=== PATIENT | female | born 1940 | race Caucasian/White ===

== ENCOUNTER 2018-02-20 16:00 | Inpatient (IN) | payer OTHER ==
[2018-02-20 16:40] LABS: Absolute Lymphocytes (CBC) 1.1 K/uL (0.7-4.9); Absolute Monocytes 0.7 K/uL (0.1-1.3); Absolute Neutrophil 4.7 K/uL (1.8-8.0); Basophils % 0.8 % (0-1.3); Hematocrit 35.9 % (36.0-45.0); Lymphocytes % 16.2 % (15.3-44.8); MCH 30.8 pg (27.0-35.0); MCV 93.7 fL (80-100); Monocytes % 9.4 % (3.3-12.3); RBC Red Blood Cell Count 3.83 M/uL (3.86-4.86)
[2018-02-20] MEDS ORDERED: LEVALBUTEROL 1.25 MG/3 ML NEB ONE (16:40)
[2018-02-20 16:41] LABS: Protime INR 1.35
[2018-02-20 17:08] LABS: ALT/SGPT 18 U/L (12-78); AST/SGOT 21 U/L (15-37); Albumin 3.3 g/dL (3.4-5.0); Alkaline Phosphatase 85 U/L (45-117); BUN Blood Urea Nitrogen 15 mg/dL (7-18); Bicarbonate 29 mmol/L (21-32); Bilirubin Direct 0.2 mg/dL (0-0.2); Bilirubin Total 0.5 mg/dL (0.2-1.0); Glucose Level 202 mg/dL (74-106); Magnesium 1.5 mg/dL (1.8-2.4); NT PRO-BNP 2168 pg/mL (<450); Potassium 3.7 mmol/L (3.5-5.1); Protein, Total 7.2 g/dL (6.4-8.2); Sodium Level 141 mmol/L (136-145); Troponin (Emerg Dept Use Only) < 0.02 ng/mL (0.0-0.045)
--- NOTE | 2018-02-20 17:16 | RAD REPORT ---
EXAM DESCRIPTION: Jaclyn Single View02/20/2018 5:06 pm CLINICAL HISTORY: Shortness breath COMPARISON: 2012 FINDINGS: The lungs appear clear of acute infiltrate. The heart is normal size. The right paratracheal region is more prominent than on the prior exam IMPRESSION: Prominence of the right paratracheal region may indicate lymphadenopathy, tortuous vesse ls or be secondary to positioning and technique. PA and lateral chest series is recommended for further evaluation
[2018-02-20] MEDS ORDERED: Magnesium Sulfate 2gm IVPB 2 G/50 ML BAG IV ONE (17:52)
--- NOTE | 2018-02-20 18:10 | RAD REPORT ---
EXAM DESCRIPTION: CT - Chest For Pe Angio - 02/20/2018 5:47 pm CLINICAL HISTORY: Chest pain. DYSPNEA COMPARISON: Chest Single View dated 02/20/2018 TECHNIQUE: CT angiogram of the pulmonary arteries was performed with MIP. All CT scans are performed using dose optimization technique as appropriate and may include automated exposure control or mA/KV adjustment according to patient size. FINDINGS: No evidence of pulmonary thromboembolism. No acute aortic finding demonstrated. Soft tissue masses in the right hilar region, posteriorly measuring 3.3 x 2.3 cm and laterally measur ing 3.4 x 1.9 cm noted, likely representing lymphadenopathy. Subcarinal lymphadenopathy also noted me asuring 14 mm. Trace bilateral pleural effusions. Respiratory artifact is present throughout the lungs but mild inte rstitial pulmonary edema is suspected. A small area of subsegmental atelectasis suspected in the righ t middle lobe. Mild cardiomegaly. No concerning bony finding. IMPRESSION: No evidence of pulmonary thromboembolism. Mediastinal and right hilar lymphadenopathy is suspected. The lymphadenopathy is greater than typical ly seen with a simple reactive process. A follow-up PET-CT scan on a nonemergent basis would be recom mended further assessment. Mild CHF/volume overload suspected with small bilateral pleural effusions.
--- NOTE | 2018-02-20 18:15 | ER ---
Nurse's Notes [facility] Name: Simon Flynn Age: 77 yrs Sex: Female : 1940 Arrival Date: 02/20/2018 Time: 16:01 Bed 4 Private MD: Charles Hammer Diagnosis: Acute combined systolic (congestive) and diastolic (congestive) heart failure Presentation: 02/20 16:03 Presenting complaint: Patient states: She has been short of breath and wheezing for the aj1 past 5 days. Patient appears short of breath in triage. Breath sounds with wheezes bilaterally. Reports productive cough. Denies fever. Transition of care: patient was not received from another setting of care. Onset of symptoms was February 16, 2018. Risk Assessment: Do you want to hurt yourself or someone else? Patient reports no desire to harm self or others. Initial Sepsis Screen: Does the patient meet any 2 criteria? RR > 20 per min. HR > 90 bpm. Yes Does the patient have a suspected source of infection? Yes: Productive cough/pneumonia. Care prior to arrival: None. 16:03 Method Of Arrival: Wheelchair aj1 16:03 Acuity: VELASQUEZ 2 aj1 Historical: - Allergies: 16:06 No Known Allergies; aj1 - Home Meds: 19:15 aspirin 81 mg Oral TbEC 1 tab once daily [Active]; Colace 100 mg Oral cap 2 caps once lp1 daily [Active]; Crestor 10 mg Oral tab 1 tab once daily [Active]; Detrol LA 4 mg Oral cp24 1 cap once daily [Active]; folic acid 400 mcg Oral tab 1 tab once daily [Active]; gabapentin 600 mg Oral tab 1 tab nightly [Active]; lansoprazole 30 mg Oral cpDR 1 cap once daily [Active]; metoprolol tartrate 50 mg Oral tab 1 tab once daily [Active]; Ocuvite [id number] cz-[id number]-mg Oral cap daily [Active]; Plavix 75 mg Oral tab 1 tab once daily [Active]; prednisone 5 mg Oral tab 1 tab once daily [Active]; quinapril 20 mg Oral tab 1 tab once daily [Active]; sertraline 25 mg Oral tab 1 tab once daily [Active]; Synthroid 125 mcg Oral tab 1 tab once daily [Active]; - PMHx: 16:06 Back pain; Diabetes - NIDDM; High Cholesterol; Hypertension; Hypothyroidism; Lupus; aj1 - Immunization history:: Flu vaccine is up to date. - Social history:: Smoking status: Patient/guardian denies using tobacco. - Ebola Screening: : Patient denies travel to an Ebola-affected area in the 21 days before illness onset. Screenin:22 Abuse screen: Denies threats or abuse. Denies injuries from another. Nutritional bp screening: No deficits noted. Tuberculosis screening: No symptoms or risk factors identified. Fall Risk None identified. Assessment: 16:20 General: Appears distressed, comfortable, obese, Behavior is cooperative, appropriate bp for age, anxious. Pain: Denies pain. Neuro: Level of Consciousness is awake, alert, obeys commands, Oriented to person, place, time, situation, Appropriate for age. Cardiovascular: Rhythm is sinus tachycardia. Respiratory: Airway is patent Respiratory effort is even, labored, Respiratory pattern is symmetrical, Breath sounds with wheezes. GI: No signs and/or symptoms were reported involving the gastrointestinal system. : No signs and/or symptoms were reported regarding the genitourinary system. EENT: No deficits noted. Derm: No deficits noted. Musculoskeletal: Circulation, motion, and sensation intact. Range of motion: intact in all extremities. 17:17 Reassessment: ALL CURRENT ORDERS COMPLETED, RESULTS PENDING. bp 17:32 Reassessment: PT TO CT WITH [employer]. bp 18:07 Reassessment: ALL CURRENT ORDERS COMPLETED, CT RESULTS PENDING FOR DISPO. bp 19:10 Reassessment: Patient appears in no apparent distress at this time. Neuro: Level of lp1 Consciousness is awake, alert, obeys commands. Respiratory: Reports shortness of breath at rest Respiratory effort is even, labored, Breath sounds are diminished bilaterally. Onset: The symptoms/episode began/occurred gradually, the patient has moderate shortness of breath. Derm: Skin is pink, warm \T\ dry. 20:15 Reassessment: Patient assisted with brief change after voiding. lp1 Vital Signs: 16:06 BP 140 / 86; Pulse 131; Resp 24; Temp 97.2; Pulse Ox 92% on R/A; aj1 17:14 BP 149 / 93; Pulse 133; Resp 18; Pulse Ox 95% ; bp 18:07 BP 138 / 63; Pulse 52; Resp 14; Pulse Ox 97% ; bp 19:11 BP 155 / 74; Pulse 90; Resp 22; Temp 98.9(O); Pulse Ox 97% on 2 lpm NC; lp1 20:18 BP 121 / 60; Pulse 111; Resp 20; Pulse Ox 99% on 2 lpm NC; lp1 ED Course: 16:01 Patient arrived in ED. rg4 16:01 Charles Hammer MD is Private Physician. rg4 16:06 Triage completed. aj1 16:06 Arm band placed on Patient placed in an exam room. aj1 16:07 Keith Galvan PA is PHCP. jr8 16:07 Germán Allen MD is Attending Physician. jr8 16:08 Ezio Whitten RN is Primary Nurse. bp 16:22 Patient has correct armband on for positive identification. Placed in gown. Bed in low bp position. Call light in reach. Side rails up X2. 16:30 Inserted saline lock: 20 gauge in right forearm, using aseptic technique. Blood bp collected. 16:36 EKG done, by pyrotechnician. reviewed by Keith DAVILA. 3 17:06 X-ray completed. Portable x-ray completed in exam room. Patient tolerated procedure mh1 well. 17:07 XRAY Chest (1 view) In Process Unspecified. EDMS 17:48 CT Chest For PE Angio In Process Unspecified. EDMS 18:14 Charles Hammer MD is Hospitalizing Provider. jr8 19:12 No provider procedures requiring assistance completed. Patient admitted, IV remains in lp1 place. Administered Medications: 16:40 Drug: Xopenex 1.25 mg Route: Inhalation; bp 17:45 Drug: Magnesium Sulfate 2 grams Route: IVPB; Infused Over: 2 hrs; Site: right forearm; bp 18:53 Drug: Lasix 40 mg Route: IVP; Site: right forearm; bp 19:20 Follow up: Response: No adverse reaction lp1 Outcome: 18:14 Decision to Hospitalize by Provider. jr8 19:15 Condition: stable lp1 19:15 Instructed on the need for admit. 19:28 Admitted to Tele via stretcher, room 426, with oxygen, with chart, Report called to lp1 ARASH Rashid 20:30 Patient left the ED. lp1 Signatures: Dispatcher [employer] EDMS Bhumi Marie RN RN aj1 Bernie Avalos 1 Mary Resendiz RN RN lp1 Keith Galvan PA PA jr8 Tanika Gomez rg4 Ezio Whitten RN RN Hanna Alarcon 3 Corrections: (The following items were deleted from the chart) 19:12 19:10 Respiratory: Respiratory effort is even, labored, Breath sounds are diminished lp1 bilaterally. lp1 20:48 20:47 Patient left the ED. lp1 lp1
--- NOTE | 2018-02-20 18:15 | EDPHYS ---
Physician Documentation [facility] Name: Simon Flynn Age: 77 yrs Sex: Female : 1940 Arrival Date: 02/20/2018 Time: 16:01 Bed 4 Private MD: Charles Hammer ED Physician Germán Allen HPI: 02/20 16:30 This 77 yrs old Female presents to ER via Wheelchair with complaints of jr8 Breathing Difficulty. 16:30 The patient has shortness of breath at rest. Onset: The symptoms/episode began/occurred jr8 gradually, 4 day(s) ago. Duration: The symptoms are continuous. The patient's shortness of breath is aggravated by light activity. Associated signs and symptoms: Pertinent positives: non-productive cough. Severity of symptoms: in the emergency department the symptoms are unchanged. The patient has not experienced similar symptoms in the past. The patient has not recently seen a physician. Historical: - Allergies: 16:06 No Known Allergies; aj1 - Home Meds: 19:15 aspirin 81 mg Oral TbEC 1 tab once daily [Active]; Colace 100 mg Oral cap 2 caps once lp1 daily [Active]; Crestor 10 mg Oral tab 1 tab once daily [Active]; Detrol LA 4 mg Oral cp24 1 cap once daily [Active]; folic acid 400 mcg Oral tab 1 tab once daily [Active]; gabapentin 600 mg Oral tab 1 tab nightly [Active]; lansoprazole 30 mg Oral cpDR 1 cap once daily [Active]; metoprolol tartrate 50 mg Oral tab 1 tab once daily [Active]; Ocuvite 147-12-9-150 of-nasd-ca-mg Oral cap daily [Active]; Plavix 75 mg Oral tab 1 tab once daily [Active]; prednisone 5 mg Oral tab 1 tab once daily [Active]; quinapril 20 mg Oral tab 1 tab once daily [Active]; sertraline 25 mg Oral tab 1 tab once daily [Active]; Synthroid 125 mcg Oral tab 1 tab once daily [Active]; - PMHx: 16:06 Back pain; Diabetes - NIDDM; High Cholesterol; Hypertension; Hypothyroidism; Lupus; aj1 - Immunization history:: Flu vaccine is up to date. - Social history:: Smoking status: Patient/guardian denies using tobacco. - Ebola Screening: : Patient denies travel to an Ebola-affected area in the 21 days before illness onset. ROS: 16:48 Eyes: Negative for injury, pain, redness, and discharge, ENT: Negative for injury, jr8 pain, and discharge, Neck: Negative for injury, pain, and swelling, Cardiovascular: Negative for chest pain, palpitations, and edema, Abdomen/GI: Negative for abdominal pain, nausea, vomiting, diarrhea, and constipation, Back: Negative for injury and pain, MS/Extremity: Negative for injury and deformity, Skin: Negative for injury, rash, and discoloration, Neuro: Negative for headache, weakness, numbness, tingling, and seizure. 16:48 Respiratory: Positive for cough, shortness of breath. Exam: 16:48 Eyes: Pupils equal round and reactive to light, extra-ocular motions intact. Lids and jr8 lashes normal. Conjunctiva and sclera are non-icteric and not injected. Cornea within normal limits. Periorbital areas with no swelling, redness, or edema. ENT: Nares patent. No nasal discharge, no septal abnormalities noted. Tympanic membranes are normal and external auditory canals are clear. Oropharynx with no redness, swelling, or masses, exudates, or evidence of obstruction, uvula midline. Mucous membranes moist. Neck: Trachea midline, no thyromegaly or masses palpated, and no cervical lymphadenopathy. Supple, full range of motion without nuchal rigidity, or vertebral point tenderness. No Meningismus. Abdomen/GI: Soft, non-tender, with normal bowel sounds. No distension or tympany. No guarding or rebound. No evidence of tenderness throughout. Back: No spinal tenderness. No costovertebral tenderness. Full range of motion. Skin: Warm, dry with normal turgor. Normal color with no rashes, no lesions, and no evidence of cellulitis. MS/ Extremity: Pulses equal, no cyanosis. Neurovascular intact. Full, normal range of motion. Neuro: Awake and alert, GCS 15, oriented to person, place, time, and situation. Cranial nerves II-XII grossly intact. Motor strength 5/5 in all extremities. Sensory grossly intact. Cerebellar exam normal. Normal gait. 16:48 Cardiovascular: Rate: tachycardic, Rhythm: regular, Pulses: Pulses are 2+ in right radial artery and left radial artery. Heart sounds: normal, normal S1and S2, no S3 or S4, no murmur, no rub, no gallop, Edema: is not appreciated. 16:48 Respiratory: mild respiratory distress is noted, Respirations: tachypnea, Breath sounds: wheezing: expiratory that is mild, is heard in the left posterior lower lobe, right posterior middle lobe and right posterior lower lobe. Vital Signs: 16:06 BP 140 / 86; Pulse 131; Resp 24; Temp 97.2; Pulse Ox 92% on R/A; aj1 17:14 BP 149 / 93; Pulse 133; Resp 18; Pulse Ox 95% ; bp 18:07 BP 138 / 63; Pulse 52; Resp 14; Pulse Ox 97% ; bp 19:11 BP 155 / 74; Pulse 90; Resp 22; Temp 98.9(O); Pulse Ox 97% on 2 lpm NC; lp1 20:18 BP 121 / 60; Pulse 111; Resp 20; Pulse Ox 99% on 2 lpm NC; lp1 MDM: 16:08 Patient medically screened. jr8 18:13 Data reviewed: vital signs, nurses notes, lab test result(s), EKG, radiologic studies, jr8 CT scan, plain films. Counseling: I had a detailed discussion with the patient and/or guardian regarding: the historical points, exam findings, and any diagnostic results supporting the discharge/admit diagnosis, lab results, radiology results, the need for further work-up and treatment in the hospital. 18:46 Physician consultation: Charles Hammer MD was contacted at 18:47, regarding admission, pm1 patient's condition, and will see patient. 02/20 16:19 Order name: Basic Metabolic Panel; Complete Time: 17:16 02/20 16:19 Order name: CBC with Diff; Complete Time: 16:43 02/20 16:19 Order name: LFT's; Complete Time: 17:16 02/20 16:19 Order name: Magnesium; Complete Time: 17:16 02/20 16:19 Order name: NT PRO-BNP; Complete Time: 17:16 02/20 16:19 Order name: PT-INR; Complete Time: 16:48 02/20 16:19 Order name: Troponin (emerg Dept Use Only); Complete Time: 17:16 02/20 16:19 Order name: XRAY Chest (1 view); Complete Time: 17:16 8 02/20 16:19 Order name: EKG; Complete Time: 16:20 8 02/20 16:19 Order name: Cardiac monitoring; Complete Time: 16:24 8 02/20 17:17 Order name: CT Chest For PE Angio; Complete Time: 18:11 8 02/20 16:19 Order name: EKG - Nurse/Tech; Complete Time: 16:35 8 02/20 16:19 Order name: IV Saline Lock; Complete Time: 16:35 8 02/20 16:19 Order name: Labs collected and sent; Complete Time: 16:35 8 02/20 16:19 Order name: O2 Per Protocol; Complete Time: 16:24 8 02/20 16:19 Order name: O2 Sat Monitoring; Complete Time: 16:24 Administered Medications: 16:40 Drug: Xopenex 1.25 mg Route: Inhalation; bp 17:45 Drug: Magnesium Sulfate 2 grams Route: IVPB; Infused Over: 2 hrs; Site: right forearm; bp 18:53 Drug: Lasix 40 mg Route: IVP; Site: right forearm; bp 19:20 Follow up: Response: No adverse reaction lp1 Disposition: 02/21 07:25 Co-signature as Attending Physician, Germán Allen MD I agree with the assessment and becky plan of care. Disposition: 02/20/18 18:14 Hospitalization ordered by Charles Hammer for Inpatient Admission. Preliminary diagnosis is Acute combined systolic (congestive) and diastolic (congestive) heart failure. - Bed requested for Telemetry/MedSurg (Inpatient). - Status is Inpatient Admission. lp1 - Condition is Stable. - Problem is new. - Symptoms have improved. UTI on Admission? No Signatures: Dispatcher [employer] EDMS Bhumi Marie RN RN aj1 Renetta Lovell RN RN dw Anderson, Corey, MD MD cha Pena, Laura, RN RN lp1 Keith Galvan PA PA jr8 Florentino Moon, PANDA FIN[employer]CIAL REP pm1 Ezio Whitten RN RN bp Corrections: (The following items were deleted from the chart) 02/20 19:03 18:14 Hospitalization Ordered by Charles Hammer MD for Inpatient Admission. Preliminary dw diagnosis is Acute combined systolic (congestive) and diastolic (congestive) heart failure. Bed requested for Telemetry/MedSurg (Inpatient). Status is Inpatient Admission. Condition is Stable. Problem is new. Symptoms have improved. UTI on Admission? No. jr8 20:47 19:03 02/20/2018 18:14 Hospitalization Ordered by Charles Hammer MD for Inpatient lp1 Admission. Preliminary diagnosis is Acute combined systolic (congestive) and diastolic (congestive) heart failure. Bed requested for Telemetry/MedSurg (Inpatient). Status is Inpatient Admission. Condition is Stable. Problem is new. Symptoms have improved. UTI on Admission? No. dw
[2018-02-20] MEDS ORDERED: FUROSEMIDE 40 MG/4 ML VIAL ONE (18:50)
[2018-02-20] MEDS ORDERED: ALBUTEROL 2.5 MG/3 ML NEB SOL NEB PRN (21:33)
[2018-02-20] MEDS ORDERED: ACETAMINOPHEN 500 MG TAB PO PRN (21:33)
[2018-02-20] MEDS ORDERED: ONDANSETRON 4 MG/2 ML VIAL IV PRN (21:33)
[2018-02-20] MEDS ORDERED: D50W 25 GM/50 ML SYRINGE IV PRN (22:13)
[2018-02-20] MEDS ORDERED: GLUCAGON 1 MG/VIAL IM PRN (22:13)
[2018-02-21 00:16] LABS: Urine Appearance CLEAR; Urine Bilirubin NEGATIVE (NEG); Urine Blood NEGATIVE (NEG); Urine Color YELLOW; Urine Glucose NEGATIVE (NEG); Urine Protein NEGATIVE (NEG); Urine Specific Gravity 1.015 (1.005-1.030); Urine Urobilinogen 0.2 mg/dL (0.2-1.0); Urine pH 5.5 (5.0-7.0)
[2018-02-21 00:50] LABS: Urine Microscopic Reflex NO UMIC
--- NOTE | 2018-02-21 01:54 | HP ---
Date of Admission: 02/20/2018 Chief Complaint: Shortness of breath. History Of Present Illness: This is a 77-year-old female patient who was having increasing shortness of breath for last few days. She has some cough, chest congestion, coughing up occasional yellowish-colored to clear mucus. No fever. No chills. Today, she was at physical therapy department; and while she was there, she was having so extreme shortness of breath. She gets short of breath with feeling very weak with any day-to-day activity, and I was contacted from this therapy department. Her oxygen saturation was 85%, which came up to 92% while resting. She was asked to come to emergency room after she was evaluated in the ER, she was admitted to the hospital. I saw her in the emergency room this evening. The patient was given diuretic therapy and has diuresed well and has started to feel better. Allergies: HYDROXYCHLOROQUINE. Medications: List reviewed. Review of Systems: Respiratory: As mentioned above. Cardiovascular: As mentioned above. All other systems reviewed and negative. Social History: Negative for smoking or alcohol use. Family History: Significant for myocardial infarction, stroke, and congestive heart failure. Past Surgical History: Significant for back surgery and carpal tunnel syndrome surgery. Past Medical History: Significant for hypertension, type 2 diabetes mellitus, hyperlipidemia, thrombocytopenia, osteoarthritis, chronic kidney disease stage 3 , systemic lupus erythematosus, and hypothyroidism. Physical Examination: Vital Signs: Initial temperature 97.2, pulse 131, respiratory rate 24, blood pressure 141/86, height 4 feet 11 inches, and weight 234 pounds. I do not believe that the patient's height is recorded accurately as she is taller than 4 feet and 11 inches. General: Awake, alert, oriented, not in distress. HEENT: Head atraumatic, normocephalic. Conjunctivae nonerythematous. Sclerae white. Mouth, no thrush or edema noted. Ears/Nose, no mass, lesion, discharge noted. Neck: Supple. No JVD, lymph nodes, bruit, thyromegaly noted. Lungs: Bilateral good equal air entry noted. Respiratory distress. Presence of some rales noted in lower lung hurtado. Heart: Normal heart sounds, no murmur or gallop. Abdomen: Soft, bowel sounds normal. No guarding, rigidity, tenderness, mass, hepatosplenomegaly, distention, or bruit noted. Extremities: Bilateral grade-2 pedal edema. Skin: No rash, ulcer, cellulitis. Lymphatics: No lymph node enlargement in neck, supraclavicular, infraclavicular region. Neuro: No focal neurological deficit. Chest: Unremarkable. External Genitalia: Deferred. Rectal: Deferred. Laboratory Data: White count 7, hemoglobin 11.8, and platelets 223. INR 1.35. Sodium 141, potassium 3.7, chloride 105, bicarb 29, BUN 15, creatinine 1.20, glucose 202, and magnesium 1.5. Liver function tests unremarkable. ProBNP 2168. Imaging: Chest x-ray: Prominence of right paratracheal region. CT scan of the chest per PE protocol: No evidence of pulmonary embolism. Mediastinal and right hilar adenopathy is suspected. CHF and volume overload pattern present with bilateral pleural effusion. Impression: 1. Congestive heart failure. 2. Anemia. 3. Hypertension. 4. Hyperlipidemia. 5. Diabetes mellitus. 6. Osteoarthritis, multiple sites. 7. Hypothyroidism. Plan: Admit the patient to hospital for further evaluation and management of this problem. The patient is appropriate for inpatient and is expected to spend 2 midnights in the hospital. We will go ahead and continue home medications per order. The patient received diuretic therapy. We will continue that. We will continue oxygen nebulizer treatment. We will get echocardiogram with Doppler done. Further plan of treatment will depend on echocardiogram findings. Details of plan of treatment were discussed with the patient. The patient should be of low-salt diet. DVT prophylaxis will be given per order. JANNA/NIYA Voice ID: [id number] MTDD
[2018-02-21 05:02] LABS: Absolute Lymphocytes (CBC) 1.2 K/uL (0.7-4.9); Absolute Monocytes 0.9 K/uL (0.1-1.3); Absolute Neutrophil 5.1 K/uL (1.8-8.0); Eosinophils % 6.2 % (0-4.4); Hematocrit 32.9 % (36.0-45.0); Lymphocytes % 15.3 % (15.3-44.8); MCH 31.4 pg (27.0-35.0); MCV 91.9 fL (80-100); MPV 10.8 fL (7.6-11.3); Monocytes % 11.2 % (3.3-12.3); RBC Red Blood Cell Count 3.58 M/uL (3.86-4.86)
[2018-02-21 05:12] LABS: Potassium 3.5 mmol/L (3.5-5.1)
--- NOTE | 2018-02-21 06:51 | EKG ---
Test Date: 2018-02-20 Test Time: 16:30:39 Professor Of Business Administration: RAPHAEL MEASUREMENT RESULTS: Intervals: Rate: 84 HI: 322 QRSD: 70 QT: 364 QTc: 430 [place]: P: 4 HI: 322 QRS: -87 T: 46 INTERPRETIVE STATEMENTS: Sinus rhythm with 1st degree AV block with premature atrial complexes Left axis deviation Low voltage QRS Abnormal ECG Compared to ECG 04/04/2011 10:41:01 Atrial premature complex(es) now present First degree AV block now present Left-axis deviation now present Low QRS voltage now present Right superior axis no longer present Incomplete right bundle-branch block no longer present Electronically Signed On 02-21-18 06:50:31 CDT by Elmer Barriga
[2018-02-21] MEDS: INSULIN -REGULAR HUMAN 50 UNIT/0.5 ML ML SQ SCH ×4 (07:30→21:00)
[2018-02-21] MEDS ORDERED: FUROSEMIDE 20 MG/ 2ML VIAL IV SCH (09:00)
[2018-02-21] MEDS ORDERED: DOCUSATE NA 100 MG CAP PO PRN (09:35)
[2018-02-21] MEDS ORDERED: HYDROCODONE/APAP 7.5/325 MG TAB PO PRN (09:35)
--- NOTE | 2018-02-21 10:46 | ECHO ---
HEIGHT: 4 ft 11 in WEIGHT: 233 lb 3.2 oz DATE OF STUDY: 02/21/[address]: Ruddy Galvan 2-DIMENSIONAL: YES M.MODE: YES DOPPLER: YES COLOR FLOW: YES TDS: YES PORTABLE: NO DEFINITY: NO BUBBLE STUDY: NO DIAGNOSIS: NEW ONSET HEART FAILURE CARDIAC HISTORY: CATHERIZATION: NO SURGERY: NO PROSTHETIC VALVE: NO PACEMAKER: NO MEASUREMENTS (cm) DIASTOLIC (NORMALS) SYSTOLIC (NORMALS) IVSd 1.0 (0.6-1.2) LA Diam 3.8 (1.9-4.0) LVEF 51% LVIDd 3.9 (3.5-5.7) LVIDs 2.9 (2.0-3.5) %FS 26% LVPWd 1.1 (0.6-1.2) Ao Diam 3.2 (2.0-3.7) 2 DIMENSIONAL ASSESSMENT: RIGHT ATRIUM: NORMAL LEFT ATRIUM: NORMAL RIGHT VENTRICLE: NORMAL LEFT VENTRICLE: NORMAL TRICUSPID VALVE: NORMAL MITRAL VALVE: NORMAL PULMONIC VALVE: NORMAL AORTIC VALVE: SCLEROSIS PERICARDIAL EFFUSION: NONE AORTIC ROOT: NORMAL LEFT VENTRICULAR WALL MOTION: NORMAL DOPPLER/COLOR FLOW: NO AORTIC STENOSIS OR AORTIC REGURGITATION. MILD TRICUSPID REGURGITATION. NORMAL RIGHT VENTRICULAR SYSTOLIC PRESSURE. COMMENTS: NORMAL LEFT VENTRICULAR EJECTION FRACTION. AORTIC SCLEROSIS WITH NO AORTIC STENOSIS OR AORTIC REGURGITATION. MILD TRICUSPID REGURGITATION. TECHNOLOGIST: Diamond STEPHENS
[2018-02-21] MEDS: ENOXAPARIN 40 MG/0.4 ML SQ SCH (11:04)
[2018-02-21] MEDS: Levofloxacin500mg IV 500 MG/100 ML BAG IV SCH (11:05)
[2018-02-21] MEDS: LISINOPRIL 20 MG TAB PO SCH (11:06)
[2018-02-21] MEDS: FUROSEMIDE 40 MG/4 ML VIAL IV SCH (11:06)
[2018-02-21] MEDS: METOPROLOL TAR 50 MG TAB PO SCH ×2 (11:07→20:37)
[2018-02-21] MEDS: FOLIC ACID 1 MG TABLET PO SCH (11:07)
[2018-02-21] MEDS: CLOPIDOGREL 75 MG TABLET PO SCH (11:07)
[2018-02-21] MEDS: predniSONE 5 MG TAB PO SCH (11:07)
[2018-02-21] MEDS: ASPIRIN 81 MG CHEWABLE TABLET PO SCH (11:08)
[2018-02-21] MEDS: PANTOPRAZOLE 40MG TABLET PO SCH (11:16)
--- NOTE | 2018-02-21 12:02 | P.CNS ---
Date of Consult: 02/21/18 Reason for Consult: Mediastinal adenopathy and wheezing Chief Complaint: Shortness of breath History of Present Illness: Patient is 77 years of age previously well over the weekend started complaining of wheezing shortness of breath on exertion no prior history of obstructive airways disease patient has never smoked no prior history of wheezing the history of lupus history of hypertension compliant with them patient denies any fever chills some productive cough Allergies hydroxychloroquine Allergy (Verified 02/21/18 02:20) unknown Home Medications: Aspirin Chewable [Aspirin Chewable*] 81 mg PO DAILY 02/21/18 C,E,Zinc,Copper 11/Ksjkl0z/Lut [Ocuvite Adult 50 Plus Softgel] 1 each PO DAILY 02/21/18 Clopidogrel Bisulfate [Plavix] 75 mg PO DAILY 02/21/18 Diphenhydramine [Benadryl Tab/Cap] 25 mg PO BEDTIME PRN PRN 02/21/18 Docusate [Colace Cap] 100 mg PO DAILY PRN 02/21/18 Folic Acid 0.4 mg PO DAILY 02/21/18 Gabapentin [Neurontin] 600 mg PO BEDTIME 02/21/18 Glimepiride [Amaryl] 2 mg PO BID 02/21/18 Hydrocodone Bit/Acetaminophen [Hydrocodon-Acetaminoph 7.5-325] 1 tab PO Q8H PRN 02/21/18 Lansoprazole [Prevacid] 30 mg PO DAILY 02/21/18 Levothyroxine [Synthroid] 125 mcg PO [id number] 02/21/18 Metoprolol Tartrate [Lopressor] 50 mg PO BID 02/21/18 Quinapril HCl [Accupril] 20 mg PO DAILY 02/21/18 Rosuvastatin [Crestor] 10 mg PO BEDTIME 02/21/18 Tolterodine Tartrate [Detrol LA*] 4 mg PO DAILY 02/21/18 predniSONE [Deltasone] 5 mg PO DAILY 02/21/18 - Past Medical/Surgical History Diabetic: Yes -: HTN -: HLD -: Hypothyroidism -: Lupus -: Depression -: Polyps in the intestin -: CVA (2009) Past Surgical History: Patient denies surgical history - Family History Father Medical History: Cancer Notes: brain bleed s/p fall Mother Notes: macular degeneration, depression, brain bleed as stated Sister Medical History: Heart disease, Kidney disease Notes: Heart failure as stated - Social History Smoking Status: Never smoker Alcohol use: Yes CD- Drugs: No Caffeine use: Yes Place of Residence: Home Review of Systems 10-point ROS is otherwise unremarkable General: Weakness Respiratory: Cough, Shortness of Breath Physical Examination Temp Pulse Resp BP Pulse Ox 98.2 F 95 H 20 145/70 H 96 02/21/18 08:00 02/21/18 11:07 02/21/18 08:00 02/21/18 11:07 02/21/18 08:00 General: Alert, Oriented x3 Neck: Supple Respiratory: Clear to auscultation bilaterally Cardiovascular: No edema, Regular rate/rhythm, Normal S1 S2 Gastrointestinal: Normal bowel sounds, Soft and benign Musculoskeletal: No clubbing, No swelling Integumentary: No rashes, No breakdown Laboratory Data (last 24 hrs) 02/20/18 16:30: PT 16.0 H, INR 1.35 02/20/18 16:30: WBC 7.0, Hgb 11.8 L, Hct 35.9 L, Plt Count 223 02/20/18 16:30: Sodium 141, Potassium 3.7, BUN 15, Creatinine 1.20, Glucose 202 H, Magnesium 1.5 L, Total Bilirubin 0.5, AST 21, ALT 18, Alkaline Phosphatase 85 - Problems (1) Shortness of breath Current Visit: Yes Status: Acute Plan: Patient is 77 years of age admitted with acute onset of shortness of breath wheezing dyspnea on exertion BNP elevated patient is mildly anemic CT scan does not show any pulmonary embolism she does however have mediastinal and right hilar adenopathy which is very prominent renal function is normal patient sat is 98% on 2 L patient's echocardiogram is normal continue with Lasix will need outpatient the distal biopsy for her lymphadenopathy that be done in [place] no clinical evidence of sepsis patient is a diabetic on low-dose prednisone trial of bronchodilators suspect that she has had chronic mediastinal adenopathy and this may be a viral induced problem as he she has also had some nonspecific abdominal complaints recently prescribed her dual air and the hospital where she could continue as an outpatient PET scan will not be helpful she will need a biopsy of the mediastinum
[2018-02-21] MEDS: DULERA 200/5 (MOMETASONE/FORMOTEROL) INHALER IH SCH ×2 (13:35→21:52)
[2018-02-21] MEDS: TOLTERODINE LA 4 MG CAP PO SCH (13:37)
[2018-02-21] MEDS: GABAPENTIN 300 MG CAP PO SCH (20:38)
[2018-02-21] MEDS: DIPHENHYDRAMINE 25 MG TAB/CAP PO PRN (20:38)
[2018-02-21] MEDS: ROSUVASTATIN 10 MG TAB PO SCH (20:38)
--- NOTE | 2018-02-22 00:03 | PN ---
Date of Progress Note: 02/21/2018 Subjective: The patient was seen this morning for followup. No new complaints or problems reported by the patient. She is coughing up some yellowish-colored mucus that she was showing me this morning . Objective: Vital Signs: Reviewed. HEENT: Unremarkable. Lungs: Clear to auscultation except some rales present, unchanged from yesterday. Not in respirator y distress. CARDIAC: Heart sounds normal. ABDOMEN: Soft. Bowel sounds normal. No guarding, rigidity, tenderness, or distention. Extremities: Bilateral leg edema present. Laboratory Data: White count 7.7, hemoglobin 11.3, platelets 218. Sodium 142, potassium is 3.5, chl oride 105, bicarb 28, BUN 15, creatinine 1, glucose 134. ProBNP 2205. Impression: 1.Congestive heart failure. 2.Rule out pneumonia. 3.Hypertension. 4.Diabetes mellitus. Plan: The patient's CAT scan finding discussed with her. We will go ahead and start empiric antibio tic which is Levaquin. Consult colorer machine. Follow up on echocardiogram results today. Lasix was changed to 40 mg IV daily. Continue current DVT prophylaxis, and I will see her tomorrow for follow up. JANNA/MODL Voice ID: [id number] Report ID: [id number]
[2018-02-22] MEDS: LEVOTHYROXINE SOD 0.125 MG TAB PO SCH (06:51)
[2018-02-22] MEDS: PANTOPRAZOLE 40MG TABLET PO SCH (06:51)
[2018-02-22] MEDS: INSULIN -REGULAR HUMAN 50 UNIT/0.5 ML ML SQ SCH ×4 (07:30→20:49)
[2018-02-22] MEDS: predniSONE 5 MG TAB PO SCH (08:41)
[2018-02-22] MEDS: LISINOPRIL 20 MG TAB PO SCH (08:41)
[2018-02-22] MEDS: DULERA 200/5 (MOMETASONE/FORMOTEROL) INHALER IH SCH ×2 (08:41→20:40)
[2018-02-22] MEDS: FOLIC ACID 1 MG TABLET PO SCH (08:44)
[2018-02-22] MEDS: METOPROLOL TAR 50 MG TAB PO SCH ×2 (08:44→20:41)
[2018-02-22] MEDS: CLOPIDOGREL 75 MG TABLET PO SCH (08:45)
[2018-02-22] MEDS: FUROSEMIDE 40 MG/4 ML VIAL IV SCH (08:45)
[2018-02-22] MEDS: ASPIRIN 81 MG CHEWABLE TABLET PO SCH (08:46)
[2018-02-22] MEDS: ENOXAPARIN 40 MG/0.4 ML SQ SCH (08:48)
[2018-02-22] MEDS: Levofloxacin500mg IV 500 MG/100 ML BAG IV SCH (09:44)
--- NOTE | 2018-02-22 11:26 | P.PN ---
Subjective Date of Service: 02/22/18 Chief Complaint: Shortness of breath Subjective: Improving (Shortness of breath is not) Review of Systems Unremarkable Physical Examination - Vital Signs Temperature: 97.5 F Blood Pressure: 108/52 Pulse: 68 Respirations: 18 Pulse Ox (%): 97 - Physical Exam General: Alert, Oriented x3 Respiratory: Clear to auscultation bilaterally Cardiovascular: No edema Assessment & Plan - Problems (Diagnosis) (1) Shortness of breath Current Visit: Yes Status: Acute Plan: Patient shortness of breath has improved continue with inhaled bronchodilators at home continue with diuretics I suggest spironolactone instead of Lasix patient has normal renal function probably has underlying element of diastolic dysfunction follow-up with me in 2 weeks will schedule an outpatient biopsy of a subcarinal
[2018-02-22] MEDS: TOLTERODINE LA 4 MG CAP PO SCH (14:35)
[2018-02-22] MEDS: ROSUVASTATIN 10 MG TAB PO SCH ×2 (20:40→20:42)
[2018-02-22] MEDS: DIPHENHYDRAMINE 25 MG TAB/CAP PO PRN (20:42)
[2018-02-22] MEDS: GABAPENTIN 300 MG CAP PO SCH (20:49)
--- NOTE | 2018-02-23 00:03 | PN ---
Date of Progress Note: 02/22/2018 Subjective: The patient was seen this morning for followup. No new complaints or problems reported by the patient. Overall, she feels better. Objective: Vital Signs: Reviewed. HEENT: Unremarkable. Lungs: Clear to auscultation except minimum rales noted in lower lung hurtado in basal region, not in any respiratory distress. Heart: Heart sounds normal. Abdomen: Soft. Bowel sounds are normal. No guarding, rigidity, tenderness, or distention. Extremities: Bilateral leg edema present but better than yesterday. Laboratory Data: Her echocardiogram done yesterday shows normal ejection fraction of 51% and echocar diogram was unremarkable. Impression: 1.Hilal and mediastinal lymphadenopathy. 2.Acute bronchitis. 3.Pulmonary mass. 4.Hypertension. 5.Diabetes mellitus. Originally, we were suspecting the patient to have congestive heart failure, but we do not believe th at she has that problem. Her leg swelling is much better compared to yesterday. We will go ahead an d continue Lasix today. Continue antibiotic Levaquin that she is currently getting. Plan is to give her 10 more days of Levaquin by mouth 500 mg p.o. daily starting tomorrow. Today, we will continue IV Levaquin. Plan is to discharge her to go home tomorrow. Details were discussed with Dr. Swanson and his consultation is appreciated. He is planning to send the patient on outpatient basis to [facility] [place] for biopsy for this abnormality noted on the CAT scan and the patient was made aware of this plan. JANNA/MODL Voice ID: [id number] Report ID: [id number]
[2018-02-23] MEDS: LEVOTHYROXINE SOD 0.125 MG TAB PO SCH (06:34)
[2018-02-23] MEDS: PANTOPRAZOLE 40MG TABLET PO SCH (06:34)
[2018-02-23] MEDS: INSULIN -REGULAR HUMAN 50 UNIT/0.5 ML ML SQ SCH ×3 (07:30→16:30)
[2018-02-23] MEDS: FUROSEMIDE 40 MG/4 ML VIAL IV SCH (10:03)
[2018-02-23] MEDS: DULERA 200/5 (MOMETASONE/FORMOTEROL) INHALER IH SCH (10:04)
[2018-02-23] MEDS: predniSONE 5 MG TAB PO SCH (10:04)
[2018-02-23] MEDS: LISINOPRIL 20 MG TAB PO SCH (10:04)
[2018-02-23] MEDS: METOPROLOL TAR 50 MG TAB PO SCH (10:04)
[2018-02-23] MEDS: ASPIRIN 81 MG CHEWABLE TABLET PO SCH (10:05)
[2018-02-23] MEDS: ENOXAPARIN 40 MG/0.4 ML SQ SCH (10:05)
[2018-02-23] MEDS: TOLTERODINE LA 4 MG CAP PO SCH (10:05)
[2018-02-23] MEDS: CLOPIDOGREL 75 MG TABLET PO SCH (10:05)
[2018-02-23] MEDS: Levofloxacin500mg IV 500 MG/100 ML BAG IV SCH (12:28)
[2018-02-23] MEDS: FOLIC ACID 1 MG TABLET PO SCH (12:29)
--- NOTE | 2018-02-24 06:12 | DS ---
Date of Discharge: 02/23/2018 Disposition: Discharged to go home. Physical Examination: HEENT: Unremarkable. Lungs: Clear to auscultation. Heart: Sounds normal. Abdomen: Soft. Bowel sounds normal. No guarding, rigidity, tenderness, or distention. Extremities: Trace leg edema. Hospital Course: A 77-year-old female patient admitted to the hospital with complaints of shortness of breath. Please see dictated H and P for more information. When she first came in, her WBC count was 7. Hemoglobin was 11.8, platelets 223. Liver function tests unremarkable. ProBNP was 2168. So dium 141, potassium of 3.7, chloride 105, bicarb 29, BUN 15, creatinine 1.20, and glucose 202. Chest x-ray had shown prominence of right paratracheal region. CAT scan of the chest per PE protocol was negative for pulmonary embolism, but it did show evidence of mediastinal and right hilar adenopathy a nd CHF/volume overload pattern present with bilateral pleural effusion. Dr. Swanson from Pulmonary was consulted, and he was consulted for this abnormal CAT scan of the chest. The patient was given D VT prophylaxis during this hospitalization. She was also given IV diuretic therapy using Lasix. She diuresed well. Her leg swelling improved. Shortness of breath complaints improved. She also was h aving problems with cough, chest congestion, and was coughing up some yellowish-colored mucus for few days prior to admission, and empiric antibiotics were started using Levaquin. Echocardiogram showed normal ejection fraction. Dr. Swanson has suggested outpatient elective biopsy of this mediastinal and hilar adenopathy area to be done in [place], and he will make that arrangement on outpatient bas is when he sees the patient for followup in 2 weeks. The patient was made aware of this plan. She c vinita in with sinus rhythm; but after her admission to the hospital, she did convert to atrial fibrilla tion during this hospitalization as it was noted on telemetry. She was asymptomatic. Heart rate was controlled. Dr. Barriga was consulted from Cardiology. I did talk to him in detail today, and he h as suggested no further intervention at this point, considering the patient is planning to go for dorothy g biopsy; and after the biopsy is done, if she still remains in atrial fibrillation, then we will con kiln loader anticoagulation therapy at that point. Discharge Medications And Instructions: 1.Continue all prior home medications. 2.Take Levaquin 500 mg p.o. daily for 10 days and spironolactone 25 mg p.o. daily. 3.Follow up at my office in 2 weeks and follow up with Dr. Swanson in 2 weeks. Discharge Diagnoses: 1.Congestive heart failure, acute, diastolic. 2.Mediastinal and hilar adenopathy. 3.Atrial fibrillation, paroxysmal. 4.Anemia, unspecified. 5.Hypertension. 6.Type 2 diabetes mellitus. 7.Hyperlipidemia. 8.Osteoarthritis, multiple sites. 9.Hypothyroidism. JANNA/MODL Voice ID: [id number] Report ID: [id number]
--- NOTE | 2018-02-24 07:48 | CON ---
Date of Consultation: 02/23/2018 Reason For Consultation: Atrial fibrillation. History Of Present Illness: Mrs. Flynn is a 77-year-old. 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 S he basically had come in with COPD exacerbation. She was in normal rhythm on admission, but througho ut her admission, she went into atrial fibrillation that is rate controlled at 76 without any symptom s. She initially had had an abnormal CT scan of the chest showing mild congestive heart failure, lym phadenopathy. There was question about the lymphadenopathy being malignant. There is a plan for her to have an outpatient biopsy of her lymph nodes in [place]. This is being arranged by Dr. Swanson. She has a history of hypertension, hypothyroidism, neuropathy, gastroesophageal reflux disease, dys lipidemia, and COPD. She also has had a history of diabetes and lupus, chronic back pain. She had a CVA in 2009 and has a history of depression. She is asymptomatic now. Past Medical History: As stated above. Allergies: NONE. Review of Systems: Negative. Social History: Negative for tobacco. Medications: At home include aspirin, Plavix, Lasix, metoprolol 50 b.i.d., lisinopril, thyroid medic ine, Neurontin, Protonix, Zocor, prednisone, and inhalers. She is also now on Lovenox. Physical Examination: Vital Signs: She is in atrial fibrillation, rate of 80. HEENT: Negative. Neck: Supple without any bruit, lymphadenopathy, JVD, or thyromegaly. Chest: Revealed some expiratory wheezing, but no rales. Cardiac Exam: Revealed atrial fibrillation. No murmurs, gallops, or rubs. Abdomen: Benign. Extremities: Revealed no clubbing, cyanosis, or edema. Diagnostic Data: She had an EKG initially showing sinus rhythm with PACs, is now in atrial fibrillat ion, rate controlled. Echocardiogram was normal. CT scan and chest x-ray were as stated earlier. H er laboratory evaluation is fairly unremarkable. Impression And Plan: 1.Paroxysmal atrial fibrillation, now sustained. The patient is on beta-shell, aspirin, and Plavi x. She has a normal echocardiogram. She has a very high CHADS score and she does need to be on anti coagulation, such as Eliquis or Xarelto, but I would wait until the lymph node biopsy is done before we start that. We can always make arrangements for that as an outpatient. For now, I would continue her present regimen with aspirin and Plavix and beta-blockers. I am sure the Plavix will be held as well prior to her lymph node biopsy. The patient has a rate controlled and is asymptomatic and her echo is normal. 2.History of dyslipidemia. 3.History of hypertension. 4.History of lupus. 5.Chronic back pain. 6.Chronic obstructive pulmonary disease. 7.History of cerebrovascular accident in 2009. 8.Depression. 9.History of deep venous thrombosis when she was younger and pulmonary embolus, requiring Coumadin m any years ago. The case was discussed with Dr. Hammer. She can go home and I will see her as an outpatient. EMILY/NIYA Voice ID: [id number] Report ID: [id number]
--- NOTE | 2018-02-24 07:52 | EKG ---
Test Date: 2018-02-23 Test Time: 09:37:36 Packaging Machine Operator: MEGHAN MEASUREMENT RESULTS: Intervals: Rate: 60 OK: 164 QRSD: 68 QT: 442 QTc: 442 [place]: P: 90 OK: 164 QRS: -89 T: 54 INTERPRETIVE STATEMENTS: Sinus tachycardia with 2nd degree AV block with 3:1 AV conduction Left axis deviation Pulmonary disease pattern Abnormal ECG Compared to ECG 02/20/2018 16:30:39 Sinus rhythm no longer present Atrial premature complex(es) no longer present First degree AV block no longer present Electronically Signed On 02-24-18 07:49:05 CDT by Elmer Barriga
== END 2018-02-23 20:00 | disposition home or self-care (01) | DRG 291 ==
LOC: ER 16:00 → ERHOLD 18:16 → 4TH 19:35
PROVIDERS: ADMIT Internal Medicine; ATTEND Internal Medicine
DX: I13.0 Hypertensive heart and chronic kidney disease with heart failure and stage 1 through stage 4 chronic kidney disease, or unspecified chronic kidney disease (principal); I50.31 Acute diastolic (congestive) heart failure; I48.0 Paroxysmal atrial fibrillation; D64.9 Anemia, unspecified; E78.5 Hyperlipidemia, unspecified; M19.90 Unspecified osteoarthritis, unspecified site; E03.9 Hypothyroidism, unspecified; M32.9 Systemic lupus erythematosus, unspecified; E11.22 Type 2 diabetes mellitus with diabetic chronic kidney disease; N18.3 Chronic kidney disease, stage 3 (moderate); Z86.73 Personal history of transient ischemic attack (TIA), and cerebral infarction without residual deficits; R59.0 Localized enlarged lymph nodes; J20.9 Acute bronchitis, unspecified; R91.8 Other nonspecific abnormal finding of lung field
CPT/HCPCS: 36415; 71045; 71275; 80048; 80076; 81003; 82962; 83735; 83880; 84484; 85025; 85610; 93005; 93306; 94640; 96374; 96375; 99285; J1650; J3475; J7512; J7606; Q9967

== ENCOUNTER 2018-12-06 16:40 | Emergency (ER) | payer OTHER ==
--- OUTSIDE RECORDS SUMMARY | 2018-12-06 16:43 | XMS REPORT | Clinical Summary ---
:1940 Author Organization [facility] Address [address] [place] [address] Care Team Providers Name Role Phone Charles Hammer MD Primary Care Provider Allergies No Known Allergies Medications Medication Sig Dispensed Refills Start Date End Date Status cholestyramine 0 05/25/2018 Active (QUESTRAN) 4 gram packet PREVALITE 4 gram 0 04/16/2018 Active powder in packet clopidogrel (PLAVIX) 0 05/31/2018 Active 75 mg tablet gabapentin 0 05/31/2018 Active (NEURONTIN) 300 mg capsule HYDROcodone-acetamino 0 05/17/2018 Active phen (NORCO) 7.5-325 mg per tablet levothyroxine 0 06/08/2018 Active (SYNTHROID, LEVOXYL) 125 mcg tablet lisinopril 0 05/31/2018 Active (PRINIVIL,ZESTRIL) 20 mg tablet oxybutynin XL 0 03/07/2018 Active (DITROPAN-XL) 10 MG 24 hr tablet pantoprazole 0 06/01/2018 Active (PROTONIX) 40 MG EC tablet predniSONE 0 03/12/2018 Active (DELTASONE) 5 mg tablet rosuvastatin 0 05/31/2018 Active (CRESTOR) 10 MG tablet sertraline (ZOLOFT) 0 05/29/2018 Active 25 MG tablet spironolactone 0 05/25/2018 Active (ALDACTONE) 25 MG tablet triamcinolone 0 06/01/2018 Active (KENALOG) 0.1 % cream metoprolol tartrate Take 25 mg 0 Active (LOPRESSOR) 25 mg by mouth 2 tablet (two) times a day. lansoprazole Take 15 mg 0 Active (PREVACID) 15 MG by mouth capsule daily. cyanocobalamin, Place under 0 Active vitamin B-12, the tongue. (VITAMIN B-12) 1,000 mcg tablet, sublingual cholecalciferol, Take 2,000 0 Active vitamin D3, (VITAMIN Units by D3) 2,000 unit mouth daily. capsule capsule ciprofloxacin (CIPRO) 0 05/25/2018 06/22/2018 Discontinued 500 MG tablet metroNIDAZOLE 0 05/25/2018 06/22/2018 Discontinued (FLAGYL) 500 MG tablet lansoprazole Take 15 mg 0 06/22/2018 Discontinued (PREVACID) 15 MG by mouth capsule daily. Active Problems Not on file Encounters Date Type Specialty Care Team Description 12/04/2018 Telephone Cardiothoracic Surgery Anette Barry MA 09/03/2018 Telephone Cardiothoracic Surgery Anette Barry MA 08/16/2018 Lab Lab Jamal Leonardo LAD (lymphadenopathy), mediastinal; MD [place] Pre-op testing 08/16/2018 Hospital Encounter Radiology Jamal Leonardo MD 08/16/2018 Office Visit Cardiothoracic Surgery Jamal Leonardo LAD ( lymphadenopathy), mediastinal (Primary Dx); MD [place] Pre-op testing 08/01/2018 Telephone Cardiothoracic Surgery Anette Barry MA 07/25/2018 Orders Only Cardiothoracic Surgery Myrtle Hinton MD 07/23/2018 Telephone Cardiothoracic Surgery Tyson Rossi MA 07/20/2018 Telephone Cardiothoracic Surgery Tyson Rossi, JJ 07/18/2018 Telephone Cardiothoracic Surgery Tyson Rossi MA 07/05/2018 Telephone Cardiothoracic Surgery Rosa M Cordero MA 06/27/2018 Telephone General Surgery Jamal Leonardo MD 06/22/2018 Surgery Cardiothoracic Surgery Jamal Leonardo MD BRONCHOSCOPY 06/22/2018 Anesthesia Event Cardiothoracic Surgery Zachery Alcazar CRNA 06/22/2018 Hospital Encounter Cardiothoracic Surgery Jamal Leonardo Y.H., MD mediastinal 06/21/2018 Telephone Cardiothoracic Surgery Anette Barry MA 06/19/2018 Orders Only Cardiothoracic Surgery Consuelo Lung nodule ( Primary Dx); JJ Mederos (lymphadenopathy), mediastinal 06/19/2018 Orders Only Cardiothoracic Surgery Myrtle Hinton MD 06/18/2018 Orders Only Cardiothoracic Surgery Myrtle Hinton MD 06/14/2018 Lab Lab Jamal Leonardo LAD (lymphadenopathy), mediastinal; MD [place] Pre-op testing 06/14/2018 Hospital Encounter Radiology Jamal Leonardo MD 06/14/2018 Hospital Encounter Radiology Jamal Leonardo MD 06/14/2018 Hospital Encounter Radiology Jamal Leonardo MD 06/14/2018 Office Visit Cardiothoracic Surgery Jamal Leonardo LAD ( lymphadenopathy), mediastinal (Primary Dx); MD [place] Pre-op testing 06/14/2018 Orders Only Cardiothoracic Surgery Jamal Leonardo MD 06/14/2018 Orders Only Cardiothoracic Surgery Myrtle Hinton MD 06/06/2018 Orders Only Cardiothoracic Surgery ProviderMyrtle MD after 12/05/2017 Family History Medical History Relation Name Comments Arthritis Brother Blood Clots Brother Blood Clots Father Alzheimer's disease Mother Congenital heart disease Sister Kidney disease Sister Relation Name Status Comments Brother Father Mother Sister Social History Tobacco Use Types Packs/Day Years Used Date Never Smoker Smokeless Tobacco: Never Used Alcohol Use Drinks/Week oz/Week Comments Yes 1 Glasses of wine 0.6 Sex Assigned at Date Recorded Not on file Job Start Date Occupation Industry Not on file Not on file Not on file Travel History Travel Start Travel End No recent travel history available. Last Filed Vital Signs Vital Sign Reading Time Taken Blood Pressure 171/75 08/16/2018 9:10 AM CDT Pulse 122 08/16/2018 9:10 AM CDT Temperature 36.4 C (97.5 F) 08/16/2018 9:10 AM CDT Respiratory Rate 18 08/16/2018 9:10 AM CDT Oxygen Saturation 94% 08/16/2018 9:10 AM CDT Inhaled Oxygen Concentration - - Weight 100 kg (221 lb) 08/16/2018 9:10 AM CDT Height 162.6 cm (5' 4") 08/16/2018 9:10 AM CDT Body Mass Index 37.93 08/16/2018 9:10 AM CDT Plan of Treatment Health Maintenance Due Date Last Done Comments SHINGLES VACCINES (#1) 1990 65+ PNEUMOCOCCAL VACCINE (1 of 2 - PCV13) 2005 INFLUENZA VACCINE 12/20/2018 Procedures Procedure Name Priority Date/Time Associated Comments Diagnosis ESTIMATED GFR Routine 08/16/2018 11:18 Results for this AM CDT procedure are in the results section. PARTIAL THROMBOPLASTIN Routine 08/16/2018 11:18 LAD Results for this TIME (PTT) AM CDT (lymphadenopathy), procedure are in mediastinal the results Pre-op testing section. PROTHROMBIN TIME WITH Routine 08/16/2018 11:18 LAD Results for this INR AM CDT (lymphadenopathy), procedure are in mediastinal the results Pre-op testing section. COMPREHENSIVE METABOLIC Routine 08/16/2018 11:18 LAD Results for this PANEL AM CDT (lymphadenopathy), procedure are in mediastinal the results Pre-op testing section. HC COMPLETE BLD COUNT Routine 08/16/2018 11:18 LAD Results for this W/AUTO DIFF AM CDT (lymphadenopathy), procedure are in mediastinal the results Pre-op testing section. TYPE AND SCREEN Routine 08/16/2018 11:18 LAD Results for this AM CDT (lymphadenopathy), procedure are in mediastinal the results Pre-op testing section. PET CT WHOLE BODY Routine 07/12/2018 10:33 Results for this EXTERNAL STUDY AM [facility] procedure are in the results section. PET CT SKULL BASE TO Routine 07/12/2018 MID THIGH CYTOLOGY Routine 06/22/2018 12:17 Results for this (NON-GYNECOLOGICAL) PM [facility] procedure are in REQUEST the results section. CYTOLOGY Routine 06/22/2018 12:14 Results for this (NON-GYNECOLOGICAL) PM [facility] procedure are in REQUEST the results section. CYTOLOGY Routine 06/22/2018 12:11 Results for this (NON-GYNECOLOGICAL) PM [facility] procedure are in REQUEST the results section. XR CHEST 1 VW PORTABLE STAT 06/22/2018 10:53 Results for this AM [facility] procedure are in the results section. POC GLUCOSE Routine 06/22/2018 10:21 Results for this AM [facility] procedure are in the results section. GRAM STAIN Timed 06/22/2018 9:37 Results for this AM [facility] procedure are in the results section. TISSUE CULTURE Timed 06/22/2018 9:37 Results for this AM [facility] procedure are in the results section. AFB STAIN Timed 06/22/2018 9:37 Results for this AM [facility] procedure are in the results section. FUNGUS SMEAR Timed 06/22/2018 9:37 Results for this AM [facility] procedure are in the results section. FUNGUS CULTURE Timed 06/22/2018 9:37 Lymphadenopathy, Results for this AM [facility] mediastinal procedure are in the results section. ANAEROBIC CULTURE Timed 06/22/2018 9:37 Lymphadenopathy, Results for this AM [facility] mediastinal procedure are in the results section. VT AN ELECTIVE Routine 06/22/2018 8:51 ENDOTRACHEAL AIRWAY AM [facility] Procedure Note - Zachery Alcazar CRNA - 06/22/2018 8:51 AM [facility] ANESTHESIA INTUBATION Performed by: Zachery Alcazar CRNA Authorized by: Venita Spears MD Location: OR Urgency: Elective Difficult Airway: No Anesthesiologist: Venita Spears MD Resident/REDUCER/AA: Zachery Alcazar CRNA Performed by: resident/REDUCER/AA Preoxygenated with 100% O2: Yes C-spine Precautions Maintained Throughout: Yes Mask Ventilation: Easy mask Final Airway Type: Endotracheal airway Final Endotracheal Airway: ETT Cuffed: Yes Technique Used: Direct laryngoscopy Insertion Site: Oral Blade Type: Gardiner Laryngoscope Blade/Videolaryngoscope Blade Size: 2 ETT Size (mm): 8.0 Cuff at minimum occlusion pressure: Yes Measured from: Lips ETT to Lips (cm): 21 Placement Verified by: CO2 detection, direct visualization and equal breath sounds Laryngoscopic view: Grade I - full view of glottis Number of Attempts at Approach: 1 Easy x1 attempt easy atruamatic, lips and teeth as preinduction AFB CULTURE Timed 06/22/2018 8:37 Lymphadenopathy, Results for this AM [facility] mediastinal procedure are in the results section. POC GLUCOSE Routine 06/22/2018 8:26 Results for this AM [facility] procedure are in the results section. PARTIAL Routine 06/14/2018 6:57 Results for this THROMBOPLASTIN TIME PM [facility] procedure are in (PTT) the results section. PROTHROMBIN TIME WITH Routine 06/14/2018 6:57 Results for this INR PM [facility] procedure are in the results section. COMPREHENSIVE Routine 06/14/2018 6:57 Results for this METABOLIC PANEL PM [facility] procedure are in the results section. CBC WITH PLATELET AND Routine 06/14/2018 6:57 Results for this DIFFERENTIAL PM [facility] procedure are in the results section. [id number] Routine 06/14/2018 ECG 12-LEAD Routine 06/08/2018 CT CHEST EXTERNAL Routine 05/28/2018 11:28 Results for this STUDY AM [facility] procedure are in the results section. CT CHEST WO CONTRAST Routine 05/28/2018 CT CHEST EXTERNAL Routine 03/26/2018 10:44 Results for this STUDY AM [facility] procedure are in the results section. CT CHEST WO CONTRAST Routine 03/26/2018 CT CHEST EXTERNAL Routine 03/10/2018 5:40 Results for this STUDY PM CDT procedure are in the results section. [id number] Routine 02/21/2018 XR CHEST 1 VW Routine 02/20/2018 CT ANGIOGRAM PE CHEST Routine 02/20/2018 after 12/05/2017 Results Estimated GFR (08/16/2018 11:18 AM CDT) [facility] Estimated GFR 49 (A) mL/min/1.73 [facility] Comment: [address] CatergoryUnitsInterpretation G1 >=90 Normal or high G2 60-89Mildly decreased Q3g59-52Kfonal to moderately decreased A8w13-62Czkgzlwpfy to severely decreased G4 15-29Severely decreased G5 <15Kidney failure The eGFR was calculated using the Chronic Kidney Disease Epidemiology Collaboration (CKD-EPI) equation. Interpretation is based on recommendations of the National Kidney Foundation-Kidney Disease Outcomes Quality Initiative (NKF-KDOQI) published in 2014. Specimen Plasma specimen Performing Organization Address City/[facility]/Zipcode Phone Number [facility] DEPARTMENT OF PATHOLOGY AND [address] [place] [phone] [place] [phone] Partial thromboplastin time, activated (08/16/2018 11:18 AM CDT)Only the most recent of2 resultswithin the time period is included. [facility] PTT 30.6 23.0 - 36.0 [facility] Comment: [facility] PTT therapeutic range for unfractionated heparin is 61.0-112.0 seconds which corresponds to Anti-Xa 0.3-0.7 U/ml. Specimen Blood Performing Organization Address City/[facility]/Zipcode Phone Number [facility] DEPARTMENT OF PATHOLOGY AND [address] [place] [phone] [address] Prothrombin time with INR (08/16/2018 11:18 AM CDT)Only the most recent of2 resultswithin the time period is included. [facility] Prothrombin time 13.5 11.5 - 14.5 [facility] INR 1.1 [facility] Comment: [facility] The International Normalized Ratio (INR) is a therapeutic HOSPITAL monitoring tool for patients who are stable on oral anticoagulant therapy. An INR of 2.0-3.0 is suggested for deep vein thrombosis/pulmonary embolism. Specimen Blood Performing Organization Address City/State/Zipcode Phone Number [facility] DEPARTMENT OF PATHOLOGY AND [address] [place] [address] [address] CBC with platelet and differential (08/16/2018 11:18 AM CDT)Only the most recent of2 resultswithin the time period is included. [facility] WBC 7.46 4.50 - 11.00 [facility] k/uL HOSPITAL RBC 4.10 (L) 4.20 - 5.50 [facility] m/uL [facility] HGB 12.7 12.0 - 16.0 [facility] g/dL [facility] HCT 40.4 37.0 - 47.0 % [facility] MCV 98.5 82.0 - 100.0 [facility] MCH 31.0 27.0 - 34.0 pg [facility] MCHC 31.4 31.0 - 37.0 [facility] g/dL [facility] RDW - SD 46.8 37.0 - 55.0 fL [facility] MPV 11.9 8.8 - 13.2 fL [facility] Platelet count 218 150 - 400 k/uL [facility] Nucleated RBC 0.00 /100 WBC [facility] Neutrophils 78.7 (H) 39.0 - 69.0 % [facility] Lymphocytes 13.0 (L) 25.0 - 45.0 % [facility] Monocytes 6.4 0.0 - 10.0 % [facility] Eosinophils 1.1 0.0 - 5.0 % [facility] Basophils 0.5 0.0 - 1.0 % [facility] Immature granulocytes 0.3Comment: 0.0 - 1.0 % [facility] "Immature [facility] granulocytes" (promyelocytes , myelocytes, metamyelocytes ) Specimen Blood Performing Organization Address City/State/Zipcode Phone Number [facility] DEPARTMENT OF PATHOLOGY AND [address] [place] [address] [address] Type and screen (08/16/2018 11:18 AM CDT) Pathologist [facility] ABO grouping A [facility] Rh type POS [facility] Antibody screen (gel) NEG [facility] Specimen Blood Performing Organization Address City/[facility] Phone Number [facility] DEPARTMENT OF PATHOLOGY AND [address] [place] [address] [address] Comprehensive metabolic panel (08/16/2018 11:18 AM CDT)Only the most recent of2 resultswithin the time period is included. Sodium 137 135 - 148 [facility] mEq/L [facility] Potassium 5.0 3.5 - 5.0 [facility] mEq/L [facility] Chloride 100 98 - 112 mEq/L [facility] CO2 23 (L) 24 - 31 mEq/L [facility] Anion gap 14@ANIO 7 - 15 mEq/L [facility] BUN 26 (H) 8 - 23 mg/dL [facility] Creatinine 1.09 (H) 0.50 - 0.90 [facility] mg/dL [facility] Glucose 199 (H) 65 - 99 mg/dL [facility] Calcium 9.6 8.8 - 10.2 [facility] mg/dL [facility] Protein 8.1 6.3 - 8.3 g/dL [facility] Comment: HOSPITAL [place] 4.6-7.0 g/dL 1 week 4.4-7.6 g/dL 7 months-1year5.1-7.3 g/dL 1-2 years5.6-7.5 g/dL >3 years6.0-8.0 g/dL 18-150 6.3-8.3 g/dL Albumin 4.0 3.5 - 5.0 g/dL [facility] A/G ratio 1.0 0.7 - 3.8 [facility] Alkaline phosphatase 88 35 - 104 U/L [facility] AST 25 10 - 35 U/L [facility] ALT 19 5 - 50 U/L [facility] Total bilirubin 0.5 0.0 - 1.2 [facility] mg/dL [facility] Specimen Plasma specimen Performing Organization Address City/[facility]/Zipcode Phone Number [facility] DEPARTMENT OF PATHOLOGY AND [address] [place] [address] [address] PET/CT Whole Body External Study (07/12/2018 10:33 AM [facility]) Specimen Narrative Performed At This exam was not acquired at a [facility] facility and has not been [facility] interpreted by a [facility] Provider.The exam was imported into our imaging system for comparisons purposes. Performing Organization Address City/State/Zipcode Phone Number [facility] [address] [place] [address] PET/CT Skull Base To Mid Thigh (07/12/2018) Narrative Performed At Cytology (non-gynecological) request (06/22/2018 12:17 PM [facility])Only the most recent of3 resultswithin the time period is included. [facility] DEPARTMENT OF PATHOLOGY AND GENOMIC MEDICINE Cytology See link below [facility] DEPARTMENT OF (non-gynecological) for PDF Lab PATHOLOGY AND report Report GENOMIC MEDICINE Result status This is Final [facility] DEPARTMENT OF Report for PATHOLOGY AND [id number] GENOMIC MEDICINE Specimen Performing Organization Address City/[facility]/Zipcode Phone Number [facility] DEPARTMENT OF PATHOLOGY AND [address] [place] [phone] GENOMIC MEDICINE XR Chest 1 Vw Portable (06/22/2018 10:53 AM [facility]) Specimen Narrative Performed At EXAMINATION:XR CHEST 1 VW PORTABLE [facility] CLINICAL HISTORY:major traumatic injury, post op COMPARISON:None IMPRESSION: There is minimal cardiomegaly.Vascular is tortuous and slightly dilated. Pulmonary vessels are mildly congested bilaterally with no definite infiltrate. [id number] Procedure Note Interface, Radiology Results Incoming - 06/22/2018 11:06 AM [facility] EXAMINATION: XR CHEST 1 VW PORTABLE CLINICAL HISTORY: major traumatic injury, post op COMPARISON: None IMPRESSION: There is minimal cardiomegaly. Vascular is tortuous and slightly dilated. Pulmonary vessels are mildly congested bilaterally with no definite infiltrate. [id number] Performing Organization Address City/[facility]/Zipcode Phone Number [facility] [address] [place] [address] POC glucose (06/22/2018 10:21 AM [facility])Only the most recent of2 resultswithin the time period is included. POC glucose 165 (H) 65 - 99 mg/dL [facility] Comment: HOSPITAL No Action Needed [facility] Notified RN Meter ID: [id number] Tension Machine Operator: Danilo Horner Specimen Performing Organization Address [facility] Phone Number [facility] DEPARTMENT OF PATHOLOGY AND [address] [place] [phone] [place] [phone] Fungus smear (06/22/2018 9:37 AM [facility]) Fungus smear No fungi observed. [facility] Comment: HOSPITAL Specimen Information Specimen Source: Biopsy Specimen Site: Mediastinum STATION 10R Specimen Biopsy Performing Organization Address [facility] Phone Number [facility] DEPARTMENT OF PATHOLOGY AND [address] [place] [phone] [place] [phone] Tissue culture (06/22/2018 9:37 AM [facility]) Tissue culture No growth after 3 days. [facility] isolate Comment: HOSPITAL Specimen Information Specimen Source: Biopsy Specimen Site: Mediastinum STATION 10R Specimen Biopsy Performing Organization Address [facility] Phone Number [facility] DEPARTMENT OF PATHOLOGY AND [address] [place] [phone] Gram stain (06/22/2018 9:37 AM [facility]) Gram stain isolate No WBC's or organisms seen. [facility] Comment: HOSPITAL Specimen Information Specimen Source: Biopsy Specimen Site: Mediastinum STATION 10R Specimen Biopsy Performing Organization Address [facility] Phone Number [facility] DEPARTMENT OF PATHOLOGY AND [address] [place] [phone] [place] [phone] AFB stain (06/22/2018 9:37 AM [facility]) AFB stain No acid fast bacilli (AFB) seen. [facility] Comment: HOSPITAL Specimen Information Specimen Source: Biopsy Specimen Site: Mediastinum STATION 10R Specimen Biopsy Performing Organization Address [facility] Phone Number [facility] DEPARTMENT OF PATHOLOGY AND [address] [place] [phone] Fungus culture (06/22/2018 9:37 AM [facility]) Fungus culture No growth after 4 weeks of incubation. [facility]OL[facility] isolate Comment: HOSPITAL Specimen Information Specimen Source: Biopsy Specimen Site: Mediastinum STATION 10R Specimen Biopsy - Mediastinum Performing Organization Address City/[facility]/Zipcode Phone Number [facility] DEPARTMENT OF PATHOLOGY AND [address] [place] [phone] [place] [phone] Anaerobic culture (06/22/2018 9:37 AM [facility]) Anaerobic culture No anaerobic organisms isolated. [facility] Comment: [facility] Specimen Information Specimen Source: Biopsy Specimen Site: Mediastinum STATION 10R Specimen Biopsy - Mediastinum Performing Organization Address City/[facility]/Zipcode Phone Number [facility] DEPARTMENT OF PATHOLOGY AND [address] [place] [phone] [place] [phone] AFB culture (06/22/2018 8:37 AM [facility]) AFB culture No growth after 6 weeks of incubation. [facility] Comment: [facility] Specimen Information Specimen Source: Biopsy Specimen Site: Mediastinum STATION 10R Specimen Biopsy - Mediastinum Performing Organization Address [facility] Phone Number [facility] DEPARTMENT OF PATHOLOGY AND [address] [place] [phone] [place] [phone] Miscellaneous Lab Result (06/14/2018)Only the most recent of2 resultswithin the time period is included. Specimen Blood Narrative Performed At ECG 12 lead (06/08/2018) Narrative Performed At CT Chest External Study (05/28/2018 11:28 AM [facility])Only the most recent of3 resultswithin the time period is included. Specimen Narrative Performed At This exam was not acquired at a [facility] facility and has not been [facility] interpreted by a [facility] Provider.The exam was imported into our imaging system for comparisons purposes. Performing Organization Address City/[facility]/Zipcode Phone Number [facility] [address] [place] [phone] Chest Wo Contrast (05/28/2018)Only the most recent of2 resultswithin the time period is included. Narrative Performed At CT Angiogram Pe Chest (02/20/2018) Narrative Performed At XR Chest 1 Vw (02/20/2018) Narrative Performed At after 12/05/2017 Insurance Payer Benefit Plan / Subscriber ID Effective Dates Phone Address Type Group MEDICARE MEDICARE PART A xxxxxxxxxxx 2005-Present [place] Medicare AND B [address] ([place]) [place] [address] Advance Directives Patient has advance care planning documents on file. For more information, please contact:Toby Maier[address] [place] [address]
--- NOTE | 2018-12-06 18:42 | EDPHYS ---
Physician Documentation [facility] Name: Simon Flynn Age: 78 yrs Sex: Female : 1940 Arrival Date: 12/06/2018 Time: 16:43 Bed 26 Private MD: ED Physician Matti Newton HPI: 12/06 17:36 This 78 yrs old Female presents to ER via Wheelchair with complaints of Foot snw Injury. 17:36 The patient presents with pain, that is acute, tenderness. The complaints affect the snw lateral aspect of right foot. Context: The problem was sustained at home, resulted from the patient falling, while walking, the patient tripping, on her own feet, the patient can partially bear weight, the patient is able to ambulate. Onset: The symptoms/episode began/occurred suddenly, just prior to arrival. Associated signs and symptoms: The patient has no apparent associated signs or symptoms. Treatment prior to arrival includes: no previous treatment. It is unknown whether or not the patient has had similar symptoms in the past. saw Dr. Barriga 2 days ago for check up, no changes. Historical: - Allergies: 16:49 No Known Allergies; hb - Immunization history:: Adult Immunizations up to date. - Social history:: Smoking status: Patient/guardian denies using tobacco. - Ebola Screening: : No symptoms or risks identified at this time. ROS: 17:36 Constitutional: Negative for fever, chills, and weight loss, Eyes: Negative for injury, snw pain, redness, and discharge, ENT: Negative for injury, pain, and discharge, Neck: Negative for injury, pain, and swelling, Cardiovascular: Negative for chest pain, palpitations, and edema, Respiratory: Negative for shortness of breath, cough, wheezing, and pleuritic chest pain, Abdomen/GI: Negative for abdominal pain, nausea, vomiting, diarrhea, and constipation, Back: Negative for injury and pain, : Negative for injury, bleeding, discharge, and swelling, Skin: Negative for injury, rash, and discoloration, Neuro: Negative for headache, weakness, numbness, tingling, and seizure, Psych: Negative for depression, anxiety, suicide ideation, homicidal ideation, and hallucinations. 17:36 MS/extremity: Positive for injury or acute deformity, pain, of the right foot. Exam: 17:29 Constitutional: This is a well developed, well nourished patient who is awake, alert, snw and in no acute distress. Head/Face: Normocephalic, atraumatic. Eyes: Pupils equal round and reactive to light, extra-ocular motions intact. Lids and lashes normal. Conjunctiva and sclera are non-icteric and not injected. Cornea within normal limits. Periorbital areas with no swelling, redness, or edema. ENT: Nares patent. No nasal discharge, no septal abnormalities noted. Tympanic membranes are normal and external auditory canals are clear. Oropharynx with no redness, swelling, or masses, exudates, or evidence of obstruction, uvula midline. Mucous membranes moist. Neck: Trachea midline, no thyromegaly or masses palpated, and no cervical lymphadenopathy. Supple, full range of motion without nuchal rigidity, or vertebral point tenderness. No Meningismus. Chest/axilla: Normal chest wall appearance and motion. Nontender with no deformity. No lesions are appreciated. Cardiovascular: Regular rate and rhythm with a normal S1 and S2. No gallops, murmurs, or rubs. Normal PMI, no JVD. No pulse deficits. Respiratory: Lungs have equal breath sounds bilaterally, clear to auscultation and percussion. No rales, rhonchi or wheezes noted. No increased work of breathing, no retractions or nasal flaring. Abdomen/GI: Soft, non-tender, with normal bowel sounds. No distension or tympany. No guarding or rebound. No evidence of tenderness throughout. Back: No spinal tenderness. No costovertebral tenderness. Full range of motion. Skin: Warm, dry with normal turgor. Normal color with no rashes, no lesions, and no evidence of cellulitis. MS/ Extremity: Pulses equal, no cyanosis. Neurovascular intact. Full, normal range of motion. tenderness to right lateral foot Neuro: Awake and alert, GCS 15, oriented to person, place, time, and situation. Cranial nerves II-XII grossly intact. Motor strength 5/5 in all extremities. Sensory grossly intact. Cerebellar exam normal. Normal gait. Vital Signs: 16:48 BP 142 / 51; Pulse 86; Resp 16; Temp 98; Pulse Ox 100% on R/A; Weight 102.97 kg; Height hb 4 ft. 11 in. (149.86 cm); Pain 2/10; 19:08 BP 149 / 91; Pulse 84; Resp 16; Temp 98; Pulse Ox 100% on R/A; rv 16:48 Body Mass Index 45.85 (102.97 kg, 149.86 cm) hb MDM: 17:18 Patient medically screened. snw 18:42 Data reviewed: vital signs, nurses notes. Data interpreted: Pulse oximetry: on room air snw is 100 %. Interpretation: normal. Counseling: I had a detailed discussion with the patient and/or guardian regarding: the historical points, exam findings, and any diagnostic results supporting the discharge/admit diagnosis, the presence of at least one elevated blood pressure reading (>120/80) during this emergency department visit, radiology results, the need for outpatient follow up, to return to the emergency department if symptoms worsen or persist or if there are any questions or concerns that arise at home. Special discussion: Based on the history and exam findings, there is no indication for further emergent testing or inpatient evaluation. I discussed with the patient/guardian the need to see the orthopedic surgeon for further evaluation of the symptoms. 12/06 17:28 Order name: Foot Right 3 View XRAY; Complete Time: 19:20 snw 12/06 18:40 Order name: Walking boot; Complete Time: 19:08 snw Administered Medications: No medications were administered Disposition: 12/06/18 18:41 Discharged to Home. Impression: Fracture of fifth metatarsal bone, Fall on same level, unspecified. - Condition is Stable. - Discharge Instructions: Cast or Splint Care, Adult, Fall Prevention in the Home, Hypertension, Metatarsal Fracture. - Medication Reconciliation Form, Thank You Letter, Antibiotic Education, Prescription Opioid Use form. - Follow up: Private Physician; When: 1 - 2 days; Reason: Recheck today's complaints, Continuance of care, Re-evaluation by your physician. Follow up: Emergency Department; When: As needed; Reason: Worsening of condition. Addendum: 12/08/2018 07:54 Co-signature as Attending Physician, Matti Newton MD. g s Signatures: Dispatcher [employer] EDKim Berry, NATALIIA-Mehnaz COMMODITY SPECIALIST-Csnw Priscilla Hopper RN RN hb Newton, Matti, MD MD gs Dean, Caden, RN RN rv Corrections: (The following items were deleted from the chart) 12/06 19:10 18:41 12/06/2018 18:41 Discharged to Home. Impression: Fracture of fifth metatarsal rv bone; Fall on same level, unspecified. Condition is Stable. Forms are Medication Reconciliation Form, Thank You Letter, Antibiotic Education, Prescription Opioid Use. Follow up: Private Physician; When: 1 - 2 days; Reason: Recheck today's complaints, Continuance of care, Re-evaluation by your physician. Follow up: Emergency Department; When: As needed; Reason: Worsening of condition. snw
--- NOTE | 2018-12-06 18:42 | ER ---
Nurse's Notes [facility] Name: Simon Flynn Age: 78 yrs Sex: Female : 1940 Arrival Date: 12/06/2018 Time: 16:43 Bed 26 Private MD: Diagnosis: Fracture of fifth metatarsal bone;Fall on same level, unspecified Presentation: 12/06 16:48 Presenting complaint: Right foot pain after mechanical fall from standing this morning. hb Denies other injuries. Transition of care: patient was not received from another setting of care. Onset of symptoms was December 06, 2018. Risk Assessment: Do you want to hurt yourself or someone else? Patient reports no desire to harm self or others. Care prior to arrival: [place] at 1600. 16:48 Method Of Arrival: Wheelchair hb 16:48 Acuity: VELASQUEZ 4 hb 16:58 Initial Sepsis Screen: Does the patient meet any 2 criteria? No. Patient's initial rv sepsis screen is negative. Does the patient have a suspected source of infection? No. Patient's initial sepsis screen is negative. Triage Assessment: 16:59 Injury Description:. rv Historical: - Allergies: 16:49 No Known Allergies; hb - Immunization history:: Adult Immunizations up to date. - Social history:: Smoking status: Patient/guardian denies using tobacco. - Ebola Screening: : No symptoms or risks identified at this time. Screenin:58 Abuse screen: Denies threats or abuse. Denies injuries from another. Nutritional rv screening: No deficits noted. Tuberculosis screening: No symptoms or risk factors identified. Fall Risk None identified. Assessment: 16:57 General: Appears in no apparent distress. uncomfortable, Behavior is calm, cooperative. rv Pain: Complains of pain in right foot. Neuro: Level of Consciousness is awake, alert, obeys commands, Oriented to person, place, time, situation. Cardiovascular: Patient's skin is warm and dry. Respiratory: Airway is patent. GI: No signs and/or symptoms were reported involving the gastrointestinal system. : No signs and/or symptoms were reported regarding the genitourinary system. EENT: No signs and/or symptoms were reported regarding the EENT system. Derm: Skin with poor turgor. Musculoskeletal: Swelling present in right foot. Vital Signs: 16:48 BP 142 / 51; Pulse 86; Resp 16; Temp 98; Pulse Ox 100% on R/A; Weight 102.97 kg; Height hb 4 ft. 11 in. (149.86 cm); Pain 2/10; 19:08 BP 149 / 91; Pulse 84; Resp 16; Temp 98; Pulse Ox 100% on R/A; rv 16:48 Body Mass Index 45.85 (102.97 kg, 149.86 cm) hb ED Course: 16:43 Patient arrived in ED. as 16:48 Triage completed. hb 16:49 Arm band placed on. hb 16:57 Caden Moran, RN is Primary Nurse. rv 16:58 Patient has correct armband on for positive identification. Placed in gown. Bed in low rv position. Call light in reach. Side rails up X 1. Pulse ox on. NIBP on. Door closed. Noise minimized. Warm blanket given. Pillow given. Ice pack to injury. Elevated right foot. 17:18 Kim Rivero FNP-C is PHCP. snw 17:18 Matti Newton MD is Attending Physician. snw 18:41 Foot Right 3 View XRAY In Process Unspecified. EDMS 19:09 No provider procedures requiring assistance completed. Patient did not have IV access rv during this emergency room visit. walking boot. Administered Medications: No medications were administered Outcome: 18:41 Discharge ordered by . snw 19:09 Discharged to home via wheelchair, walking boot rv 19:09 Condition: good 19:09 Discharge instructions given to patient, Instructed on discharge instructions, follow up and referral plans. Demonstrated understanding of instructions, follow-up care. 19:10 Patient left the ED. rv Signatures: Dispatcher [employer] EDMS Kim Rivero FNP-C FUR TAILOR-Humera Hobbs as Priscilla Hopper RN RN Caden Moran, ARASH RN rv Corrections: (The following items were deleted from the chart) 16:49 16:48 Care prior to arrival: None. hb hb
--- NOTE | 2018-12-06 19:07 | RAD REPORT ---
EXAM DESCRIPTION: RAD - Foot Right 3 View - 12/06/2018 6:40 pm CLINICAL HISTORY: Right foot pain status post injury FINDINGS: No acute fracture or dislocation is seen Old fracture fifth metatarsal suspected Large plantar calcaneal spur. Osteoporosis
== END 2018-12-06 19:10 | disposition home or self-care (01) ==
LOC: ER 16:40
DX: S92.351A Displaced fracture of fifth metatarsal bone, right foot, initial encounter for closed fracture (principal); W01.0XXA Fall on same level from slipping, tripping and stumbling without subsequent striking against object, initial encounter; Y93.01 Activity, walking, marching and hiking; Y92.009 Unspecified place in unspecified non-institutional (private) residence as the place of occurrence of the external cause
CPT/HCPCS: 99284

== ENCOUNTER 2019-05-08 17:41 | Emergency (ER) | payer OTHER ==
[2019-05-08] MEDS ORDERED: NA CHLORIDE 0.9% 1,000 ML ONE (18:15)
[2019-05-08 18:31] LABS: Absolute Lymphocytes (CBC) 0.6 K/uL (0.7-4.9); Basophils % 0.4 % (0-1.3); Hematocrit 33.1 % (36.0-45.0); Lymphocytes % 15.4 % (15.3-44.8); MPV 9.5 fL (7.6-11.3); RBC Red Blood Cell Count 3.52 M/uL (3.86-4.86)
[2019-05-08 18:38] LABS: Protime INR 1.32
[2019-05-08 18:42] LABS: Albumin 3.3 g/dL (3.4-5.0); Bilirubin Direct 0.3 mg/dL (0-0.2); Bilirubin Total 0.9 mg/dL (0.2-1.0); Potassium 3.7 mmol/L (3.5-5.1); Protein, Total 7.6 g/dL (6.4-8.2)
[2019-05-08] MEDS ORDERED: CIPROFLOXACIN HCL 500 MG TAB ONE (19:10)
[2019-05-08] MEDS ORDERED: metroNIDAZOLE 500 MG TABLET ONE (19:10)
[2019-05-08] MEDS ORDERED: ONDANSETRON 4 MG/2 ML VIAL ONE (19:11)
[2019-05-08 19:24] LABS: Platelet Estimate ADEQ; Urine White Blood Cell Casts OK
[2019-05-08 19:25] LABS: Anisocytosis 1+; Blood Morphology Comment NOTED (NOT SEEN)
--- NOTE | 2019-05-08 20:05 | RAD REPORT ---
EXAM DESCRIPTION: CT - Abdomen Pelvis W Contrast - 05/08/2019 7:55 pm CLINICAL HISTORY: ABD PAIN, bloody stools COMPARISON: None. TECHNIQUE: Biphasic, helical CT imaging of the abdomen and pelvis was performed following 100 ml non -ionic IV contrast. No oral contrast given. All CT scans are performed using dose optimization technique as appropriate and may include automated exposure control or mA/KV adjustment according to patient size. FINDINGS: No suspicious findings in the lung bases. The liver, spleen, and pancreas show no suspicious findings. Gallbladder and biliary tree are also wi thout suspicious finding. Symmetric renal function is seen with no hydronephrosis or suspicious renal mass. No pyelonephritis o r acute parenchymal process. Bilateral renal cysts are present. Contracted urinary bladder shows no s uspicious findings. Uterus and ovaries also without suspicious findings. No adrenal abnormalities. No dilated bowel loops or bowel wall thickening. Left-sided diverticulosis is minimal. No acute GI pr ocess seen. No free air, free fluid or inflammatory stranding. A 4 centimeter periumbilical fat only hernia is present. No active component. No mass or bulky lymphadenopathy. No omental thickening. Disc and bone degenerative changes are present. Postsurgical changes are present as well. No acute fi ndings seen. Prominent vascular calcifications are present without acute vascular finding. IMPRESSION: Contrast enhanced CT abdomen and pelvis imaging shows no acute or emergent finding. Gabriela cute findings detailed in the body of the report.
--- NOTE | 2019-05-08 21:32 | ER ---
Nurse's Notes [facility] Name: Patricia Flynn Age: 78 yrs Sex: Female : 1940 Arrival Date: 05/08/2019 Time: 17:43 Bed 18 Private MD: Diagnosis: Other viral enteritis Presentation: 05/08 17:55 Presenting complaint: Patient states: Diarrhea x 2 weeks. "it's all over the floor, the ca1 carpet. I can't control it. I go several times a day". Reports red stools, states, "I am not sure if it is blood". Reports N/V, dizziness and lightheadedness. Denies Fever and abdominal cramping. Transition of care: patient was not received from another setting of care. Onset of symptoms was May 08, 2019. Risk Assessment: Do you want to hurt yourself or someone else? Patient reports no desire to harm self or others. Initial Sepsis Screen: Does the patient meet any 2 criteria? No. Patient's initial sepsis screen is negative. Does the patient have a suspected source of infection? No. Patient's initial sepsis screen is negative. Care prior to arrival: None. 17:55 Method Of Arrival: Wheelchair ca1 17:55 Acuity: VELASQUEZ 3 ca1 Triage Assessment: 17:59 General: Appears in no apparent distress. ill, Behavior is calm, cooperative, ca1 appropriate for age. Pain: Denies pain. GI: Reports cramping, nausea, vomiting. Historical: - Allergies: 17:59 No Known Allergies; ca1 - PMHx: 17:59 Back pain; Diabetes - NIDDM; High Cholesterol; Hypertension; Hypothyroidism; Lupus; ca1 Lung Ca; Atrial Fib; - Immunization history:: Adult Immunizations up to date, Flu vaccine is up to date. - Social history:: Smoking status: Patient/guardian denies using tobacco. - Ebola Screening: : Patient negative for fever greater than or equal to 101.5 degrees Fahrenheit, and additional compatible Ebola Virus Disease symptoms Patient denies exposure to infectious person Patient denies travel to an Ebola-affected area in the 21 days before illness onset No symptoms or risks identified at this time. Screenin:00 Abuse screen: Denies threats or abuse. Denies injuries from another. Nutritional bp screening: No deficits noted. Tuberculosis screening: No symptoms or risk factors identified. Fall Risk None identified. Assessment: 18:00 General: SEE TRIAGE NOTE. bp 19:00 General: Appears in no apparent distress. comfortable, Behavior is calm, cooperative, rr5 appropriate for age. Pain: Denies pain. Neuro: Level of Consciousness is awake, alert, obeys commands, Oriented to person, place, time, situation, Appropriate for age Reports dizziness, weakness. 19:00 Cardiovascular: Capillary refill < 3 seconds Patient's skin is warm and dry. rr5 Respiratory: Airway is patent Respiratory effort is even, unlabored, Respiratory pattern is regular, symmetrical. GI: Abdomen is round Reports diarrhea. : No signs and/or symptoms were reported regarding the genitourinary system. EENT: No signs and/or symptoms were reported regarding the EENT system. Derm: Skin is fragile, is thin, Skin temperature is warm. Musculoskeletal: Circulation, motion, and sensation intact. Capillary refill < 3 seconds. 20:15 Reassessment: Patient appears in no apparent distress at this time. Patient is alert, rr5 oriented x 3, equal unlabored respirations, skin warm/dry/pink. awaiting for CT result. 21:20 Reassessment: Patient appears in no apparent distress at this time. Patient is alert, rr5 oriented x 3, equal unlabored respirations, skin warm/dry/pink. awaiting for the provider reassessment. 22:00 Reassessment: Patient appears in no apparent distress at this time. Patient is alert, rr5 oriented x 3, equal unlabored respirations, skin warm/dry/pink. discharge instruction given and explained to patient and braddisher, verbalized understanding no complaints made. Vital Signs: 17:59 BP 120 / 88; Pulse 121; Resp 16 S; Temp 98.6(O); Pulse Ox 98% on R/A; Weight 97.07 kg ca1 (R); Height 5 ft. 0 in. (152.40 cm) (R); Pain 0/10; 19:15 BP 121 / 67; Pulse 112; Resp 19; Temp 99; Pulse Ox 99% ; rr5 20:00 BP 115 / 62; Pulse 110; Resp 19; Pulse Ox 99% ; rr5 21:00 BP 108 / 53; Pulse 105; Resp 17; Pulse Ox 100% ; rr5 21:51 BP 102 / 58; Pulse 99; Resp 17; Temp 97.7; Pulse Ox 99% ; rr5 22:15 BP 103 / 65; Pulse 95; Resp 16; Temp 97.7; Pulse Ox 98% ; Pain 0/10; rr5 17:59 Body Mass Index 41.79 (97.07 kg, 152.40 cm) ca1 ED Course: 17:43 Patient arrived in ED. as 17:46 Ezio Whitten, RN is Primary Nurse. bp 17:49 Yomi Braswell MD is Attending Physician. kdr 17:58 Triage completed. ca1 17:59 Arm band placed on right wrist. ca1 18:00 Patient has correct armband on for positive identification. Placed in gown. Bed in low ca1 position. Call light in reach. Side rails up X2. Pulse ox on. NIBP on. Warm blanket given. 18:05 Inserted saline lock: 20 gauge in right forearm, using aseptic technique. Blood bp collected. 19:[address] via wheelchair. eh 19:55 CT Abd/Pelvis - IV Contrast Only In Process Unspecified. EDMS 22:10 No provider procedures requiring assistance completed. IV discontinued, intact, rr5 bleeding controlled, No redness/swelling at site. Pressure dressing applied. Administered Medications: 18:15 Drug: NS 0.9% 1000 ml Route: IV; Rate: 1 bolus; Site: right forearm; bp 21:00 Follow up: Response: No adverse reaction; IV Status: Completed infusion; IV Intake: rr5 1000ml 19:10 Drug: Zofran 4 mg Route: IVP; Site: right forearm; rr5 20:10 Follow up: Response: No adverse reaction rr5 19:16 Drug: Cipro 500 mg Route: PO; rr5 20:10 Follow up: Response: No adverse reaction rr5 19:16 Drug: Flagyl 500 mg Route: PO; rr5 20:10 Follow up: Response: No adverse reaction rr5 Intake: 21:00 IV: 1000ml; Total: 1000ml. rr5 Outcome: 21:32 Discharge ordered by . tw4 22:15 Discharged to home via wheelchair, with family. rr5 22:15 Condition: stable 22:15 Discharge instructions given to patient, family, Instructed on discharge instructions, follow up and referral plans. medication usage, Demonstrated understanding of instructions, follow-up care, medications, Prescriptions given X 1. 22:34 Patient left the ED. rr5 Signatures: Dispatcher [employer] EDMS Yomi Braswell MD MD [facility] Humera Cartwright Brian, RN RN bp Barry Serrato MD MD tw4 Stephen Marie RN RN rr5 Cadence Pompa RN RN ca1 Corrections: (The following items were deleted from the chart) 19:45 19:45 Patient moved to [place] via stretcher. [facility] 21:51 21:20 Reassessment: Patient appears in no apparent distress at this time. Patient is rr5 alert, oriented x 3, equal unlabored respirations, skin warm/dry/pink. awaiting for the provider. rr5
--- NOTE | 2019-05-08 21:32 | EDPHYS ---
Physician Documentation [facility] Name: Patricia Flynn Age: 78 yrs Sex: Female : 1940 Arrival Date: 05/08/2019 Time: 17:43 Bed 18 Private MD: ED Physician Yomi Braswell HPI: 05/08 18:36 This 78 yrs old Female presents to ER via Wheelchair with complaints of kdr Diarrhea, Weakness. 18:36 The patient presents to the emergency department with nausea, vomiting, that is kdr intermittent, diarrhea, that is intermittent, 10 times since last night, The patient has had diarrhea for about two weeks. Has poor control of bowels and is leaking on the carpet. The son states that it sometimes appears red. The last few days, she has had n/v as well. 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 Onset: The symptoms/episode began/occurred gradually, 2 week(s) ago. Possible causes: unknown. The symptoms are aggravated by food , The symptoms are alleviated by nothing. Associated signs and symptoms: Pertinent positives: diarrhea, GI bleeding, nausea, vomiting, Pertinent negatives: constipation, dysuria, fever. Severity of symptoms: At their worst the symptoms were mild moderate just prior to arrival, in the emergency department the symptoms are unchanged. The patient has not experienced similar symptoms in the past. The patient has been recently seen by a physician: 1 month(s) ago. Historical: - Allergies: 17:59 No Known Allergies; ca1 - PMHx: 17:59 Back pain; Diabetes - NIDDM; High Cholesterol; Hypertension; Hypothyroidism; Lupus; ca1 Lung Ca; Atrial Fib; - Immunization history:: Adult Immunizations up to date, Flu vaccine is up to date. - Social history:: Smoking status: Patient/guardian denies using tobacco. - Ebola Screening: : Patient negative for fever greater than or equal to 101.5 degrees Fahrenheit, and additional compatible Ebola Virus Disease symptoms Patient denies exposure to infectious person Patient denies travel to an Ebola-affected area in the 21 days before illness onset No symptoms or risks identified at this time. ROS: 18:36 Constitutional: Negative for fever, chills, and weight loss, Eyes: Negative for injury, kdr pain, redness, and discharge, ENT: Negative for injury, pain, and discharge, Neck: Negative for injury, pain, and swelling, Cardiovascular: Negative for chest pain, palpitations, and edema, Respiratory: Negative for shortness of breath, cough, wheezing, and pleuritic chest pain, Back: Negative for injury and pain, : Negative for injury, bleeding, discharge, and swelling, MS/Extremity: Negative for injury and deformity, Skin: Negative for injury, rash, and discoloration, Neuro: Negative for headache, weakness, numbness, tingling, and seizure activity. Psych: Negative for depression, anxiety, suicide ideation, homicidal ideation, and hallucinations, Allergy/Immunology: Negative for hives, rash, and allergies, Endocrine: Negative for neck swelling, polydipsia, polyuria, polyphagia, and marked weight changes, Hematologic/Lymphatic: Negative for swollen nodes, abnormal bleeding, and unusual bruising. 18:36 Abdomen/GI: Positive for abdominal pain, nausea and vomiting, nausea, vomiting, and diarrhea, rectal bleeding. Exam: 18:36 Constitutional: This is a well developed, well nourished patient who is awake, alert, kdr and in no acute distress. Head/Face: Normocephalic, atraumatic. Eyes: Pupils equal round and reactive to light, extra-ocular motions intact. Lids and lashes normal. Conjunctiva and sclera are non-icteric and not injected. Cornea within normal limits. Periorbital areas with no swelling, redness, or edema. Neck: Trachea midline, no thyromegaly or masses palpated, and no cervical lymphadenopathy. Supple, full range of motion without nuchal rigidity, or vertebral point tenderness. No Meningismus. Chest/axilla: Normal chest wall appearance and motion. Nontender with no deformity. No lesions are appreciated. Cardiovascular: Regular rate and rhythm with a normal S1 and S2. No gallops, murmurs, or rubs. Normal PMI, no JVD. No pulse deficits. Respiratory: Lungs have equal breath sounds bilaterally, clear to auscultation and percussion. No rales, rhonchi or wheezes noted. No increased work of breathing, no retractions or nasal flaring. Back: No spinal tenderness. No costovertebral tenderness. Full range of motion. Skin: Warm, dry with normal turgor. Normal color with no rashes, no lesions, and no evidence of cellulitis. MS/ Extremity: Pulses equal, no cyanosis. Neurovascular intact. Full, normal range of motion. Neuro: Awake and alert, GCS 15, oriented to person, place, time, and situation. Cranial nerves II-XII grossly intact. Motor strength 5/5 in all extremities. Sensory grossly intact. Cerebellar exam normal. Normal gait. Psych: Awake, alert, with orientation to person, place and time. Behavior, mood, and affect are within normal limits. 18:36 Abdomen/GI: Inspection: obese Bowel sounds: diminished, in all quadrants, Palpation: soft, mild abdominal tenderness, in all quadrants, Rectal exam: rectal tone normal, Stool: brown, guaiac negative. Vital Signs: 17:59 BP 120 / 88; Pulse 121; Resp 16 S; Temp 98.6(O); Pulse Ox 98% on R/A; Weight 97.07 kg ca1 (R); Height 5 ft. 0 in. (152.40 cm) (R); Pain 0/10; 19:15 BP 121 / 67; Pulse 112; Resp 19; Temp 99; Pulse Ox 99% ; rr5 20:00 BP 115 / 62; Pulse 110; Resp 19; Pulse Ox 99% ; rr5 21:00 BP 108 / 53; Pulse 105; Resp 17; Pulse Ox 100% ; rr5 21:51 BP 102 / 58; Pulse 99; Resp 17; Temp 97.7; Pulse Ox 99% ; rr5 22:15 BP 103 / 65; Pulse 95; Resp 16; Temp 97.7; Pulse Ox 98% ; Pain 0/10; rr5 17:59 Body Mass Index 41.79 (97.07 kg, 152.40 cm) ca1 MDM: 21:32 Patient medically screened. tw4 05/08 17:49 Order name: Basic Metabolic Panel; Complete Time: 18:57 kdr 1218 17:49 Order name: CBC with Diff kdr 18 17:49 Order name: Creatinine for Radiology; Complete Time: 18:57 kdr 1218 17:49 Order name: Hepatic Function; Complete Time: 18:57 kdr 1218 17:49 Order name: Lipase; Complete Time: 18:57 kdr 1218 18:01 Order name: Type And Screen kdr 05/08 18:01 Order name: PT-INR; Complete Time: 18:57 kdr 1218 18:38 Order name: CBC Smear Scan EDDC 05/08 18:57 Order name: CT Abd/Pelvis - IV Contrast Only [facility] 05/08 20:16 Order name: ABO/RH no charge EDDC 05/08 17:49 Order name: IV Saline Lock; Complete Time: 18:09 kdr 05/08 17:49 Order name: Labs collected and sent; Complete Time: 18:09 [facility] Administered Medications: 18:15 Drug: NS 0.9% 1000 ml Route: IV; Rate: 1 bolus; Site: right forearm; bp 21:00 Follow up: Response: No adverse reaction; IV Status: Completed infusion; IV Intake: rr5 1000ml 19:10 Drug: Zofran 4 mg Route: IVP; Site: right forearm; rr5 20:10 Follow up: Response: No adverse reaction rr5 19:16 Drug: Cipro 500 mg Route: PO; rr5 20:10 Follow up: Response: No adverse reaction rr5 19:16 Drug: Flagyl 500 mg Route: PO; rr5 20:10 Follow up: Response: No adverse reaction rr5 Disposition: 05/08/19 21:32 Discharged to Home. Impression: Other viral enteritis. - Condition is Stable. - Discharge Instructions: Viral Gastroenteritis, Adult, [id number]. - Prescriptions for Lomotil 2.5- 0.025 mg Oral Tablet - take 1 tablet by ORAL route every 6 hours As needed; 20 tablet. - Medication Reconciliation Form, Thank You Letter, Antibiotic Education, Prescription Opioid Use form. - Follow up: Private Physician; When: Upon discharge from the Emergency Department; Reason: Recheck today's complaints, Continuance of care. - Problem is new. - Symptoms have improved. Signatures: Dispatcher [employer] [facility] Yomi Braswell MD MD kdr Ezio Whitten RN RN bp Barry Serrato MD MD tw4 Stephen Marie RN RN rr5 Cadence Pompa RN RN ca1 Corrections: (The following items were deleted from the chart) 22:34 21:32 05/08/2019 21:32 Discharged to Home. Impression: Other viral enteritis. Condition rr5 is Stable. Forms are Medication Reconciliation Form, Thank You Letter, Antibiotic Education, Prescription Opioid Use. Follow up: Private Physician; When: Upon discharge from the Emergency Department; Reason: Recheck today's complaints, Continuance of care. Problem is new. Symptoms have improved. tw4
[2019-05-09 01:55] VITALS: BP 102/58; TEMP 97.7; O2SAT 99
== END 2019-05-08 22:34 | disposition home or self-care (01) ==
LOC: ER 17:41
DX: B34.9 Viral infection, unspecified (principal)
CPT/HCPCS: 96361; 85025; 80048; 36415; 86900; 86850; 85610; 86901; 80076; 83690; 74177; 96374; 99284; Q9967; J7030; J2405

== ENCOUNTER 2019-05-16 13:19 | Inpatient (IN) | payer OTHER ==
--- NOTE | 2019-05-16 14:42 | RAD REPORT ---
EXAM DESCRIPTION: RAD - Chest Single View - 05/16/2019 2:36 pm CLINICAL HISTORY: MALAISE Chest pain. COMPARISON: Chest Single View dated 02/20/2018; CHEST PA AND LAT 2 VIEW dated 01/01/2013; CHEST SINGLE VIEW dated 04/04/2011; CHEST PA AND LAT 2 VIEW dated 07/14/2010 FINDINGS: Portable technique limits examination quality. Mild interstitial prominence likely representing interstitial pulmonary edema. The heart is moderatel y enlarged a tortuous thoracic aorta. No displaced fractures. IMPRESSION: Mild CHF.
[2019-05-16 14:57] LABS: Protime INR 1.33
[2019-05-16 15:00] LABS: Absolute Lymphocytes (CBC) 0.3 K/uL (0.7-4.9); Basophils % 0.3 % (0-1.3); Lymphocytes % 11.2 % (15.3-44.8); MPV 9.3 fL (7.6-11.3); RBC Red Blood Cell Count 4.98 M/uL (3.86-4.86)
[2019-05-16] MEDS ORDERED: NA CHLORIDE 0.9% 1,000 ML ONE (15:15)
[2019-05-16 15:17] LABS: ALT/SGPT 16 U/L (12-78); AST/SGOT 16 U/L (15-37); Albumin 3.1 g/dL (3.4-5.0); Alkaline Phosphatase 62 U/L (45-117); BUN Blood Urea Nitrogen 22 mg/dL (7-18); Bicarbonate 26 mmol/L (21-32); Bilirubin Direct 0.3 mg/dL (0-0.2); Bilirubin Total 0.8 mg/dL (0.2-1.0); Glucose Level 152 mg/dL (74-106); Lipase 83 U/L (73-393); NT PRO-BNP 4350 pg/mL (<450); Potassium 4.1 mmol/L (3.5-5.1); Sodium Level 136 mmol/L (136-145); Troponin (Emerg Dept Use Only) < 0.02 ng/mL (0.0-0.045)
[2019-05-16 15:20] LABS: Magnesium 1.1 mg/dL (1.8-2.4)
[2019-05-16] MEDS ORDERED: Magnesium Sulfate 2gm IVPB 2 G/50 ML BAG IV ONE (15:33)
[2019-05-16] MEDS ORDERED: CEFTRIAXONE/SWI 1gm 1 GM/10 ML SYR ONE (15:33)
[2019-05-16 15:42] LABS: Urine Bacteria LOADED /HPF (<20); Urine Culture Reflex Order REFLEXED; Urine Mucus 2+ /HPF (NONE SEEN); Urine RBC <5 /HPF (NONE SEEN)
[2019-05-16 15:43] LABS: Urine Blood NEGATIVE (NEG); Urine Glucose NEGATIVE (NEG); Urine Protein 2+ (NEG)
[2019-05-16 15:47] LABS: Anisocytosis 1+; Blood Morphology Comment NOTED (NOT SEEN); Elliptocytes 1+; Macrocytosis 1+; Platelet Estimate ADEQ; Urine White Blood Cell Casts OK
--- NOTE | 2019-05-16 16:55 | ER ---
Nurse's Notes [facility] Name: Patricia Flynn Age: 78 yrs Sex: Female : 1940 Arrival Date: 05/16/2019 Time: 13:21 Bed 14 Private MD: Charles Hammer Diagnosis: Hypomagnesemia;Acute cystitis;Dehydration;Orthostatic hypotension Presentation: 05/16 13:40 Presenting complaint: Patient states: has been feeling faint for past 3 weeks, had iw diarrhea but that has resolved, now feels nauseous and vomited once today, + cough,no fever ,hx of lung cancer,on chemo and radiation. Transition of care: patient was not received from another setting of care. 13:40 Method Of Arrival: Wheelchair iw 13:42 Onset of symptoms was April 30, 2019. Risk Assessment: Do you want to hurt yourself iw or someone else? Patient reports no desire to harm self or others. Initial Sepsis Screen: Does the patient meet any 2 criteria? No. Patient's initial sepsis screen is negative. Does the patient have a suspected source of infection? No. Patient's initial sepsis screen is negative. Care prior to arrival: None. 13:42 Acuity: VELASQUEZ 3 iw Triage Assessment: 13:45 General: Appears in no apparent distress. comfortable, Behavior is cooperative, bp appropriate for age, anxious. Pain: Denies pain. EENT: No deficits noted. Neuro: Reports dizziness, 3 WEEKS. Cardiovascular: No deficits noted. Respiratory: No deficits noted. GI: No signs and/or symptoms were reported involving the gastrointestinal system. : No signs and/or symptoms were reported regarding the genitourinary system. Musculoskeletal: No deficits noted. Historical: - Allergies: 13:49 No Known Allergies; iw - Home Meds: 13:49 folic acid 400 mcg Oral tab 1 tab once daily [Active]; levothyroxine 125 mcg tab 1 tab iw once daily [Active]; spironolactone 25 mg Oral tab 1 tab once daily [Active]; gabapentin 600 mg Oral tab 1 tab nightly [Active]; dicyclomine 20 mg Oral tab 1 tab 4 times per day [Active]; Glimepiride Oral [Active]; prednisone 5 mg Oral tab once daily [Active]; pantoprazole 40 mg oral TbEC 1 tab once daily [Active]; occuvite [Active]; vitmain d 3 [Active]; ondansetron HCl 4 mg Oral tab [Active]; metoprolol tartrate 25 mg Oral tab 1 tab once daily [Active]; Myrbetriq 25 mg oral Tb24 1 tab once daily [Active]; Eliquis 5 mg oral tab [Active]; - PMHx: 13:49 Atrial Fib; Back pain; Diabetes - NIDDM; High Cholesterol; Hypertension; iw Hypothyroidism; Lung CA; Lupus; - PSHx: 13:49 laminectomy; cyst removed from neck; iw - Immunization history:: Adult Immunizations up to date. - Social history:: Smoking status: Patient/guardian denies using tobacco. - Ebola Screening: : Patient negative for fever greater than or equal to 101.5 degrees Fahrenheit, and additional compatible Ebola Virus Disease symptoms Patient denies exposure to infectious person Patient denies travel to an Ebola-affected area in the 21 days before illness onset No symptoms or risks identified at this time. Screenin:45 Abuse screen: Denies threats or abuse. Denies injuries from another. Nutritional bp screening: No deficits noted. Tuberculosis screening: No symptoms or risk factors identified. Fall Risk None identified. Assessment: 13:45 General: SEE TRIAGE NOTE. bp 14:45 Reassessment: UOP PENDING, IVF INFUSING. bp 15:45 Reassessment: ALL CURRENT ORDERS COMPLETED, PCP C/S PENDING FOR DISPO. bp 17:00 Reassessment: ADMIT INITIATED. bp 17:11 Reassessment: BED ASSIGNED FOR ADMIT. bp 17:58 Reassessment: ADMIT COMPLETED, PT EUGENIA. bp Vital Signs: 13:49 BP 126 / 82; Pulse 62; Resp 16 S; Temp 99.8(O); Pulse Ox 98% on R/A; Weight 97.07 kg; iw Height 4 ft. 11 in. (149.86 cm); 14:45 BP 105 / 70; Pulse 95; Resp 29; Pulse Ox 93% ; bp 15:30 BP 117 / 61; Pulse 93; Resp 20; Pulse Ox 96% ; bp 16:30 BP 123 / 83; Pulse 93; Resp 21; Pulse Ox 96% ; bp 16:50 BP 123 / 83 Supine; Pulse 82; la1 16:50 BP 93 / 70 Sitting; Pulse 93; la1 16:50 BP 90 / 59 Standing; Pulse 111; la1 17:30 BP 122 / 86; Pulse 94; Resp 18; Pulse Ox 94% ; bp 13:49 Body Mass Index 43.22 (97.07 kg, 149.86 cm) ED Course: 13:21 Patient arrived in ED. rg4 13:21 Charles Hammer MD is Private Physician. rg4 13:35 Ezio Whitten, ARASH is Primary Nurse. bp 13:36 Jose Rogel FNP-C is PHCP. la1 13:36 Oscar Olvera MD is Attending Physician. la1 13:43 Triage completed. iw 13:45 Patient has correct armband on for positive identification. Bed in low position. Call bp light in reach. Side rails up X2. 13:49 Arm band placed on. iw 14:36 XRAY Chest (1 view) In Process Unspecified. EDMS 14:45 Inserted saline lock: 22 gauge in right forearm, using aseptic technique. Blood bp collected. 14:55 EKG done, by master fire control technician. reviewed by Jose TALBERT. at1 15:42 EKG done, by master fire control technician. reviewed by Jose TALBERT Repeat EKG. at1 16:54 Charles Hammer MD is Hospitalizing Provider. la1 Administered Medications: 14:49 CANCELLED (Other Intervention Used): NS 0.9% 1000 ml IV at 1000 ml once la1 15:10 Drug: NS 0.9% 1000 ml Route: IV; Rate: 125 ml/hr; Site: right forearm; bp 15:30 Drug: Magnesium Sulfate 2 grams Route: IVPB; Infused Over: 2 hrs; Site: right forearm; bp 15:30 Drug: Rocephin 1 grams Route: IV; Rate: calculated rate; Site: right forearm; bp Outcome: 16:55 Decision to Hospitalize by Provider. la1 17:58 Admitted to Med/surg accompanied by tech, via wheelchair, room 218, with chart, Report bp called to CHANCE ANTOINE 17:58 Condition: stable 17:58 Instructed on the need for admit. 18:40 Patient left the ED. bp Signatures: Dispatcher [employer] EDMS Pricila Dorman RN RN iw Yani Rossi, filing machine operator EKG Tat1 Jose Rogel FNP-C FNP-Cla1 Tanika Gomez rg4 Ezio Whitten, RN RN bp Corrections: (The following items were deleted from the chart) 13:51 13:49 BP 126 / 82; Pulse 62bpm; Resp 16bpm; Spontaneous; Pulse Ox 98% RA; 97.07 kg; iw Height 4 ft. 11 in.; BMI: 43.2; iw
--- NOTE | 2019-05-16 16:56 | EDPHYS ---
[facility] Name: Patricia Flynn Age: 78 yrs Sex: Female : 1940 Arrival Date: 05/16/2019 Time: 13:21 Bed 14 Private MD: Charles Hammer ED Physician Oscar Olvera HPI: 05/16 15:01 This 78 yrs old Female presents to ER via Wheelchair with complaints of la1 Weakness. 15:01 pt reports for the last three weeks she has had malaise and weakness, was seen here in la1 the ED recently and dx with enteritis. Still not feeling well. Has had one episode of vomiting and had diarrhea a few days ago. Onset: The symptoms/episode began/occurred 3 week(s) ago. Severity of symptoms: At their worst the symptoms were moderate. The patient has not experienced similar symptoms in the past. The patient has been recently seen at the [facility] Emergency Department, a couple of weeks ago, for similar complaints labs were performed, CT scan was performed, was given IV fluids. Historical: - Allergies: 13:49 No Known Allergies; iw - Home Meds: 13:49 folic acid 400 mcg Oral tab 1 tab once daily [Active]; levothyroxine 125 mcg tab 1 tab iw once daily [Active]; spironolactone 25 mg Oral tab 1 tab once daily [Active]; gabapentin 600 mg Oral tab 1 tab nightly [Active]; dicyclomine 20 mg Oral tab 1 tab 4 times per day [Active]; Glimepiride Oral [Active]; prednisone 5 mg Oral tab once daily [Active]; pantoprazole 40 mg oral TbEC 1 tab once daily [Active]; occuvite [Active]; vitmain d 3 [Active]; ondansetron HCl 4 mg Oral tab [Active]; metoprolol tartrate 25 mg Oral tab 1 tab once daily [Active]; Myrbetriq 25 mg oral Tb24 1 tab once daily [Active]; Eliquis 5 mg oral tab [Active]; - PMHx: 13:49 Atrial Fib; Back pain; Diabetes - NIDDM; High Cholesterol; Hypertension; iw Hypothyroidism; Lung CA; Lupus; - PSHx: 13:49 laminectomy; cyst removed from neck; iw - Immunization history:: Adult Immunizations up to date. - Social history:: Smoking status: Patient/guardian denies using tobacco. - Ebola Screening: : Patient negative for fever greater than or equal to 101.5 degrees Fahrenheit, and additional compatible Ebola Virus Disease symptoms Patient denies exposure to infectious person Patient denies travel to an Ebola-affected area in the 21 days before illness onset No symptoms or risks identified at this time. ROS: 15:02 Eyes: Negative for injury, pain, redness, and discharge, ENT: Negative for injury, la1 pain, and discharge, Neck: Negative for injury, pain, and swelling, Cardiovascular: Negative for chest pain, palpitations, and edema, Respiratory: Negative for shortness of breath, cough, wheezing, and pleuritic chest pain. 15:02 Back: Negative for injury and pain, : Negative for injury, bleeding, discharge, and swelling, MS/Extremity: Negative for injury and deformity, Skin: Negative for injury, rash, and discoloration, Neuro: Negative for headache, weakness, numbness, tingling, and seizure. 15:02 Constitutional: Positive for fatigue, malaise. 15:02 Abdomen/GI: Positive for nausea, vomiting, diarrhea, Negative for rectal pain, rectal bleeding, bowel incontinence, flatulence, acute changes. Exam: 15:03 Constitutional: This is a well developed, well nourished patient who is awake, alert, la1 and in no acute distress. Head/Face: Normocephalic, atraumatic. Eyes: Pupils equal round and reactive to light, extra-ocular motions intact. . Periorbital areas with no swelling, redness, or edema. ENT: . Oropharynx with no redness, swelling, or masses, exudates, or evidence of obstruction, uvula midline. Mucous membranes moist. Neck: Supple, full range of motion without nuchal rigidity, or vertebral point tenderness. No Meningismus. Chest/axilla: Normal chest wall appearance and motion. Nontender with no deformity. No lesions are appreciated. Cardiovascular: Regular rate and rhythm with a normal S1 and S2. No gallops, murmurs, or rubs. Normal PMI, no JVD. No pulse deficits. Respiratory: Lungs have equal breath sounds bilaterally, clear to auscultation . No rales, rhonchi or wheezes noted. No increased work of breathing, no retractions or nasal flaring. 15:03 Back: No spinal tenderness. No costovertebral tenderness. Full range of motion. Neuro: Awake and alert, GCS 15, oriented to person, place, time, and situation. 15:03 Abdomen/GI: Inspection: obese Bowel sounds: normal, in all quadrants, Palpation: soft, in all quadrants, mild abdominal tenderness, in the epigastric area, umbilical area, right upper quadrant and left upper quadrant, Indicators: McBurney's point is not tender, Fulton's sign is negative, Rovsing's sign is negative, Obturator sign is negative, Psoas sign is negative, Hernia: noted in the umbilical area. Vital Signs: 13:49 BP 126 / 82; Pulse 62; Resp 16 S; Temp 99.8(O); Pulse Ox 98% on R/A; Weight 97.07 kg; iw Height 4 ft. 11 in. (149.86 cm); 14:45 BP 105 / 70; Pulse 95; Resp 29; Pulse Ox 93% ; bp 15:30 BP 117 / 61; Pulse 93; Resp 20; Pulse Ox 96% ; bp 16:30 BP 123 / 83; Pulse 93; Resp 21; Pulse Ox 96% ; bp 16:50 BP 123 / 83 Supine; Pulse 82; la1 16:50 BP 93 / 70 Sitting; Pulse 93; la1 16:50 BP 90 / 59 Standing; Pulse 111; la1 17:30 BP 122 / 86; Pulse 94; Resp 18; Pulse Ox 94% ; bp 13:49 Body Mass Index 43.22 (97.07 kg, 149.86 cm) iw MDM: 13:42 Patient medically screened. la1 16:53 Data reviewed: vital signs, nurses notes, lab test result(s), EKG, radiologic studies, la1 I have discussed the patient's presentation/case with the attending Emergency Department Physician; and as a result, I will admit patient. Data interpreted: Pulse oximetry: on room air is 96 %. Interpretation: normal. Counseling: I had a detailed discussion with the patient and/or guardian regarding: the historical points, exam findings, and any diagnostic results supporting the discharge/admit diagnosis, lab results, radiology results, the need for further work-up and treatment in the hospital. Physician consultation: Charles Hammer MD was called at 16:53, was contacted at 16:54, regarding admission, to the telemetry unit. patient's condition. 05/16 13:42 Order name: Flu; Complete Time: 14:49 iw 05/16 14:11 Order name: Basic Metabolic Panel; Complete Time: 15:21 05/16 14:11 Order name: CBC with Diff; Complete Time: 16:35 05/16 14:11 Order name: LFT's; Complete Time: 15:21 05/16 14:11 Order name: Magnesium; Complete Time: 15:21 05/16 14:11 Order name: NT PRO-BNP; Complete Time: 15:21 05/16 14:11 Order name: PT-INR; Complete Time: 15:17 05/16 14:11 Order name: Troponin (emerg Dept Use Only); Complete Time: 15:21 05/16 14:11 Order name: Lipase; Complete Time: 15:21 md05/16 14:14 Order name: Blood Culture Adult (2) [facility] 05/16 14:14 Order name: Lactate; Complete Time: 15:17 05/16 15:25 Order name: Urine Microscopic Only; Complete Time: 16:35 md05/16 15:31 Order name: Urine Dipstick--Ancillary (enter results); Complete Time: 16:35 05/16 15:43 Order name: Urine Culture [facility] 05/16 14:11 Order name: XRAY Chest (1 view); Complete Time: 14:49 md05/16 14:11 Order name: EKG; Complete Time: 14:12 05/16 14:11 Order name: Cardiac monitoring; Complete Time: 14:16 05/16 14:11 Order name: EKG - Nurse/Tech; Complete Time: 14:32 05/16 14:11 Order name: IV Saline Lock; Complete Time: 14:49 05/16 14:11 Order name: Labs collected and sent; Complete Time: 14:49 05/16 14:11 Order name: O2 Per Protocol; Complete Time: 14:15 05/16 14:11 Order name: O2 Sat Monitoring; Complete Time: 14:15 md05/16 14:20 Order name: Urine Dipstick-Ancillary (obtain specimen); Complete Time: 15:27 1 05/16 15:48 Order name: CBC Smear Scan; Complete Time: 16:35 EDVT 05/16 16:37 Order name: Orthostatics; Complete Time: 16:55 la1 Administered Medications: 14:49 CANCELLED (Other Intervention Used): NS 0.9% 1000 ml IV at 1000 ml once la1 15:10 Drug: NS 0.9% 1000 ml Route: IV; Rate: 125 ml/hr; Site: right forearm; bp 15:30 Drug: Magnesium Sulfate 2 grams Route: IVPB; Infused Over: 2 hrs; Site: right forearm; bp 15:30 Drug: Rocephin 1 grams Route: IV; Rate: calculated rate; Site: right forearm; bp Disposition: 19:09 Co-signature as Attending Physician, Oscar Olvera MD. rn Disposition: 05/16/19 16:55 Hospitalization ordered by Charles Hammer for Inpatient Admission. Preliminary diagnosis are Hypomagnesemia, Acute cystitis, Dehydration, Orthostatic hypotension. - Bed requested for Telemetry/MedSurg (Inpatient). - Status is Inpatient Admission. bp - Condition is Stable. - Problem is new. - Symptoms have improved. UTI on Admission? Yes Signatures: Dispatcher [employer] EDVT Pricila Dorman RN RN iw Nieto, Roman, MD MD rn Jose Rogel, DECKHAND FISHING VESSEL-C [facility]ING [facility] RN Venita Burnett Corrections: (The following items were deleted from the chart) 14:49 14:40 NS 0.9% 1000 ml IV at 1000 ml once ordered. la1 la1 14:49 14:49 NS 0.9% 1000 ml IV at 1000 ml once ordered. la1 la1 17:11 16:55 Hospitalization Ordered by Charles Hammer MD for Inpatient Admission. Preliminary eb diagnosis is Hypomagnesemia; Acute cystitis; Dehydration; Orthostatic hypotension. Bed requested for Telemetry/MedSurg (Inpatient). Status is Inpatient Admission. Condition is Stable. Problem is new. Symptoms have improved. UTI on Admission? Yes. la1 18:40 17:11 05/16/2019 16:55 Hospitalization Ordered by Charles Hammer MD for Inpatient bp Admission. Preliminary diagnosis is Hypomagnesemia; Acute cystitis; Dehydration; Orthostatic hypotension. Bed requested for Telemetry/MedSurg (Inpatient). Status is Inpatient Admission. Condition is Stable. Problem is new. Symptoms have improved. UTI on Admission? Yes. eb
[2019-05-16] MEDS ORDERED: ACETAMINOPHEN 500 MG TAB PO PRN (18:00)
[2019-05-16 18:54] VITALS: BMI 40.4
[2019-05-16] MEDS: NA CHLORIDE 0.9% 1,000 ML IV SCH (21:20)
[2019-05-16] MEDS: CEFTRIAXONE/SWI 1gm 1 GM/10 ML SYR IVP SCH (21:21)
[2019-05-17] MEDS: NA CHLORIDE 0.9% 1,000 ML IV SCH ×4 (02:00→23:47)
[2019-05-17 04:57] LABS: Absolute Lymphocytes (CBC) 0.5 K/uL (0.7-4.9); Basophils % 0.5 % (0-1.3); Lymphocytes % 12.9 % (15.3-44.8); MPV 9.8 fL (7.6-11.3); RBC Red Blood Cell Count 2.88 M/uL (3.86-4.86)
[2019-05-17 05:24] LABS: Potassium 3.7 mmol/L (3.5-5.1)
[2019-05-17 07:15] LABS: Magnesium 1.4 mg/dL (1.8-2.4)
[2019-05-17] MEDS ORDERED: Magnesium Sulfate 2gm IVPB 2 G/50 ML BAG IV ONE (09:06)
[2019-05-17] MEDS: CEFTRIAXONE/SWI 1gm 1 GM/10 ML SYR IVP SCH ×2 (09:29→20:30)
[2019-05-17] MEDS ORDERED: D50W 25 GM/50 ML SYRINGE/VIAL IV PRN (10:51)
[2019-05-17] MEDS ORDERED: GLUCAGON 1 MG/VIAL IM PRN (10:51)
[2019-05-17] MEDS ORDERED: HOME MED 1 EA UNK (Mirabegron [Myrbetriq] 1 TAB) PO SCH (11:00)
[2019-05-17] MEDS: INSULIN -REGULAR HUMAN 50 UNIT/0.5 ML ML SQ SCH ×3 (11:30→20:31)
[2019-05-17] MEDS: DICYCLOMINE HCL 10 MG CAP PO SCH ×3 (13:00→21:29)
--- NOTE | 2019-05-17 13:49 | EKG ---
Test Date: 2019-05-16 Test Time: 15:38:18 Garbage Truck Driver: AG/T MEASUREMENT RESULTS: Intervals: Rate: 99 DE: QRSD: 64 QT: 292 QTc: 374 Vanlue: P: DE: QRS: -21 T: 51 INTERPRETIVE STATEMENTS: Atrial fibrillation Low voltage QRS Abnormal ECG Compared to ECG 05/16/2019 14:29:00 Accelerated junctional rhythm no longer present Ventricular premature complex(es) no longer present Left anterior fascicular block no longer present Electronically Signed On 05-17-19 13:46:54 CATALYST PLANT SUPERVISOR by Elmer Barriga
--- NOTE | 2019-05-17 13:50 | EKG ---
Test Date: 2019-05-16 Test Time: 14:29:00 [employer] Sales: JOAN MEASUREMENT RESULTS: Intervals: Rate: 127 AL: QRSD: 70 QT: 322 QTc: 467 Brackney: P: AL: QRS: -55 T: 42 INTERPRETIVE STATEMENTS: Accelerated Junctional rhythm with frequent premature ventricular complexes in a pattern of bigeminy Low voltage QRS Left anterior fascicular block Abnormal ECG Compared to ECG 04/08/2019 09:59:47 Accelerated junctional rhythm now present Ventricular premature complex(es) now present Low QRS voltage now present Left anterior fascicular block now present Sinus rhythm no longer present Atrial premature complex(es) no longer present Right superior axis no longer present Electronically Signed On 05-17-19 13:46:59 LEAD DATABASE DEVELOPER by Elmer Barriga
[2019-05-17] MEDS: GUAIFENESIN/CODEINE 5ML UCUP PO PRN ×2 (16:16→23:48)
[2019-05-17] MEDS: GLIMEPIRIDE 2 MG TABLET PO SCH (16:16)
[2019-05-17] MEDS ORDERED: MAGNESIUM SULFATE 1 gm IVPB 1 GM/100 ML BAG IV ONE (20:00)
[2019-05-17] MEDS: GABAPENTIN 300 MG CAP PO SCH (20:28)
[2019-05-17] MEDS: ROSUVASTATIN 10 MG TAB PO SCH (20:29)
[2019-05-17] MEDS: APIXABAN 5 MG TABLET PO SCH (20:30)
[2019-05-18] MEDS ORDERED: ONDANSETRON 4 MG (ODT) TAB PO PRN (01:42)
[2019-05-18] MEDS: LEVOTHYROXINE SOD 0.125 MG TAB PO SCH (05:15)
[2019-05-18 06:36] LABS: Absolute Lymphocytes (CBC) 0.6 K/uL (0.7-4.9); Basophils % 0.6 % (0-1.3); Lymphocytes % 13.9 % (15.3-44.8); MPV 9.9 fL (7.6-11.3); RBC Red Blood Cell Count 2.79 M/uL (3.86-4.86)
[2019-05-18 06:38] LABS: Magnesium 1.8 mg/dL (1.8-2.4); Potassium 3.9 mmol/L (3.5-5.1)
[2019-05-18] MEDS: INSULIN -REGULAR HUMAN 50 UNIT/0.5 ML ML SQ SCH ×4 (07:30→21:00)
[2019-05-18] MEDS: METOPROLOL TAR 25 MG TAB PO SCH (09:00)
[2019-05-18] MEDS ORDERED: MAGNESIUM SULFATE 1 gm IVPB 1 GM/100 ML BAG IV ONE (09:00)
[2019-05-18] MEDS ORDERED: predniSONE 5 MG TAB PO SCH (09:00)
[2019-05-18] MEDS ORDERED: NA CHLORIDE 0.9% 500 ML IV ONE (09:32)
[2019-05-18] MEDS: CEFTRIAXONE/SWI 1gm 1 GM/10 ML SYR IVP SCH (09:45)
[2019-05-18] MEDS: PANTOPRAZOLE 40MG TABLET PO SCH (09:47)
[2019-05-18] MEDS: DICYCLOMINE HCL 10 MG CAP PO SCH ×4 (09:47→21:27)
[2019-05-18] MEDS: FOLIC ACID 1 MG TABLET PO SCH (09:48)
[2019-05-18] MEDS: APIXABAN 5 MG TABLET PO SCH ×2 (09:48→21:26)
[2019-05-18] MEDS: GLIMEPIRIDE 2 MG TABLET PO SCH ×2 (09:48→17:11)
[2019-05-18] MEDS: SPIRONOLACTONE 25 MG TABLET PO SCH (09:49)
[2019-05-18] MEDS ORDERED: DIGOXIN 0.25 MG/ML AMP IV ONE (10:03)
[2019-05-18] MEDS ORDERED: METOPROLOL TARTRATE 5 MG/5 ML INJ IV ONE (10:52)
[2019-05-18] MEDS: PIPER/TAZO/NS 3.375gm 3.375 GM/100 ML BAG IVPB SCH ×2 (12:00→17:15)
[2019-05-18] MEDS: NA CHLORIDE 0.9% 1,000 ML IV SCH ×2 (12:00→23:47)
--- NOTE | 2019-05-18 13:56 | PN ---
Date of Progress Note: 05/18/2019 Subjective: Patient was seen this morning for followup. Overall, she feels better today than yester day, but still has generalized weakness, but overall she is improving as she reports. She has some c ough and coughs up a little bit yellowish colored mucus and has had some wheezing. Denies any vomiti ng or diarrhea. Just prior to my arrival today to see her, she had gone into atrial fibrillation wit h rapid ventricular rate this morning. Vital signs reviewed. Manual blood pressure was checked by rozina fuentes staff soon after I saw her and her systolic blood pressure was between 70 to 80. She was asym ptomatic from this atrial fibrillation. Objective: HEENT: Unremarkable. Lungs: Minimum wheezing noted in both lung hurtado. Not using any accessory muscles of respiration. Heart: Sounds normal. Heart rhythm is irregular and rapid. Abdomen: Soft. Bowel sounds normal. No guarding, rigidity, tenderness, distention. Extremities: Left leg appears slightly edematous and slightly larger than right leg. Impression: 1.Atrial fibrillation with rapid ventricular rate. 2.Hypotension. 3.Diabetes mellitus. 4.Urinary tract infection. 5.Rule out deep venous thrombosis. Plan: Stat EKG was ordered. IV fluid 500 cc bolus was ordered and nurse was instructed to call me w ith the manual blood pressure reading after the bolus infusion is completed. Patient is asymptomatic from this atrial fibrillation. We will see how she responds to this bolus and if she does not respo nd well, we will have to consider to move her to ICU. Cardiology consultation was requested and iron peck was advised to contact groundwater monitoring technician right away with this atrial fibrillation and low blood pressure problem. Continue current antibiotic. Culture results pending. Continue Eliquis . JANNA/MODL Voice ID: [id number] Report ID: [id number]
[2019-05-18] MEDS ORDERED: NA CHLORIDE 0.9% 250 ML IV ONE (14:41)
[2019-05-18] MEDS ORDERED: METOPROLOL XL 25 MG TAB PO ONE (17:36)
--- NOTE | 2019-05-18 17:50 | RAD REPORT ---
EXAM DESCRIPTION: US - Extrem Venous W Compress Marcello - 05/18/2019 4:11 pm CLINICAL HISTORY: Left lower extremity pain and swelling COMPARISON: None. TECHNIQUE: Real-time sonographic evaluation of the bilateral lower extremity common femoral, superfi cial femoral, popliteal and posterior tibial veins was performed. FINDINGS: Normal compressibility, flow augmentation, phasic flow and spontaneous flow are identified in the right lower extremity common femoral, superficial femoral, popliteal and posterior tibial vei ns. No intraluminal filling defects seen. Hyperechoic focal areas are present in the left common femoral and popliteal veins. This has an appea janet typical for chronic DVT. No acute deep venous thrombosis seen in the left common femoral, super ficial femoral or popliteal veins. Posterior tibial veins also clear. No suspicious soft tissue finding. IMPRESSION: No acute deep venous thrombosis in either lower extremity. Old thrombus remnants are present in the left common femoral and popliteal veins.
[2019-05-18] MEDS: ROSUVASTATIN 10 MG TAB PO SCH (21:26)
[2019-05-18] MEDS: GABAPENTIN 300 MG CAP PO SCH (21:28)
[2019-05-18] MEDS: GUAIFENESIN/CODEINE 5ML UCUP PO PRN (22:24)
[2019-05-19] MEDS: NA CHLORIDE 0.9% 1,000 ML IV SCH ×3 (03:00→21:02)
[2019-05-19] MEDS: LEVOTHYROXINE SOD 0.125 MG TAB PO SCH (05:12)
[2019-05-19] MEDS: PIPER/TAZO/NS 3.375gm 3.375 GM/100 ML BAG IVPB SCH ×5 (05:12→23:10)
[2019-05-19 05:24] LABS: Magnesium 1.8 mg/dL (1.8-2.4); Potassium 3.9 mmol/L (3.5-5.1)
[2019-05-19] MEDS: INSULIN -REGULAR HUMAN 50 UNIT/0.5 ML ML SQ SCH ×4 (07:30→21:03)
--- NOTE | 2019-05-19 08:49 | RAD REPORT ---
EXAM DESCRIPTION: Jaclyn Single View05/19/2019 8:31 am CLINICAL HISTORY: Atrial fibrillation COMPARISON: May 16 FINDINGS: The lungs appear clear of acute infiltrate. The heart is mildly enlarged The upper lobe vessels are prominent indicative of pulmonary venous hypertension
[2019-05-19 08:51] LABS: Absolute Lymphocytes (CBC) 0.5 K/uL (0.7-4.9); Basophils % 0.5 % (0-1.3); Hematocrit 26.2 % (36.0-45.0); Lymphocytes % 12.7 % (15.3-44.8); MPV 9.6 fL (7.6-11.3); RBC Red Blood Cell Count 2.68 M/uL (3.86-4.86)
[2019-05-19] MEDS ORDERED: MAGNESIUM SULFATE 1 gm IVPB 1 GM/100 ML BAG IV ONE (09:00)
[2019-05-19] MEDS: APIXABAN 5 MG TABLET PO SCH ×2 (09:37→21:04)
[2019-05-19] MEDS: SPIRONOLACTONE 25 MG TABLET PO SCH (09:38)
[2019-05-19] MEDS: PANTOPRAZOLE 40MG TABLET PO SCH (09:38)
[2019-05-19] MEDS: METHYLPREDNISOLONE 40 MG INJ IV SCH ×4 (09:38→23:10)
[2019-05-19] MEDS: GLIMEPIRIDE 2 MG TABLET PO SCH ×2 (09:38→17:11)
[2019-05-19] MEDS: DICYCLOMINE HCL 10 MG CAP PO SCH ×4 (09:38→21:04)
[2019-05-19] MEDS: METOPROLOL TAR 25 MG TAB PO SCH (09:39)
[2019-05-19] MEDS: FOLIC ACID 1 MG TABLET PO SCH (09:39)
[2019-05-19] MEDS: GUAIFENESIN/CODEINE 5ML UCUP PO PRN ×2 (09:44→14:54)
--- NOTE | 2019-05-19 13:31 | PN ---
Date of Progress Note: 05/19/2019 Subjective: Patient was seen this morning for followup. She was sitting on the bedside commode and she had just gone on the bedside commode before I came into her room and she reported that soon as jesus peck sat on the bedside commode, she started to feel like she was having cold sweat. Nurse was advised to check blood pressure right away and her systolic blood pressure was 82 with manual machine. She o therwise feels much better overall. She reports that she is feeling much better than yesterday and d ay before yesterday. She actually looked a lot better also. No nausea or vomiting. Objective: Vital Signs: Reviewed. HEENT: Unremarkable. Lungs: Clear to auscultation. Heart: Sounds normal. Abdomen: Soft. Bowel sounds normal. No guarding, rigidity, tenderness, distention. Extremities: No leg edema. Laboratory Data: Sodium 142, potassium 3.9, chloride 112, bicarb 25, BUN 14, creatinine 1.25, glucos e 89, magnesium 1.8. Yesterday's creatinine was 0.97. Urine culture growing E coli. Venous Doppler of lower extremity shows no acute DVT of either lower extremity, but it does show old thrombus prese nt in left common femoral and popliteal vein. Impression: 1.Rule out adrenal insufficiency. 2.Paroxysmal atrial fibrillation. 3.Urinary tract infection. 4.Lung cancer. Plan: Patient is on chronic prednisone 5 mg daily dose for many years and considering her today's pr esentation about possibility of adrenal insufficiency. I have ordered stat serum cortisol level and soon as that blood gets drawn, I have instructed nursing staff to start her on IV steroid therapy and we will see how she responds to that. Continue current IV antibiotics. Yesterday, her antibiotic w as changed from ceftriaxone to Zosyn after reviewing culture results. Yesterday evening, she got 1 d ose of Toprol 25 mg and we will consider to start her on Toprol today depending on her blood pressure of course. I will see her tomorrow for followup, possible discharge to go home in 2 to 3 days. Vanessa zuniga was made aware of plan of treatment. JANNA/MODL Voice ID: [id number] Report ID: [id number]
[2019-05-19] MEDS ORDERED: METOPROLOL XL 25 MG TAB PO SCH (21:00)
[2019-05-19] MEDS: GABAPENTIN 300 MG CAP PO SCH (21:04)
[2019-05-19] MEDS: ROSUVASTATIN 10 MG TAB PO SCH (21:06)
[2019-05-20] MEDS: NA CHLORIDE 0.9% 1,000 ML IV SCH ×2 (00:46→06:08)
[2019-05-20] MEDS: GUAIFENESIN/CODEINE 5ML UCUP PO PRN (03:21)
[2019-05-20 04:44] LABS: Absolute Lymphocytes (CBC) 0.3 K/uL (0.7-4.9); Basophils % 0.1 % (0-1.3); Hematocrit 25.4 % (36.0-45.0); Lymphocytes % 10.5 % (15.3-44.8); RBC Red Blood Cell Count 2.58 M/uL (3.86-4.86)
[2019-05-20 05:06] LABS: Magnesium 1.7 mg/dL (1.8-2.4); Potassium 4.5 mmol/L (3.5-5.1)
[2019-05-20] MEDS: LEVOTHYROXINE SOD 0.125 MG TAB PO SCH (06:08)
[2019-05-20] MEDS: PIPER/TAZO/NS 3.375gm 3.375 GM/100 ML BAG IVPB SCH ×3 (06:08→17:44)
[2019-05-20] MEDS: METHYLPREDNISOLONE 40 MG INJ IV SCH (06:08)
[2019-05-20] MEDS ORDERED: MAGNESIUM SULFATE 1 gm IVPB 1 GM/100 ML BAG IV ONE (08:00)
[2019-05-20] MEDS ORDERED: METHYLPREDNISOLONE 40 MG INJ IV SCH ×2 (09:00→14:00)
[2019-05-20] MEDS: INSULIN -REGULAR HUMAN 50 UNIT/0.5 ML ML SQ SCH ×3 (09:39→16:30)
[2019-05-20] MEDS: PANTOPRAZOLE 40MG TABLET PO SCH (09:41)
[2019-05-20] MEDS: SPIRONOLACTONE 25 MG TABLET PO SCH (09:41)
[2019-05-20] MEDS: FOLIC ACID 1 MG TABLET PO SCH (09:41)
[2019-05-20] MEDS: APIXABAN 5 MG TABLET PO SCH (09:41)
[2019-05-20] MEDS: DICYCLOMINE HCL 10 MG CAP PO SCH ×3 (09:41→17:44)
[2019-05-20] MEDS: GLIMEPIRIDE 2 MG TABLET PO SCH ×2 (09:42→17:45)
--- NOTE | 2019-05-20 10:21 | EKG ---
Test Date: 2019-05-18 Test Time: 10:35:16 Trolley Coach Driver: SOCORRO MEASUREMENT RESULTS: Intervals: Rate: 138 IN: 112 QRSD: 80 QT: 292 QTc: 442 Felton: P: 98 IN: 112 QRS: 217 T: 28 INTERPRETIVE STATEMENTS: Atrial flutter with 2:[address] abnormality Abnormal ECG Compared to ECG 05/16/2019 15:38:18 Atrial fibrillation no longer present Electronically Signed On 05-20-19 10:21:05 SWIMMING POOL SERVICEPERSON by Peep Donnelly
--- NOTE | 2019-05-20 10:26 | HP ---
Date of Admission: 05/16/2019 Chief Complaint: Feeling very weak. 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 In last 2-3 weeks, she has not felt good at all and progressively reported yesterday when she called me that her condition was deteriorat ing over last 2-3 weeks. She is having increasing generalized weakness, very poor appetite, has trou ble getting up and ambulating. She had some diarrhea 1 week ago, which has resolved now. Had 1 epis ode of nausea, vomiting yesterday. After I talked to her, I was concerned about her overall health a nd well-being and advised her to come to emergency room. After she was evaluated in the ER, she was admitted to the hospital. Patient had significant orthostatic changes in the emergency room. IV flu id and IV antibiotics were started this morning. She feels better compared to yesterday. Allergies: HYDROXYCHLOROQUINE. Medications: List reviewed. Review of Systems: Constitutional: As mentioned above. GI: As mentioned above. Patient has some odynophagia and dysphagia since her radiation therapy, lik ta due to radiation-induced esophagitis type of problem. All other systems reviewed and negative. Social History: Negative for smoking or alcohol use. Family History: Significant for myocardial infarction, stroke, congestive heart failure, and brother with blood clot. Past Surgical History: Back surgery, carpal tunnel syndrome surgery. Past Medical History: Hypertension, type 2 diabetes mellitus, hyperlipidemia, thrombocytopenia, oste oarthritis, chronic kidney disease stage 3, systemic lupus erythematosus, hypothyroidism, and lung ca ncer. Physical Examination: Vital Signs: Last temperature 97.4, pulse 96, respiratory rate 16, blood pressure 136/60, oxygen sat uration 95%. Height 5 feet, weight 207 pounds. Yesterday in the emergency room, her supine blood pr essure 123/83 with pulse 82. Sitting blood pressure , standing blood pressure was 90/59 wi th pulse 111. General: Awake, alert, oriented, not in distress. HEENT: Head atraumatic, normocephalic. Conjunctivae nonerythematous. Sclerae white. Mouth, no thr ush or edema noted. Ears/Nose, no mass, lesion, discharge noted. Neck: Supple. No JVD, lymph nodes, bruit, thyromegaly noted. Lungs: Bilateral good equal air entry. Clear to auscultation. No rhonchi. No rales. Heart: Normal heart sounds, no murmur or gallop. Abdomen: Soft, bowel sounds normal. No guarding, rigidity, tenderness, mass, hepatosplenomegaly, di stention, or bruit noted. Extremities: No leg edema. No calf tenderness. Skin: No rash, ulcer, cellulitis. Lymphatics: No lymph node enlargement in neck, supraclavicular, infraclavicular region. Neuro: No focal neurological deficit. Chest: Unremarkable. External Genitalia: Deferred. Rectal: Deferred. Laboratory Data: Yesterday, white count 2.6, hemoglobin 15.6, platelets 104. This morning, white co unt 4.2, hemoglobin 9.3, platelets . Her hemoglobin on May 08, 2019, was 11.4. Yeste rday, sodium 136, potassium 4.1, chloride 102, bicarb 26, BUN 22, creatinine 1.35, glucose 152, magne sium 1.1. Liver function tests unremarkable. Troponin less than 0.02. Lipase 83. This morning, so dium 139, potassium 3.7, chloride 106, bicarb 26, BUN 22, creatinine 1.09, glucose 116, magnesium ___ . Urinalysis; 20-50 wbc, bacteria loaded, positive for nitrite and esterase. Influenza A and B test negative. Chest x-ray shows changes of congestive heart failure type of picture, but [facility] patient does not have such problem. Impression: 1.Acute kidney injury. 2.Volume depletion. 3.Hypomagnesemia. 4.Anemia. 5.Thrombocytopenia. 6.Urinary tract infection. 7.Lung cancer, right main bronchus, status post chemotherapy and radiation therapy. 8.Hypertension. 9.Type 2 diabetes mellitus. 10.Hyperlipidemia. 11.Osteoarthritis, multiple sites. Plan: Admit patient to hospital for further evaluation and management of this problem. Patient is a ppropriate for inpatient and is expected to spend 2 midnights in hospital. Home medications will be continued per order. her hemoglobin yesterday, which was 15 or so, today 9 or so, and the re is no evidence of any acute blood loss. No signs or symptoms of such problem and considering her previous hemoglobin on May 08, I feel like yesterday's hemoglobin either was a lab error or hemo concentration from volume depletion, and all these details were discussed with her. Obviously, we wi ll continue to monitor her blood work, but there are no clinical signs or symptoms of any acute blood loss or GI bleeding. We will continue empiric antibiotic, ceftriaxone. Follow up on urine culture results. Physical Therapy was consulted to help ambulate the patient. Replace magnesium per protoco l and possible discharge to go home over the weekend, hopefully by Monday depending on her condition and overall health. Details and plan of treatment . JANNA/MODL Voice ID: [id number]
--- NOTE | 2019-05-20 11:07 | ECHO ---
HEIGHT: 5 ft 0 in WEIGHT: 207 lb 4 oz DATE OF STUDY: 05/20/[address]: Charles Hammer MD 2-DIMENSIONAL: YES M.MODE: YES DOPPLER: YES COLOR FLOW: YES TDS: NO PORTABLE: NO DEFINITY: NO BUBBLE STUDY: NO DIAGNOSIS: ATRIAL FIBRILLATION CARDIAC HISTORY: CATHERIZATION: NO SURGERY: NO PROSTHETIC VALVE: NO PACEMAKER: NO MEASUREMENTS (cm) DIASTOLIC (NORMALS) SYSTOLIC (NORMALS) IVSd 1.2 (0.6-1.2) LA Diam 4.2 (1.9-4.0) LVEF 74% LVIDd 3.8 (3.5-5.7) LVIDs 2.2 (2.0-3.5) %FS 42% LVPWd 1.4 (0.6-1.2) Ao Diam 3.0 (2.0-3.7) 2 DIMENSIONAL ASSESSMENT: RIGHT ATRIUM: NORMAL LEFT ATRIUM: DILATED RIGHT VENTRICLE: NORMAL LEFT VENTRICLE: LEFT VENTRICUALR HYPERTROPHY TRICUSPID VALVE: NORMAL MITRAL VALVE: NORMAL PULMONIC VALVE: NORMAL AORTIC VALVE: SCLEROSIS PERICARDIAL EFFUSION: NONE AORTIC ROOT: NORMAL LEFT VENTRICULAR WALL MOTION: NORMAL. DOPPLER/COLOR FLOW: NO AORTIC STENOSIS OR AORTIC REGURGITATION. MILD TRICUSPID REGURGITATION. MILD PULMONARY HYPERTENSION, ESTIMATED RIGHT VENTRICULAR SYSTOLIC PRESSURE 40mmHg. COMMENTS: NORMAL LEFT VENTRICULAR EJECTION FRACTION. LEFT VENTRICULAR HYPERTROPHY. DILATED LEFT ATRIUM. AORTIC SCLEROSIS WITH NO AORTIC STENOSIS/ AORTIC REGURGITATION. MILD TRICUSPID REGURGITATION. MILD PULMONARY HYPERTENSION. TECHNOLOGIST: KIANA REDDING
--- NOTE | 2019-05-20 14:35 | RAD REPORT ---
EXAM DESCRIPTION: CT - Head Brain Wo Cont - 05/20/2019 2:28 pm CLINICAL HISTORY: Focal neurologic symptoms, possible CVA COMPARISON: CT imaging March 2011 TECHNIQUE: Axial 5 mm thick images of the head were obtained without IV contrast. All CT scans are performed using dose optimization technique as appropriate and may include automated exposure control or mA/KV adjustment according to patient size. FINDINGS: No intracranial hemorrhage, mass, edema or shift of mid-line structures. No acute cortical based infarction seen. No cortical edema or sulcal effacement. Atrophy and chronic ischemic changes are present in a pattern minimally progressive over the long interval since 2010. Ventricles are in p roportion to the amount of volume loss. No abnormal extra-axial fluid collections. Mastoid air cells and visualized portions of the paranasal sinuses are clear. No acute bony findings. IMPRESSION: No hemorrhage, mass or acute cortical based infarction identifiable. Patient has atrophy and chronic ischemic changes that have shown mild progression over the long inter james since 2010.
--- NOTE | 2019-05-20 14:46 | CON ---
History Of Present Illness: Ms. Flynn came to the hospital with generalized feeling bad, out of elisa th. She was not eating. She was hypotensive and she is believed now to have urinary tract sepsis. She has E coli, growing in her urine. She seems to be getting better. She is being treated with pip eracillin and tazobactam. The organism growing is resistant to Cipro, but it is sensitive to the ant ibiotic she is on, several others, and has resistance too. The patient has a history of paroxysmal A Fib. She is in AFib now that is the reason for the Cardiology consult. She is on apixaban and metop rolol and goes in and out of AFib. Whenever she is particularly more ill, she gets more AFib and I b elieve the AFib probably contributed to the hypotension. I will recommend that we stop metoprolol, s witch her to Betapace, continue the apixaban and if we can get her in normal rhythm, we will consider cardioversion in a few days. SANDRA/NIYA Voice ID: [id number] Report ID: [id number]
[2019-05-20 16:48] VITALS: O2SAT 100
--- NOTE | 2019-05-20 17:14 | CON ---
Date of Consultation: 05/18/[address] Hammer's service on 05/16/2019 with hypotension, orthostasis. I am consulted b ecause of rapid atrial fibrillation. History Of Present Illness: Ms. Flynn is 78. I saw her on 05/18/2019. She has a history of hyperte nsion, diabetes, COPD, lupus erythematosus. She has a history of chronic atrial fibrillation, depres lacey, has had DVT and pulmonary embolus long time ago. She also has had CVA in 2009. Has had a hist ory of lung cancer, hypothyroidism, dyslipidemia, gastroesophageal reflux disease, and neuropathy. C vinita in with hypotension, orthostasis, possible sepsis, rapid atrial fibrillation with slight hypotens ion. Past Medical History: As stated above. Allergies: SHE IS ALLERGIC TO HYDROXYCHLOROQUINE. Home Medications: Eliquis, Aldactone, Myrbetriq, Neurontin, Synthroid, glimepiride, prednisone, meto prolol and Protonix. Physical Examination: General: She appeared rather ill and weak. Heart rate when I saw her was about 110. HEENT: Negative. Neck: Supple with no bruit. Chest: Clear. Cardiac: Revealed atrial fibrillation. Abdomen: Benign. Extremities: Revealed no clubbing, cyanosis, or edema. Diagnostic Data: She had an echocardiogram in February 2018, which was fairly unremarkable. Chest x-ray showed mild failure. Hemoglobin was 9.1. Magnesium was 1.1 and that was supplemented to 1.8. Impression And Plan: Chronic atrial fibrillation. Rate is increased secondary to infection and dehy dration. I recommend digoxin IV that was given 0.5. We can give another 0.5 digoxin 6 hours later. We can put her on 0.125 digoxin p.o. on a daily basis. Continue low-dose beta-blockers if her blood pressure tolerates it. I would avoid using IV amiodarone with her pulmonary status and lupus. She needs to continue hydration. Continue antibiotics. I will discuss the case further with Dr. Hammer. Her other issues are multiple and include chronic obstructive pulmonary disease, lupus, depression, h istory of CVA in 2009. She has a history of PE, deep venous thrombosis, and she is taking Eliquis fo r the atrial fibrillation for now. Her dyslipidemia and hypothyroidism, neuropathy, and gastroesopha geal reflux disease seem to be stable. I will continue to follow along with Dr. Hammer. EMILY/NIYA Voice ID: [id number] Report ID: [id number]
[2019-05-20] MEDS ORDERED: SOTALOL HCL 80 MG TAB PO SCH (18:00)
[2019-05-20 18:32] VITALS: BP 135/78; TEMP 97.6
--- NOTE | 2019-05-21 04:30 | DS ---
Date of Discharge: 05/20/2019 Disposition: Discharged to go to the floor. Physical Examination: HEENT: Unremarkable. Lungs: Clear to auscultation. No rhonchi. No rales. Cardiac: Heart sounds normal. Abdomen: Soft, bowel sounds normal. No guarding, rigidity, tenderness distention. Extremities: No leg edema. Discharge Medications And Instructions: See copy of transfer order and patient to continue all curre nt medications on the rehab floor. Hospital Course: 78-year-old pleasant female patient, came into emergency room with complaints of fe eling very weak. Please see dictated H and P for more information. Patient came into emergency room with acute kidney injury, volume depletion, low magnesium level and urinary tract infection. After she was evaluated in the ER, she was admitted to the hospital. IV fluid was started. IV antibiotic was started, which was ceftriaxone. Patient has a history of paroxysmal atrial fibrillation. She is on chronic anticoagulation therapy using Eliquis, although she reported to me that she was taking El iquis only once a day instead of twice a day as prescribed and I did advice her to make sure to take Eliquis 2 times a day as prescribed. She was given Eliquis 2 times a day while in the hospital. Dr. Barriga was consulted from Cardiology Service. She did have low blood pressure 2-3 days ago and at that time she also had atrial fibrillation with rapid ventricular rate. She responded well to IV flu id bolus and she was given IV digoxin, IV metoprolol and oral metoprolol. Her heart rate came under better control and remained under better control. She was in sinus rhythm then. Over the weekend, I was concerned about possibility of adrenal insufficiency. She is on chronic steroid therapy for las t 20-30 years and takes 5 mg prednisone daily, which she was continuing to get it during this hospita lization, but over the weekend when I saw her she was sitting on the bedside commode and she reported that as soon as she sat down, she started to feel cold, clammy and sweaty and her systolic blood pre ssure was between 70-80 at that time. IV fluid was given. She was placed back in the bed and at irina t time, I was concerned about possibility of adrenal insufficiency, so stat serum cortisol level was ordered, which came back 12, and soon after this cortisol level was drawn, we started her on IV stero id therapy and as expected she responded very well to IV steroids. Blood pressure came up and remain ed normal. Did not have any more hypotension problem and she immediately started feeling significant ly better once IV steroid therapy was started. She was getting Solu-Medrol 40 mg every 6 hours. Tomayco beaulieu, I have reduced the dose to every 8 hours. Urine culture grew E coli and antibiotic was changed f rom ceftriaxone to Zosyn as I did not see ceftriaxone listed on the antibiotic that was check for sen sitivity results. At some point, we will change from Zosyn to oral Augmentin. Physical therapy was consulted and Rehab was consulted and today the patient was accepted to go to inpatient rehab. Final Diagnoses: 1.Acute kidney injury. 2.Volume depletion. 3.Adrenal insufficiency. 4.Hypomagnesemia. 5.Anemia. 6.Urinary tract infection. 7.Thrombocytopenia. 8.Lung cancer, right main bronchus, status post chemotherapy and radiation therapy. 9.Hypertension. 10.Type 2 diabetes mellitus. 11.Hyperlipidemia. 12.Osteoarthritis, multiple sites. Laboratory Data: Initial white count 2.6, hemoglobin 15.6, platelets 104, last white count today 2.5 , hemoglobin 8.3, platelets 150. Last chemistry today, sodium 141, potassium 4.5, chloride 112, bica rb 22, BUN 18, creatinine 1.22, glucose 300, magnesium 1.7. JANNA/MODL Voice ID: [id number] Report ID: [id number]
== END 2019-05-20 18:17 | DRG 683 ==
LOC: ER 13:19 → ERHOLD 16:59 → 2ND 18:00
PROVIDERS: ADMIT Internal Medicine; ATTEND Internal Medicine
DX: N17.9 Acute kidney failure, unspecified (principal); N39.0 Urinary tract infection, site not specified; C34.01 Malignant neoplasm of right main bronchus; E11.9 Type 2 diabetes mellitus without complications; I10 Essential (primary) hypertension; E78.5 Hyperlipidemia, unspecified; D69.6 Thrombocytopenia, unspecified; N18.3 Chronic kidney disease, stage 3 (moderate); M32.9 Systemic lupus erythematosus, unspecified; E03.9 Hypothyroidism, unspecified; E86.9 Volume depletion, unspecified; E83.42 Hypomagnesemia; M15.9 Polyosteoarthritis, unspecified; I95.9 Hypotension, unspecified; I48.0 Paroxysmal atrial fibrillation; Z79.01 Long term (current) use of anticoagulants
CPT/HCPCS: 36415; 70450; 71045; 80048; 80076; 81003; 81015; 82533; 82947; 83605; 83690; 83735; 83880; 84484; 85025; 85610; 87040; 87077; 87086; 87088; 87186; 87804; 93005; 93306; 93970; 96374; 96375; 97116; 97161; 97530; 99285; J0696; J1160; J2543; J2920; J3475; J7030; J7512

== ENCOUNTER 2019-05-20 14:48 | Inpatient (IN) | payer OTHER ==
--- NOTE | 2019-05-20 17:15 | R.PREADM ---
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 Surya Garcia M.D. MR# [id number] NAME FRANCIS CASPER ADDRESS [address] [place] [address] PHONE [facility] [phone] DATE OF 1940 AGE 78 SSN# [id number] GENDER female MARITAL STATUS RACE white ADMIT FROM 02 - [facility] PRE-HOSPITAL LIVING SETTING 01 - Home (private home/apt. board/care, assisted living, long term, transitional living) HOME TYPE AND DETAILS Type of home: single family house # of levels in the residence: 0 # of steps within the residence: 0 # of steps to enter the residence: 0 PRE-HOSPITAL LIVING WITH Alone FAMILY SUPPORT Yes PRIMARY FAMILY CONTACT NAME Claude Casper PRIMARY FAMILY CONTACT PHONE PRIMARY FAMILY CONTACT RELATIONSHIP Brother PHONE PRIMARY FAMILY CONTACT ON ADM.? no IS PRIMARY FAMILY CONTACT AUTH. REP.? no 1ST EMERGENCY CONTACT Claude Casper 1ST CONTACT PHONE 1ST CONTACT RELATIONSHIP Brother PHONE 1ST CONTACT ON ADM. no IS 1ST CONTACT AUTH. REP.? no PHONE 2ND CONTACT ON ADM.? no PATIENT EMPLOYMENT STATUS Retired (for age) PATIENT EMPLOYER No Employer PAYOR INFORMATION: 1ST PAYOR NAME Medicare 1ST PAYOR PHONE 1ST PAYOR INJURY/ILLNESS DUE TO ACCIDENT? No ANOTHER GREEN PARTY RESPONSIBLE? No PRIMARY REHAB/ACUTE DIAGNOSIS: Lung Cancer ONSET DATE 05/16/2019 REHAB IMPAIRMENT CATEGORY (CRISTY): 20 Miscellaneous (Misc) does NOT meet 60% rule PRIMARY DIAGNOSIS-RELATED SURGERIES: No surgeries related to the primary diagnosis were performed. COMORBID REHAB/ACUTE DIAGNOSES: - N/A hypertension type 2 diabetes mellitus hyperlipidemia thrombocytopenia osteoarthritis chronic kidney disease stage 3 systemic lupus erythematosus hypothyroidism lung cancer INTERVENTIONS: - Hypertension Fluid management Medications VS - Osteoarthritis Energy conservation Exercise Joint Protection Medications Pain management RISK FOR COMPLICATIONS: - Hypertension CVA Hypotension [place] TIA - Osteoarthritis Falls SUMMARY OF ACUTE HOSPITALIZATION: Pt. is a 78 yo Right-handed white female. On 05/16/[address] [facility] with diagnosis Lung Cancer. Her impairment category is Medically Complex Conditions 17 - Respiratory Disorders - Non-ventilator Dependent (17.52). Pre-morbidly, Pt. was independent/mod-I in Locomotion, Balance, Safety Awareness, Social Cognition, T ransfers Control, Sphincter Control, Self-Care, Communication, and Endurance; and she had good Locomo tion, Safety Awareness, Balance, Transfers Control, Self-Care, and Endurance. Currently, she has deficits of Locomotion, Safety Awareness, Balance, Social Cognition, Transfers Con trol, Self-Care, and Endurance. Pt. is now referred to [facility] for acute in-patient rehabilitation in order to maximize patient's functional independence in activities of daily living, strength, ROM, and mobi lity. Patient has realistic goal of being discharged at assistance level 6-Lala to reside at Home with Fam effie/Relatives. PAST MEDICAL HISTORY chronic kidney disease stage 3 hyperlipidemia hypertension hypothyroidism lung cancer osteoarthritis systemic lupus erythematosus thrombocytopenia type 2 diabetes mellitus PAST SURGICAL HISTORY: back surgery carpal tunnel syndrome surgery MEDICATION ALLERGIES: Hydroxychloroquine ENVIRONMENTAL ALLERGIES: - Substance Allergies None Known - Other Allergies None Known CODE STATUS: Full code WEIGHT/HEIGHT/BMI: WEIGHT 207 lbs HEIGHT 5' 0" BMI 40.4 DIET: - Diet Type Regular - Diet - Solid Texture Regular - Diet - Liquid Texture Regular - Tube Feed N/A REVIEW OF SYSTEMS: - Gen Alert and awake Lying in bed No apparent distress Oriented to: person, time, and place - Vital Signs Temperature: 97.4 F SBP/DBP: 136/60 Pulse: 96 Resp: 16 Vital signs stable, afebrile - CVS RRR VITAL SIGNS Temperature: 97.4 F SBP/DBP: 136/60 Pulse: 96 Resp: 16 Vital signs stable, afebrile MEDICATIONS/TREATMENT: Other- See attached MAR (Medication Administration Record). CURRENT SPHINCTER CONTROL: Pre-hospital bladder status: continent # of bladder accidents in the last 7 days prior to screenin Pre-hospital bowel status: continent # of bowel accidents in the last 7 days prior to screenin Last Bowel Movement Date: 05/20/2019 CURRENT LOCOMOTION STATUS: distance traveled in wheelchair 0 feet distance walked 270 feet DETAILED CURRENT FUNCTIONAL STATUS: - Bladder accident frequency: Ind - No accidents in the past 7 days - Bowel accident frequency: Ind - No accidents in the past 7 days - Walking score based on distance walked: 0(N/A) score based on distance walked: 3(>=150ft) - Wheelchair score based on distance traveled: 0(N/A) QI SCORES: - Self-Care A. Eating 05-Setup or clean-up assistance B. Oral hygiene 05-Setup or clean-up assistance C. Toileting hygiene 05-Setup or clean-up assistance E. Shower/bathe self 05-Setup or clean-up assistance F. Upper body dressing 05-Setup or clean-up assistance G. Lower body dressing 03-Partial/moderate assistance H. Putting on/taking off footwear 03-Partial/moderate assistance - Mobility A. Roll left and right 04-Supervision or touching assistance B. Sit to lying 04-Supervision or touching assistance C. Lying to sitting on side of bed 04-Supervision or touching assistance D. Sit to stand 04-Supervision or touching assistance E. Chair/yaw-wi-woajj transfer 04-Supervision or touching assistance F. Toilet transfer 04-Supervision or touching assistance G. Car transfer 88-Not attempted due to medical condition or safety concerns I. Walk 10 feet 03-Partial/moderate assistance J. Walk 50 feet with two turns 03-Partial/moderate assistance K. Walk 150 feet 03-Partial/moderate assistance L. Walking 10 feet on uneven surfaces 88-Not attempted due to medical condition or safety concerns M. 1 step (curb) 88-Not attempted due to medical condition or safety concerns N. 4 steps 88-Not attempted due to medical condition or safety concerns O. 12 steps 88-Not attempted due to medical condition or safety concerns P. Picking up object 88-Not attempted due to medical condition or safety concerns R. Wheel 50 feet with two turns 88-Not attempted due to medical condition or safety concerns S. Wheel 150 feet 88-Not attempted due to medical condition or safety concerns - Bladder and Bowel Bladder continence 0-Always continent Bowel continence 0-Always continent - Endurance Poor - Balance Poor - Safety Awareness Poor CURRENT FUNC. DEFICITS: Self-Care, Mobility, Endurance, Balance, and Safety Awareness CURRENT / PREVIOUS ASSISTIVE DEVICES: 3-in-1 Commode BSC [facility] Hospital Bed Oxygen Rolling Walker Shower Chair Straight Cane Tub Bench Wheelchair CURRENT USE ASSISTIVE DEVICES: SCDs HISTORY OF FALLS. HAS THE PATIENT HAD TWO OR MORE FALLS IN THE PAST YEAR OR ANY FALL WITH INJURY IN T HE PAST YEAR?: No PRIOR SURGERY. DID THE PATIENT HAVE MAJOR SURGERY DURING THE 100 DAYS PRIOR TO ADMISSION?: No THERAPY NOTES FROM ACUTE CARE: Attached. SPECIAL NEEDS: - Safety Concerns Skin breakdown precautions needed due to skin breakdown risk PATIENT NEEDS ACTIVE AND ONGOING THERAPEUTIC INTERVENTION OF MULTIPLE THERAPY DISCIPLINES, INCLUDING: - Dietary and Nutrition Adequate Nutrition. Nutritional Education. Nutritional Supplements. PATIENT NEEDS CLOSE MEDICAL SUPERVISION BY A REHABILITATION PHYSICIAN FOR: Coordination of Treatment Team Diabetes Management Medical and Co-Morbidity Management PATIENT REQUIRES 24X7 REHAB NURSING FOR MEDICAL AND FUNCTIONAL MGT. OF THE FOLLOWING DEFICITS: Disease Management Medication Management Patient/Family Education Providing Safe Environment PATIENT REQUIRES INTENSIVE, COORDINATED INTERDISCIPLINARY APPROACH TO REHAB: Arranging Home Equipment/Services Discharge Planning Family Intervention/Training Supply Chain Generalist/Case Management PATIENT REHAB POTENTIAL: Yoon CASPER is able and expected to receive 3 hours of individualized therapy daily on at least 5 of rene ry 7 days Yoon CASPER's prognosis for significant practical improvement within a reasonable period of time appears Good Expected level of measurable improvement will be of a practical value to Yoon CASPER's functional capaci ty or adaptations to impairments Has a viable Discharge Plan Medically appropriate; condition is sufficiently stable to participate in intensive rehab program DISCHARGE PLAN: - Estimated Length of Stay (days) 13. - Consensus on plan Discharge plan has been discussed with primary caregiver. Patient/Family is in agreement with the lisa n. Primary caregiver is in agreement with the plan. - Patient/Family Goals Return home with assistance. - Planned Living Setting Upon Discharge Home, to live with Family/Relatives. Transitional Living. Primary caregiver: Pt self. RECOMMENDED CARE LEVEL: IRF RECOMMENDATION DETAILS: Recommended Admission to Comprehensive Rehabilitation Program to Increase Functional Steele SCREENER'S COMPLETENESS CONFIRMATION: - Screening Confirmation The patient data collection on this preadmission screening form is finished PHYSICIANS REVIEW AND ADMISSION DETERMINATION Admit - Based on my review of the Pre-Admission Screening results, in my medical judgment and experie nce, I concur with the findings and recommend admission to [facility], as this patient requires an IRF level of care. SIGNATURE PANEL: Clinical Liaison - [electronically] signed by Julian Newell on 05/20/2019 at 16:14 (LINE PAINTING MACHINE OPERATOR) Clinical Liaison - [electronically] signed by Jayde Walton on 05/20/2019 at 16:41 (LINE PAINTING MACHINE OPERATOR) Physician Reviewer - [electronically] signed by Dr. Surya Garcia M.D. on 05/20/2019 at 17:15 (LINE PAINTING MACHINE OPERATOR )
[2019-05-20] MEDS ORDERED: ACETAMINOPHEN 500 MG TAB PO PRN (18:55)
[2019-05-20] MEDS ORDERED: D50W 25 GM/50 ML SYRINGE/VIAL IV PRN ×2 (18:55)
[2019-05-20] MEDS ORDERED: HOME MED 1 EA UNK (Mirabegron [Myrbetriq] 1 TAB) PO SCH (18:55)
[2019-05-20] MEDS ORDERED: GLUCAGON 1 MG/VIAL IM PRN ×2 (18:55)
[2019-05-20] MEDS: INSULIN -REGULAR HUMAN 50 UNIT/0.5 ML ML SQ SCH (21:11)
[2019-05-20] MEDS: GABAPENTIN 300 MG CAP PO SCH (21:12)
[2019-05-20] MEDS: DICYCLOMINE HCL 10 MG CAP PO SCH (21:12)
[2019-05-20] MEDS: APIXABAN 5 MG TABLET PO SCH (21:12)
[2019-05-20] MEDS: GUAIFENESIN/CODEINE 5ML UCUP PO PRN (21:13)
[2019-05-20] MEDS: ROSUVASTATIN 10 MG TAB PO SCH (21:14)
--- NOTE | 2019-05-20 21:31 | R.HP ---
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 board/care, assisted living, penitentiary, transitional living) PRE-HOSPITAL LIVING WITH Alone ENCOUNTER PHYSICIAN: Dr. Surya Garcia M.D. REFERRING DOCTOR: ODELL DATE OF ADMISSION: 05/20/2019 21:23 (Central Standard Time) REFERRING FACILITY [facility] HOME TYPE AND DETAILS: Type of home: single family house # of levels in the residence: 0 # of steps within the residence: 0 # of steps to enter the residence: 0 ADMISSION DIAGNOSIS: Lung Cancer ONSET DATE: 05/16/2019 PRIMARY DIAGNOSIS-RELATED SURGERIES: No surgeries related to the primary diagnosis were performed. SECONDARY/COMORBID DIAGNOSES (TIERED): - N/A hypertension type 2 diabetes mellitus hyperlipidemia thrombocytopenia osteoarthritis chronic kidney disease stage 3 systemic lupus erythematosus hypothyroidism lung cancer HISTORY OF PRESENT ILLNESS (HPI): Pt. is a 78 yo Right-handed white female. On 05/16/2019 she was admitted to [facility] with diagnosis Lung Cancer. Her impairment category is Medically Complex Conditions 17 - Respiratory Disorders - Non-ventilator Dependent (17.52). Pre-morbidly, Pt. was independent/mod-I in Locomotion, Balance, Safety Awareness, Social Cognition, T ransfers Control, Sphincter Control, Self-Care, Communication, and Endurance; and she had good Locomo tion, Safety Awareness, Balance, Transfers Control, Self-Care, and Endurance. Currently, she has deficits of Locomotion, Safety Awareness, Balance, Social Cognition, Transfers Con trol, Self-Care, and Endurance. Pt. is now referred to [facility] for acute in-patient rehabilitation in order to maximize patient's functional independence in activities of daily living, strength, ROM, and mobi lity. Patient has realistic goal of being discharged at assistance level 6-Lala to reside at Home with Fam effie/Relatives. MEDICATION ALLERGIES: Hydroxychloroquine ENVIRONMENTAL ALLERGIES: - Substance Allergies None Known - Other Allergies None Known PAST MEDICAL HISTORY: chronic kidney disease stage 3 hyperlipidemia hypertension hypothyroidism lung cancer osteoarthritis systemic lupus erythematosus thrombocytopenia type 2 diabetes mellitus PAST SURGICAL HISTORY: back surgery carpal tunnel syndrome surgery FAMILY HISTORY: Family history is not contributory. SOCIAL HISTORY: - Home Living Alone REVIEW OF SYSTEMS: - Gen No Chills Fatigue No Fever - Eyes No Double Vision No itchiness - ENMT No Difficulty Swallowing - CVS No Chest Discomfort No Chest Pain Fatigue No Weight Gain - Resp No Cough No Shortness of Breath - GI Continent No Abdominal Pain Constipation No Diarrhea - Continent No Kidney Pain No Painful Urination No Urinary Urgency - MSK No Joint Pain Muscle Cramps Stiffness - Skin No Itching No Rash No Suspicious Lesions - Neuro Coordination Difficulty Difficulty with Concentration Memory Loss No Seizures Weakness - Psych No Anxiety No Depression No HIV Exposure No Persistent Infections No Seasonal Allergies - Endo No Cold/Heat Intolerance No Excessive Hunger No Excessive Thirst No Excessive Urination PHYSICAL EXAM - Gen Alert and awake Lying in bed No apparent distress Oriented to: person, time, and place - Skin No breakdown Normacephalic - Eyes No abnormalities - ENMT No abnormalities - Neck No abnormalities - CVS RRR - Chest Clear - Resp Clear to auscultation - Abd Soft - GI Non distended Deferred - No abnormalities - Ext Mild bilateral lower extremity edema. - MSK 4+/5 weakness in both lower extremities. - Neuro No focal deficits - Psych No abnormalities VITAL SIGNS Temperature: 97.4 F SBP/DBP: 136/60 Pulse: 96 Resp: 16 NURSING: - Shower allowing shower - Lab Results blood Sugar Check ACHS ACTIVITIES OOB only with supervision QI SCORES: - Self-Care A. Eating 05-Setup or clean-up assistance B. Oral hygiene 05-Setup or clean-up assistance C. Toileting hygiene 05-Setup or clean-up assistance E. Shower/bathe self 05-Setup or clean-up assistance F. Upper body dressing 05-Setup or clean-up assistance G. Lower body dressing 03-Partial/moderate assistance H. Putting on/taking off footwear 03-Partial/moderate assistance - Mobility A. Roll left and right 04-Supervision or touching assistance B. Sit to lying 04-Supervision or touching assistance C. Lying to sitting on side of bed 04-Supervision or touching assistance D. Sit to stand 04-Supervision or touching assistance E. Chair/stz-wg-[id number] transfer 04-Supervision or touching assistance F. Toilet transfer 04-Supervision or touching assistance G. Car transfer 88-Not attempted due to medical condition or safety concerns I. Walk 10 feet 03-Partial/moderate assistance J. Walk 50 feet with two turns 03-Partial/moderate assistance K. Walk 150 feet 03-Partial/moderate assistance L. Walking 10 feet on uneven surfaces 88-Not attempted due to medical condition or safety concerns M. 1 step (curb) 88-Not attempted due to medical condition or safety concerns N. 4 steps 88-Not attempted due to medical condition or safety concerns O. 12 steps 88-Not attempted due to medical condition or safety concerns P. Picking up object 88-Not attempted due to medical condition or safety concerns R. Wheel 50 feet with two turns 88-Not attempted due to medical condition or safety concerns S. Wheel 150 feet 88-Not attempted due to medical condition or safety concerns - Bladder and Bowel Bladder continence 0-Always continent Bowel continence 0-Always continent - Endurance Poor - Balance Poor - Safety Awareness Poor CURRENT FUNC. DEFICITS: Self-Care, Mobility, Endurance, Balance, and Safety Awareness MEDICATIONS: - Other See attached MAR (Medication Administration Record) ASSESSMENT: Pt. is a 78 yo Right-handed white female.On 05/16/2019 she was admitted to [facility] wi th diagnosis Lung Cancer.Her impairment category is Medically Complex Conditions 17 - Respiratory Di sorders - Non-ventilator Dependent (17.52).Pre-morbidly, Pt. was independent/mod-I in Locomotion, Bal ance, Safety Awareness, Social Cognition, Transfers Control, Sphincter Control, Self-Care, Communicat ion, and Endurance; and she had good Locomotion, Safety Awareness, Balance, Transfers Control, Self-C are, and Endurance.Currently, she has deficits of Locomotion, Safety Awareness, Balance, Social Cogni tion, Transfers Control, Self-Care, and Endurance.Pt. is now referred to [facility] for acute in-patient rehabilitation in order to maximize patient's functional independence in a ctivities of daily living, strength, ROM, and mobility.- Rehab Goal Patient has realistic goal of being discharged at assistance level 6-Lala to reside at Home with Fam effie/Relatives. - Physical Therapy Gait dysfunction - to improve, our physical therapists will perform initial evaluation of pt's status upon admission and devise an individualized program for Gait Training, and Wheel Chair mobility Inability to transfer - to improve, our physical therapists will perform initial evaluation of pt's s tatus upon admission and devise an individualized program for Bed mobility Need for home safety evaluation - to improve, our physical therapists will perform initial evaluation of pt's status upon admission and devise an individualized program for Home Evaluation Need in caregiver upon discharge - to improve, our physical therapists will perform initial evaluatio n of pt's status upon admission and devise an individualized program for Caregiver Training New precaution - to improve, our physical therapists will perform initial evaluation of pt's status u grabiel admission and devise an individualized program for Patient precaution education Edema - to improve, our physical therapists will perform initial evaluation of pt's status upon admi ssion and devise an individualized program for Elevation Training, and Lymphedema Therapy Poor balance - to improve, our physical therapists will perform initial evaluation of pt's status upo n admission and devise an individualized program for Balance Training Poor endurance - to improve, our physical therapists will perform initial evaluation of pt's status u grabiel admission and devise an individualized program for Endurance Training Weakness - to improve, our physical therapists will perform initial evaluation of pt's status upon ad mission and devise an individualized program for Aquatic Therapy, Neuromuscular Reeducation, and Stre ngthening Achieving independence - to improve, our physical therapists will perform initial evaluation of pt's status upon admission and devise an individualized program for Community Reintegration Activities - Occupational Therapy ADL deficits - to improve, our occupation therapists will perform initial evaluation of pt's status u grabiel admission and devise an individualized program for Bathing, Bed mobility, Community Reintegration , Cooking, Dressing, Eating, Fine Motor Skills, Grooming, Homemaking, Kitchen Mobility, Laundry, Uma ent Education, Safety Awareness, Splinting - Positioning, Transfers(Toilet, Tub, Shower), and Wheel C hair Management Cognitive deficits - to improve, our occupation therapists will perform initial evaluation of pt's st atus upon admission and devise an individualized program for Cognition - orientation Need for lawn care specialist - to improve, our occupation therapists will perform initial evaluation of pt's s tatus upon admission and devise an individualized program for Caregiver Training Weakness - to improve, our occupation therapists will perform initial evaluation of pt's status upon admission and devise an individualized program for Aquatic Therapy, Balance, Endurance, UE ROM, and U E strengthening MEDICAL PLAN: - Diet Type Start Regular - Diet - Liquid Texture Start Regular - Tube Feed Start N/A - Lab Results blood Sugar Check ACHS - Other See attached MAR (Medication Administration Record) - Diet - Solid Texture Regular - Shower shower DISCHARGE PLAN: - Estimated Length of Stay (days) 13. - Consensus on plan Discharge plan has been discussed with primary caregiver. Patient/Family is in agreement with the lisa n. Primary caregiver is in agreement with the plan. - Patient/Family Goals Return home with assistance. - Planned Living Setting Upon Discharge Home, to live with Family/Relatives. Transitional Living. Primary caregiver: Pt self. 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
--- NOTE | 2019-05-20 21:33 | PAPE ---
PATIENT: [facility] MR# [id number] REFERRING DOCTOR ODELL EVALUATION DATE AND TIME 05/20/2019 21:31 (FUSION JUNCTURE GRINDER) NAME FRANCIS CASPER DATE OF 1940 AGE 78 PHONE N# [id number] GENDER female EVALUATING PHYSICIAN Dr. Surya Garcia M.D. ADMISSION DIAGNOSIS: Lung Cancer ONSET DATE 05/16/2019 SECONDARY/COMORBID DIAGNOSES TIERED: - N/A hypertension type 2 diabetes mellitus hyperlipidemia thrombocytopenia osteoarthritis chronic kidney disease stage 3 systemic lupus erythematosus hypothyroidism lung cancer POST-ADMISSION FUNCTIONAL/MEDICAL STATUS: - Bladder Same accident frequency: Ind - No accidents in the past 7 days - Bowel Same accident frequency: Ind - No accidents in the past 7 days - Walking Same score based on distance walked: 0(N/A) Same score based on distance walked: 3(>=150ft) - Wheelchair Same score based on distance traveled: 0(N/A) STATUS CHANGE EVALUATION: No change in Functional or Medical Status is identified compared with Pre-Admission screening. PATIENT NEEDS CLOSE MEDICAL SUPERVISION BY A REHABILITATION PHYSICIAN FOR: Coordination of Treatment Team Diabetes Management Medical and Co-Morbidity Management PATIENT REQUIRES 24X7 REHAB NURSING FOR MEDICAL AND FUNCTIONAL MGT. OF THE FOLLOWING DEFICITS: Disease Management Medication Management Patient/Family Education Providing Safe Environment PATIENT REQUIRES INTENSIVE, COORDINATED INTERDISCIPLINARY APPROACH TO REHAB: Arranging Home Equipment/Services Discharge Planning Family Intervention/Training Delivery Supervisor/Case Management LIST OF IDENTIFIED AND POTENTIAL PROBLEMS: Alteration in leisure activities Bladder, Incontinence Blood Pressure, Hypertension/hypotension Issues Bowel, Incontinence Diabetes, Hyperglycemia/hypoglycemia Issues Infection, Actual or Potential Mobility Impaired Pain, Alteration in Comfort Self Care Deficit Skin Integrity, Actual or Potential Urinary Tract Infection (UTI), Actual or Potential RISK FOR COMPLICATIONS - Hypertension CVA. Hypotension. LA. TIA. - Osteoarthritis Falls. INTERVENTIONS - Hypertension - Osteoarthritis Energy conservation. Exercise. Joint Protection. Medications. Pain management. PATIENT COULD BE AT RISK FOR COMPLICATIONS FROM ADVERSE MEDICAL CONDITIONS DUE TO HIS/HER COMORBIDITI ES AND THE RIGORS OF THE INTENSIVE REHABILLITATION PROGRAM. METHODS OR INTERVENTIONS TO AVOID COMPLIC ATIONS INCLUDE: - Infection Clinical staff to assess and manage the signs and symptoms of infection including fever, redness, war mth, etc. - Urinary Tract Infection - Falls Patient will be evaluated for Fall Precautions and will be placed on Fall Precautions as indicated pe r protocol. - Skin Breakdown Nursing will assess skin daily using assessment tool and will place on Skin Breakdown Precautions as indicated per protocol. - Pain Clinical staff may employ non-medication methods such as massage, distraction, decrease stimulus, etc . as needed. Clinical staff will assess patient's pain level every shift per protocol to assess and e nsure pain management effectiveness. Medications will be given and the pain level re-assessed. PRELIMINARY PLAN OF CARE: - Physical Therapy Patient needs Physical Therapy for a daily minimum of 1.5 hours at least 5 out of 7 days, to improve: Mobility, Strengthening, Transfers, Stretching, ROM, Endurance, Ability to manage stairs, Gait, and Balance. - Speech Therapy Patient needs Speech Therapy for a daily minimum of 0.5 hours at least 5 out of 7 days, to improve: S wallowing, Cognition, Language Skills, and Compensatory Strategies. - Rehabilitation Nursing Patient requires 24x7 Rehabilitation Nursing for: Pain Issues, Identifying and preventing risk factor s, Monitoring and reporting current medical conditions, Assisting with ambulation and transfer, Aquiles ting with all ADL-s, Teaching patients about disease process and medications, Family teaching, Provid ing safe environment, Bowel and Bladder Issues, Skin Integrity, and Medication Management. Patient needs Delivery Supervisor and/or Case Management for: Discharge Planning, Arranging Home Equipmen t or Services, and Family Interventions. - Dietary and Nutrition Services Patient needs Dietary and Nutrition Services for: Adequate Nutrition, Nutritional Supplements, and Nu tritional Education. - Occupational Therapy Patient needs Occupational Therapy for a daily minimum of 1.5 hours at least 5 out of 7 days, to impr ove Activities of Daily Living, including: Eating, Grooming, Bathing, Dressing, Toileting, Toilet Tra nsfers, Community Reintegration, Higher functional activities, Adaptive Equipment, Splinting, Househo ld Tasks, and Other activities as determined. QI SCORES: - Self-Care A. Eating 05-Setup or clean-up assistance B. Oral hygiene 05-Setup or clean-up assistance C. Toileting hygiene 05-Setup or clean-up assistance E. Shower/bathe self 05-Setup or clean-up assistance F. Upper body dressing 05-Setup or clean-up assistance G. Lower body dressing 03-Partial/moderate assistance H. Putting on/taking off footwear 03-Partial/moderate assistance - Mobility A. Roll left and right 04-Supervision or touching assistance B. Sit to lying 04-Supervision or touching assistance C. Lying to sitting on side of bed 04-Supervision or touching assistance D. Sit to stand 04-Supervision or touching assistance E. Chair/ngm-vl-hrnvv transfer 04-Supervision or touching assistance F. Toilet transfer 04-Supervision or touching assistance G. Car transfer 88-Not attempted due to medical condition or safety concerns I. Walk 10 feet 03-Partial/moderate assistance J. Walk 50 feet with two turns 03-Partial/moderate assistance K. Walk 150 feet 03-Partial/moderate assistance L. Walking 10 feet on uneven surfaces 88-Not attempted due to medical condition or safety concerns M. 1 step (curb) 88-Not attempted due to medical condition or safety concerns N. 4 steps 88-Not attempted due to medical condition or safety concerns O. 12 steps 88-Not attempted due to medical condition or safety concerns P. Picking up object 88-Not attempted due to medical condition or safety concerns R. Wheel 50 feet with two turns 88-Not attempted due to medical condition or safety concerns S. Wheel 150 feet 88-Not attempted due to medical condition or safety concerns - Bladder and Bowel Bladder continence 0-Always continent Bowel continence 0-Always continent - Endurance Poor - Balance Poor - Safety Awareness Poor POTENTIAL FUNCTIONAL GOALS FOR PATIENT TO ACHIEVE BY DISCHARGE: - Safety Precaution Patient will remain free from falls or injury at time of discharge. - Bed Mobility Patient will perform bed mobility at 4-Davin level of assistance. - Transfers Patient will complete transfers from bed to chair at 4-Davin level of assistance. - Mobility Patient will ambulate 150 ft with 4-Davin level of assistance with RW. PATIENT REHAB POTENTIAL Yoon CASEPR is able and expected to receive 3 hours of individualized therapy daily on at least 5 of rene ry 7 days Yoon PECKs prognosis for significant practical improvement within a reasonable period of time appears Good Expected level of measurable improvement will be of a practical value to Yoon PECKs functional capaci ty or adaptations to impairments Has a viable Discharge Plan Medically appropriate; condition is sufficiently stable to participate in intensive rehab program DISCHARGE PLAN: - Estimated Length of Stay (days) 13. - Consensus on plan Discharge plan has been discussed with primary caregiver. Patient/Family is in agreement with the lisa n. Primary caregiver is in agreement with the plan. - Patient/Family Goals Return home with assistance. - Planned Living Setting Upon Discharge Home, to live with Family/Relatives. Transitional Living. Primary caregiver: Pt self. CONCLUSION ON REHABILITATION NECESSITY: I have evaluated patient's pre-admission functional status and, comparing it to the patient's post-ad mission functional status now, I conclude that the pre-admission assessment was accurate. Patient's c ondition on admission supports the medical necessity of admission to [facility]. It is safe to proceed with patient's therapy program. SIGNATURE PANEL: (FUSION JUNCTURE GRINDER)
[2019-05-20] MEDS: METHYLPREDNISOLONE 40 MG INJ IV SCH (21:44)
[2019-05-20] MEDS: PIPER/TAZO/NS 3.375gm 3.375 GM/100 ML BAG IV SCH (23:55)
[2019-05-21] MEDS: SOTALOL HCL 80 MG TAB PO SCH ×2 (05:36→17:32)
[2019-05-21] MEDS: LEVOTHYROXINE SOD 0.125 MG TAB PO SCH (05:36)
[2019-05-21] MEDS: METHYLPREDNISOLONE 40 MG INJ IV SCH (05:37)
[2019-05-21] MEDS: PIPER/TAZO/NS 3.375gm 3.375 GM/100 ML BAG IV SCH (05:38)
[2019-05-21 06:58] LABS: Albumin 2.8 g/dL (3.4-5.0); Magnesium 1.7 mg/dL (1.8-2.4); Potassium 4.7 mmol/L (3.5-5.1); Prealbumin 9.7 mg/dL (20-40)
[2019-05-21 07:02] LABS: Absolute Lymphocytes (CBC) 0.3 K/uL (0.7-4.9); Basophils % 0.2 % (0-1.3); Hematocrit 25.9 % (36.0-45.0); Lymphocytes % 5.7 % (15.3-44.8); MPV 10.3 fL (7.6-11.3); RBC Red Blood Cell Count 2.66 M/uL (3.86-4.86)
[2019-05-21] MEDS: INSULIN -REGULAR HUMAN 50 UNIT/0.5 ML ML SQ SCH ×4 (08:41→20:43)
[2019-05-21] MEDS: GLIMEPIRIDE 2 MG TABLET PO SCH ×2 (08:42→17:31)
[2019-05-21] MEDS: APIXABAN 5 MG TABLET PO SCH ×2 (08:42→19:26)
[2019-05-21] MEDS: PANTOPRAZOLE 40MG TABLET PO SCH (08:42)
[2019-05-21] MEDS: FOLIC ACID 1 MG TABLET PO SCH (08:43)
[2019-05-21] MEDS: SPIRONOLACTONE 25 MG TABLET PO SCH (08:43)
[2019-05-21 09:04] LABS: Anisocytosis 1+; Blood Morphology Comment NOTED (NOT SEEN); Macrocytosis SLIGHT; Platelet Estimate ADEQ
[2019-05-21] MEDS: DICYCLOMINE HCL 10 MG CAP PO SCH ×4 (09:21→20:42)
--- NOTE | 2019-05-21 10:09 | FAST ---
SHIFT START DATE/TIME: 05/21/2019 07:00 (BOWL TOPPER) SHIFT END DATE/TIME: 05/21/2019 19:00 (BOWL TOPPER) NAME FRANCIS CASPER DATE OF : 1940 DATE OF ADMISSION: 05/20/2019 21:23 (BOWL TOPPER) PHONE: AGE: 78 SSN# [id number] GENDER: Female ENCOUNTER PHYSICIAN: Dr. Surya Garcia M.D. ADMISSION DIAGNOSIS: - Medically Complex Conditions 17 - Respiratory Disorders - Non-ventilator Dependent (17.52) Lung Cancer. EATING: EATING - STEP 1: Does the patient complete the activity by him/herself with no assistance (physical, verbal/nonverbal cueing, setup/clean-up)? No. EATING - STEP 2: Does the patient need only setup/clean-up assistance from one helper? No. EATING - STEP 3: Does the patient need only verbal/nonverbal cueing or touching/steadying/contact guard assistance fro m one helper? Yes. 1. [id number] ADMISSION PERFORMANCE: Supervision or touching assistance CODE: 04 ORAL HYGIENE: ORAL HYGIENE - STEP 1: Does the patient complete the activity by him/herself with no assistance (physical, verbal/nonverbal cueing, setup/clean-up)? No. ORAL HYGIENE - STEP 2: Does the patient need only setup/clean-up assistance from one helper? Yes. 1. [id number] ADMISSION PERFORMANCE: Setup or clean-up assistance CODE: 05 TOILETING HYGIENE: TOILETING HYGIENE - STEP 1: Does the patient complete the activity by him/herself with no assistance (physical, verbal/nonverbal cueing, setup/clean-up)? No. TOILETING HYGIENE - STEP 2: Does the patient need only setup/clean-up assistance from one helper? No. TOILETING HYGIENE - STEP 3: Does the patient need only verbal/nonverbal cueing or touching/steadying/contact guard assistance fro m one helper? Yes. 1. [id number] ADMISSION PERFORMANCE: Supervision or touching assistance CODE: 04 BATHING: Not assessed/no information CODE: - DRESSING - UPPER BODY: Not assessed/no information CODE: - DRESSING - LOWER BODY: Not assessed/no information CODE: - PUTTING ON/TAKING OFF FOOTWEAR: Not assessed/no information CODE: - ROLL LEFT AND RIGHT: ROLL LEFT AND RIGHT - STEP 1: Does the patient complete the activity by him/herself with no assistance (physical, verbal/nonverbal cueing, setup/clean-up)? No. ROLL LEFT AND RIGHT - STEP 2: Does the patient need only setup/clean-up assistance from one helper? No. ROLL LEFT AND RIGHT - STEP 3: Does the patient need only verbal/nonverbal cueing or touching/steadying/contact guard assistance fro m one helper? Yes. 1. [id number] ADMISSION PERFORMANCE: Supervision or touching assistance CODE: 04 SIT TO LYING: SIT TO LYING - STEP 1: Does the patient complete the activity by him/herself with no assistance (physical, verbal/nonverbal cueing, setup/clean-up)? No. SIT TO LYING - STEP 2: Does the patient need only setup/clean-up assistance from one helper? No. SIT TO LYING - STEP 3: Does the patient need only verbal/nonverbal cueing or touching/steadying/contact guard assistance fro m one helper? Yes. 1. [id number] ADMISSION PERFORMANCE: Supervision or touching assistance CODE: 04 LYING TO SITTING: LYING TO SITTING ON SIDE OF BED - STEP 1: Does the patient complete the activity by him/herself with no assistance (physical, verbal/nonverbal cueing, setup/clean-up)? No. LYING TO SITTING ON SIDE OF BED - STEP 2: Does the patient need only setup/clean-up assistance from one helper? No. LYING TO SITTING ON SIDE OF BED - STEP 3: Does the patient need only verbal/nonverbal cueing or touching/steadying/contact guard assistance fro m one helper? No. LYING TO SITTING ON SIDE OF BED - STEP 4: Does the patient need physical assistance - for example lifting or trunk support from one helper - wi th the helper providing less than half of the effort? Yes. 1. [id number] ADMISSION PERFORMANCE: Partial/moderate assistance CODE: 03 SIT TO STAND: SIT TO STAND - STEP 1: Does the patient complete the activity by him/herself with no assistance (physical, verbal/nonverbal cueing, setup/clean-up)? No. SIT TO STAND - STEP 2: Does the patient need only setup/clean-up assistance from one helper? No. SIT TO STAND - STEP 3: Does the patient need only verbal/nonverbal cueing or touching/steadying/contact guard assistance fro m one helper? Yes. 1. [id number] ADMISSION PERFORMANCE: Supervision or touching assistance CODE: 04 TRANSFERS: BED, CHAIR: CHAIR/[id number] TRANSFER - STEP 1: Does the patient complete the activity by him/herself with no assistance (physical, verbal/nonverbal cueing, setup/clean-up)? No. CHAIR/[id number] TRANSFER - STEP 2: Does the patient need only setup/clean-up assistance from one helper? No. CHAIR/[id number] TRANSFER - STEP 3: Does the patient need only verbal/nonverbal cueing or touching/steadying/contact guard assistance fro m one helper? Yes. 1. [id number] ADMISSION PERFORMANCE: Supervision or touching assistance CODE: 04 TRANSFER TOILET: TOILET TRANSFER - STEP 1: Does the patient complete the activity by him/herself with no assistance (physical, verbal/nonverbal cueing, setup/clean-up)? No. TOILET TRANSFER - STEP 2: Does the patient need only setup/clean-up assistance from one helper? No. TOILET TRANSFER - STEP 3: Does the patient need only verbal/nonverbal cueing or touching/steadying/contact guard assistance fro m one helper? Yes. 1. [id number] ADMISSION PERFORMANCE: Supervision or touching assistance CODE: 04 TRANSFERS: CAR: Not assessed/no information CODE: - WALK 10 FEET: Not assessed/no information CODE: - 1 STEP (CURB): Not assessed/no information CODE: - PICKING UP OBJECT: Not assessed/no information CODE: - DOES THE PATIENT USE A WHEELCHAIR/SCOOTER? CODE: EXPR WHEEL 50 FEET WITH TWO TURNS: Not assessed/no information CODE: - INDICATE THE TYPE OF WHEELCHAIR/SCOOTER USED: CODE: EXPR WHEEL 150 FEET: Not assessed/no information CODE: - INDICATE THE TYPE OF WHEELCHAIR/SCOOTER USED: CODE: EXPR BLADDER AND BOWEL: H350. BLADDER CONTINENCE (3-DAY ASSESSMENT PERIOD): Stress incontinence only CODE: 1 H400. BOWEL CONTINENCE (3-DAY ASSESSMENT PERIOD): Always continent CODE: 0 SIGNATURE PANEL: The following modified sections: 1. [id number] Admission Performance, 1. HC6669S Admission Performance, 1. WO4068S Admission Performance, 1. [id number] Admission Performance, 1. [id number] Admission Performance, 1. [id number] Admission Performance, 1. [id number] Admission Performance, 1. [id number] Admission Performance , 1. CH3364D Admission Performance, 1. [id number] Admission Performance, Code, H350. Bladder Continence (3-day assessment period), H400. Bowel Continence (3-day assessment period) were [electronically] sig lewis by Lokesh Corona on MonMay 21 2019 10:08:57 GMT-0600 (Central Standard Time)
[2019-05-21] MEDS ORDERED: MAGNESIUM HYDROXIDE 8% 30 ML PO PRN (10:58)
[2019-05-21] MEDS ORDERED: MAGNESIUM HYDROXIDE 8% 30 ML PO ONE (10:58)
[2019-05-21] MEDS: PIPER/TAZO/NS 3.375gm 3.375 GM/100 ML BAG IVPB SCH ×3 (13:10→23:30)
[2019-05-21] MEDS: ALBUTEROL 2.5 MG/3 ML NEB SOL NEB SCH ×2 (15:00→19:55)
--- NOTE | 2019-05-21 18:57 | PN ---
Subjective: Patient was seen this morning for followup. She was on the rehab floor this morning. Objective: Vital Signs: Reviewed. HEENT: Unremarkable. Lungs: Clear to auscultation. Heart: Sounds normal. Abdomen: Soft. Bowel sounds normal. No guarding, rigidity, tenderness, or distention. Extremities: No leg edema. Laboratory Data: White count 5.1, hemoglobin 8.6, platelets 150. Sodium 141, potassium 4.7, chlorid e 111, bicarb 26, BUN 23, creatinine 1.27, glucose 230. Impression: 1.Acute pyelonephritis. 2.Hypertension. 3.Diabetes. 4.Adrenal insufficiency. 5.Generalized weakness. 6.Debility. Plan: When I was visiting the patient this morning, she was talking to sister Oriana and the patient give me phone and wanted me to talk to sister Oriana to explain her what is going on with her [facility] lb and give her all the necessary details and information. So, I did talk to sister Oriana and er contact #[phone]. Details were explained to her. SisterOriana initially thought that she w ould want the patient to go to out of state in [facility] where they have the organization and faci lity to recover, but I explained it to her that the patient's condition was in last few days and I ex pect her to continue to show improvement on the rehab floor. At this point, I believe that by the ti me she is ready for discharge, she should be able to return back to previous level of functioning and living arrangement was where she was living across the street in [facility]. Obviously, thin gs may change, but at least the way it looks like this would probably will happen unless something ch anges her health amaral. With that in mind, sister Oriana was satisfied that she may not need to get th e patient into their organization and no facility as she was originally thinking. I will see her dariel orrow for followup. We will continue current medication, antibiotic, steroid. She has not had a bow el movement in few days, so milk of magnesia was ordered and she had some wheezing when I saw her thi s morning, so nebulizer treatment was ordered. JANNA/MODL Voice ID: [id number] Report ID: [id number]
[2019-05-21] MEDS: MAGNESIUM OXIDE 400 MG TAB PO SCH (19:26)
[2019-05-21] MEDS: predniSONE 20 MG TAB PO SCH (19:26)
[2019-05-21] MEDS: ROSUVASTATIN 10 MG TAB PO SCH (20:42)
[2019-05-21] MEDS: GABAPENTIN 300 MG CAP PO SCH (20:42)
[2019-05-21] MEDS: ENSURE HIGH PROTEIN 237 ML CAN PO SCH (20:43)
[2019-05-21] MEDS: GUAIFENESIN/CODEINE 5ML UCUP PO PRN (20:44)
--- NOTE | 2019-05-21 21:18 | R.PN ---
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 Pt denied any Shortness of Breath. Hgb 8.6. She is on hemocyte plus. WBC is 5.1. Glucose 206 to 279. Prealbumin 9.7. She is on promod. She ambulated 300' with contact guard assistance using a rolling walker. VITAL SIGNS Temperature: 97.4 F SBP/DBP: 139/74 Pulse: 79 Resp: 18 MEDICATION ALLERGIES: Hydroxychloroquine ENVIRONMENTAL ALLERGIES: - Substance Allergies None Known - Other Allergies None Known NURSING: - Shower allowing shower - Lab Results blood Sugar Check ACHS ACTIVITIES OOB only with supervision THERAPIES: - Dietary and Nutrition Adequate Nutrition. Nutritional Education. Nutritional Supplements. PHYSICAL EXAM - Gen Alert and awake Lying in bed No apparent distress Oriented to: person, time, and place - Skin No breakdown Normacephalic - Eyes No abnormalities - ENMT No abnormalities - Neck No abnormalities - CVS RRR - Chest Clear - Resp Clear to auscultation - Abd Soft - GI Non distended Deferred - No abnormalities - Ext Mild bilateral lower extremity edema. - MSK 4+/5 weakness in both lower extremities. - Neuro No focal deficits - Psych No abnormalities ASSESSMENT: Pt. is a 78 yo Right-handed white female.On 05/16/2019 she was admitted to [facility] wi th diagnosis Lung Cancer.Her impairment category is Medically Complex Conditions 17 - Respiratory Di sorders - Non-ventilator Dependent (17.52).Pre-morbidly, Pt. was independent/mod-I in Locomotion, Bal ance, Safety Awareness, Social Cognition, Transfers Control, Sphincter Control, Self-Care, Communicat ion, and Endurance; and she had good Locomotion, Safety Awareness, Balance, Transfers Control, Self-C are, and Endurance.Currently, she has deficits of Locomotion, Safety Awareness, Balance, Social Cogni tion, Transfers Control, Self-Care, and Endurance.Pt. is now referred to [facility] for acute in-patient rehabilitation in order to maximize patient's functional independence in a ctivities of daily living, strength, ROM, and mobility.- Rehab Goal Patient has realistic goal of being discharged at assistance level 6-Lala to reside at Home with Fam effie/Relatives. MDM/PLAN: - Physical Therapy Gait dysfunction - to improve, our physical therapists will perform initial evaluation of pt's statu s upon admission and devise an individualized program for Gait Training, and Wheel Chair mobility Inability to transfer - to improve, our physical therapists will perform initial evaluation of pt's status upon admission and devise an individualized program for Bed mobility Need for home safety evaluation - to improve, our physical therapists will perform initial evaluatio n of pt's status upon admission and devise an individualized program for Home Evaluation Need in caregiver upon discharge - to improve, our physical therapists will perform initial evaluati on of pt's status upon admission and devise an individualized program for Caregiver Training Edema - to improve, our physical therapists will perform initial evaluation of pt's status upon admis lacey and devise an individualized program for Elevation Training, and Lymphedema Therapy New precaution - to improve, our physical therapists will perform initial evaluation of pt's status upon admission and devise an individualized program for Patient precaution education Poor balance - to improve, our physical therapists will perform initial evaluation of pt's status up on admission and devise an individualized program for Balance Training Poor endurance - to improve, our physical therapists will perform initial evaluation of pt's status upon admission and devise an individualized program for Endurance Training Weakness - to improve, our physical therapists will perform initial evaluation of pt's status upon a dmission and devise an individualized program for Aquatic Therapy, Neuromuscular Reeducation, and Str engthening Achieving independence - to improve, our physical therapists will perform initial evaluation of pt's status upon admission and devise an individualized program for Community Reintegration Activities - Occupational Therapy ADL deficits - to improve, our occupation therapists will perform initial evaluation of pt's status upon admission and devise an individualized program for Bathing, Bed mobility, Community Reintegratio n, Cooking, Dressing, Eating, Fine Motor Skills, Grooming, Homemaking, Kitchen Mobility, Laundry, Pat ient Education, Safety Awareness, Splinting - Positioning, Transfers(Toilet, Tub, Shower), and Wheel Chair Management Cognitive deficits - to improve, our occupation therapists will perform initial evaluation of pt's s tatus upon admission and devise an individualized program for Cognition - orientation Need for childcare worker - to improve, our occupation therapists will perform initial evaluation of pt's status upon admission and devise an individualized program for Caregiver Training Weakness - to improve, our occupation therapists will perform initial evaluation of pt's status upon admission and devise an individualized program for Aquatic Therapy, Balance, Endurance, UE ROM, and UE strengthening - Other See attached MAR (Medication Administration Record) - Diet Type Continue Regular - Diet - Liquid Texture Continue Regular - Tube Feed Continue N/A - Lab Results blood Sugar Check ACHS - Diet - Solid Texture Continue Regular - Shower allowing shower FUNCTIONAL STATUS: UPDATED AT WEEKLY TEAM CONFERENCE - Bladder Same accident frequency: 7-Ind - No accidents in the past 7 days - Bowel Same accident frequency: 7-Ind - No accidents in the past 7 days - Walking Same score based on distance walked: 0(N/A) Same score based on distance walked: 3(>=150ft) - Wheelchair Same score based on distance traveled: 0(N/A) FUNCTIONAL STATUS: - Self-Care A. Eating Ind B. Grooming Lala C. Bathing Davin D. Dressing - Upper Davin E. Dressing - Lower modA F. Toileting Davin - Sphincter Control G. Bladder control sup H. Bowel control sup - Transfers Control I. Bed/Chair/Wheelchair Davin J. Toilet sup K. Tub/Shower Davin - Locomotion L. Walk/Wheelchair (B) Davin M. Stairs ADNO - Communication N. Comprehension (B) Ind O. Expression (B) Ind - Social Cognition P. Social Interaction Ind Q. Problem Solving Ind R. Memory Ind - Endurance Good - Balance Good - Safety Awareness Good QI SCORES: - Self-Care A. Eating 05-Setup or clean-up assistance B. Oral hygiene 05-Setup or clean-up assistance C. Toileting hygiene 05-Setup or clean-up assistance E. Shower/bathe self 05-Setup or clean-up assistance F. Upper body dressing 05-Setup or clean-up assistance G. Lower body dressing 03-Partial/moderate assistance H. Putting on/taking off footwear 03-Partial/moderate assistance - Mobility A. Roll left and right 04-Supervision or touching assistance B. Sit to lying 04-Supervision or touching assistance C. Lying to sitting on side of bed 04-Supervision or touching assistance D. Sit to stand 04-Supervision or touching assistance E. Chair/[id number]-zk-[id number] transfer 04-Supervision or touching assistance F. Toilet transfer 04-Supervision or touching assistance G. Car transfer 88-Not attempted due to medical condition or safety concerns I. Walk 10 feet 03-Partial/moderate assistance J. Walk 50 feet with two turns 03-Partial/moderate assistance K. Walk 150 feet 03-Partial/moderate assistance L. Walking 10 feet on uneven surfaces 88-Not attempted due to medical condition or safety concerns M. 1 step (curb) 88-Not attempted due to medical condition or safety concerns N. 4 steps 88-Not attempted due to medical condition or safety concerns O. 12 steps 88-Not attempted due to medical condition or safety concerns P. Picking up object 88-Not attempted due to medical condition or safety concerns R. Wheel 50 feet with two turns 88-Not attempted due to medical condition or safety concerns S. Wheel 150 feet 88-Not attempted due to medical condition or safety concerns - Bladder and Bowel Bladder continence 0-Always continent Bowel continence 0-Always continent - Endurance Poor - Balance Poor - Safety Awareness Poor CURRENT FUNC. DEFICITS: Self-Care, Mobility, Endurance, Balance, and Safety Awareness SIGNATURE PANEL: (SPOT CLEANER)
[2019-05-22] MEDS: ALBUTEROL 2.5 MG/3 ML NEB SOL NEB SCH ×4 (01:36→20:20)
[2019-05-22] MEDS: LEVOTHYROXINE SOD 0.125 MG TAB PO SCH (05:32)
[2019-05-22] MEDS: PIPER/TAZO/NS 3.375gm 3.375 GM/100 ML BAG IVPB SCH ×4 (05:32→23:30)
[2019-05-22] MEDS: SOTALOL HCL 80 MG TAB PO SCH ×2 (05:32→16:54)
[2019-05-22] MEDS: APIXABAN 5 MG TABLET PO SCH ×2 (07:58→19:54)
[2019-05-22] MEDS: INSULIN -REGULAR HUMAN 50 UNIT/0.5 ML ML SQ SCH ×4 (07:58→20:31)
[2019-05-22] MEDS: FOLIC ACID 1 MG TABLET PO SCH (07:59)
[2019-05-22] MEDS: MAGNESIUM OXIDE 400 MG TAB PO SCH ×2 (07:59→19:54)
[2019-05-22] MEDS: ENSURE HIGH PROTEIN 237 ML CAN PO SCH ×2 (07:59→20:00)
[2019-05-22] MEDS: SPIRONOLACTONE 25 MG TABLET PO SCH (08:00)
[2019-05-22] MEDS: predniSONE 20 MG TAB PO SCH (08:00)
[2019-05-22] MEDS: PANTOPRAZOLE 40MG TABLET PO SCH (08:00)
[2019-05-22] MEDS: GLIMEPIRIDE 2 MG TABLET PO SCH ×2 (08:00→16:54)
[2019-05-22] MEDS: DICYCLOMINE HCL 10 MG CAP PO SCH ×4 (08:03→20:31)
[2019-05-22] MEDS: GUAIFENESIN/CODEINE 5ML UCUP PO PRN (14:29)
[2019-05-22] MEDS: FORMULATION-R RECTAL 30GM PR PRN (16:02)
--- NOTE | 2019-05-22 17:58 | PN ---
Date of Progress Note: 05/22/2019 Subjective: Patient was seen this morning for followup. Denied any new complaints this morning. Objective: Vital Signs: Reviewed. HEENT: Unremarkable. Lungs: Clear to auscultation. Heart: Sounds normal. Abdomen: Soft. Bowel sounds normal. No guarding, rigidity, tenderness, distention. Extremities: No leg edema. Impression: 1.Urinary tract infection. 2.Lung cancer. 3.Hypertension. 4.Diabetes mellitus. 5.Generalized weakness. 6.Debility. 7.Atrial fibrillation, paroxysmal. 8.Chronic anticoagulation therapy. Plan: Continue current medication. Patient is on sotalol for atrial fibrillation, which was started 2-3 days ago by bargeman. We will continue that. Continue Eliquis. Continue antibiotics. I w ill see her tomorrow for followup. Physical therapy to be provided under guidance of Dr. Garcia. JANNA/MODL Voice ID: [id number] Report ID: [id number]
[2019-05-22] MEDS: PROMOD 30 ML DOSE PO SCH (19:55)
[2019-05-22] MEDS: GABAPENTIN 300 MG CAP PO SCH (20:31)
[2019-05-22] MEDS: ROSUVASTATIN 10 MG TAB PO SCH (20:31)
[2019-05-23] MEDS: ALBUTEROL 2.5 MG/3 ML NEB SOL NEB SCH ×4 (01:55→19:38)
[2019-05-23] MEDS: SOTALOL HCL 80 MG TAB PO SCH ×2 (05:31→17:29)
[2019-05-23] MEDS: PIPER/TAZO/NS 3.375gm 3.375 GM/100 ML BAG IVPB SCH (05:32)
[2019-05-23] MEDS: LEVOTHYROXINE SOD 0.125 MG TAB PO SCH (05:32)
[2019-05-23 06:02] LABS: Absolute Lymphocytes (CBC) 0.4 K/uL (0.7-4.9); Basophils % 0.1 % (0-1.3); Hematocrit 25.4 % (36.0-45.0); MPV 9.7 fL (7.6-11.3); RBC Red Blood Cell Count 2.63 M/uL (3.86-4.86)
[2019-05-23 06:28] LABS: Albumin 2.8 g/dL (3.4-5.0); Magnesium 1.7 mg/dL (1.8-2.4); Prealbumin 14.4 mg/dL (20-40)
[2019-05-23] MEDS: INSULIN -REGULAR HUMAN 50 UNIT/0.5 ML ML SQ SCH ×4 (07:30→19:59)
[2019-05-23] MEDS: PROMOD 30 ML DOSE PO SCH ×2 (08:00→19:27)
[2019-05-23] MEDS: ENSURE HIGH PROTEIN 237 ML CAN PO SCH ×2 (08:00→19:24)
[2019-05-23] MEDS: APIXABAN 5 MG TABLET PO SCH ×2 (08:20→19:28)
[2019-05-23] MEDS: predniSONE 20 MG TAB PO SCH (08:20)
[2019-05-23] MEDS: MAGNESIUM OXIDE 400 MG TAB PO SCH ×2 (08:20→19:28)
[2019-05-23] MEDS: DICYCLOMINE HCL 10 MG CAP PO SCH ×4 (08:20→19:59)
[2019-05-23] MEDS: FERROUS SULFATE 325 MG TAB PO SCH (08:20)
[2019-05-23] MEDS: PANTOPRAZOLE 40MG TABLET PO SCH (08:20)
[2019-05-23] MEDS: FOLIC ACID 1 MG TABLET PO SCH (08:21)
[2019-05-23] MEDS: GLIMEPIRIDE 2 MG TABLET PO SCH ×2 (08:22→17:30)
[2019-05-23] MEDS: SPIRONOLACTONE 25 MG TABLET PO SCH (08:22)
--- NOTE | 2019-05-23 16:53 | FAST ---
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 Surya Garcia M.D. ADMISSION DIAGNOSIS: - Medically Complex Conditions 17 - Respiratory Disorders - Non-ventilator Dependent (17.52) Lung Cancer. EATING: Not assessed/no information CODE: - ORAL HYGIENE: ORAL HYGIENE - STEP 1: Does the patient complete the activity by him/herself with no assistance (physical, verbal/nonverbal cueing, setup/clean-up)? Yes. 1. [id number] ADMISSION PERFORMANCE: Independent CODE: 06 TOILETING HYGIENE: TOILETING HYGIENE - STEP 1: Does the patient complete the activity by him/herself with no assistance (physical, verbal/nonverbal cueing, setup/clean-up)? No. TOILETING HYGIENE - STEP 2: Does the patient need only setup/clean-up assistance from one helper? No. TOILETING HYGIENE - STEP 3: Does the patient need only verbal/nonverbal cueing or touching/steadying/contact guard assistance fro m one helper? Yes. 1. [id number] ADMISSION PERFORMANCE: Supervision or touching assistance CODE: 04 BATHING: SHOWER/BATHE SELF - STEP 1: Does the patient complete the activity by him/herself with no assistance (physical, verbal/nonverbal cueing, setup/clean-up)? No. SHOWER/BATHE SELF - STEP 2: Does the patient need only setup/clean-up assistance from one helper? No. SHOWER/BATHE SELF - STEP 3: Does the patient need only verbal/nonverbal cueing or touching/steadying/contact guard assistance fro m one helper? Yes. 1. [id number] ADMISSION PERFORMANCE: Supervision or touching assistance CODE: 04 DRESSING - UPPER BODY: DRESSING - UPPER BODY - STEP 1: Does the patient complete the activity by him/herself with no assistance (physical, verbal/nonverbal cueing, setup/clean-up)? Yes. 1. [id number] ADMISSION PERFORMANCE: Independent CODE: 06 DRESSING - LOWER BODY: DRESSING - LOWER BODY - STEP 1: Does the patient complete the activity by him/herself with no assistance (physical, verbal/nonverbal cueing, setup/clean-up)? No. DRESSING - LOWER BODY - STEP 2: Does the patient need only setup/clean-up assistance from one helper? No. DRESSING - LOWER BODY - STEP 3: Does the patient need only verbal/nonverbal cueing or touching/steadying/contact guard assistance fro m one helper? Yes. 1. [id number] ADMISSION PERFORMANCE: Supervision or touching assistance CODE: 04 PUTTING ON/TAKING OFF FOOTWEAR: FOOTWEAR - STEP 1: Does the patient complete the activity by him/herself with no assistance (physical, verbal/nonverbal cueing, setup/clean-up)? No. FOOTWEAR - STEP 2: Does the patient need only setup/clean-up assistance from one helper? No. FOOTWEAR - STEP 3: Does the patient need only verbal/nonverbal cueing or touching/steadying/contact guard assistance fro m one helper? Yes. 1. [id number] ADMISSION PERFORMANCE: Supervision or touching assistance CODE: 04 DOES THE PATIENT USE A WHEELCHAIR/SCOOTER? CODE: EXPR INDICATE THE TYPE OF WHEELCHAIR/SCOOTER USED: CODE: EXPR INDICATE THE TYPE OF WHEELCHAIR/SCOOTER USED: CODE: EXPR BLADDER AND BOWEL: CODE: EXPR CODE: EXPR SIGNATURE PANEL: The following modified sections: 1. [id number] Admission Performance, 1. [id number] Admission Performance, 1. TS3924k Admission Performance, 1. AL7508t Admission Performance, 1. [id number] Admission Performance, 1. [id number] Admission Performance were [electronically] signed by MATIAS Welch on MonMay 23 2019 16:53:13 GMT-0600 (Central Standard Time)
--- NOTE | 2019-05-23 17:18 | FAST ---
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 Surya Garcia M.D. ADMISSION DIAGNOSIS: - Medically Complex Conditions 17 - Respiratory Disorders - Non-ventilator Dependent (17.52) Lung Cancer. ROLL LEFT AND RIGHT: ROLL LEFT AND RIGHT - STEP 1: Does the patient complete the activity by him/herself with no assistance (physical, verbal/nonverbal cueing, setup/clean-up)? Yes. 1. [id number] ADMISSION PERFORMANCE: Independent CODE: 06 SIT TO LYING: SIT TO LYING - STEP 1: Does the patient complete the activity by him/herself with no assistance (physical, verbal/nonverbal cueing, setup/clean-up)? Yes. 1. [id number] ADMISSION PERFORMANCE: Independent CODE: 06 LYING TO SITTING: LYING TO SITTING ON SIDE OF BED - STEP 1: Does the patient complete the activity by him/herself with no assistance (physical, verbal/nonverbal cueing, setup/clean-up)? Yes. 1. [id number] ADMISSION PERFORMANCE: Independent CODE: 06 SIT TO STAND: SIT TO STAND - STEP 1: Does the patient complete the activity by him/herself with no assistance (physical, verbal/nonverbal cueing, setup/clean-up)? No. SIT TO STAND - STEP 2: Does the patient need only setup/clean-up assistance from one helper? No. SIT TO STAND - STEP 3: Does the patient need only verbal/nonverbal cueing or touching/steadying/contact guard assistance fro m one helper? Yes. 1. [id number] ADMISSION PERFORMANCE: Supervision or touching assistance CODE: 04 TRANSFERS: BED, CHAIR: CHAIR/APF-YP-AARIA TRANSFER - STEP 1: Does the patient complete the activity by him/herself with no assistance (physical, verbal/nonverbal cueing, setup/clean-up)? No. CHAIR/[id number]-[id number] TRANSFER - STEP 2: Does the patient need only setup/clean-up assistance from one helper? No. CHAIR/HLA-XF-DPMKG TRANSFER - STEP 3: Does the patient need only verbal/nonverbal cueing or touching/steadying/contact guard assistance fro m one helper? Yes. 1. [id number] ADMISSION PERFORMANCE: Supervision or touching assistance CODE: TRANSFER TOILET: TOILET TRANSFER - STEP 1: Does the patient complete the activity by him/herself with no assistance (physical, verbal/nonverbal cueing, setup/clean-up)? No. TOILET TRANSFER - STEP 2: Does the patient need only setup/clean-up assistance from one helper? No. TOILET TRANSFER - STEP 3: Does the patient need only verbal/nonverbal cueing or touching/steadying/contact guard assistance fro m one helper? Yes. 1. [id number] ADMISSION PERFORMANCE: Supervision or touching assistance CODE: TRANSFERS: CAR: Not attempted due to environmental limitations (e.g., lack of equipment, weather constraints) CODE: 10 WALK 10 FEET: WALK 10 FEET - STEP 1: Does the patient complete the activity by him/herself with no assistance (physical, verbal/nonverbal cueing, setup/clean-up)? No. WALK 10 FEET - STEP 2: Does the patient need only setup/clean-up assistance from one helper? No. WALK 10 FEET - STEP 3: Does the patient need only verbal/nonverbal cueing or touching/steadying/contact guard assistance fro m one helper? Yes. 1. [id number] ADMISSION PERFORMANCE: Supervision or touching assistance CODE: WALK 50 FEET: WALK 50 FEET - STEP 1: Does the patient complete the activity by him/herself with no assistance (physical, verbal/nonverbal cueing, setup/clean-up)? No. WALK 50 FEET - STEP 2: Does the patient need only setup/clean-up assistance from one helper? No. WALK 50 FEET - STEP 3: Does the patient need only verbal/nonverbal cueing or touching/steadying/contact guard assistance fro m one helper? Yes. 1. [id number] ADMISSION PERFORMANCE: Supervision or touching assistance CODE: WALK 150 FEET: WALK 150 FEET - STEP 1: Does the patient complete the activity by him/herself with no assistance (physical, verbal/nonverbal cueing, setup/clean-up)? No. WALK 150 FEET - STEP 2: Does the patient need only setup/clean-up assistance from one helper? No. WALK 150 FEET - STEP 3: Does the patient need only verbal/nonverbal cueing or touching/steadying/contact guard assistance fro m one helper? Yes. 1. [id number] ADMISSION PERFORMANCE: Supervision or touching assistance CODE: 04 WALK 10 FEET UNEVEN: Not attempted due to medical condition or safety concerns CODE: 88 1 STEP (CURB): Not attempted due to medical condition or safety concerns CODE: 88 PICKING UP OBJECT: Not attempted due to medical condition or safety concerns CODE: 88 DOES THE PATIENT USE A WHEELCHAIR/SCOOTER? Q1. DOES THE PATIENT USE A WHEELCHAIR/SCOOTER?: No CODE: 0 INDICATE THE TYPE OF WHEELCHAIR/SCOOTER USED: CODE: EXPR INDICATE THE TYPE OF WHEELCHAIR/SCOOTER USED: CODE: EXPR BLADDER AND BOWEL: CODE: EXPR CODE: EXPR SIGNATURE PANEL: The following modified sections: 1. [id number] Admission Performance, 1. [id number] Admission Performance, 1. [id number] Admission Performance, 1. [id number] Admission Performance, 1. [id number] Admission Performance, 1. [id number] Admission Performance, 1. AM6146Y Admission Performance, 1. [id number] Admission Performance , 1. [id number] Admission Performance, 1. [id number] Admission Performance, 1. AB2735B Admission Performanc e, Q1. Does the patient use a wheelchair/scooter? were [electronically] signed by Rosy Valladares on MonMay 23 2019 17:18:00 T-0600 (Central Standard Time)
--- NOTE | 2019-05-23 18:52 | R.PN ---
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 Pt denied any Shortness of Breath. Hgb 8.4. She is on hemocyte plus. WBC is 5.1. Glucose 144 to 284. Prealbumin improved to 14.4. She ambulated 300' with standby assistance using a rolling walker. Eliquis 5 mg bid for DVT prophylaxis. 6 VITAL SIGNS Temperature: 97.0 F SBP/DBP: 138/89 Pulse: 88 Resp: 16 MEDICATION ALLERGIES: Hydroxychloroquine ENVIRONMENTAL ALLERGIES: - Substance Allergies None Known - Other Allergies None Known NURSING: - Shower allowing shower - Lab Results blood Sugar Check ACHS ACTIVITIES OOB only with supervision THERAPIES: - Dietary and Nutrition Adequate Nutrition. Nutritional Education. Nutritional Supplements. PHYSICAL EXAM - Gen Alert and awake Lying in bed No apparent distress Oriented to: person, time, and place - Skin No breakdown Normacephalic - Eyes No abnormalities - ENMT No abnormalities - Neck No abnormalities - CVS RRR - Chest Clear - Resp Clear to auscultation - Abd Soft - GI Non distended Deferred - No abnormalities - Ext Mild bilateral lower extremity edema. - MSK 4+/5 weakness in both lower extremities. - Neuro No focal deficits - Psych No abnormalities ASSESSMENT: Pt. is a 78 yo Right-handed white female.On 05/16/2019 she was admitted to [facility] wi th diagnosis Lung Cancer.Her impairment category is Medically Complex Conditions 17 - Respiratory Di sorders - Non-ventilator Dependent (17.52).Pre-morbidly, Pt. was independent/mod-I in Locomotion, Bal ance, Safety Awareness, Social Cognition, Transfers Control, Sphincter Control, Self-Care, Communicat ion, and Endurance; and she had good Locomotion, Safety Awareness, Balance, Transfers Control, Self-C are, and Endurance.Currently, she has deficits of Locomotion, Safety Awareness, Balance, Social Cogni tion, Transfers Control, Self-Care, and Endurance.Pt. is now referred to [facility] for acute in-patient rehabilitation in order to maximize patient's functional independence in a ctivities of daily living, strength, ROM, and mobility.- Rehab Goal Patient has realistic goal of being discharged at assistance level 6-Lala to reside at Home with Fam effie/Relatives. MDM/PLAN: - Physical Therapy Gait dysfunction - to improve, our physical therapists will perform initial evaluation of pt's statu s upon admission and devise an individualized program for Gait Training, and Wheel Chair mobility Inability to transfer - to improve, our physical therapists will perform initial evaluation of pt's status upon admission and devise an individualized program for Bed mobility Need for home safety evaluation - to improve, our physical therapists will perform initial evaluatio n of pt's status upon admission and devise an individualized program for Home Evaluation Need in caregiver upon discharge - to improve, our physical therapists will perform initial evaluati on of pt's status upon admission and devise an individualized program for Caregiver Training Edema - to improve, our physical therapists will perform initial evaluation of pt's status upon admi ssion and devise an individualized program for Elevation Training, and Lymphedema Therapy New precaution - to improve, our physical therapists will perform initial evaluation of pt's status upon admission and devise an individualized program for Patient precaution education Poor balance - to improve, our physical therapists will perform initial evaluation of pt's status up on admission and devise an individualized program for Balance Training Poor endurance - to improve, our physical therapists will perform initial evaluation of pt's status upon admission and devise an individualized program for Endurance Training Weakness - to improve, our physical therapists will perform initial evaluation of pt's status upon a dmission and devise an individualized program for Aquatic Therapy, Neuromuscular Reeducation, and Str engthening Achieving independence - to improve, our physical therapists will perform initial evaluation of pt's status upon admission and devise an individualized program for Community Reintegration Activities - Occupational Therapy ADL deficits - to improve, our occupation therapists will perform initial evaluation of pt's status upon admission and devise an individualized program for Bathing, Bed mobility, Community Reintegratio n, Cooking, Dressing, Eating, Fine Motor Skills, Grooming, Homemaking, Kitchen Mobility, Laundry, Pat ient Education, Safety Awareness, Splinting - Positioning, Transfers(Toilet, Tub, Shower), and Wheel Chair Management Cognitive deficits - to improve, our occupation therapists will perform initial evaluation of pt's s tatus upon admission and devise an individualized program for Cognition - orientation Need for residential caregiver - to improve, our occupation therapists will perform initial evaluation of pt's status upon admission and devise an individualized program for Caregiver Training Weakness - to improve, our occupation therapists will perform initial evaluation of pt's status upon admission and devise an individualized program for Aquatic Therapy, Balance, Endurance, UE ROM, and UE strengthening - Other See attached MAR (Medication Administration Record) - Diet Type Continue Regular - Diet - Liquid Texture Continue Regular - Tube Feed Continue N/A - Lab Results blood Sugar Check ACHS - Diet - Solid Texture Continue Regular - Shower allowing shower FUNCTIONAL STATUS: UPDATED AT WEEKLY TEAM CONFERENCE - Bladder Same accident frequency: 7-Ind - No accidents in the past 7 days - Bowel Same accident frequency: 7-Ind - No accidents in the past 7 days - Walking Same score based on distance walked: 0(N/A) Same score based on distance walked: 3(>=150ft) - Wheelchair Same score based on distance traveled: 0(N/A) FUNCTIONAL STATUS: - Self-Care A. Eating Ind B. Grooming Lala C. Bathing Davin D. Dressing - Upper Davin E. Dressing - Lower modA F. Toileting Davin - Sphincter Control G. Bladder control sup H. Bowel control sup - Transfers Control I. Bed/Chair/Wheelchair Davin J. Toilet sup K. Tub/Shower Davin - Locomotion L. Walk/Wheelchair (B) Davin M. Stairs ADNO - Communication N. Comprehension (B) Ind O. Expression (B) Ind - Social Cognition P. Social Interaction Ind Q. Problem Solving Ind R. Memory Ind - Endurance Good - Balance Good - Safety Awareness Good QI SCORES: - Self-Care A. Eating 05-Setup or clean-up assistance B. Oral hygiene 05-Setup or clean-up assistance C. Toileting hygiene 05-Setup or clean-up assistance E. Shower/bathe self 05-Setup or clean-up assistance F. Upper body dressing 05-Setup or clean-up assistance G. Lower body dressing 03-Partial/moderate assistance H. Putting on/taking off footwear 03-Partial/moderate assistance - Mobility A. Roll left and right 04-Supervision or touching assistance B. Sit to lying 04-Supervision or touching assistance C. Lying to sitting on side of bed 04-Supervision or touching assistance D. Sit to stand 04-Supervision or touching assistance E. Chair/vkj-vr-equtw transfer 04-Supervision or touching assistance F. Toilet transfer 04-Supervision or touching assistance G. Car transfer 88-Not attempted due to medical condition or safety concerns I. Walk 10 feet 03-Partial/moderate assistance J. Walk 50 feet with two turns 03-Partial/moderate assistance K. Walk 150 feet 03-Partial/moderate assistance L. Walking 10 feet on uneven surfaces 88-Not attempted due to medical condition or safety concerns M. 1 step (curb) 88-Not attempted due to medical condition or safety concerns N. 4 steps 88-Not attempted due to medical condition or safety concerns O. 12 steps 88-Not attempted due to medical condition or safety concerns P. Picking up object 88-Not attempted due to medical condition or safety concerns R. Wheel 50 feet with two turns 88-Not attempted due to medical condition or safety concerns S. Wheel 150 feet 88-Not attempted due to medical condition or safety concerns - Bladder and Bowel Bladder continence 0-Always continent Bowel continence 0-Always continent - Endurance Poor - Balance Poor - Safety Awareness Poor CURRENT FUNC. 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
[2019-05-23] MEDS: NYSTATIN OINT 15 GM TUBE TOP SCH (19:25)
[2019-05-23] MEDS: AMOX/K CLAV 875 MG TAB PO SCH (19:28)
[2019-05-23] MEDS: ROSUVASTATIN 10 MG TAB PO SCH (19:59)
[2019-05-23] MEDS ORDERED: NYSTATIN 100MU/GM CREAM 15GM TOP SCH (20:00)
[2019-05-23] MEDS: GABAPENTIN 300 MG CAP PO SCH (20:00)
--- NOTE | 2019-05-23 22:11 | PN ---
Date of Progress Note: 05/23/2019 Subjective: Patient was seen this morning for followup. She is lying in bed, not in any distress. Denied any complaints this morning when I saw her. Objective: Vital Signs: Reviewed. HEENT: Unremarkable. Lungs: Clear to auscultation. Heart: Heart sounds normal. Abdomen: Soft, bowel sounds normal. No guarding, rigidity, tenderness, or distention. Extremities: No leg edema. Laboratory Data: White count 4.8, hemoglobin 8.4, platelets 173. Sodium 142, potassium 4, chloride 109, bicarb 30, BUN 34, creatinine 1.21, glucose 200. Impression: 1.Urinary tract infection. 2.Adrenal insufficiency. 3.Hypertension. 4.Diabetes mellitus. Plan: We will continue current medication. Continue current prednisone. Antibiotic will be changed from IV to oral antibiotic and it will be Augmentin 875 mg twice a day. Continue physical therapy u nder guidance of Dr. Garcia. I will see her tomorrow for followup. Continue Eliquis for her parox ysmal atrial fibrillation. JANNA/MODL Voice ID: [id number] Report ID: [id number]
[2019-05-24] MEDS: ALBUTEROL 2.5 MG/3 ML NEB SOL NEB SCH ×4 (02:45→20:58)
[2019-05-24] MEDS: LEVOTHYROXINE SOD 0.125 MG TAB PO SCH (05:02)
[2019-05-24] MEDS: SOTALOL HCL 80 MG TAB PO SCH ×2 (05:02→17:24)
[2019-05-24] MEDS: INSULIN -REGULAR HUMAN 50 UNIT/0.5 ML ML SQ SCH ×4 (07:30→21:05)
[2019-05-24] MEDS: ENSURE HIGH PROTEIN 237 ML CAN PO SCH ×2 (08:00→20:00)
[2019-05-24] MEDS: NYSTATIN OINT 15 GM TUBE TOP SCH ×2 (08:00→20:32)
[2019-05-24] MEDS: APIXABAN 5 MG TABLET PO SCH ×2 (08:19→20:32)
[2019-05-24] MEDS: PANTOPRAZOLE 40MG TABLET PO SCH (08:19)
[2019-05-24] MEDS: MAGNESIUM OXIDE 400 MG TAB PO SCH ×2 (08:19→20:32)
[2019-05-24] MEDS: DICYCLOMINE HCL 10 MG CAP PO SCH ×4 (08:19→20:32)
[2019-05-24] MEDS: SPIRONOLACTONE 25 MG TABLET PO SCH (08:19)
[2019-05-24] MEDS: AMOX/K CLAV 875 MG TAB PO SCH ×2 (08:19→20:32)
[2019-05-24] MEDS: FOLIC ACID 1 MG TABLET PO SCH (08:19)
[2019-05-24] MEDS: GLIMEPIRIDE 2 MG TABLET PO SCH ×2 (08:19→17:24)
[2019-05-24] MEDS: FERROUS SULFATE 325 MG TAB PO SCH (08:20)
[2019-05-24] MEDS: predniSONE 20 MG TAB PO SCH (08:20)
[2019-05-24] MEDS: PROMOD 30 ML DOSE PO SCH ×2 (08:21→20:33)
[2019-05-24] MEDS ORDERED: LOPERAMIDE HCL 2 MG CAPSULE PO STA (08:48)
--- NOTE | 2019-05-24 09:44 | P.RH.PN ---
Estimated Length of Stay: 12 Expected Discharge Date: 05/31/19 Discharge Disposition Plan: Home Family Support: Yes Halfway Goal: Mobility, Transfers, Self Care Vital Signs: Last Vital Signs Temp 96.8 F 05/24/19 06:49 Pulse 69 05/24/19 08:19 Resp 16 05/24/19 06:49 BP 127/83 05/24/19 08:19 Pulse Ox 96 05/24/19 06:49 Laboratory: Laboratory Last Values WBC 4.8 K/uL (4.3-10.9) 05/23/19 02:54 RBC 2.63 M/uL (3.86-4.86) L 05/23/19 02:54 Hgb 8.4 g/dL (12.0-15.0) L 05/23/19 02:54 Hct 25.4 % (36.0-45.0) L 05/23/19 02:54 MCV 96.4 fL (80-100) 05/23/19 02:54 MCH 32.1 pg (27.0-35.0) 05/23/19 02:54 MCHC 33.3 g/dL (32.0-36.0) 05/23/19 02:54 RDW 20.8 % (12.1-15.2) H 05/23/19 02:54 Plt Count 173 K/uL (152-406) 05/23/19 02:54 MPV 9.7 fL (7.6-11.3) 05/23/19 02:54 Neutrophils % 79.3 % (41.7-73.7) H 05/23/19 02:54 Lymphocytes % 9.0 % (15.3-44.8) L 05/23/19 02:54 Monocytes % 11.3 % (3.3-12.3) 05/23/19 02:54 Eosinophils % 0.3 % (0-4.4) 05/23/19 02:54 Basophils % 0.1 % (0-1.3) 05/23/19 02:54 Absolute Neutrophils 3.8 K/uL (1.8-8.0) 05/23/19 02:54 Segmented Neutrophils 93 % (40-80) H 05/21/19 06:11 Absolute Lymphocytes 0.4 K/uL (0.7-4.9) L 05/23/19 02:54 Lymphocytes 6 % (15-42) L 05/21/19 06:11 Monocytes 1 % (0-10) 05/21/19 06:11 Absolute Monocytes 0.5 K/uL (0.1-1.3) 05/23/19 02:54 Absolute Eosinophils 0.0 K/uL (0-0.5) 05/23/19 02:54 Absolute Basophils 0.0 K/uL (0-0.5) 05/23/19 02:54 Anisocytosis 1+ 05/21/19 06:11 Macrocytosis Slight 05/21/19 06:11 Morphology Comment Noted (NOT SEEN) 05/21/19 06:11 Sodium 142 mmol/L (136-145) 05/23/19 05:40 Potassium 4.0 mmol/L (3.5-5.1) 05/23/19 05:40 Chloride 109 mmol/L (98-107) H 05/23/19 05:40 Carbon Dioxide 30 mmol/L (21-32) 05/23/19 05:40 BUN 34 mg/dL (7-18) H 05/23/19 05:40 Creatinine 1.21 mg/dL (0.55-1.3) 05/23/19 05:40 Estimated GFR 43 mL/min (=/>90) L 05/23/19 05:40 Glucose 200 mg/dL (74-106) H 05/23/19 05:40 POC Glucose 132 mg/dl (65-120) H 05/24/19 07:22 Calcium 8.2 mg/dL (8.5-10.1) L 05/23/19 05:40 Magnesium 1.7 mg/dL (1.8-2.4) L 05/23/19 05:40 Albumin 2.8 g/dL (3.4-5.0) L 05/23/19 05:40 Prealbumin 14.4 mg/dL (20-40) L 05/23/19 05:40 Weight: 226 lb 9 oz Wound Present: No Closed Surgical Incision Present: No Negative Pressure Wound Therapy Present: No Physician Update: Labs reviewed and she is on hemocyte due to Hgb of 8.4. Glucose is elevated to the 200+. Will increaser glimepride to 4 mg bid. She is doing well but is impulsive. She is independent with ADLs. She is a minimum assistance with walking 200' plus. She is minimum assistance with cognitive functioning. Medical Issues: Patient is incontinent less than daily with bladder and occasional incontinent with bowel Functional Improvement: pt is participating well and demonstrating progress with functional mobility. pt continues to require assist to come to stand as well and supervision during ambulation. pt is not yet safe to return home. Skilled PT services remain essential to improve functional performance and safety. Speech Therapy Update: Patient obtained a 17/ on the MOCA indicating a mild- moderate cognitive-linguistic impairment characterized by deficits in: visuospatial, executive functioning, memory, attention, language, abstraction, and orientation skills. Patient denies cognitive difficulties with exception to occasional word-finding difficulty. Summary: Patient's care plan and supervisor intermediates goals have been reviewed and revised as necessary. Please see the Rehabilitation Signature page for all necessary signatures.
[2019-05-24] MEDS: DIPHENOX/ATROP SULF 1 TAB PO PRN (14:46)
[2019-05-24] MEDS: FORMULATION-R RECTAL 30GM PR PRN (15:47)
--- NOTE | 2019-05-24 16:36 | PN ---
Date of Progress Note: 05/24/2019 Subjective: Patient was seen this morning for followup. No new complaints or problems reported by rhoda ektanadia except she reported having diarrhea. She had constipation and did not have a bowel movement f or several days and she was given milk of magnesia about maybe 3 days ago or to 4 days ago or so and says that since that time she has been having diarrhea. She reports having 8 bowel movements, loose, watery in the last 24 hours. No nausea. No vomiting. Objective: Vital Signs: Reviewed. HEENT: Unremarkable. Lungs: Clear to auscultation. Heart: Sounds normal. Abdomen: Soft. Bowel sounds normal. No guarding, rigidity, tenderness, distention. Extremities: No leg edema. Impression: 1.Diarrhea. 2.Urinary tract infection. 3.Adrenal insufficiency. 4.Hypertension. 5.Type 2 diabetes mellitus. Plan: We will continue current medication, Imodium 1 dose was ordered. Today, patient was advised t o eat yogurt at each meal, and I will see her tomorrow for followup. Her antibiotics that she is cur rently on could contribute to diarrhea and we will be able to stop her antibiotic either tomorrow or day after tomorrow. Details were discussed with patient. JANNA/MODL Voice ID: [id number] Report ID: [id number]
[2019-05-24] MEDS: ROSUVASTATIN 10 MG TAB PO SCH (20:30)
[2019-05-24] MEDS: GABAPENTIN 300 MG CAP PO SCH (20:30)
[2019-05-24] MEDS: GUAIFENESIN/CODEINE 5ML UCUP PO PRN (20:45)
--- NOTE | 2019-05-25 02:25 | FAST ---
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 Surya Garcia M.D. ADMISSION DIAGNOSIS: - Medically Complex Conditions 17 - Respiratory Disorders - Non-ventilator Dependent (17.52) Lung Cancer. EATING: Not assessed/no information CODE: - ORAL HYGIENE: ORAL HYGIENE - STEP 1: Does the patient complete the activity by him/herself with no assistance (physical, verbal/nonverbal cueing, setup/clean-up)? No. ORAL HYGIENE - STEP 2: Does the patient need only setup/clean-up assistance from one helper? No. ORAL HYGIENE - STEP 3: Does the patient need only verbal/nonverbal cueing or touching/steadying/contact guard assistance fro m one helper? Yes. 1. [id number] ADMISSION PERFORMANCE: Supervision or touching assistance CODE: 04 TOILETING HYGIENE: TOILETING HYGIENE - STEP 1: Does the patient complete the activity by him/herself with no assistance (physical, verbal/nonverbal cueing, setup/clean-up)? No. TOILETING HYGIENE - STEP 2: Does the patient need only setup/clean-up assistance from one helper? No. TOILETING HYGIENE - STEP 3: Does the patient need only verbal/nonverbal cueing or touching/steadying/contact guard assistance fro m one helper? Yes. 1. [id number] ADMISSION PERFORMANCE: Supervision or touching assistance CODE: 04 BATHING: Not assessed/no information CODE: - DRESSING - UPPER BODY: Not assessed/no information CODE: - DRESSING - LOWER BODY: Not assessed/no information CODE: - PUTTING ON/TAKING OFF FOOTWEAR: Not assessed/no information CODE: - ROLL LEFT AND RIGHT: Not assessed/no information CODE: - SIT TO LYING: SIT TO LYING - STEP 1: Does the patient complete the activity by him/herself with no assistance (physical, verbal/nonverbal cueing, setup/clean-up)? No. SIT TO LYING - STEP 2: Does the patient need only setup/clean-up assistance from one helper? No. SIT TO LYING - STEP 3: Does the patient need only verbal/nonverbal cueing or touching/steadying/contact guard assistance fro m one helper? Yes. 1. [id number] ADMISSION PERFORMANCE: Supervision or touching assistance CODE: 04 LYING TO SITTING: LYING TO SITTING ON SIDE OF BED - STEP 1: Does the patient complete the activity by him/herself with no assistance (physical, verbal/nonverbal cueing, setup/clean-up)? No. LYING TO SITTING ON SIDE OF BED - STEP 2: Does the patient need only setup/clean-up assistance from one helper? No. LYING TO SITTING ON SIDE OF BED - STEP 3: Does the patient need only verbal/nonverbal cueing or touching/steadying/contact guard assistance fro m one helper? Yes. 1. [id number] ADMISSION PERFORMANCE: Supervision or touching assistance CODE: 04 SIT TO STAND: SIT TO STAND - STEP 1: Does the patient complete the activity by him/herself with no assistance (physical, verbal/nonverbal cueing, setup/clean-up)? No. SIT TO STAND - STEP 2: Does the patient need only setup/clean-up assistance from one helper? No. SIT TO STAND - STEP 3: Does the patient need only verbal/nonverbal cueing or touching/steadying/contact guard assistance fro m one helper? Yes. 1. [id number] ADMISSION PERFORMANCE: Supervision or touching assistance CODE: 04 TRANSFERS: BED, CHAIR: CHAIR/[id number] TRANSFER - STEP 1: Does the patient complete the activity by him/herself with no assistance (physical, verbal/nonverbal cueing, setup/clean-up)? No. CHAIR/[id number] TRANSFER - STEP 2: Does the patient need only setup/clean-up assistance from one helper? No. CHAIR/[id number] TRANSFER - STEP 3: Does the patient need only verbal/nonverbal cueing or touching/steadying/contact guard assistance fro m one helper? Yes. 1. [id number] ADMISSION PERFORMANCE: Supervision or touching assistance CODE: 04 TRANSFER TOILET: TOILET TRANSFER - STEP 1: Does the patient complete the activity by him/herself with no assistance (physical, verbal/nonverbal cueing, setup/clean-up)? No. TOILET TRANSFER - STEP 2: Does the patient need only setup/clean-up assistance from one helper? No. TOILET TRANSFER - STEP 3: Does the patient need only verbal/nonverbal cueing or touching/steadying/contact guard assistance fro m one helper? Yes. 1. [id number] ADMISSION PERFORMANCE: Supervision or touching assistance CODE: 04 TRANSFERS: CAR: Not assessed/no information CODE: - WALK 10 FEET: Not assessed/no information CODE: - 1 STEP (CURB): Not assessed/no information CODE: - PICKING UP OBJECT: Not assessed/no information CODE: - DOES THE PATIENT USE A WHEELCHAIR/SCOOTER? CODE: EXPR WHEEL 50 FEET WITH TWO TURNS: Not assessed/no information CODE: - INDICATE THE TYPE OF WHEELCHAIR/SCOOTER USED: CODE: EXPR WHEEL 150 FEET: Not assessed/no information CODE: - INDICATE THE TYPE OF WHEELCHAIR/SCOOTER USED: CODE: EXPR BLADDER AND BOWEL: H350. BLADDER CONTINENCE (3-DAY ASSESSMENT PERIOD): Incontinent less than daily (e.g., once or twice during the 3-day assessment period) CODE: 2 H400. BOWEL CONTINENCE (3-DAY ASSESSMENT PERIOD): Occasionally incontinent (one episode of bowel incontinence) CODE: 1
[2019-05-25] MEDS: ALBUTEROL 2.5 MG/3 ML NEB SOL NEB SCH ×4 (02:40→21:05)
[2019-05-25] MEDS: LEVOTHYROXINE SOD 0.125 MG TAB PO SCH (05:29)
[2019-05-25] MEDS: SOTALOL HCL 80 MG TAB PO SCH ×2 (05:30→17:28)
[2019-05-25 05:57] VITALS: BMI 41.3
[2019-05-25] MEDS: INSULIN -REGULAR HUMAN 50 UNIT/0.5 ML ML SQ SCH ×4 (07:30→21:19)
[2019-05-25] MEDS: MAGNESIUM OXIDE 400 MG TAB PO SCH ×2 (08:00→19:52)
[2019-05-25] MEDS: PROMOD 30 ML DOSE PO SCH ×2 (08:00→19:52)
[2019-05-25] MEDS: ENSURE HIGH PROTEIN 237 ML CAN PO SCH ×2 (08:00→19:52)
[2019-05-25] MEDS: NYSTATIN OINT 15 GM TUBE TOP SCH ×2 (08:00→19:52)
[2019-05-25] MEDS: AMOX/K CLAV 875 MG TAB PO SCH (08:23)
[2019-05-25] MEDS: FOLIC ACID 1 MG TABLET PO SCH (08:23)
[2019-05-25] MEDS: GLIMEPIRIDE 2 MG TABLET PO SCH ×2 (08:23→17:28)
[2019-05-25] MEDS: FERROUS SULFATE 325 MG TAB PO SCH (08:23)
[2019-05-25] MEDS: APIXABAN 5 MG TABLET PO SCH ×2 (08:23→19:52)
[2019-05-25] MEDS: predniSONE 20 MG TAB PO SCH (08:24)
[2019-05-25] MEDS: PANTOPRAZOLE 40MG TABLET PO SCH (08:24)
[2019-05-25] MEDS: SPIRONOLACTONE 25 MG TABLET PO SCH (08:24)
[2019-05-25] MEDS: DICYCLOMINE HCL 10 MG CAP PO SCH ×4 (08:25→21:19)
--- NOTE | 2019-05-25 15:19 | PN ---
Date of Progress Note: 05/25/2019 Subjective: Patient was seen this morning for followup. No new complaints or problems reported by er. She was sitting in a wheelchair during her physical therapy. Denied any complaints. No dizzine ss, lightheadedness feeling. Objective: Vital Signs: Reviewed. HEENT: Unremarkable. Lungs: Clear to auscultation. Heart: Sounds normal. Abdomen: Soft. Bowel sounds normal. No guarding, rigidity, tenderness, or distention. Extremities: No leg edema. Impression: 1.Urinary tract infection. 2.Adrenal insufficiency. 3.Chronic steroid therapy. 4.Hypertension. 5.Diabetes mellitus. Plan: We will go ahead and reduce dose of prednisone from 20 mg daily down to 10 mg daily starting t omorrow and as of today, we will discontinue her Augmentin as she has received adequate therapy for h er infection. Continue other current medical management. I will see her tomorrow for followup. JANNA/MODL Voice ID: [id number] Report ID: [id number]
[2019-05-25] MEDS: GABAPENTIN 300 MG CAP PO SCH (21:19)
[2019-05-25] MEDS: ROSUVASTATIN 10 MG TAB PO SCH (21:19)
[2019-05-26] MEDS: ALBUTEROL 2.5 MG/3 ML NEB SOL NEB SCH ×4 (02:48→20:45)
[2019-05-26] MEDS: SOTALOL HCL 80 MG TAB PO SCH ×2 (05:19→17:24)
[2019-05-26] MEDS: LEVOTHYROXINE SOD 0.125 MG TAB PO SCH (05:20)
[2019-05-26] MEDS: INSULIN -REGULAR HUMAN 50 UNIT/0.5 ML ML SQ SCH ×4 (07:29→21:14)
[2019-05-26] MEDS: NYSTATIN OINT 15 GM TUBE TOP SCH ×2 (08:00→19:43)
[2019-05-26] MEDS: ENSURE HIGH PROTEIN 237 ML CAN PO SCH ×2 (08:00→19:43)
[2019-05-26] MEDS: PROMOD 30 ML DOSE PO SCH ×2 (08:00→19:43)
[2019-05-26] MEDS: MAGNESIUM OXIDE 400 MG TAB PO SCH ×2 (08:20→19:42)
[2019-05-26] MEDS: PANTOPRAZOLE 40MG TABLET PO SCH (08:20)
[2019-05-26] MEDS: FERROUS SULFATE 325 MG TAB PO SCH (08:20)
[2019-05-26] MEDS: SPIRONOLACTONE 25 MG TABLET PO SCH (08:20)
[2019-05-26] MEDS: DICYCLOMINE HCL 10 MG CAP PO SCH ×4 (08:21→21:14)
[2019-05-26] MEDS: APIXABAN 5 MG TABLET PO SCH ×2 (08:21→19:42)
[2019-05-26] MEDS: GLIMEPIRIDE 2 MG TABLET PO SCH ×2 (08:21→17:25)
[2019-05-26] MEDS: FOLIC ACID 1 MG TABLET PO SCH (08:21)
[2019-05-26] MEDS: predniSONE 10 MG TAB PO SCH (08:21)
--- NOTE | 2019-05-26 16:10 | PN ---
Date of Progress Note: 05/26/2019 Subjective: Patient was seen this morning for followup. She was lying in bed, not in distress. Had 1 large liquidy diarrhea type of bowel movement this morning. She reported yesterday she had only 2 bowel movements as she reported. No abdominal pain. No nausea, no vomiting. Overall, she feels mu ch better. Objective: Vital Signs: Reviewed. HEENT: Unremarkable. Lungs: Clear to auscultation. Heart: Sounds normal. Abdomen: Soft. Bowel sounds normal. No guarding, rigidity, tenderness, distention. Extremities: No leg edema. Impression: 1.Diarrhea. 2.Hypertension. 3.Adrenal insufficiency. 4.Chronic steroid therapy. 5.Diabetes mellitus. Plan: We will go ahead and order a stool for C diff as patient has taken antibiotics recently. Cont inue other current medical management. Continue current prednisone dose 10 mg daily and in next 2 to 3 days or so, we will reduce the dose down to her usual maintenance dose which is 5 mg daily. Megan tobias were discussed with her. JANNA/NIYA Voice ID: [id number] Report ID: [id number]
[2019-05-26] MEDS: ROSUVASTATIN 10 MG TAB PO SCH (21:12)
[2019-05-26] MEDS: GABAPENTIN 300 MG CAP PO SCH (21:13)
[2019-05-27] MEDS: ALBUTEROL 2.5 MG/3 ML NEB SOL NEB SCH ×4 (02:48→19:25)
[2019-05-27] MEDS: LEVOTHYROXINE SOD 0.125 MG TAB PO SCH (05:32)
[2019-05-27] MEDS: SOTALOL HCL 80 MG TAB PO SCH ×2 (05:32→17:37)
[2019-05-27] MEDS: INSULIN -REGULAR HUMAN 50 UNIT/0.5 ML ML SQ SCH ×4 (07:30→20:04)
[2019-05-27] MEDS: ENSURE HIGH PROTEIN 237 ML CAN PO SCH ×2 (08:00→19:16)
[2019-05-27] MEDS: PROMOD 30 ML DOSE PO SCH ×2 (08:00→19:16)
[2019-05-27] MEDS: NYSTATIN OINT 15 GM TUBE TOP SCH ×2 (08:00→20:00)
[2019-05-27] MEDS: FOLIC ACID 1 MG TABLET PO SCH (09:00)
[2019-05-27] MEDS: SPIRONOLACTONE 25 MG TABLET PO SCH (09:00)
[2019-05-27] MEDS: GLIMEPIRIDE 2 MG TABLET PO SCH ×2 (09:00→16:40)
[2019-05-27] MEDS: FERROUS SULFATE 325 MG TAB PO SCH (09:00)
[2019-05-27] MEDS: predniSONE 10 MG TAB PO SCH (09:00)
[2019-05-27] MEDS: APIXABAN 5 MG TABLET PO SCH ×2 (09:00→20:06)
[2019-05-27] MEDS: PANTOPRAZOLE 40MG TABLET PO SCH (09:00)
[2019-05-27] MEDS: MAGNESIUM OXIDE 400 MG TAB PO SCH ×2 (09:00→20:04)
[2019-05-27] MEDS: DICYCLOMINE HCL 10 MG CAP PO SCH ×4 (09:05→20:05)
--- NOTE | 2019-05-27 10:51 | FAST ---
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 Surya Garcia M.D. ADMISSION DIAGNOSIS: - Medically Complex Conditions 17 - Respiratory Disorders - Non-ventilator Dependent (17.52) Lung Cancer. EATING: EATING - STEP 1: Does the patient complete the activity by him/herself with no assistance (physical, verbal/nonverbal cueing, setup/clean-up)? No. EATING - STEP 2: Does the patient need only setup/clean-up assistance from one helper? No. EATING - STEP 3: Does the patient need only verbal/nonverbal cueing or touching/steadying/contact guard assistance fro m one helper? Yes. 1. [id number] ADMISSION PERFORMANCE: Supervision or touching assistance CODE: 04 ORAL HYGIENE: ORAL HYGIENE - STEP 1: Does the patient complete the activity by him/herself with no assistance (physical, verbal/nonverbal cueing, setup/clean-up)? No. ORAL HYGIENE - STEP 2: Does the patient need only setup/clean-up assistance from one helper? No. ORAL HYGIENE - STEP 3: Does the patient need only verbal/nonverbal cueing or touching/steadying/contact guard assistance fro m one helper? Yes. 1. [id number] ADMISSION PERFORMANCE: Supervision or touching assistance CODE: 04 TOILETING HYGIENE: TOILETING HYGIENE - STEP 1: Does the patient complete the activity by him/herself with no assistance (physical, verbal/nonverbal cueing, setup/clean-up)? No. TOILETING HYGIENE - STEP 2: Does the patient need only setup/clean-up assistance from one helper? No. TOILETING HYGIENE - STEP 3: Does the patient need only verbal/nonverbal cueing or touching/steadying/contact guard assistance fro m one helper? No. TOILETING HYGIENE - STEP 4: Does the patient need physical assistance - for example lifting or trunk support from one helper - wi th the helper providing less than half of the effort? Yes. 1. [id number] ADMISSION PERFORMANCE: Partial/moderate assistance CODE: 03 BATHING: Not assessed/no information CODE: - DRESSING - UPPER BODY: Not assessed/no information CODE: - DRESSING - LOWER BODY: Not assessed/no information CODE: - PUTTING ON/TAKING OFF FOOTWEAR: Not assessed/no information CODE: - ROLL LEFT AND RIGHT: ROLL LEFT AND RIGHT - STEP 1: Does the patient complete the activity by him/herself with no assistance (physical, verbal/nonverbal cueing, setup/clean-up)? No. ROLL LEFT AND RIGHT - STEP 2: Does the patient need only setup/clean-up assistance from one helper? No. ROLL LEFT AND RIGHT - STEP 3: Does the patient need only verbal/nonverbal cueing or touching/steadying/contact guard assistance fro m one helper? No. ROLL LEFT AND RIGHT - STEP 4: Does the patient need physical assistance - for example lifting or trunk support from one helper - wi th the helper providing less than half of the effort? Yes. 1. [id number] ADMISSION PERFORMANCE: Partial/moderate assistance CODE: 03 SIT TO LYING: SIT TO LYING - STEP 1: Does the patient complete the activity by him/herself with no assistance (physical, verbal/nonverbal cueing, setup/clean-up)? No. SIT TO LYING - STEP 2: Does the patient need only setup/clean-up assistance from one helper? No. SIT TO LYING - STEP 3: Does the patient need only verbal/nonverbal cueing or touching/steadying/contact guard assistance fro m one helper? No. SIT TO LYING - STEP 4: Does the patient need physical assistance - for example lifting or trunk support from one helper - wi th the helper providing less than half of the effort? Yes. 1. [id number] ADMISSION PERFORMANCE: Partial/moderate assistance CODE: 03 LYING TO SITTING: LYING TO SITTING ON SIDE OF BED - STEP 1: Does the patient complete the activity by him/herself with no assistance (physical, verbal/nonverbal cueing, setup/clean-up)? No. LYING TO SITTING ON SIDE OF BED - STEP 2: Does the patient need only setup/clean-up assistance from one helper? No. LYING TO SITTING ON SIDE OF BED - STEP 3: Does the patient need only verbal/nonverbal cueing or touching/steadying/contact guard assistance fro m one helper? Yes. 1. [id number] ADMISSION PERFORMANCE: Supervision or touching assistance CODE: 04 SIT TO STAND: SIT TO STAND - STEP 1: Does the patient complete the activity by him/herself with no assistance (physical, verbal/nonverbal cueing, setup/clean-up)? No. SIT TO STAND - STEP 2: Does the patient need only setup/clean-up assistance from one helper? No. SIT TO STAND - STEP 3: Does the patient need only verbal/nonverbal cueing or touching/steadying/contact guard assistance fro m one helper? No. SIT TO STAND - STEP 4: Does the patient need physical assistance - for example lifting or trunk support from one helper - wi th the helper providing less than half of the effort? Yes. 1. [id number] ADMISSION PERFORMANCE: Partial/moderate assistance CODE: 03 TRANSFERS: BED, CHAIR: CHAIR/[id number] TRANSFER - STEP 1: Does the patient complete the activity by him/herself with no assistance (physical, verbal/nonverbal cueing, setup/clean-up)? No. CHAIR/[id number] TRANSFER - STEP 2: Does the patient need only setup/clean-up assistance from one helper? No. CHAIR/[id number] TRANSFER - STEP 3: Does the patient need only verbal/nonverbal cueing or touching/steadying/contact guard assistance fro m one helper? No. CHAIR/[id number] TRANSFER - STEP 4: Does the patient need physical assistance - for example lifting or trunk support from one helper - wi th the helper providing less than half of the effort? Yes. 1. [id number] ADMISSION PERFORMANCE: Partial/moderate assistance CODE: 03 TRANSFER TOILET: TOILET TRANSFER - STEP 1: Does the patient complete the activity by him/herself with no assistance (physical, verbal/nonverbal cueing, setup/clean-up)? No. TOILET TRANSFER - STEP 2: Does the patient need only setup/clean-up assistance from one helper? No. TOILET TRANSFER - STEP 3: Does the patient need only verbal/nonverbal cueing or touching/steadying/contact guard assistance fro m one helper? No. TOILET TRANSFER - STEP 4: Does the patient need physical assistance - for example lifting or trunk support from one helper - wi th the helper providing less than half of the effort? Yes. 1. [id number] ADMISSION PERFORMANCE: Partial/moderate assistance CODE: 03 TRANSFERS: CAR: Not assessed/no information CODE: - WALK 10 FEET: Not assessed/no information CODE: - 1 STEP (CURB): Not assessed/no information CODE: - PICKING UP OBJECT: Not assessed/no information CODE: - DOES THE PATIENT USE A WHEELCHAIR/SCOOTER? CODE: EXPR WHEEL 50 FEET WITH TWO TURNS: Not assessed/no information CODE: - INDICATE THE TYPE OF WHEELCHAIR/SCOOTER USED: CODE: EXPR WHEEL 150 FEET: Not assessed/no information CODE: - INDICATE THE TYPE OF WHEELCHAIR/SCOOTER USED: CODE: EXPR BLADDER AND BOWEL: H350. BLADDER CONTINENCE (3-DAY ASSESSMENT PERIOD): Always continent (no documented incontinence) CODE: 0 H400. BOWEL CONTINENCE (3-DAY ASSESSMENT PERIOD): Always continent CODE: 0 SIGNATURE PANEL: The following modified sections: 1. [id number] Admission Performance, 1. [id number] Admission Performance, 1. [id number] Admission Performance, 1. [id number] Admission Performance, 1. [id number] Admission Performance, 1. [id number] Admission Performance, 1. [id number] Admission Performance, 1. [id number] Admission Performance , 1. [id number] Admission Performance, Code, H350. Bladder Continence (3-day assessment period), H400. B owel Continence (3-day assessment period) were [electronically] signed by Lokesh Corona on MonMay 27 10:50:26 GMT-0600 (Central Standard Time)
--- NOTE | 2019-05-27 12:15 | FAST ---
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 Surya Garcia M.D. ADMISSION DIAGNOSIS: - Medically Complex Conditions 17 - Respiratory Disorders - Non-ventilator Dependent (17.52) Lung Cancer. EATING: Not assessed/no information CODE: - ORAL HYGIENE: ORAL HYGIENE - STEP 1: Does the patient complete the activity by him/herself with no assistance (physical, verbal/nonverbal cueing, setup/clean-up)? Yes. 1. [id number] ADMISSION PERFORMANCE: Independent CODE: 06 TOILETING HYGIENE: Not assessed/no information CODE: - BATHING: SHOWER/BATHE SELF - STEP 1: Does the patient complete the activity by him/herself with no assistance (physical, verbal/nonverbal cueing, setup/clean-up)? No. SHOWER/BATHE SELF - STEP 2: Does the patient need only setup/clean-up assistance from one helper? Yes. 1. [id number] ADMISSION PERFORMANCE: Setup or clean-up assistance CODE: 05 DRESSING - UPPER BODY: Not assessed/no information CODE: - DRESSING - LOWER BODY: DRESSING - LOWER BODY - STEP 1: Does the patient complete the activity by him/herself with no assistance (physical, verbal/nonverbal cueing, setup/clean-up)? No. DRESSING - LOWER BODY - STEP 2: Does the patient need only setup/clean-up assistance from one helper? Yes. 1. [id number] ADMISSION PERFORMANCE: Setup or clean-up assistance CODE: 05 PUTTING ON/TAKING OFF FOOTWEAR: FOOTWEAR - STEP 1: Does the patient complete the activity by him/herself with no assistance (physical, verbal/nonverbal cueing, setup/clean-up)? No. FOOTWEAR - STEP 2: Does the patient need only setup/clean-up assistance from one helper? No. FOOTWEAR - STEP 3: Does the patient need only verbal/nonverbal cueing or touching/steadying/contact guard assistance fro m one helper? Yes. 1. [id number] ADMISSION PERFORMANCE: Supervision or touching assistance CODE: 04 DOES THE PATIENT USE A WHEELCHAIR/SCOOTER? CODE: EXPR INDICATE THE TYPE OF WHEELCHAIR/SCOOTER USED: CODE: EXPR INDICATE THE TYPE OF WHEELCHAIR/SCOOTER USED: CODE: EXPR BLADDER AND BOWEL: CODE: EXPR CODE: EXPR SIGNATURE PANEL: The following modified sections: 1. [id number] Admission Performance, 1. [id number] Admission Performance, 1. [id number] Admission Performance, 1. [id number] Admission Performance were [electronically] signed by MATIAS Christiansen on MonMay 27 2019 12:14:52 GMT-0600 (Central Standard Time)
[2019-05-27 14:26] LABS: C.diff Antigen/Toxin Ag neg : Tox neg (NEG : NEG)
--- NOTE | 2019-05-27 18:47 | R.PN ---
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 Pt denied any Shortness of Breath. Hgb 8.4. She is on hemocyte plus. WBC is 5.1. Glucose 108 to 295. Prealbumin improved to 14.4. She ambulated 700' with standby assistance using a rolling walker. Eliquis 5 mg bid for DVT prophylaxis. VITAL SIGNS Temperature: 97.6 F SBP/DBP: 127/81 Pulse: 65 Resp: 16 MEDICATION ALLERGIES: Hydroxychloroquine ENVIRONMENTAL ALLERGIES: - Substance Allergies None Known - Other Allergies None Known NURSING: - Shower allowing shower - Lab Results blood Sugar Check ACHS ACTIVITIES OOB only with supervision THERAPIES: - Dietary and Nutrition Adequate Nutrition. Nutritional Education. Nutritional Supplements. PHYSICAL EXAM - Gen Alert and awake Lying in bed No apparent distress Oriented to: person, time, and place - Skin No breakdown Normacephalic - Eyes No abnormalities - ENMT No abnormalities - Neck No abnormalities - CVS RRR - Chest Clear - Resp Clear to auscultation - Abd Soft - GI Non distended Deferred - No abnormalities - Ext Mild bilateral lower extremity edema. - MSK 4+/5 weakness in both lower extremities. - Neuro No focal deficits - Psych No abnormalities ASSESSMENT: Pt. is a 78 yo Right-handed white female.On 05/16/2019 she was admitted to [facility] wi th diagnosis Lung Cancer.Her impairment category is Medically Complex Conditions 17 - Respiratory Di sorders - Non-ventilator Dependent (17.52).Pre-morbidly, Pt. was independent/mod-I in Locomotion, Bal ance, Safety Awareness, Social Cognition, Transfers Control, Sphincter Control, Self-Care, Communicat ion, and Endurance; and she had good Locomotion, Safety Awareness, Balance, Transfers Control, Self-C are, and Endurance.Currently, she has deficits of Locomotion, Safety Awareness, Balance, Social Cogni tion, Transfers Control, Self-Care, and Endurance.Pt. is now referred to [facility] for acute in-patient rehabilitation in order to maximize patient's functional independence in a ctivities of daily living, strength, ROM, and mobility.- Rehab Goal Patient has realistic goal of being discharged at assistance level 6-Lala to reside at Home with Fam effie/Relatives. MDM/PLAN: - Physical Therapy Gait dysfunction - to improve, our physical therapists will perform initial evaluation of pt's statu s upon admission and devise an individualized program for Gait Training, and Wheel Chair mobility Inability to transfer - to improve, our physical therapists will perform initial evaluation of pt's status upon admission and devise an individualized program for Bed mobility Need for home safety evaluation - to improve, our physical therapists will perform initial evaluatio n of pt's status upon admission and devise an individualized program for Home Evaluation Need in caregiver upon discharge - to improve, our physical therapists will perform initial evaluati on of pt's status upon admission and devise an individualized program for Caregiver Training Edema - to improve, our physical therapists will perform initial evaluation of pt's status upon admi ssion and devise an individualized program for Elevation Training, and Lymphedema Therapy New precaution - to improve, our physical therapists will perform initial evaluation of pt's status upon admission and devise an individualized program for Patient precaution education Poor balance - to improve, our physical therapists will perform initial evaluation of pt's status up on admission and devise an individualized program for Balance Training Poor endurance - to improve, our physical therapists will perform initial evaluation of pt's status upon admission and devise an individualized program for Endurance Training Weakness - to improve, our physical therapists will perform initial evaluation of pt's status upon a dmission and devise an individualized program for Aquatic Therapy, Neuromuscular Reeducation, and Str engthening Achieving independence - to improve, our physical therapists will perform initial evaluation of pt's status upon admission and devise an individualized program for Community Reintegration Activities - Occupational Therapy ADL deficits - to improve, our occupation therapists will perform initial evaluation of pt's status upon admission and devise an individualized program for Bathing, Bed mobility, Community Reintegratio n, Cooking, Dressing, Eating, Fine Motor Skills, Grooming, Homemaking, Kitchen Mobility, Laundry, Pat ient Education, Safety Awareness, Splinting - Positioning, Transfers(Toilet, Tub, Shower), and Wheel Chair Management Cognitive deficits - to improve, our occupation therapists will perform initial evaluation of pt's s tatus upon admission and devise an individualized program for Cognition - orientation Need for neonatal critical care nurse - to improve, our occupation therapists will perform initial evaluation of pt's status upon admission and devise an individualized program for Caregiver Training Weakness - to improve, our occupation therapists will perform initial evaluation of pt's status upon admission and devise an individualized program for Aquatic Therapy, Balance, Endurance, UE ROM, and UE strengthening - Other See attached MAR (Medication Administration Record) - Diet Type Continue Regular - Diet - Liquid Texture Continue Regular - Tube Feed Continue N/A - Lab Results blood Sugar Check ACHS - Diet - Solid Texture Continue Regular - Shower allowing shower FUNCTIONAL STATUS: UPDATED AT WEEKLY TEAM CONFERENCE - Bladder Same accident frequency: 7-Ind - No accidents in the past 7 days - Bowel Same accident frequency: 7-Ind - No accidents in the past 7 days - Walking Same score based on distance walked: 0(N/A) Same score based on distance walked: 3(>=150ft) - Wheelchair Same score based on distance traveled: 0(N/A) FUNCTIONAL STATUS: - Self-Care A. Eating Ind B. Grooming Lala C. Bathing Davin D. Dressing - Upper Davin E. Dressing - Lower modA F. Toileting Davin - Sphincter Control G. Bladder control sup H. Bowel control sup - Transfers Control I. Bed/Chair/Wheelchair Davin J. Toilet sup K. Tub/Shower Davin - Locomotion L. Walk/Wheelchair (B) Davin M. Stairs ADNO - Communication N. Comprehension (B) Ind O. Expression (B) Ind - Social Cognition P. Social Interaction Ind Q. Problem Solving Ind R. Memory Ind - Endurance Good - Balance Good - Safety Awareness Good QI SCORES: - Self-Care A. Eating 05-Setup or clean-up assistance B. Oral hygiene 05-Setup or clean-up assistance C. Toileting hygiene 05-Setup or clean-up assistance E. Shower/bathe self 05-Setup or clean-up assistance F. Upper body dressing 05-Setup or clean-up assistance G. Lower body dressing 03-Partial/moderate assistance H. Putting on/taking off footwear 03-Partial/moderate assistance - Mobility A. Roll left and right 04-Supervision or touching assistance B. Sit to lying 04-Supervision or touching assistance C. Lying to sitting on side of bed 04-Supervision or touching assistance D. Sit to stand 04-Supervision or touching assistance E. Chair/[id number] transfer 04-Supervision or touching assistance F. Toilet transfer 04-Supervision or touching assistance G. Car transfer 88-Not attempted due to medical condition or safety concerns I. Walk 10 feet 03-Partial/moderate assistance J. Walk 50 feet with two turns 03-Partial/moderate assistance K. Walk 150 feet 03-Partial/moderate assistance L. Walking 10 feet on uneven surfaces 88-Not attempted due to medical condition or safety concerns M. 1 step (curb) 88-Not attempted due to medical condition or safety concerns N. 4 steps 88-Not attempted due to medical condition or safety concerns O. 12 steps 88-Not attempted due to medical condition or safety concerns P. Picking up object 88-Not attempted due to medical condition or safety concerns R. Wheel 50 feet with two turns 88-Not attempted due to medical condition or safety concerns S. Wheel 150 feet 88-Not attempted due to medical condition or safety concerns - Bladder and Bowel Bladder continence 0-Always continent Bowel continence 0-Always continent - Endurance Poor - Balance Poor - Safety Awareness Poor CURRENT FUNC. 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
[2019-05-27] MEDS: GUAIFENESIN/CODEINE 5ML UCUP PO PRN (20:04)
[2019-05-27] MEDS: ROSUVASTATIN 10 MG TAB PO SCH (20:04)
[2019-05-27] MEDS: DIPHENOX/ATROP SULF 1 TAB PO PRN (20:05)
[2019-05-27] MEDS: GABAPENTIN 300 MG CAP PO SCH (20:06)
--- NOTE | 2019-05-27 23:51 | PN ---
Date of Progress Note: 05/27/2019 Subjective: Patient was seen this morning for followup. No new complaints or problems reported by h er. Objective: General: Lying in bed, not in distress. Vital Signs: Reviewed. HEENT: Unremarkable. Lungs: Clear to auscultation. Heart: Sounds normal. Abdomen: Soft. Bowel sounds normal. No guarding, rigidity, tenderness, distention. Extremities: No leg edema. Impression: 1.Adrenal insufficiency. 2.Diarrhea. 3.Hypertension. 4.Diabetes mellitus. Plan: We will continue current medication. Stool for C diff is pending. Stool culture will be orde red as patient continues to have chronic diarrhea on a day-to-day basis now. Continue other current medical management. I will see her tomorrow for followup. JANNA/MODL Voice ID: [id number] Report ID: [id number]
[2019-05-28] MEDS: ALBUTEROL 2.5 MG/3 ML NEB SOL NEB SCH ×4 (01:50→20:30)
[2019-05-28] MEDS: SOTALOL HCL 80 MG TAB PO SCH ×2 (05:02→18:15)
[2019-05-28] MEDS: LEVOTHYROXINE SOD 0.125 MG TAB PO SCH (05:06)
[2019-05-28] MEDS: INSULIN -REGULAR HUMAN 50 UNIT/0.5 ML ML SQ SCH ×4 (07:30→20:37)
[2019-05-28] MEDS: PROMOD 30 ML DOSE PO SCH ×2 (08:00→19:22)
[2019-05-28] MEDS: NYSTATIN OINT 15 GM TUBE TOP SCH ×2 (08:00→19:22)
[2019-05-28] MEDS: ENSURE HIGH PROTEIN 237 ML CAN PO SCH ×2 (08:00→19:22)
[2019-05-28] MEDS: DICYCLOMINE HCL 10 MG CAP PO SCH ×4 (08:30→19:21)
[2019-05-28] MEDS: APIXABAN 5 MG TABLET PO SCH ×2 (08:30→19:21)
[2019-05-28] MEDS: FERROUS SULFATE 325 MG TAB PO SCH (08:30)
[2019-05-28] MEDS: MAGNESIUM OXIDE 400 MG TAB PO SCH ×2 (08:30→19:21)
[2019-05-28] MEDS: FOLIC ACID 1 MG TABLET PO SCH (08:31)
[2019-05-28] MEDS: PANTOPRAZOLE 40MG TABLET PO SCH (08:31)
[2019-05-28] MEDS: GLIMEPIRIDE 2 MG TABLET PO SCH ×2 (08:31→17:27)
[2019-05-28] MEDS: predniSONE 10 MG TAB PO SCH (08:32)
[2019-05-28] MEDS: SPIRONOLACTONE 25 MG TABLET PO SCH (08:32)
--- NOTE | 2019-05-28 10:25 | FAST ---
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 Surya Garcia M.D. ADMISSION DIAGNOSIS: - Medically Complex Conditions 17 - Respiratory Disorders - Non-ventilator Dependent (17.52) Lung Cancer. EATING: EATING - STEP 1: Does the patient complete the activity by him/herself with no assistance (physical, verbal/nonverbal cueing, setup/clean-up)? No. EATING - STEP 2: Does the patient need only setup/clean-up assistance from one helper? No. EATING - STEP 3: Does the patient need only verbal/nonverbal cueing or touching/steadying/contact guard assistance fro m one helper? Yes. 1. [id number] ADMISSION PERFORMANCE: Supervision or touching assistance CODE: 04 ORAL HYGIENE: ORAL HYGIENE - STEP 1: Does the patient complete the activity by him/herself with no assistance (physical, verbal/nonverbal cueing, setup/clean-up)? No. ORAL HYGIENE - STEP 2: Does the patient need only setup/clean-up assistance from one helper? Yes. 1. [id number] ADMISSION PERFORMANCE: Setup or clean-up assistance CODE: 05 TOILETING HYGIENE: TOILETING HYGIENE - STEP 1: Does the patient complete the activity by him/herself with no assistance (physical, verbal/nonverbal cueing, setup/clean-up)? No. TOILETING HYGIENE - STEP 2: Does the patient need only setup/clean-up assistance from one helper? Yes. 1. [id number] ADMISSION PERFORMANCE: Setup or clean-up assistance CODE: 05 BATHING: Not assessed/no information CODE: - DRESSING - UPPER BODY: Not assessed/no information CODE: - DRESSING - LOWER BODY: Not assessed/no information CODE: - PUTTING ON/TAKING OFF FOOTWEAR: Not assessed/no information CODE: - ROLL LEFT AND RIGHT: Not assessed/no information CODE: - SIT TO LYING: Not assessed/no information CODE: - LYING TO SITTING: LYING TO SITTING ON SIDE OF BED - STEP 1: Does the patient complete the activity by him/herself with no assistance (physical, verbal/nonverbal cueing, setup/clean-up)? No. LYING TO SITTING ON SIDE OF BED - STEP 2: Does the patient need only setup/clean-up assistance from one helper? No. LYING TO SITTING ON SIDE OF BED - STEP 3: Does the patient need only verbal/nonverbal cueing or touching/steadying/contact guard assistance fro m one helper? Yes. 1. [id number] ADMISSION PERFORMANCE: Supervision or touching assistance CODE: 04 SIT TO STAND: SIT TO STAND - STEP 1: Does the patient complete the activity by him/herself with no assistance (physical, verbal/nonverbal cueing, setup/clean-up)? No. SIT TO STAND - STEP 2: Does the patient need only setup/clean-up assistance from one helper? No. SIT TO STAND - STEP 3: Does the patient need only verbal/nonverbal cueing or touching/steadying/contact guard assistance fro m one helper? Yes. 1. [id number] ADMISSION PERFORMANCE: Supervision or touching assistance CODE: 04 TRANSFERS: BED, CHAIR: CHAIR/[id number] TRANSFER - STEP 1: Does the patient complete the activity by him/herself with no assistance (physical, verbal/nonverbal cueing, setup/clean-up)? No. CHAIR/[id number] TRANSFER - STEP 2: Does the patient need only setup/clean-up assistance from one helper? No. CHAIR/[id number] TRANSFER - STEP 3: Does the patient need only verbal/nonverbal cueing or touching/steadying/contact guard assistance fro m one helper? Yes. 1. [id number] ADMISSION PERFORMANCE: Supervision or touching assistance CODE: 04 TRANSFER TOILET: TOILET TRANSFER - STEP 1: Does the patient complete the activity by him/herself with no assistance (physical, verbal/nonverbal cueing, setup/clean-up)? No. TOILET TRANSFER - STEP 2: Does the patient need only setup/clean-up assistance from one helper? No. TOILET TRANSFER - STEP 3: Does the patient need only verbal/nonverbal cueing or touching/steadying/contact guard assistance fro m one helper? Yes. 1. [id number] ADMISSION PERFORMANCE: Supervision or touching assistance CODE: 04 TRANSFERS: CAR: Not assessed/no information CODE: - WALK 10 FEET: Not assessed/no information CODE: - 1 STEP (CURB): Not assessed/no information CODE: - PICKING UP OBJECT: Not assessed/no information CODE: - DOES THE PATIENT USE A WHEELCHAIR/SCOOTER? CODE: EXPR WHEEL 50 FEET WITH TWO TURNS: Not assessed/no information CODE: - INDICATE THE TYPE OF WHEELCHAIR/SCOOTER USED: CODE: EXPR WHEEL 150 FEET: Not assessed/no information CODE: - INDICATE THE TYPE OF WHEELCHAIR/SCOOTER USED: CODE: EXPR BLADDER AND BOWEL: H350. BLADDER CONTINENCE (3-DAY ASSESSMENT PERIOD): Stress incontinence only CODE: 1 H400. BOWEL CONTINENCE (3-DAY ASSESSMENT PERIOD): Always continent CODE: 0 SIGNATURE PANEL: The following modified sections: 1. [id number] Admission Performance, 1. [id number] Admission Performance, 1. [id number] Admission Performance, 1. [id number] Admission Performance, 1. [id number] Admission Performance, 1. [id number] Admission Performance, 1. [id number] Admission Performance, Code, Code, H350. Bladder Contin ence (3-day assessment period), H400. Bowel Continence (3-day assessment period), H350. Bladder Davin nence (3-day assessment period) were [electronically] signed by Lokesh Corona on MonMay 28 2019 10:25:3 1 GMT-0600 (Central Standard Time)
--- NOTE | 2019-05-28 17:19 | R.PN ---
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 Pt denied any Shortness of Breath. Hgb 8.4. She is on hemocyte plus. WBC is 5.1. Glucose 108 to 295. Prealbumin improved to 14.4. She ambulated 720' with standby assistance using a rolling walker. Up and down 15 steps with standby assistance. Eliquis 5 mg bid for DVT prophylaxis. VITAL SIGNS Temperature: 97.6 F SBP/DBP: 151/69 Pulse: 60 Resp: 16 MEDICATION ALLERGIES: Hydroxychloroquine ENVIRONMENTAL ALLERGIES: - Substance Allergies None Known - Other Allergies None Known NURSING: - Shower allowing shower - Lab Results blood Sugar Check ACHS ACTIVITIES OOB only with supervision THERAPIES: - Dietary and Nutrition Adequate Nutrition. Nutritional Education. Nutritional Supplements. PHYSICAL EXAM - Gen Alert and awake Lying in bed No apparent distress Oriented to: person, time, and place - Skin No breakdown Normacephalic - Eyes No abnormalities - ENMT No abnormalities - Neck No abnormalities - CVS RRR - Chest Clear - Resp Clear to auscultation - Abd Soft - GI Non distended Deferred - No abnormalities - Ext Mild bilateral lower extremity edema. - MSK 4+/5 weakness in both lower extremities. - Neuro No focal deficits - Psych No abnormalities ASSESSMENT: Pt. is a 78 yo Right-handed white female.On 05/16/2019 she was admitted to [facility] wi th diagnosis Lung Cancer.Her impairment category is Medically Complex Conditions 17 - Respiratory Di sorders - Non-ventilator Dependent (17.52).Pre-morbidly, Pt. was independent/mod-I in Locomotion, Bal ance, Safety Awareness, Social Cognition, Transfers Control, Sphincter Control, Self-Care, Communicat ion, and Endurance; and she had good Locomotion, Safety Awareness, Balance, Transfers Control, Self-C are, and Endurance.Currently, she has deficits of Locomotion, Safety Awareness, Balance, Social Cogni tion, Transfers Control, Self-Care, and Endurance.Pt. is now referred to [facility] for acute in-patient rehabilitation in order to maximize patient's functional independence in a ctivities of daily living, strength, ROM, and mobility.- Rehab Goal Patient has realistic goal of being discharged at assistance level 6-Lala to reside at Home with Fam effie/Relatives. MDM/PLAN: - Physical Therapy Gait dysfunction - to improve, our physical therapists will perform initial evaluation of pt's statu s upon admission and devise an individualized program for Gait Training, and Wheel Chair mobility Inability to transfer - to improve, our physical therapists will perform initial evaluation of pt's status upon admission and devise an individualized program for Bed mobility Need for home safety evaluation - to improve, our physical therapists will perform initial evaluatio n of pt's status upon admission and devise an individualized program for Home Evaluation Need in caregiver upon discharge - to improve, our physical therapists will perform initial evaluati on of pt's status upon admission and devise an individualized program for Caregiver Training Edema - to improve, our physical therapists will perform initial evaluation of pt's status upon admi ssion and devise an individualized program for Elevation Training, and Lymphedema Therapy New precaution - to improve, our physical therapists will perform initial evaluation of pt's status upon admission and devise an individualized program for Patient precaution education Poor balance - to improve, our physical therapists will perform initial evaluation of pt's status up on admission and devise an individualized program for Balance Training Poor endurance - to improve, our physical therapists will perform initial evaluation of pt's status upon admission and devise an individualized program for Endurance Training Weakness - to improve, our physical therapists will perform initial evaluation of pt's status upon a dmission and devise an individualized program for Aquatic Therapy, Neuromuscular Reeducation, and Str engthening Achieving independence - to improve, our physical therapists will perform initial evaluation of pt's status upon admission and devise an individualized program for Community Reintegration Activities - Occupational Therapy ADL deficits - to improve, our occupation therapists will perform initial evaluation of pt's status upon admission and devise an individualized program for Bathing, Bed mobility, Community Reintegratio n, Cooking, Dressing, Eating, Fine Motor Skills, Grooming, Homemaking, Kitchen Mobility, Laundry, Pat ient Education, Safety Awareness, Splinting - Positioning, Transfers(Toilet, Tub, Shower), and Wheel Chair Management Cognitive deficits - to improve, our occupation therapists will perform initial evaluation of pt's s tatus upon admission and devise an individualized program for Cognition - orientation Need for critical care technician - to improve, our occupation therapists will perform initial evaluation of pt's status upon admission and devise an individualized program for Caregiver Training Weakness - to improve, our occupation therapists will perform initial evaluation of pt's status upon admission and devise an individualized program for Aquatic Therapy, Balance, Endurance, UE ROM, and UE strengthening - Other See attached MAR (Medication Administration Record) - Diet Type Continue Regular - Diet - Liquid Texture Continue Regular - Tube Feed Continue N/A - Lab Results blood Sugar Check ACHS - Diet - Solid Texture Continue Regular - Shower allowing shower FUNCTIONAL STATUS: UPDATED AT WEEKLY TEAM CONFERENCE - Bladder Same accident frequency: 7-Ind - No accidents in the past 7 days - Bowel Same accident frequency: 7-Ind - No accidents in the past 7 days - Walking Same score based on distance walked: 0(N/A) Same score based on distance walked: 3(>=150ft) - Wheelchair Same score based on distance traveled: 0(N/A) FUNCTIONAL STATUS: - Self-Care A. Eating Ind B. Grooming Lala C. Bathing Davin D. Dressing - Upper Davin E. Dressing - Lower modA F. Toileting Davin - Sphincter Control G. Bladder control sup H. Bowel control sup - Transfers Control I. Bed/Chair/Wheelchair Davin J. Toilet sup K. Tub/Shower Davin - Locomotion L. Walk/Wheelchair (B) Davin M. Stairs ADNO - Communication N. Comprehension (B) Ind O. Expression (B) Ind - Social Cognition P. Social Interaction Ind Q. Problem Solving Ind R. Memory Ind - Endurance Good - Balance Good - Safety Awareness Good QI SCORES: - Self-Care A. Eating 05-Setup or clean-up assistance B. Oral hygiene 05-Setup or clean-up assistance C. Toileting hygiene 05-Setup or clean-up assistance E. Shower/bathe self 05-Setup or clean-up assistance F. Upper body dressing 05-Setup or clean-up assistance G. Lower body dressing 03-Partial/moderate assistance H. Putting on/taking off footwear 03-Partial/moderate assistance - Mobility A. Roll left and right 04-Supervision or touching assistance B. Sit to lying 04-Supervision or touching assistance C. Lying to sitting on side of bed 04-Supervision or touching assistance D. Sit to stand 04-Supervision or touching assistance E. Chair/ymf-od-[id number] transfer 04-Supervision or touching assistance F. Toilet transfer 04-Supervision or touching assistance G. Car transfer 88-Not attempted due to medical condition or safety concerns I. Walk 10 feet 03-Partial/moderate assistance J. Walk 50 feet with two turns 03-Partial/moderate assistance K. Walk 150 feet 03-Partial/moderate assistance L. Walking 10 feet on uneven surfaces 88-Not attempted due to medical condition or safety concerns M. 1 step (curb) 88-Not attempted due to medical condition or safety concerns N. 4 steps 88-Not attempted due to medical condition or safety concerns O. 12 steps 88-Not attempted due to medical condition or safety concerns P. Picking up object 88-Not attempted due to medical condition or safety concerns R. Wheel 50 feet with two turns 88-Not attempted due to medical condition or safety concerns S. Wheel 150 feet 88-Not attempted due to medical condition or safety concerns - Bladder and Bowel Bladder continence 0-Always continent Bowel continence 0-Always continent - Endurance Poor - Balance Poor - Safety Awareness Poor CURRENT FUNC. 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
[2019-05-28] MEDS: ROSUVASTATIN 10 MG TAB PO SCH (19:21)
[2019-05-28] MEDS: GABAPENTIN 300 MG CAP PO SCH (19:21)
[2019-05-28] MEDS: GUAIFENESIN/CODEINE 5ML UCUP PO PRN (19:21)
--- NOTE | 2019-05-29 00:13 | PN ---
Date of Progress Note: 05/28/2019 Subjective: Patient was seen this morning for followup. No new complaints or problems reported by rhoda bray. Objective: General: Lying in bed not in distress. Vital Signs: Reviewed. HEENT: Unremarkable. Lungs: Clear to auscultation. Heart: Sounds normal. Abdomen: Soft. Bowel sounds normal. No guarding, rigidity, tenderness, distension. Extremities: No leg edema. Impression: 1.Debility. 2.Hypertension. 3.Diabetes mellitus. 4.Adrenal insufficiency. Plan: Continue current medications. Continue physical therapy under guidance of Dr. Garcia. Cont inue current Eliquis for paroxysmal atrial fibrillation along with sotalol. I will see her tomorrow for followup. JANNA/MODL Voice ID: [id number] Report ID: [id number]
[2019-05-29] MEDS: ALBUTEROL 2.5 MG/3 ML NEB SOL NEB SCH ×4 (02:00→20:45)
[2019-05-29] MEDS: LEVOTHYROXINE SOD 0.125 MG TAB PO SCH (05:08)
[2019-05-29] MEDS: SOTALOL HCL 80 MG TAB PO SCH ×2 (05:08→17:13)
[2019-05-29] MEDS: INSULIN -REGULAR HUMAN 50 UNIT/0.5 ML ML SQ SCH ×4 (07:21→20:51)
[2019-05-29] MEDS: NYSTATIN OINT 15 GM TUBE TOP SCH ×2 (08:00→20:49)
[2019-05-29] MEDS: ENSURE HIGH PROTEIN 237 ML CAN PO SCH (08:00)
[2019-05-29] MEDS: PROMOD 30 ML DOSE PO SCH (08:00)
[2019-05-29] MEDS: SPIRONOLACTONE 25 MG TABLET PO SCH (09:46)
[2019-05-29] MEDS: PANTOPRAZOLE 40MG TABLET PO SCH (09:46)
[2019-05-29] MEDS: APIXABAN 5 MG TABLET PO SCH ×2 (09:46→20:49)
[2019-05-29] MEDS: FERROUS SULFATE 325 MG TAB PO SCH (09:46)
[2019-05-29] MEDS: MAGNESIUM OXIDE 400 MG TAB PO SCH ×2 (09:46→20:49)
[2019-05-29] MEDS: predniSONE 10 MG TAB PO SCH (09:47)
[2019-05-29] MEDS: GLIMEPIRIDE 2 MG TABLET PO SCH ×2 (09:47→17:14)
[2019-05-29] MEDS: FOLIC ACID 1 MG TABLET PO SCH (09:47)
[2019-05-29] MEDS: DICYCLOMINE HCL 10 MG CAP PO SCH ×4 (09:48→20:49)
--- NOTE | 2019-05-29 14:43 | PN ---
Date of Progress Note: 05/29/2019 Subjective: Patient was seen this morning for followup. No new complaints or problems reported. Ly ing in bed, not in distress. Diarrhea is better. Objective: Vital Signs: Reviewed. HEENT: Examination unremarkable. Lungs: Clear to auscultation. Heart: Sounds normal. Abdomen: Soft. Bowel sounds normal. No guarding, rigidity, tenderness or distention. Extremities Exam: No leg edema. Impression: 1.Adrenal insufficiency. 2.Chronic steroid therapy. 3.Hypertension. 4.Type 2 diabetes mellitus. Plan: Continue current medication. Diarrhea is better. We will go ahead and continue current predn isone therapy and physical therapy to be provided under guidance of Dr. Garcia. Continue current h ypertension and diabetes management. JANNA/MODL Voice ID: [id number] Report ID: [id number]
--- NOTE | 2019-05-29 15:29 | FAST ---
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 Surya Garcia M.D. ADMISSION DIAGNOSIS: - Medically Complex Conditions 17 - Respiratory Disorders - Non-ventilator Dependent (17.52) Lung Cancer. EATING: Not assessed/no information CODE: - ORAL HYGIENE: ORAL HYGIENE - STEP 1: Does the patient complete the activity by him/herself with no assistance (physical, verbal/nonverbal cueing, setup/clean-up)? Yes. 1. [id number] ADMISSION PERFORMANCE: Independent CODE: 06 TOILETING HYGIENE: TOILETING HYGIENE - STEP 1: Does the patient complete the activity by him/herself with no assistance (physical, verbal/nonverbal cueing, setup/clean-up)? Yes. 1. [id number] ADMISSION PERFORMANCE: Independent CODE: 06 BATHING: SHOWER/BATHE SELF - STEP 1: Does the patient complete the activity by him/herself with no assistance (physical, verbal/nonverbal cueing, setup/clean-up)? Yes. 1. [id number] ADMISSION PERFORMANCE: Independent CODE: 06 DRESSING - UPPER BODY: DRESSING - UPPER BODY - STEP 1: Does the patient complete the activity by him/herself with no assistance (physical, verbal/nonverbal cueing, setup/clean-up)? Yes. 1. [id number] ADMISSION PERFORMANCE: Independent CODE: 06 DRESSING - LOWER BODY: DRESSING - LOWER BODY - STEP 1: Does the patient complete the activity by him/herself with no assistance (physical, verbal/nonverbal cueing, setup/clean-up)? Yes. 1. [id number] ADMISSION PERFORMANCE: Independent CODE: 06 PUTTING ON/TAKING OFF FOOTWEAR: FOOTWEAR - STEP 1: Does the patient complete the activity by him/herself with no assistance (physical, verbal/nonverbal cueing, setup/clean-up)? Yes. 1. [id number] ADMISSION PERFORMANCE: Independent CODE: 06 DOES THE PATIENT USE A WHEELCHAIR/SCOOTER? CODE: EXPR INDICATE THE TYPE OF WHEELCHAIR/SCOOTER USED: CODE: EXPR INDICATE THE TYPE OF WHEELCHAIR/SCOOTER USED: CODE: EXPR BLADDER AND BOWEL: CODE: EXPR CODE: EXPR SIGNATURE PANEL: The following modified sections: 1. [id number] Admission Performance, 1. IR1240F Admission Performance, 1. EW0132q Admission Performance, 1. RF8912s Admission Performance, 1. [id number] Admission Performance, 1. TW3367r Admission Performance were [electronically] signed by MATIAS Welch on MonMay 29 2019 15:28:46 GMT-0600 (Central Standard Time)
--- NOTE | 2019-05-29 17:14 | R.PN ---
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 Pt denied any Shortness of Breath. Hgb 8.4. She is on hemocyte plus. WBC is 5.1. Glucose 69 to 305. Prealbumin improved to 14.4. She ambulated 720' with standby assistance using a rolling walker. Up and down 15 steps with standby assistance. Eliquis 5 mg bid for DVT prophylaxis. VITAL SIGNS Temperature: 97.6 F SBP/DBP: 138/60 Pulse: 50 Resp: 16 MEDICATION ALLERGIES: Hydroxychloroquine ENVIRONMENTAL ALLERGIES: - Substance Allergies None Known - Other Allergies None Known NURSING: - Shower allowing shower - Lab Results blood Sugar Check ACHS ACTIVITIES OOB only with supervision THERAPIES: - Dietary and Nutrition Adequate Nutrition. Nutritional Education. Nutritional Supplements. PHYSICAL EXAM - Gen Alert and awake Lying in bed No apparent distress Oriented to: person, time, and place - Skin No breakdown Normacephalic - Eyes No abnormalities - ENMT No abnormalities - Neck No abnormalities - CVS RRR - Chest Clear - Resp Clear to auscultation - Abd Soft - GI Non distended Deferred - No abnormalities - Ext Mild bilateral lower extremity edema. - MSK 4+/5 weakness in both lower extremities. - Neuro No focal deficits - Psych No abnormalities ASSESSMENT: Pt. is a 78 yo Right-handed white female.On 05/16/2019 she was admitted to [facility] wi th diagnosis Lung Cancer.Her impairment category is Medically Complex Conditions 17 - Respiratory Di sorders - Non-ventilator Dependent (17.52).Pre-morbidly, Pt. was independent/mod-I in Locomotion, Bal ance, Safety Awareness, Social Cognition, Transfers Control, Sphincter Control, Self-Care, Communicat ion, and Endurance; and she had good Locomotion, Safety Awareness, Balance, Transfers Control, Self-C are, and Endurance.Currently, she has deficits of Locomotion, Safety Awareness, Balance, Social Cogni tion, Transfers Control, Self-Care, and Endurance.Pt. is now referred to [facility] for acute in-patient rehabilitation in order to maximize patient's functional independence in a ctivities of daily living, strength, ROM, and mobility.- Rehab Goal Patient has realistic goal of being discharged at assistance level 6-Lala to reside at Home with Fam effie/Relatives. MDM/PLAN: - Physical Therapy Gait dysfunction - to improve, our physical therapists will perform initial evaluation of pt's statu s upon admission and devise an individualized program for Gait Training, and Wheel Chair mobility Inability to transfer - to improve, our physical therapists will perform initial evaluation of pt's status upon admission and devise an individualized program for Bed mobility Need for home safety evaluation - to improve, our physical therapists will perform initial evaluatio n of pt's status upon admission and devise an individualized program for Home Evaluation Need in caregiver upon discharge - to improve, our physical therapists will perform initial evaluati on of pt's status upon admission and devise an individualized program for Caregiver Training Edema - to improve, our physical therapists will perform initial evaluation of pt's status upon admi ssion and devise an individualized program for Elevation Training, and Lymphedema Therapy New precaution - to improve, our physical therapists will perform initial evaluation of pt's status upon admission and devise an individualized program for Patient precaution education Poor balance - to improve, our physical therapists will perform initial evaluation of pt's status up on admission and devise an individualized program for Balance Training Poor endurance - to improve, our physical therapists will perform initial evaluation of pt's status upon admission and devise an individualized program for Endurance Training Weakness - to improve, our physical therapists will perform initial evaluation of pt's status upon a dmission and devise an individualized program for Aquatic Therapy, Neuromuscular Reeducation, and Str engthening Achieving independence - to improve, our physical therapists will perform initial evaluation of pt's status upon admission and devise an individualized program for Community Reintegration Activities - Occupational Therapy ADL deficits - to improve, our occupation therapists will perform initial evaluation of pt's status upon admission and devise an individualized program for Bathing, Bed mobility, Community Reintegratio n, Cooking, Dressing, Eating, Fine Motor Skills, Grooming, Homemaking, Kitchen Mobility, Laundry, Pat ient Education, Safety Awareness, Splinting - Positioning, Transfers(Toilet, Tub, Shower), and Wheel Chair Management Cognitive deficits - to improve, our occupation therapists will perform initial evaluation of pt's s tatus upon admission and devise an individualized program for Cognition - orientation Need for childcare provider - to improve, our occupation therapists will perform initial evaluation of pt's status upon admission and devise an individualized program for Caregiver Training Weakness - to improve, our occupation therapists will perform initial evaluation of pt's status upon admission and devise an individualized program for Aquatic Therapy, Balance, Endurance, UE ROM, and UE strengthening - Other See attached MAR (Medication Administration Record) - Diet Type Continue Regular - Diet - Liquid Texture Continue Regular - Tube Feed Continue N/A - Lab Results blood Sugar Check ACHS - Diet - Solid Texture Continue Regular - Shower allowing shower FUNCTIONAL STATUS: UPDATED AT WEEKLY TEAM CONFERENCE - Bladder Same accident frequency: 7-Ind - No accidents in the past 7 days - Bowel Same accident frequency: 7-Ind - No accidents in the past 7 days - Walking Same score based on distance walked: 0(N/A) Same score based on distance walked: 3(>=150ft) - Wheelchair Same score based on distance traveled: 0(N/A) FUNCTIONAL STATUS: - Self-Care A. Eating Ind B. Grooming Lala C. Bathing Davin D. Dressing - Upper Davin E. Dressing - Lower modA F. Toileting Davin - Sphincter Control G. Bladder control sup H. Bowel control sup - Transfers Control I. Bed/Chair/Wheelchair Davin J. Toilet sup K. Tub/Shower Davin - Locomotion L. Walk/Wheelchair (B) Davin M. Stairs ADNO - Communication N. Comprehension (B) Ind O. Expression (B) Ind - Social Cognition P. Social Interaction Ind Q. Problem Solving Ind R. Memory Ind - Endurance Good - Balance Good - Safety Awareness Good QI SCORES: - Self-Care A. Eating 05-Setup or clean-up assistance B. Oral hygiene 05-Setup or clean-up assistance C. Toileting hygiene 05-Setup or clean-up assistance E. Shower/bathe self 05-Setup or clean-up assistance F. Upper body dressing 05-Setup or clean-up assistance G. Lower body dressing 03-Partial/moderate assistance H. Putting on/taking off footwear 03-Partial/moderate assistance - Mobility A. Roll left and right 04-Supervision or touching assistance B. Sit to lying 04-Supervision or touching assistance C. Lying to sitting on side of bed 04-Supervision or touching assistance D. Sit to stand 04-Supervision or touching assistance E. Chair/vij-ik-netoi transfer 04-Supervision or touching assistance F. Toilet transfer 04-Supervision or touching assistance G. Car transfer 88-Not attempted due to medical condition or safety concerns I. Walk 10 feet 03-Partial/moderate assistance J. Walk 50 feet with two turns 03-Partial/moderate assistance K. Walk 150 feet 03-Partial/moderate assistance L. Walking 10 feet on uneven surfaces 88-Not attempted due to medical condition or safety concerns M. 1 step (curb) 88-Not attempted due to medical condition or safety concerns N. 4 steps 88-Not attempted due to medical condition or safety concerns O. 12 steps 88-Not attempted due to medical condition or safety concerns P. Picking up object 88-Not attempted due to medical condition or safety concerns R. Wheel 50 feet with two turns 88-Not attempted due to medical condition or safety concerns S. Wheel 150 feet 88-Not attempted due to medical condition or safety concerns - Bladder and Bowel Bladder continence 0-Always continent Bowel continence 0-Always continent - Endurance Poor - Balance Poor - Safety Awareness Poor CURRENT FUNC. DEFICITS: Self-Care, Mobility, Endurance, Balance, and Safety Awareness SIGNATURE PANEL: (APPRENTICE PAINTER HAND)
[2019-05-29] MEDS: GABAPENTIN 300 MG CAP PO SCH (20:49)
[2019-05-29] MEDS: ROSUVASTATIN 10 MG TAB PO SCH (20:49)
[2019-05-29] MEDS: GUAIFENESIN/CODEINE 5ML UCUP PO PRN (22:03)
[2019-05-30] MEDS: ALBUTEROL 2.5 MG/3 ML NEB SOL NEB SCH ×4 (02:30→20:00)
[2019-05-30] MEDS: SOTALOL HCL 80 MG TAB PO SCH ×2 (05:26→16:55)
[2019-05-30] MEDS: LEVOTHYROXINE SOD 0.125 MG TAB PO SCH (05:26)
[2019-05-30 06:02] LABS: Absolute Lymphocytes (CBC) 0.7 K/uL (0.7-4.9); Basophils % 1.3 % (0-1.3); Hematocrit 31.3 % (36.0-45.0); Lymphocytes % 11.9 % (15.3-44.8); MPV 9.8 fL (7.6-11.3); RBC Red Blood Cell Count 3.15 M/uL (3.86-4.86)
[2019-05-30] MEDS: INSULIN -REGULAR HUMAN 50 UNIT/0.5 ML ML SQ SCH ×4 (06:58→21:34)
[2019-05-30 08:00] LABS: Anisocytosis 1+; Blood Morphology Comment NOTED (NOT SEEN); Platelet Estimate ADEQ; Poikilocytosis 1+; Urine White Blood Cell Casts OK
[2019-05-30] MEDS: NYSTATIN OINT 15 GM TUBE TOP SCH ×2 (08:00→20:00)
[2019-05-30] MEDS: MAGNESIUM OXIDE 400 MG TAB PO SCH ×2 (08:00→20:58)
[2019-05-30] MEDS: DICYCLOMINE HCL 10 MG CAP PO SCH ×4 (08:13→20:59)
[2019-05-30] MEDS: PANTOPRAZOLE 40MG TABLET PO SCH (08:13)
[2019-05-30] MEDS: APIXABAN 5 MG TABLET PO SCH ×2 (08:14→20:58)
[2019-05-30] MEDS: FOLIC ACID 1 MG TABLET PO SCH (08:14)
[2019-05-30] MEDS: SPIRONOLACTONE 25 MG TABLET PO SCH (08:14)
[2019-05-30] MEDS: predniSONE 5 MG TAB PO SCH (08:14)
[2019-05-30] MEDS: FERROUS SULFATE 325 MG TAB PO SCH (08:14)
[2019-05-30] MEDS: GLIMEPIRIDE 2 MG TABLET PO SCH ×2 (08:15→16:55)
[2019-05-30 08:30] LABS: Albumin 3.2 g/dL (3.4-5.0); Magnesium 1.9 mg/dL (1.8-2.4); Potassium 4.7 mmol/L (3.5-5.1); Prealbumin 25.3 mg/dL (20-40)
--- NOTE | 2019-05-30 16:43 | FAST ---
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 Surya Garcia M.D. ADMISSION DIAGNOSIS: - Medically Complex Conditions 17 - Respiratory Disorders - Non-ventilator Dependent (17.52) Lung Cancer. EATING: EATING - STEP 1: Does the patient complete the activity by him/herself with no assistance (physical, verbal/nonverbal cueing, setup/clean-up)? No. EATING - STEP 2: Does the patient need only setup/clean-up assistance from one helper? Yes. 1. [id number] ADMISSION PERFORMANCE: Setup or clean-up assistance CODE: 05 ORAL HYGIENE: ORAL HYGIENE - STEP 1: Does the patient complete the activity by him/herself with no assistance (physical, verbal/nonverbal cueing, setup/clean-up)? No. ORAL HYGIENE - STEP 2: Does the patient need only setup/clean-up assistance from one helper? Yes. 1. [id number] ADMISSION PERFORMANCE: Setup or clean-up assistance CODE: 05 TOILETING HYGIENE: TOILETING HYGIENE - STEP 1: Does the patient complete the activity by him/herself with no assistance (physical, verbal/nonverbal cueing, setup/clean-up)? No. TOILETING HYGIENE - STEP 2: Does the patient need only setup/clean-up assistance from one helper? Yes. 1. [id number] ADMISSION PERFORMANCE: Setup or clean-up assistance CODE: 05 BATHING: Not assessed/no information CODE: - DRESSING - UPPER BODY: DRESSING - UPPER BODY - STEP 1: Does the patient complete the activity by him/herself with no assistance (physical, verbal/nonverbal cueing, setup/clean-up)? No. DRESSING - UPPER BODY - STEP 2: Does the patient need only setup/clean-up assistance from one helper? Yes. 1. [id number] ADMISSION PERFORMANCE: Setup or clean-up assistance CODE: 05 DRESSING - LOWER BODY: DRESSING - LOWER BODY - STEP 1: Does the patient complete the activity by him/herself with no assistance (physical, verbal/nonverbal cueing, setup/clean-up)? No. DRESSING - LOWER BODY - STEP 2: Does the patient need only setup/clean-up assistance from one helper? Yes. 1. [id number] ADMISSION PERFORMANCE: Setup or clean-up assistance CODE: 05 PUTTING ON/TAKING OFF FOOTWEAR: FOOTWEAR - STEP 1: Does the patient complete the activity by him/herself with no assistance (physical, verbal/nonverbal cueing, setup/clean-up)? No. FOOTWEAR - STEP 2: Does the patient need only setup/clean-up assistance from one helper? Yes. 1. [id number] ADMISSION PERFORMANCE: Setup or clean-up assistance CODE: 05 ROLL LEFT AND RIGHT: ROLL LEFT AND RIGHT - STEP 1: Does the patient complete the activity by him/herself with no assistance (physical, verbal/nonverbal cueing, setup/clean-up)? No. ROLL LEFT AND RIGHT - STEP 2: Does the patient need only setup/clean-up assistance from one helper? Yes. 1. [id number] ADMISSION PERFORMANCE: Setup or clean-up assistance CODE: 05 SIT TO LYING: SIT TO LYING - STEP 1: Does the patient complete the activity by him/herself with no assistance (physical, verbal/nonverbal cueing, setup/clean-up)? No. SIT TO LYING - STEP 2: Does the patient need only setup/clean-up assistance from one helper? Yes. 1. [id number] ADMISSION PERFORMANCE: Setup or clean-up assistance CODE: 05 LYING TO SITTING: LYING TO SITTING ON SIDE OF BED - STEP 1: Does the patient complete the activity by him/herself with no assistance (physical, verbal/nonverbal cueing, setup/clean-up)? No. LYING TO SITTING ON SIDE OF BED - STEP 2: Does the patient need only setup/clean-up assistance from one helper? Yes. 1. [id number] ADMISSION PERFORMANCE: Setup or clean-up assistance CODE: 05 SIT TO STAND: SIT TO STAND - STEP 1: Does the patient complete the activity by him/herself with no assistance (physical, verbal/nonverbal cueing, setup/clean-up)? No. SIT TO STAND - STEP 2: Does the patient need only setup/clean-up assistance from one helper? Yes. 1. [id number] ADMISSION PERFORMANCE: Setup or clean-up assistance CODE: 05 TRANSFERS: BED, CHAIR: CHAIR/[id number] TRANSFER - STEP 1: Does the patient complete the activity by him/herself with no assistance (physical, verbal/nonverbal cueing, setup/clean-up)? No. CHAIR/[id number] TRANSFER - STEP 2: Does the patient need only setup/clean-up assistance from one helper? Yes. 1. [id number] ADMISSION PERFORMANCE: Setup or clean-up assistance CODE: 05 TRANSFER TOILET: TOILET TRANSFER - STEP 1: Does the patient complete the activity by him/herself with no assistance (physical, verbal/nonverbal cueing, setup/clean-up)? No. TOILET TRANSFER - STEP 2: Does the patient need only setup/clean-up assistance from one helper? Yes. 1. [id number] ADMISSION PERFORMANCE: Setup or clean-up assistance CODE: 05 TRANSFERS: CAR: Not assessed/no information CODE: - WALK 10 FEET: Not assessed/no information CODE: - 1 STEP (CURB): Not assessed/no information CODE: - PICKING UP OBJECT: Not assessed/no information CODE: - DOES THE PATIENT USE A WHEELCHAIR/SCOOTER? Q1. DOES THE PATIENT USE A WHEELCHAIR/SCOOTER?: Yes CODE: 1 WHEEL 50 FEET WITH TWO TURNS: WHEEL 50 FEET WITH TWO TURNS - STEP 1: Does the patient complete the activity by him/herself with no assistance (physical, verbal/nonverbal cueing, setup/clean-up)? No. WHEEL 50 FEET WITH TWO TURNS - STEP 2: Does the patient need only setup/clean-up assistance from one helper? Yes. 1. [id number] ADMISSION PERFORMANCE: Setup or clean-up assistance CODE: 05 INDICATE THE TYPE OF WHEELCHAIR/SCOOTER USED: RR1. INDICATE THE TYPE OF WHEELCHAIR/SCOOTER USED.: Manual CODE: 1 WHEEL 150 FEET: Not assessed/no information CODE: - INDICATE THE TYPE OF WHEELCHAIR/SCOOTER USED: SS1. INDICATE THE TYPE OF WHEELCHAIR/SCOOTER USED.: Manual CODE: 1 BLADDER AND BOWEL: H350. BLADDER CONTINENCE (3-DAY ASSESSMENT PERIOD): Always continent (no documented incontinence) CODE: 0 H400. BOWEL CONTINENCE (3-DAY ASSESSMENT PERIOD): Always continent CODE: 0 SIGNATURE PANEL: The following modified sections: 1. [id number] Admission Performance, 1. [id number] Admission Performance, 1. [id number] Admission Performance, 1. [id number] Admission Performance, 1. [id number] Admission Performance, 1. [id number] Admission Performance, 1. [id number] Admission Performance, 1. PW9919B Admission Performance , 1. [id number] Admission Performance, 1. [id number] Admission Performance, 1. LV0041E Admission Performanc e, 1. [id number] Admission Performance, 1. [id number] Admission Performance, Q1. Does the patient use a whe elchair/scooter?, 1. [id number] Admission Performance, RR1. Indicate the type of wheelchair/scooter used ., Code, SS1. Indicate the type of wheelchair/scooter used., H350. Bladder Continence (3-day assessme nt period), H400. Bowel Continence (3-day assessment period) were [electronically] signed by Varsha Estrella C.N.AClara on MonMay 30 2019 16:41:56 T-0600 (Central Standard Time)
--- NOTE | 2019-05-30 17:53 | R.PN ---
ENCOUNTER DATE AND TIME: 05/30/2019 17:47 ([employer] [employer]) NAME FRANCIS CASPER DATE OF : 1940 DATE OF ADMISSION: 05/20/2019 21:23 ([employer] [employer]) Lung CancerCHIEF COMPLAINT: Debility SUBJECTIVE: Pt denied any depression. Pt denied any Shortness of Breath. Hgb 10.2. She is on hemocyte plus. WBC is 5.6. Glucose 73 to 333. Prealbumin improved to 25.3 She ambulated 500' with standby assistance using a rolling walker slow alana. Up and down 15 steps with standby assistance. Eliquis 5 mg bid for DVT prophylaxis. VITAL SIGNS Temperature: 98 F SBP/DBP: 143/66 Pulse: 78 Resp: 16 MEDICATION ALLERGIES: Hydroxychloroquine ENVIRONMENTAL ALLERGIES: - Substance Allergies None Known - Other Allergies None Known NURSING: - Shower allowing shower - Lab Results blood Sugar Check ACHS ACTIVITIES OOB only with supervision THERAPIES: - Dietary and Nutrition Adequate Nutrition. Nutritional Education. Nutritional Supplements. PHYSICAL EXAM - Gen Alert and awake Lying in bed No apparent distress Oriented to: person, time, and place - Skin No breakdown Normacephalic - Eyes No abnormalities - ENMT No abnormalities - Neck No abnormalities - CVS RRR - Chest Clear - Resp Clear to auscultation - Abd Soft - GI Non distended Deferred - No abnormalities - Ext Mild bilateral lower extremity edema. - MSK 4+/5 weakness in both lower extremities. - Neuro No focal deficits - Psych No abnormalities ASSESSMENT: Pt. is a 78 yo Right-handed white female.On 05/16/2019 she was admitted to [facility] wi th diagnosis Lung Cancer.Her impairment category is Medically Complex Conditions 17 - Respiratory Di sorders - Non-ventilator Dependent (17.52).Pre-morbidly, Pt. was independent/mod-I in Locomotion, Bal ance, Safety Awareness, Social Cognition, Transfers Control, Sphincter Control, Self-Care, Communicat ion, and Endurance; and she had good Locomotion, Safety Awareness, Balance, Transfers Control, Self-C are, and Endurance.Currently, she has deficits of Locomotion, Safety Awareness, Balance, Social Cogni tion, Transfers Control, Self-Care, and Endurance.Pt. is now referred to [facility] for acute in-patient rehabilitation in order to maximize patient's functional independence in a ctivities of daily living, strength, ROM, and mobility.- Rehab Goal Patient has realistic goal of being discharged at assistance level 6-Lala to reside at Home with Fam effie/Relatives. MDM/PLAN: - Physical Therapy Gait dysfunction - to improve, our physical therapists will perform initial evaluation of pt's statu s upon admission and devise an individualized program for Gait Training, and Wheel Chair mobility Inability to transfer - to improve, our physical therapists will perform initial evaluation of pt's status upon admission and devise an individualized program for Bed mobility Need for home safety evaluation - to improve, our physical therapists will perform initial evaluatio n of pt's status upon admission and devise an individualized program for Home Evaluation Need in caregiver upon discharge - to improve, our physical therapists will perform initial evaluati on of pt's status upon admission and devise an individualized program for Caregiver Training Edema - to improve, our physical therapists will perform initial evaluation of pt's status upon admi ssion and devise an individualized program for Elevation Training, and Lymphedema Therapy New precaution - to improve, our physical therapists will perform initial evaluation of pt's status upon admission and devise an individualized program for Patient precaution education Poor balance - to improve, our physical therapists will perform initial evaluation of pt's status up on admission and devise an individualized program for Balance Training Poor endurance - to improve, our physical therapists will perform initial evaluation of pt's status upon admission and devise an individualized program for Endurance Training Weakness - to improve, our physical therapists will perform initial evaluation of pt's status upon a dmission and devise an individualized program for Aquatic Therapy, Neuromuscular Reeducation, and Str engthening Achieving independence - to improve, our physical therapists will perform initial evaluation of pt's status upon admission and devise an individualized program for Community Reintegration Activities - Occupational Therapy ADL deficits - to improve, our occupation therapists will perform initial evaluation of pt's status upon admission and devise an individualized program for Bathing, Bed mobility, Community Reintegratio n, Cooking, Dressing, Eating, Fine Motor Skills, Grooming, Homemaking, Kitchen Mobility, Laundry, Pat ient Education, Safety Awareness, Splinting - Positioning, Transfers(Toilet, Tub, Shower), and Wheel Chair Management Cognitive deficits - to improve, our occupation therapists will perform initial evaluation of pt's s tatus upon admission and devise an individualized program for Cognition - orientation Need for youth care worker - to improve, our occupation therapists will perform initial evaluation of pt's status upon admission and devise an individualized program for Caregiver Training Weakness - to improve, our occupation therapists will perform initial evaluation of pt's status upon admission and devise an individualized program for Aquatic Therapy, Balance, Endurance, UE ROM, and UE strengthening - Other See attached MAR (Medication Administration Record) - Diet Type Continue Regular - Diet - Liquid Texture Continue Regular - Tube Feed Continue N/A - Lab Results blood Sugar Check ACHS - Diet - Solid Texture Continue Regular - Shower allowing shower FUNCTIONAL STATUS: UPDATED AT WEEKLY TEAM CONFERENCE - Bladder Same accident frequency: 7-Ind - No accidents in the past 7 days - Bowel Same accident frequency: 7-Ind - No accidents in the past 7 days - Walking Same score based on distance walked: 0(N/A) Same score based on distance walked: 3(>=150ft) - Wheelchair Same score based on distance traveled: 0(N/A) FUNCTIONAL STATUS: - Self-Care A. Eating Ind B. Grooming Lala C. Bathing Davin D. Dressing - Upper Davin E. Dressing - Lower modA F. Toileting Davin - Sphincter Control G. Bladder control sup H. Bowel control sup - Transfers Control I. Bed/Chair/Wheelchair Davin J. Toilet sup K. Tub/Shower Davin - Locomotion L. Walk/Wheelchair (B) Davin M. Stairs ADNO - Communication N. Comprehension (B) Ind O. Expression (B) Ind - Social Cognition P. Social Interaction Ind Q. Problem Solving Ind R. Memory Ind - Endurance Good - Balance Good - Safety Awareness Good QI SCORES: - Self-Care A. Eating 05-Setup or clean-up assistance B. Oral hygiene 05-Setup or clean-up assistance C. Toileting hygiene 05-Setup or clean-up assistance E. Shower/bathe self 05-Setup or clean-up assistance F. Upper body dressing 05-Setup or clean-up assistance G. Lower body dressing 03-Partial/moderate assistance H. Putting on/taking off footwear 03-Partial/moderate assistance - Mobility A. Roll left and right 04-Supervision or touching assistance B. Sit to lying 04-Supervision or touching assistance C. Lying to sitting on side of bed 04-Supervision or touching assistance D. Sit to stand 04-Supervision or touching assistance E. Chair/ugs-jo-avgqq transfer 04-Supervision or touching assistance F. Toilet transfer 04-Supervision or touching assistance G. Car transfer 88-Not attempted due to medical condition or safety concerns I. Walk 10 feet 03-Partial/moderate assistance J. Walk 50 feet with two turns 03-Partial/moderate assistance K. Walk 150 feet 03-Partial/moderate assistance L. Walking 10 feet on uneven surfaces 88-Not attempted due to medical condition or safety concerns M. 1 step (curb) 88-Not attempted due to medical condition or safety concerns N. 4 steps 88-Not attempted due to medical condition or safety concerns O. 12 steps 88-Not attempted due to medical condition or safety concerns P. Picking up object 88-Not attempted due to medical condition or safety concerns R. Wheel 50 feet with two turns 88-Not attempted due to medical condition or safety concerns S. Wheel 150 feet 88-Not attempted due to medical condition or safety concerns - Bladder and Bowel Bladder continence 0-Always continent Bowel continence 0-Always continent - Endurance Poor - Balance Poor - Safety Awareness Poor CURRENT FUNC. DEFICITS: Self-Care, Mobility, Endurance, Balance, and Safety Awareness SIGNATURE PANEL: ([employer])
[2019-05-30] MEDS: ROSUVASTATIN 10 MG TAB PO SCH (20:58)
[2019-05-30] MEDS: GABAPENTIN 300 MG CAP PO SCH (20:59)
[2019-05-30] MEDS ORDERED: MELATONIN 3 MG TABLET PO SCH (21:00)
--- NOTE | 2019-05-31 00:42 | PN ---
Date of Progress Note: 05/30/2019 Subjective: Patient was seen this morning for followup. No new complaints or problems reported by rhoda bray. Lying in bed, not in any distress. Objective: Vital Signs: Reviewed. HEENT: Unremarkable. Lungs: Clear to auscultation. No rhonchi. No rales. Heart: Heart sounds normal. Abdomen: Soft. Bowel sounds normal. No guarding, rigidity, tenderness, or distention. Extremities: No leg edema. Impression: 1.Adrenal insufficiency. 2.Chronic steroid therapy. 3.Hypertension. 4.Diabetes mellitus. 5.Paroxysmal atrial fibrillation. 6.Chronic anticoagulation therapy. Plan: We will continue current medical management. Reduce prednisone dose from 10 mg to 5 mg daily. Physical therapy to be provided under guidance of Dr. Garcia. We will see her tomorrow for hollisjazz rakeshrhoda and she is scheduled to go home tomorrow. JANNA/MODL Voice ID: [id number] Report ID: [id number]
[2019-05-31] MEDS: ALBUTEROL 2.5 MG/3 ML NEB SOL NEB SCH ×2 (01:25→07:51)
[2019-05-31] MEDS: LEVOTHYROXINE SOD 0.125 MG TAB PO SCH (05:25)
[2019-05-31] MEDS: SOTALOL HCL 80 MG TAB PO SCH (05:25)
[2019-05-31] MEDS: INSULIN -REGULAR HUMAN 50 UNIT/0.5 ML ML SQ SCH ×2 (07:30→12:33)
[2019-05-31] MEDS: PANTOPRAZOLE 40MG TABLET PO SCH (08:31)
[2019-05-31] MEDS: predniSONE 5 MG TAB PO SCH (08:32)
[2019-05-31] MEDS: DICYCLOMINE HCL 10 MG CAP PO SCH ×2 (08:32→12:33)
[2019-05-31] MEDS: SPIRONOLACTONE 25 MG TABLET PO SCH (08:32)
[2019-05-31] MEDS: APIXABAN 5 MG TABLET PO SCH (08:32)
[2019-05-31] MEDS: MAGNESIUM OXIDE 400 MG TAB PO SCH (08:32)
[2019-05-31] MEDS: GLIMEPIRIDE 2 MG TABLET PO SCH (08:33)
[2019-05-31] MEDS: FOLIC ACID 1 MG TABLET PO SCH (08:33)
[2019-05-31] MEDS: FERROUS SULFATE 325 MG TAB PO SCH (08:33)
[2019-05-31 08:34] VITALS: BP 137/56
[2019-05-31 09:27] VITALS: TEMP 96.9
--- NOTE | 2019-05-31 10:05 | P.RH.PN ---
Estimated Length of Stay: 12 Expected Discharge Date: 05/31/19 Discharge Disposition Plan: Home Family Support: Yes Correction Goal: Mobility, Transfers, Self Care Vital Signs: Last Vital Signs Temp 96.9 F 05/31/19 08:00 Pulse 57 05/31/19 08:32 Resp 16 05/31/19 08:00 BP 137/56 L 05/31/19 08:32 Pulse Ox 95 05/31/19 08:00 Laboratory: Laboratory Last Values WBC 5.6 K/uL (4.3-10.9) D 05/30/19 05:43 RBC 3.15 M/uL (3.86-4.86) L 05/30/19 05:43 Hgb 10.2 g/dL (12.0-15.0) L 05/30/19 05:43 Hct 31.3 % (36.0-45.0) L D 05/30/19 05:43 MCV 99.3 fL (80-100) 05/30/19 05:43 MCH 32.5 pg (27.0-35.0) 05/30/19 05:43 MCHC 32.8 g/dL (32.0-36.0) 05/30/19 05:43 RDW 21.3 % (12.1-15.2) H 05/30/19 05:43 Plt Count 168 K/uL (152-406) 05/30/19 05:43 MPV 9.8 fL (7.6-11.3) 05/30/19 05:43 Neutrophils % 67.9 % (41.7-73.7) 05/30/19 05:43 Lymphocytes % 11.9 % (15.3-44.8) L 05/30/19 05:43 Monocytes % 13.6 % (3.3-12.3) H 05/30/19 05:43 Eosinophils % 5.3 % (0-4.4) H 05/30/19 05:43 Basophils % 1.3 % (0-1.3) 05/30/19 05:43 Absolute Neutrophils 3.8 K/uL (1.8-8.0) 05/30/19 05:43 Segmented Neutrophils 93 % (40-80) H 05/21/19 06:11 Absolute Lymphocytes 0.7 K/uL (0.7-4.9) 05/30/19 05:43 Lymphocytes 6 % (15-42) L 05/21/19 06:11 Monocytes 1 % (0-10) 05/21/19 06:11 Absolute Monocytes 0.8 K/uL (0.1-1.3) 05/30/19 05:43 Absolute Eosinophils 0.3 K/uL (0-0.5) 05/30/19 05:43 Absolute Basophils 0.1 K/uL (0-0.5) 05/30/19 05:43 Poikilocytosis 1+ 05/30/19 05:43 Anisocytosis 1+ 05/30/19 05:43 Macrocytosis Slight 05/21/19 06:11 Morphology Comment Noted (NOT SEEN) 05/30/19 05:43 Sodium 146 mmol/L (136-145) H 05/30/19 07:14 Potassium 4.7 mmol/L (3.5-5.1) 05/30/19 07:14 Chloride 109 mmol/L (98-107) H 05/30/19 07:14 Carbon Dioxide 34 mmol/L (21-32) H 05/30/19 07:14 BUN 30 mg/dL (7-18) H 05/30/19 07:14 Creatinine 1.10 mg/dL (0.55-1.3) 05/30/19 07:14 Estimated GFR 48 mL/min (=/>90) L 05/30/19 07:14 Glucose 77 mg/dL (74-106) 05/30/19 07:14 POC Glucose 98 mg/dl (65-120) 05/31/19 07:18 Calcium 9.3 mg/dL (8.5-10.1) D 05/30/19 07:14 Magnesium 1.9 mg/dL (1.8-2.4) 05/30/19 07:14 Albumin 3.2 g/dL (3.4-5.0) L 05/30/19 07:14 Prealbumin 25.3 mg/dL (20-40) 05/30/19 07:14 C. difficile Ag & Toxin Ag neg : tox neg (NEG : NEG) 05/26/19 18:00 Weight: 211 lb 14.4 oz Wound Present: No Closed Surgical Incision Present: No Negative Pressure Wound Therapy Present: No Physician Update: Labs reviewed and are stable. She is modified independent with her physical and occupational therapy. She has mild cognitive impairment and at baseline. Medical Issues: Patient is incontinent less than daily with bladder and occasional incontinent with bowel Functional Improvement: pt is participating well and demonstrating progress with functional mobility. pt continues to require assist to come to stand as well and supervision during ambulation. pt is not yet safe to return home. Skilled PT services remain essential to improve functional performance and safety. Speech Therapy Update: Patient present with mild cognitive-linguistic impairments characterized by occasional confusion, lapses in memory, word finding difficulty, and decreased insight into her deficits and their impact on safety/functional independence. Patient has been cooperative in therapy but often appears very annoyed by it. She has muttered things under her breath about not needing this and it being ridiculous. Patient obtained 19/30 on the MOCA indicating a 2 pt increase from her initial evaluation. However, patient continues to present with a mild cognitive impairment. 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 Please see the Rehabilitation Signature page for all necessary signatures.
[2019-05-31] MEDS: NYSTATIN OINT 15 GM TUBE TOP SCH (12:00)
[2019-05-31 12:14] VITALS: O2SAT 97
--- NOTE | 2019-05-31 14:19 | FAST ---
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 Surya Garcia M.D. ADMISSION DIAGNOSIS: - Medically Complex Conditions 17 - Respiratory Disorders - Non-ventilator Dependent (17.52) Lung Cancer. EATING: Not assessed/no information CODE: - ORAL HYGIENE: ORAL HYGIENE - STEP 1: Does the patient complete the activity by him/herself with no assistance (physical, verbal/nonverbal cueing, setup/clean-up)? Yes. 1. [id number] ADMISSION PERFORMANCE: Independent CODE: 06 TOILETING HYGIENE: Not assessed/no information CODE: - BATHING: SHOWER/BATHE SELF - STEP 1: Does the patient complete the activity by him/herself with no assistance (physical, verbal/nonverbal cueing, setup/clean-up)? Yes. 1. [id number] ADMISSION PERFORMANCE: Independent CODE: 06 DRESSING - UPPER BODY: DRESSING - UPPER BODY - STEP 1: Does the patient complete the activity by him/herself with no assistance (physical, verbal/nonverbal cueing, setup/clean-up)? Yes. 1. ADMISSION PERFORMANCE: Independent CODE: 06 DRESSING - LOWER BODY: DRESSING - LOWER BODY - STEP 1: Does the patient complete the activity by him/herself with no assistance (physical, verbal/nonverbal cueing, setup/clean-up)? Yes. 1. [id number] ADMISSION PERFORMANCE: Independent CODE: 06 PUTTING ON/TAKING OFF FOOTWEAR: FOOTWEAR - STEP 1: Does the patient complete the activity by him/herself with no assistance (physical, verbal/nonverbal cueing, setup/clean-up)? Yes. 1. [id number] ADMISSION PERFORMANCE: Independent CODE: 06 DOES THE PATIENT USE A WHEELCHAIR/SCOOTER? CODE: EXPR INDICATE THE TYPE OF WHEELCHAIR/SCOOTER USED: CODE: EXPR INDICATE THE TYPE OF WHEELCHAIR/SCOOTER USED: CODE: EXPR BLADDER AND BOWEL: CODE: EXPR CODE: EXPR SIGNATURE PANEL: The following modified sections: 1. [id number] Admission Performance, 1. [id number] Admission Performance, 1. [id number] Admission Performance, 1. [id number] Admission Performance, 1. [id number] Admission Performance were [electronically] signed by Glory Stout OT on MonMay 31 2019 14:18:16 GMT-0600 ([facility] tral Standard Time)
--- NOTE | 2019-06-01 03:47 | DS ---
Date of Discharge: 05/31/2019 Patient was seen this morning for followup. Denied any complaints. Physical Examination: Vital Signs: Reviewed. HEENT: Unremarkable. Lungs: Clear to auscultation. Cardiac: Heart sounds normal. Abdomen: Soft. Bowel sounds normal. No guarding, rigidity, tenderness, or distention. Extremities: No leg edema. Discharge Medications And Instructions: 1.Continue all prior home medication except stop metoprolol and start sotalol 80 mg twice a day, oth erwise continue all other prior home medications. 2.Follow up at my office next week. Call office for appointment. Laboratory Data: Labs done during this hospital admission: On 05/30/2019, white count was 5.6, hemo globin 10.2, platelets 168. Sodium 146, potassium 4.7, chloride 109, bicarb 34 and 30, creatinine 1. 1, glucose 77. Hospital Course: A 78-year-old pleasant female patient who was initially admitted to Medical floor a nd subsequently transferred to rehab floor. She received physical therapy under guidance of Dr. Libby bolaños. Initially, she was on higher dose of steroids, which was IV and subsequently we changed it to oral prednisone and over period of this hospitalization, we have reduced dose down to her maintenance dose, which is prednisone 5 mg daily. She received initially IV antibiotic therapy which was later on changed to oral antibiotic which was for her acute pyelonephritis and once the antibiotic therapy completed and discontinued, she has not had any problem with any signs, symptoms of any infections. Her blood pressure remained stable. We monitored her diabetes with fingerstick blood sugar and oral medication as well as sliding scale. Patient's overall condition has improved significantly. Today, she will be discharged to go home in stable condition. Final Diagnoses: 1.Generalized weakness. 2.Debility. 3.Adrenal insufficiency. 4.Chronic steroid therapy. 5.Anemia. 6.Hypertension. 7.Type 2 diabetes mellitus. 8.Acute pyelonephritis. 9.Lung cancer, right main bronchus, status post chemotherapy and radiation therapy. 10.Type 2 diabetes mellitus. 11.Hyperlipidemia. 12.Osteoarthritis, multiple sites. JANNA/MODL Voice ID: [id number] Report ID: [id number]
== END 2019-05-31 14:25 | disposition home health service (06) | DRG 181 ==
LOC: 5TH 18:40
PROVIDERS: ADMIT Internal Medicine; ATTEND Internal Medicine
DX: C34.01 Malignant neoplasm of right main bronchus (principal); N10 Acute pyelonephritis; E27.40 Unspecified adrenocortical insufficiency; I12.9 Hypertensive chronic kidney disease with stage 1 through stage 4 chronic kidney disease, or unspecified chronic kidney disease; N18.3 Chronic kidney disease, stage 3 (moderate); E11.9 Type 2 diabetes mellitus without complications; E78.5 Hyperlipidemia, unspecified; E03.9 Hypothyroidism, unspecified; M32.9 Systemic lupus erythematosus, unspecified; D69.6 Thrombocytopenia, unspecified; M15.9 Polyosteoarthritis, unspecified; R53.81 Other malaise; I48.0 Paroxysmal atrial fibrillation; D64.9 Anemia, unspecified; R19.7 Diarrhea, unspecified; Z79.01 Long term (current) use of anticoagulants; Z79.52 Long term (current) use of systemic steroids
CPT/HCPCS: 36415; 80048; 82040; 82947; 83735; 84134; 85025; 87045; 87046; 87324; 87449; 92507; 92523; 94640; 97110; 97112; 97116; 97127; 97161; 97530; 97542; J2543; J2920; J7512

== ENCOUNTER 2019-06-03 15:40 | Inpatient (IN) | payer OTHER ==
--- NOTE | 2019-06-03 16:35 | RAD REPORT ---
EXAM DESCRIPTION: RAD - Chest Single View - 06/03/2019 4:26 pm CLINICAL HISTORY: Chest pain COMPARISON: May 19, 2019 TECHNIQUE: AP portable chest image was obtained [id number] student . FINDINGS: Lung volumes are low. No peripheral mass or consolidation. Lung markings are accentuated b y large body habitus and under penetrated portable technique. Heart and vasculature are normal. No me asurable pleural effusion and no pneumothorax. No acute bony abnormality seen. No acute aortic findin gs suspected. IMPRESSION: Limited portable study without acute cardiopulmonary finding.
[2019-06-03 16:37] LABS: Absolute Lymphocytes (CBC) 0.8 K/uL (0.7-4.9); Basophils % 0.7 % (0-1.3); Hematocrit 41.5 % (36.0-45.0); Lymphocytes % 11.3 % (15.3-44.8); MPV 10.2 fL (7.6-11.3); RBC Red Blood Cell Count 4.12 M/uL (3.86-4.86)
[2019-06-03 16:38] LABS: Protime INR 1.16
[2019-06-03 16:55] LABS: Albumin 3.5 g/dL (3.4-5.0); Bilirubin Direct 0.3 mg/dL (0-0.2); Magnesium 1.6 mg/dL (1.8-2.4); Potassium 5.1 mmol/L (3.5-5.1); Protein, Total 7.9 g/dL (6.4-8.2); Troponin (Emerg Dept Use Only) 0.02 ng/mL (0.0-0.045)
--- NOTE | 2019-06-03 17:24 | ER ---
Nurse's Notes [facility] Name: Patricia Flynn Age: 78 yrs Sex: Female : 1940 Arrival Date: 06/03/2019 Time: 15:46 Bed 2 Private MD: Diagnosis: Orthostatic hypotension;Hypomagnesemia Presentation: 06/03 15:46 Presenting complaint: EMS states: Nausea and dizziness when standing x 2 days. Recently hb hospitalized for UTI. HR 100, SPO2 97% on RA, BGL 160. afib on 12 lead. 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 Hx of AFib, COPD, DM. lung CA. Transition of care: patient was not received from another setting of care. Onset of symptoms was June 02, 2019. Risk Assessment: Do you want to hurt yourself or someone else? Patient reports no desire to harm self or others. Initial Sepsis Screen: Does the patient meet any 2 criteria? No. Patient's initial sepsis screen is negative. Does the patient have a suspected source of infection? No. Patient's initial sepsis screen is negative. Care prior to arrival: IV initiated. 20 GA, in the right forearm. 15:46 Method Of Arrival: EMS: [facility] hb 15:46 Acuity: VELASQUEZ 3 hb 16:45 Acuity: VELASQUEZ 2 hb Triage Assessment: 15:50 General: Appears in no apparent distress. Behavior is calm, cooperative. Pain: Denies hb pain. EENT: No signs and/or symptoms were reported regarding the EENT system. Neuro: Level of Consciousness is awake, alert, obeys commands, Oriented to person, place, time, situation. Cardiovascular: Heart tones S1 S2 present Capillary refill < 3 seconds Patient's skin is warm and dry. Rhythm is atrial fibrillation. Respiratory: Airway is patent Respiratory effort is even, unlabored, Respiratory pattern is regular, symmetrical, Breath sounds are clear bilaterally. GI: Abdomen is non-distended, Bowel sounds present X 4 quads. Abd is soft and non tender X 4 quads. Reports nausea. : No signs and/or symptoms were reported regarding the genitourinary system. Derm: Skin is pink, warm \T\ dry. Musculoskeletal: No signs and/or symptoms reported regarding the musculoskeletal system. Historical: - Allergies: 15:51 Hydroxychloroquine; hb - Home Meds: 15:51 aspirin 81 mg Oral TbEC 1 tab once daily [Active]; Colace 100 mg Oral cap 2 caps once hb daily [Active]; Crestor 10 mg Oral tab 1 tab once daily [Active]; Detrol LA 4 mg Oral cp24 1 cap once daily [Active]; dicyclomine 20 mg Oral tab 1 tab 4 times per day [Active]; Eliquis 5 mg Oral tab [Active]; folic acid 400 mcg Oral tab 1 tab once daily [Active]; gabapentin 600 mg Oral tab 1 tab nightly [Active]; Glimepiride Oral [Active]; lansoprazole 30 mg Oral cpDR 1 cap once daily [Active]; levothyroxine 125 mcg tab 1 tab once daily [Active]; metoprolol tartrate 50 mg Oral tab 1 tab once daily [Active]; metoprolol tartrate 25 mg Oral tab 1 tab once daily [Active]; Myrbetriq 25 mg Oral Tb24 1 tab once daily [Active]; occuvite [Active]; ondansetron HCl 4 mg Oral tab [Active]; Ocuvite [id number] uu-tyeh-[id number]-mg Oral cap daily [Active]; pantoprazole 40 mg Oral TbEC 1 tab once daily [Active]; Plavix 75 mg Oral tab 1 tab once daily [Active]; prednisone 5 mg Oral tab 1 tab once daily [Active]; prednisone 5 mg Oral tab once daily [Active]; quinapril 20 mg Oral tab 1 tab once daily [Active]; sertraline 25 mg Oral tab 1 tab once daily [Active]; spironolactone 25 mg Oral tab 1 tab once daily [Active]; Synthroid 125 mcg Oral tab 1 tab once daily [Active]; vitmain d 3 [Active]; - PMHx: 15:51 Atrial Fib; Back pain; Diabetes - NIDDM; High Cholesterol; Hypertension; hb Hypothyroidism; Lung CA; Lupus; - PSHx: 15:51 cyst removed from neck; laminectomy; hb - Immunization history:: Adult Immunizations up to date. - Social history:: Smoking status: Patient/guardian denies using tobacco. - Ebola Screening: : No symptoms or risks identified at this time. Screenin:52 Abuse screen: Denies threats or abuse. Denies injuries from another. Nutritional hb screening: No deficits noted. Tuberculosis screening: No symptoms or risk factors identified. Fall Risk None identified. Assessment: 16:00 General: See triage assessmetn. hb 17:00 Reassessment: Patient appears in no apparent distress at this time. Patient and/or hb family updated on plan of care and expected duration. Pain level reassessed. Patient is alert, oriented x 3, equal unlabored respirations, skin warm/dry/pink. 18:00 Reassessment: Patient appears in no apparent distress at this time. Patient and/or hb family updated on plan of care and expected duration. Pain level reassessed. Patient is alert, oriented x 3, equal unlabored respirations, skin warm/dry/pink. 19:18 Reassessment: Patient appears in no apparent distress at this time. Patient is alert, lp1 oriented x 3, equal unlabored respirations, skin warm/dry/pink. Patient aware of pending admission to floor Patient denies pain at this time. Vital Signs: 15:52 BP 90 / 77; Pulse 101; Resp 16; Temp 97.9(A); Pulse Ox 97% on R/A; Weight 70.76 kg; hb Height 5 ft. (152.40 cm); Pain 0/10; 16:56 BP 118 / 80 LA Supine (auto/reg); Pulse 99; Resp 23; Pulse Ox 100% on R/A; ms 16:57 BP 127 / 80 LA Sitting (auto/reg); Pulse 103; Resp 23; Pulse Ox 100% ; ms 16:58 BP 87 / 48 RA Standing (auto/reg); Pulse 137; Resp 32; Pulse Ox 100% on R/A; ms 17:18 BP 80 / 71; Pulse 90; Resp 30; Pulse Ox 97% on R/A; hb 17:30 BP 98 / 59; Pulse 95; Resp 28; Pulse Ox 97% ; sv 17:45 BP 107 / 83; Pulse 30; Resp 20; Pulse Ox 100% ; sv 18:00 BP 120 / 99; Pulse 95; Resp 30; Pulse Ox 100% ; sv 18:30 BP 95 / 69; Pulse 95; Resp 28; Pulse Ox 100% on R/A; hb 19:19 BP 109 / 95; Pulse 89; Resp 16; Temp 98.4(O); Pulse Ox 99% on R/A; lp1 15:52 Body Mass Index 30.47 (70.76 kg, 152.40 cm) hb ED Course: 15:46 Patient arrived in ED. hb 15:48 Keith Galvan PA is PHCP. jr8 15:48 Oscar Olvera MD is Attending Physician. jr8 15:49 Triage completed. hb 15:52 Arm band placed on. hb 15:53 Patient has correct armband on for positive identification. Bed in low position. Call hb light in reach. Side rails up X 1. 16:00 Priscilla Hopper, ARASH is Primary Nurse. hb 16:26 XRAY Chest (1 view) In Process Unspecified. EDMS 17:00 EKG done, by ED staff, reviewed by Oscar Olvera MD. ms 17:22 Key Hammer MD is Hospitalizing Provider. jr8 19:24 No provider procedures requiring assistance completed. Patient admitted, IV remains in lp1 place. Administered Medications: 16:10 Drug: NS 0.9% 1000 ml Route: IV; Rate: 1000 ml; Site: right forearm; iw 17:25 Follow up: Response: No adverse reaction; IV Status: Completed infusion; IV Intake: hb 1000ml 18:00 Drug: Magnesium Sulfate 1 grams Route: IVPB; Infused Over: 1 hrs; Site: right forearm; hb 19:07 Follow up: Response: No adverse reaction; IV Status: Completed infusion; IV Intake: sv 100ml 18:00 Drug: NS 0.9% 1000 ml Route: IV; Rate: 125 ml/hr; Site: right forearm; hb 20:02 Follow up: IV Status: Infusion continued upon transfer ea 18:00 Drug: Solu-CORTEF 100 mg Route: IVP; Site: right forearm; hb 18:30 Follow up: Response: No adverse reaction sv Intake: 17:25 IV: 1000ml; Total: 1000ml. hb 19:07 IV: 100ml; Total: 1100ml. sv Outcome: 17:23 Decision to Hospitalize by Provider. jr8 19:24 Condition: stable lp1 19:24 Instructed on the need for admit. 19:38 Admitted to Tele accompanied by tech, room 427, with chart, Report called to ARASH Lorenzana lp1 20:03 Patient left the ED. lp1 Signatures: Dispatcher [employer] Salma Garcia RN RN sv Williams, Irene, RN RN iw Makenzie Avelar ms, Mary, RN RN lp1 Keith Galvan PA PA jr8 Priscilla Hopper RN RN Destiny Martinez RN RN ea Corrections: (The following items were deleted from the chart) 15:54 15:46 Presenting complaint: EMS states: Nausea and dizziness when standing x 2 days. hb Recently hospitalized for UTI. HR 100, SPO2 97% on RA, BGL 160. afib on 12 lead. 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 Hx of AFib, COPD, DM. hb 18:15 17:00 Reassessment: Patient appears in no apparent distress at this time. hb hb
--- NOTE | 2019-06-03 17:24 | EDPHYS ---
Physician Documentation [facility] Name: Patricia Flynn Age: 78 yrs Sex: Female : 1940 Arrival Date: 06/03/2019 Time: 15:46 Bed 2 Private MD: ED Physician Oscar Olvera HPI: 06/03 16:54 This 78 yrs old Female presents to ER via EMS with complaints of jr8 Nausea/weakness/Near Syncope. 16:54 Onset: The symptoms/episode began/occurred gradually, 1 week(s) ago. Possible causes: jr8 unknown. The symptoms are aggravated by Standing up and movement. Associated signs and symptoms: Pertinent positives: general weakness and near syncope . Severity of symptoms: At their worst the symptoms were moderate in the emergency department the symptoms are unchanged. The patient has not experienced similar symptoms in the past. The patient has not recently seen a physician. Patient stated that she was in rehab for about 2 weeks and was recently released. Could not tell us why. Stated that while she was in there started to have fatigue while standing and would break out into cold sweats and felt as if she would pass out while on her feet. Has not gone away since it started . Historical: - Allergies: 15:51 Hydroxychloroquine; hb - Home Meds: 15:51 aspirin 81 mg Oral TbEC 1 tab once daily [Active]; Colace 100 mg Oral cap 2 caps once hb daily [Active]; Crestor 10 mg Oral tab 1 tab once daily [Active]; Detrol LA 4 mg Oral cp24 1 cap once daily [Active]; dicyclomine 20 mg Oral tab 1 tab 4 times per day [Active]; Eliquis 5 mg Oral tab [Active]; folic acid 400 mcg Oral tab 1 tab once daily [Active]; gabapentin 600 mg Oral tab 1 tab nightly [Active]; Glimepiride Oral [Active]; lansoprazole 30 mg Oral cpDR 1 cap once daily [Active]; levothyroxine 125 mcg tab 1 tab once daily [Active]; metoprolol tartrate 50 mg Oral tab 1 tab once daily [Active]; metoprolol tartrate 25 mg Oral tab 1 tab once daily [Active]; Myrbetriq 25 mg Oral Tb24 1 tab once daily [Active]; occuvite [Active]; ondansetron HCl 4 mg Oral tab [Active]; Ocuvite [id number] kw-[id number]-[id number]-mg Oral cap daily [Active]; pantoprazole 40 mg Oral TbEC 1 tab once daily [Active]; Plavix 75 mg Oral tab 1 tab once daily [Active]; prednisone 5 mg Oral tab 1 tab once daily [Active]; prednisone 5 mg Oral tab once daily [Active]; quinapril 20 mg Oral tab 1 tab once daily [Active]; sertraline 25 mg Oral tab 1 tab once daily [Active]; spironolactone 25 mg Oral tab 1 tab once daily [Active]; Synthroid 125 mcg Oral tab 1 tab once daily [Active]; vitmain d 3 [Active]; - PMHx: 15:51 Atrial Fib; Back pain; Diabetes - NIDDM; High Cholesterol; Hypertension; hb Hypothyroidism; Lung CA; Lupus; - PSHx: 15:51 cyst removed from neck; laminectomy; hb - Immunization history:: Adult Immunizations up to date. - Social history:: Smoking status: Patient/guardian denies using tobacco. - Ebola Screening: : No symptoms or risks identified at this time. ROS: 16:54 Eyes: Negative for injury, pain, redness, and discharge, ENT: Negative for injury, jr8 pain, and discharge, Neck: Negative for injury, pain, and swelling, Cardiovascular: Negative for chest pain, palpitations, and edema, Respiratory: Negative for shortness of breath, cough, wheezing, and pleuritic chest pain, Abdomen/GI: Negative for abdominal pain, nausea, vomiting, diarrhea, and constipation, Back: Negative for injury and pain, MS/Extremity: Negative for injury and deformity, Skin: Negative for injury, rash, and discoloration. 16:54 Neuro: Positive for near syncope. Exam: 16:54 Eyes: Pupils equal round and reactive to light, extra-ocular motions intact. Lids and jr8 lashes normal. Conjunctiva and sclera are non-icteric and not injected. Cornea within normal limits. Periorbital areas with no swelling, redness, or edema. ENT: Nares patent. No nasal discharge, no septal abnormalities noted. Tympanic membranes are normal and external auditory canals are clear. Oropharynx with no redness, swelling, or masses, exudates, or evidence of obstruction, uvula midline. Mucous membranes moist. Neck: Trachea midline, no thyromegaly or masses palpated, and no cervical lymphadenopathy. Supple, full range of motion without nuchal rigidity, or vertebral point tenderness. No Meningismus. Respiratory: Lungs have equal breath sounds bilaterally, clear to auscultation and percussion. No rales, rhonchi or wheezes noted. No increased work of breathing, no retractions or nasal flaring. Abdomen/GI: Soft, non-tender, with normal bowel sounds. No distension or tympany. No guarding or rebound. No evidence of tenderness throughout. Back: No spinal tenderness. No costovertebral tenderness. Full range of motion. Skin: Warm, dry with normal turgor. Normal color with no rashes, no lesions, and no evidence of cellulitis. MS/ Extremity: Pulses equal, no cyanosis. Neurovascular intact. Full, normal range of motion. Neuro: Awake and alert, GCS 15, oriented to person, place, time, and situation. Cranial nerves II-XII grossly intact. Motor strength 5/5 in all extremities. Sensory grossly intact. Cerebellar exam normal. Normal gait. 16:54 Cardiovascular: Rate: normal, Rhythm: irregularly irregular, Pulses: Pulses are 1+ in right radial artery and left radial artery. Heart sounds: normal, normal S1and S2, Edema: is not appreciated. Vital Signs: 15:52 BP 90 / 77; Pulse 101; Resp 16; Temp 97.9(A); Pulse Ox 97% on R/A; Weight 70.76 kg; hb Height 5 ft. (152.40 cm); Pain 0/10; 16:56 BP 118 / 80 LA Supine (auto/reg); Pulse 99; Resp 23; Pulse Ox 100% on R/A; ms 16:57 BP 127 / 80 LA Sitting (auto/reg); Pulse 103; Resp 23; Pulse Ox 100% ; ms 16:58 BP 87 / 48 RA Standing (auto/reg); Pulse 137; Resp 32; Pulse Ox 100% on R/A; ms 17:18 BP 80 / 71; Pulse 90; Resp 30; Pulse Ox 97% on R/A; hb 17:30 BP 98 / 59; Pulse 95; Resp 28; Pulse Ox 97% ; sv 17:45 BP 107 / 83; Pulse 30; Resp 20; Pulse Ox 100% ; sv 18:00 BP 120 / 99; Pulse 95; Resp 30; Pulse Ox 100% ; sv 18:30 BP 95 / 69; Pulse 95; Resp 28; Pulse Ox 100% on R/A; hb 19:19 BP 109 / 95; Pulse 89; Resp 16; Temp 98.4(O); Pulse Ox 99% on R/A; lp1 15:52 Body Mass Index 30.47 (70.76 kg, 152.40 cm) hb MDM: 15:48 Patient medically screened. [facility] 17:21 Data reviewed: vital signs, nurses notes, lab test result(s), EKG, radiologic studies, jr8 plain films. Data interpreted: Pulse oximetry: on room air is 97 %. Interpretation: normal. Counseling: I had a detailed discussion with the patient and/or guardian regarding: the historical points, exam findings, and any diagnostic results supporting the discharge/admit diagnosis, lab results, the need for further work-up and treatment in the hospital. Physician consultation: A Harman CARRASCO was called at 17:21, was contacted at 17:21, regarding admission, to the telemetry unit. consult, patient's condition, and will see patient. 06/03 15:59 Order name: Basic Metabolic Panel; Complete Time: 17:02 06/03 15:59 Order name: CBC with Diff; Complete Time: 17:37 06/03 15:59 Order name: LFT's; Complete Time: 17:02 06/03 15:59 Order name: Magnesium; Complete Time: 17:02 06/03 15:59 Order name: NT PRO-BNP; Complete Time: 17:02 06/03 15:59 Order name: PT-INR; Complete Time: 16:54 06/03 15:59 Order name: Troponin (emerg Dept Use Only); Complete Time: 17:02 06/03 15:59 Order name: XRAY Chest (1 view); Complete Time: 16:41 06/03 17:08 Order name: Urine Microscopic Only; Complete Time: 19:05 06/03 17:30 Order name: CBC Smear Scan; Complete Time: 17:37 EDMS 06/03 18:01 Order name: Urine Dipstick--Ancillary (enter results) bd 06/03 15:59 Order name: EKG; Complete Time: 16:01 06/03 15:59 Order name: Cardiac monitoring; Complete Time: 16:39 06/03 15:59 Order name: EKG - Nurse/Tech; Complete Time: 17:00 06/03 15:59 Order name: IV Saline Lock; Complete Time: 17:00 06/03 15:59 Order name: Labs collected and sent; Complete Time: 17:00 06/03 15:59 Order name: O2 Per Protocol; Complete Time: 16:39 06/03 15:59 Order name: O2 Sat Monitoring; Complete Time: 16:39 06/03 15:59 Order name: Orthostatics; Complete Time: 17:00 06/03 17:08 Order name: Straight Cath; Complete Time: 17:52 Administered Medications: 16:10 Drug: NS 0.9% 1000 ml Route: IV; Rate: 1000 ml; Site: right forearm; iw 17:25 Follow up: Response: No adverse reaction; IV Status: Completed infusion; IV Intake: hb 1000ml 18:00 Drug: Magnesium Sulfate 1 grams Route: IVPB; Infused Over: 1 hrs; Site: right forearm; hb 19:07 Follow up: Response: No adverse reaction; IV Status: Completed infusion; IV Intake: sv 100ml 18:00 Drug: NS 0.9% 1000 ml Route: IV; Rate: 125 ml/hr; Site: right forearm; hb 20:02 Follow up: IV Status: Infusion continued upon transfer ea 18:00 Drug: Solu-CORTEF 100 mg Route: IVP; Site: right forearm; hb 18:30 Follow up: Response: No adverse reaction sv Disposition: 06/03/19 17:23 Hospitalization ordered by Key Hammer for Inpatient Admission. Preliminary diagnosis are Orthostatic hypotension, Hypomagnesemia. - Bed requested for Telemetry/MedSurg (Inpatient). - Status is Inpatient Admission. lp1 - Condition is Stable. - Problem is new. - Symptoms have improved. UTI on Admission? No Addendum: 06/06/2019 07:00 Co-signature as Attending Physician, Oscar Olvera MD. r n Signatures: Dispatcher [employer] Pricila Mansfield RN RN iw Oscar Olvera MD MD rn Pena, Laura, RN RN lp1 Keith Galvan PA PA jr8 Dona Gomez, RN RN Priscilla Hopper, RN RN Salma Bazan RN Destiny Martinez RN, ea Corrections: (The following items were deleted from the chart) 06/03 19:05 17:23 Hospitalization Ordered by A Harman CARRASCO for Inpatient Admission. Preliminary jr8 diagnosis is Orthostatic hypotension; Hypomagnesemia; Cystitis. Bed requested for Telemetry/MedSurg (Inpatient). Status is Inpatient Admission. Condition is Stable. Problem is new. Symptoms have improved. UTI on Admission? No. jr8 19:24 19:05 06/03/2019 17:23 Hospitalization Ordered by A Harman CARRASCO for Inpatient Admission. cg Preliminary diagnosis is Orthostatic hypotension; Hypomagnesemia. Bed requested for Telemetry/MedSurg (Inpatient). Status is Inpatient Admission. Condition is Stable. Problem is new. Symptoms have improved. UTI on Admission? No. jr8 20:03 19:24 06/03/2019 17:23 Hospitalization Ordered by A Harman CARRASCO for Inpatient Admission. lp1 Preliminary diagnosis is Orthostatic hypotension; Hypomagnesemia. Bed requested for Telemetry/MedSurg (Inpatient). Status is Inpatient Admission. Condition is Stable. Problem is new. Symptoms have improved. UTI on Admission? No. cg
[2019-06-03 17:30] LABS: Anisocytosis 1+; Blood Morphology Comment NOTED (NOT SEEN); Platelet Estimate ADEQ; Urine White Blood Cell Casts OK
[2019-06-03] MEDS ORDERED: HYDROCORTISONE SUC 100 MG INJ ONE (17:56)
[2019-06-03] MEDS ORDERED: NA CHLORIDE 0.9% 1,000 ML ONE (17:56)
[2019-06-03] MEDS ORDERED: MAGNESIUM SULFATE 1 gm IVPB 1 GM/100 ML BAG IV ONE (17:56)
[2019-06-03 18:55] LABS: Urine Bacteria <20 /HPF (<20); Urine Culture Reflex Order NOT NEEDED; Urine Mucus 2+ /HPF (NONE SEEN)
[2019-06-03 20:10] LABS: Urine Blood NEGATIVE (NEG); Urine Glucose NEGATIVE (NEG); Urine Protein 2+ (NEG); Urine Specific Gravity >1.030 (1.005-1.030); Urine pH 5.5 (5.0-7.0)
[2019-06-03] MEDS ORDERED: GLUCAGON 1 MG/VIAL IM PRN (20:24)
[2019-06-03] MEDS ORDERED: D50W 25 GM/50 ML SYRINGE/VIAL IV PRN (20:24)
[2019-06-03] MEDS ORDERED: ONDANSETRON 4 MG/2 ML VIAL IV PRN (20:24)
[2019-06-03] MEDS ORDERED: ACETAMINOPHEN 500 MG TAB PO PRN (20:24)
[2019-06-03 20:25] VITALS: BMI 39.9
[2019-06-03] MEDS: NA CHLORIDE 0.9% 1,000 ML IV SCH (20:36)
[2019-06-03] MEDS: INSULIN -REGULAR HUMAN 50 UNIT/0.5 ML ML SQ SCH (20:40)
[2019-06-03] MEDS ORDERED: SOTALOL HCL 80 MG TAB PO ONE (20:42)
[2019-06-03] MEDS: APIXABAN 5 MG TABLET PO SCH (21:40)
[2019-06-03] MEDS: HYDROCORTISONE SUC 100 MG INJ IV SCH (23:31)
--- NOTE | 2019-06-04 03:47 | HP ---
Date of Admission: 06/03/2019 Chief Complaint: Fainting type of feeling, sweating, and diarrhea. History Of Present Illness: This is a 78-year-old female patient who is on chronic steroid therapy, was recently in the hospital with acute pyelonephritis and then she spent some time on the rehab floo r. She was discharged to go home few days ago. Patient reports that she takes her medications regul annie including her prednisone, which is 5 mg daily as her maintenance dose for long time. Last 3-4 d ays she describes having problem where she felt like she might actually faint and breaks out in sweat and this happens with sitting and standing position. No fall. No injury. As of today, she started to have diarrhea and reports that she had 2 diarrhea stool today. No abdominal pain. No nausea, no vomiting. She came into the emergency room. After she was evaluated in the ER, she was admitted to the hospital. When she came into the emergency room, her lowest blood pressure today was 80/71, 1 L of IV fluid was given in the emergency room and when the ER provider contacted me, I advised to star t her on Solu-Cortef 100 mg every 6 hours, first dose to be given right away and that actually has re sulted in improvement in her blood pressure as her last blood pressure recorded was 141/75. Allergies: TO HYDROXYCHLOROQUINE. Medications: List reviewed. Review of Systems: GI: As mentioned above. Cardiovascular: As mentioned above. All other systems reviewed and negative. Social History: Negative for smoking and alcohol use. Family History: Significant for myocardial infarction, stroke, congestive heart failure, and brother with blood clot. Past Surgical History: Back surgery, carpal tunnel syndrome surgery. Past Medical History: Hypertension, type 2 diabetes mellitus, hyperlipidemia, thrombocytopenia, oste oarthritis at multiple sites, systemic lupus erythematosus, hypothyroidism, lung cancer. Physical Examination: Vital Signs: Lowest blood pressure in the emergency room was 80/71. Last vital signs, blood pressur e 141/75, oxygen saturation 92%, pulse 84, respiratory rate 16, temperature 97, height 5 feet, weight 204 pounds. General: Awake, alert, oriented, not in distress. HEENT: Head atraumatic, normocephalic. Conjunctivae nonerythematous. Sclerae white. Mouth, no thr ush or edema noted. Ears/Nose, no mass, lesion, discharge noted. Neck: Supple. No JVD, lymph nodes, bruit, thyromegaly noted. Lungs: Bilateral good equal air entry. Clear to auscultation. No rhonchi. No rales. Heart: Normal heart sounds, no murmur or gallop. Abdomen: Soft, bowel sounds normal. No guarding, rigidity, tenderness, mass, hepatosplenomegaly, dis tention, or bruit noted. Extremities: No leg edema. No calf tenderness. Skin: No rash, ulcer, cellulitis. Lymphatics: No lymph node enlargement in neck, supraclavicular, infraclavicular region. Neuro: No focal neurological deficit. Chest: Unremarkable. External Genitalia: Deferred. Rectal: Deferred. Laboratory Data: White count 6.7, hemoglobin 13.6, and a platelet count of 212. Sodium 138, potassi um 5.1, chloride 103, bicarb 26, BUN 36, creatinine 1.75, glucose 286. Liver function tests unremark able. Troponin 0.02. Her last creatinine on 05/30/2019, was 1.10. Urinalysis, negative for nitrite and esterase, rbc 5-10, wbc less than 5, bacteria less than 20. Impression: 1.Acute kidney injury. 2.Adrenal insufficiency. 3.Diarrhea, rule out Clostridium difficile colitis. 4.Lung cancer, right side. 5.Hypertension. 6.Type 2 diabetes mellitus. 7.Hyperlipidemia. 8.Anemia, unspecified. 9.Systemic lupus erythematosus. 10.Hypothyroidism. 11.Paroxysmal atrial fibrillation. Plan: Admit patient to hospital for further evaluation and management of this problem. Patient is a ppropriate for inpatient and is expected to spend 2 midnights in hospital. The patient already recei jolene 1 L of IV fluid in the emergency room and we will continue her IV fluid at 100 mL/hour, continue IV steroid, which is Solu-Cortef 100 mg every 6 hours, her sotalol and Eliquis will be continued per order. Other home medications will be continued per order. Physical therapy will be consulted. We will repeat blood work tomorrow. I will see her tomorrow for followup. We will continue IV steroid tomorrow and probably day after tomorrow, change it to oral steroid and possible discharge to go home day after tomorrow with higher dose of oral steroid and her maintenance dose will have to be re-eval uated and we will keep it at a higher dose instead of 5 mg may be 10-15 mg. Details and plan of adriano tment discussed with the patient. Stool was ordered for culture and C diff. JANNA/MODL Voice ID: [id number]
[2019-06-04 04:19] LABS: Absolute Lymphocytes (CBC) 0.5 K/uL (0.7-4.9); Basophils % 0.3 % (0-1.3); Hematocrit 34.9 % (36.0-45.0); Lymphocytes % 10.7 % (15.3-44.8); MPV 10.5 fL (7.6-11.3); RBC Red Blood Cell Count 3.48 M/uL (3.86-4.86)
[2019-06-04 04:26] LABS: Magnesium 1.8 mg/dL (1.8-2.4); Potassium 4.8 mmol/L (3.5-5.1)
[2019-06-04] MEDS ORDERED: MAGNESIUM SULFATE 1 gm IVPB 1 GM/100 ML BAG IV ONE (04:48)
[2019-06-04 04:55] LABS: Anisocytosis 1+; Blood Morphology Comment NOTED (NOT SEEN); Platelet Estimate ADEQ
[2019-06-04] MEDS: SOTALOL HCL 80 MG TAB PO SCH ×2 (06:08→17:34)
[2019-06-04] MEDS: NA CHLORIDE 0.9% 1,000 ML IV SCH ×2 (06:08→17:36)
[2019-06-04] MEDS: HYDROCORTISONE SUC 100 MG INJ IV SCH ×3 (06:08→17:35)
[2019-06-04] MEDS: APIXABAN 5 MG TABLET PO SCH ×2 (08:18→21:42)
[2019-06-04] MEDS: INSULIN -REGULAR HUMAN 50 UNIT/0.5 ML ML SQ SCH ×4 (08:18→21:42)
[2019-06-04] MEDS: HOME MED 1 EA UNK (Mirabegron [Myrbetriq] 1 TAB) PO SCH (08:59)
[2019-06-04] MEDS: FOLIC ACID 1 MG TABLET PO SCH (09:05)
[2019-06-04] MEDS: ROSUVASTATIN 10 MG TAB PO SCH (09:05)
[2019-06-04] MEDS: DICYCLOMINE HCL 10 MG CAP PO SCH ×4 (09:07→21:42)
[2019-06-04] MEDS: PANTOPRAZOLE 40MG TABLET PO SCH (09:07)
--- NOTE | 2019-06-04 20:58 | EKG ---
Test Date: 2019-06-03 Test Time: 16:47:14 [place]: SKIP MEASUREMENT RESULTS: Intervals: Rate: 101 VT: QRSD: 64 QT: 338 QTc: 438 [place]: P: VT: QRS: 263 T: 77 INTERPRETIVE STATEMENTS: Atrial fibrillation with rapid ventricular response with premature ventricular or aberrantly conducted complexes Right superior axis deviation Pulmonary disease pattern Right ventricular hypertrophy Abnormal ECG Compared to ECG 05/18/2019 10:35:16 Ventricular premature complex(es) now present Right superior axis now present Right ventricular hypertrophy now present Atrial flutter no longer present 2:1 AV block no longer present ST (T wave) deviation no longer present Electronically Signed On 06-04-19 20:55:21 ENGINEER INTERN by Elmer Barriga
[2019-06-04] MEDS ORDERED: GABAPENTIN 300 MG CAP PO SCH (21:00)
[2019-06-05] MEDS: HYDROCORTISONE SUC 100 MG INJ IV SCH ×2 (00:20→05:30)
--- NOTE | 2019-06-05 00:29 | PN ---
Date of Progress Note: 06/04/2019 Subjective: Patient was seen this morning for followup. She was lying in bed. No new complaints or problems reported. No nausea, vomiting. No diarrhea. Last night, she did get out of bed few times to go to the bathroom and did not feel dizzy, light, or going to faint and did not break out in any sweat. Objective: Vital Signs: Reviewed. HEENT: Unremarkable. Lungs: Clear to auscultation. Heart: Sounds normal. Abdomen: Soft. Bowel sounds normal. No guarding, rigidity, tenderness, or distention. Extremities: No leg edema. Laboratory Data: White count 4.7, hemoglobin 11.5, platelets 151. Sodium 140, potassium 4.8, chlori de 109, bicarb 24, BUN 40, creatinine 1.53, glucose 301, magnesium 1.8. Impression: 1.Acute kidney injury. 2.Adrenal insufficiency. 3.Hypertension. 4.Diabetes mellitus. 5.Anemia. 6.Lung cancer. Plan: We will continue current medications. Continue IV fluid. Continue IV steroid. pediatric occupational therapist apy to help ambulate the patient. Renal function is slightly better today than yesterday. We will repeat blood work tomorrow. Possible discharge to go home tomorrow depending on her condition and bl ood work results. JANNA/MODL Voice ID: [id number] Report ID: [id number]
[2019-06-05] MEDS: NA CHLORIDE 0.9% 1,000 ML IV SCH (03:38)
[2019-06-05 04:31] LABS: Magnesium 1.8 mg/dL (1.8-2.4); Potassium 4.1 mmol/L (3.5-5.1)
[2019-06-05] MEDS ORDERED: MAGNESIUM SULFATE 1 gm IVPB 1 GM/100 ML BAG IV ONE (04:36)
[2019-06-05] MEDS: SOTALOL HCL 80 MG TAB PO SCH (05:29)
[2019-06-05] MEDS ORDERED: LEVOTHYROXINE SOD 0.125 MG TAB PO SCH (06:00)
[2019-06-05] MEDS: INSULIN -REGULAR HUMAN 50 UNIT/0.5 ML ML SQ SCH ×2 (07:30→11:30)
[2019-06-05] MEDS: FOLIC ACID 1 MG TABLET PO SCH (08:24)
[2019-06-05] MEDS: ROSUVASTATIN 10 MG TAB PO SCH (08:24)
[2019-06-05] MEDS: DICYCLOMINE HCL 10 MG CAP PO SCH (08:24)
[2019-06-05] MEDS: PANTOPRAZOLE 40MG TABLET PO SCH (08:25)
[2019-06-05] MEDS: APIXABAN 5 MG TABLET PO SCH (08:25)
[2019-06-05] MEDS: HOME MED 1 EA UNK (Mirabegron [Myrbetriq] 1 TAB) PO SCH (08:33)
[2019-06-05] MEDS ORDERED: predniSONE 20 MG TAB PO SCH (09:00)
[2019-06-05 10:11] VITALS: O2SAT 95
[2019-06-05 12:04] VITALS: BP 120/63; TEMP 97.3
[2019-06-05 14:09] LABS: C.diff Antigen/Toxin Ag pos : Tox neg (NEG : NEG)
--- NOTE | 2019-06-06 03:30 | DS ---
Date of Discharge: 06/05/2019 Disposition: Patient was discharged to go home. Physical Examination: HEENT: Unremarkable. Lungs: Clear to auscultation. Cardiac: Heart sounds normal. Abdomen: Soft, bowel sounds normal. No guarding, rigidity, tenderness, or distention. Extremities: No leg edema. Laboratory Data: Labs done during this hospitalization: Upon admission, white count 6.7, hemoglobin 13.6, platelets 220, repeat white count 4.7, hemoglobin 11.5, and platelets 158 on 06/04/1999. Chem istry today, sodium 142, potassium 4.1, chloride 111, bicarb 24, BUN 44, creatinine 1.30, glucose 179 , magnesium 1.8. Yesterday, BUN 40, creatinine 1.53. Upon admission BUN was 36, creatinine 1.75. Hospital Course: This is a 78-year-old pleasant female patient who is on chronic steroid therapy for last many years, takes prednisone 5 mg daily, came into emergency room with complaints of fainting t ype of feeling, sweating and diarrhea. Please see dictated H and P for more information. The patien t recently has taken antibiotics for acute pyelonephritis and for last 3-4 days prior to this admissi on, she was having this fainting type of feeling and cold sweat when she was standing, walking. Afte r she presented to emergency room, she was admitted to the hospital. I was concerned about possibili ty of adrenal insufficiency and she was started on IV hydrocortisone 100 mg every 6 hours. Her blood pressure was low when she came into emergency room. IV fluid was given and once we started her on I V steroid, her condition quickly stabilized and she remained stable. Blood pressure remained stable and her symptoms resolved. No more diarrhea. Normal fainting type of feeling. Overall, her conditi on improved and physical therapy was consulted. She started ambulating well and today she was discha rged to go back home in stable condition with following discharge medications and instructions. Final Diagnoses: 1.Acute kidney injury. 2.Adrenal insufficiency. 3.Lung cancer, right side. 4.Type 2 diabetes mellitus. 5.Hypertension. 6.Hyperlipidemia. 7.Anemia, unspecified. 8.Systemic lupus erythematosus. 9.Hypothyroidism. 10.Paroxysmal atrial fibrillation. Discharge Medications And Instructions: Continue all prior home medication except stop prednisone 5 mg dose and start prednisone as prescribed, which is 10 mg tablet. The patient to take 2 tablets by mouth 2 times a day for 2 days then 2 tablets in the morning and 1 tablet in the evening for 2 days, then 2 tablets in morning for 2 days and then 1-1/2 tablet daily to continue until further instructio n. The patient to take prednisone with food and follow up at my office next week on 06/11/2019 at 9 a.m. and the patient to bring all of her home medications with her to the office. JANNA/NIYA Voice ID: [id number] Report ID: [id number]
== END 2019-06-05 12:45 | disposition home or self-care (01) | DRG 683 ==
LOC: ER 15:40 → ERHOLD 19:07 → 4TH 19:39
PROVIDERS: ADMIT Internal Medicine; ATTEND Internal Medicine
DX: N17.9 Acute kidney failure, unspecified (principal); C34.91 Malignant neoplasm of unspecified part of right bronchus or lung; E27.40 Unspecified adrenocortical insufficiency; I10 Essential (primary) hypertension; E11.9 Type 2 diabetes mellitus without complications; E78.5 Hyperlipidemia, unspecified; M15.9 Polyosteoarthritis, unspecified; E03.9 Hypothyroidism, unspecified; M32.9 Systemic lupus erythematosus, unspecified; R19.7 Diarrhea, unspecified; D64.9 Anemia, unspecified; I48.0 Paroxysmal atrial fibrillation; Z79.52 Long term (current) use of systemic steroids
CPT/HCPCS: 36415; 71045; 80048; 80076; 81003; 81015; 82947; 83735; 83880; 84484; 85025; 85610; 87045; 87046; 87324; 87449; 93005; 96361; 96365; 96375; 97112; 97116; 97161; 97530; 99285; J1720; J3475; J7030; J7512

== ENCOUNTER 2019-07-18 21:30 | Inpatient (IN) | payer OTHER ==
[2019-07-18 23:16] LABS: Absolute Lymphocytes (CBC) 0.6 K/uL (0.7-4.9); Basophils % 0.6 % (0-1.3); Hematocrit 41.9 % (36.0-45.0); Lymphocytes % 8.4 % (15.3-44.8); MPV 9.9 fL (7.6-11.3); RBC Red Blood Cell Count 4.06 M/uL (3.86-4.86)
[2019-07-18 23:23] LABS: Protime INR 1.15
[2019-07-18 23:39] LABS: ALT/SGPT 26 U/L (12-78); AST/SGOT 22 U/L (15-37); Albumin 3.5 g/dL (3.4-5.0); Alkaline Phosphatase 73 U/L (45-117); BUN Blood Urea Nitrogen 26 mg/dL (7-18); Bicarbonate 28 mmol/L (21-32); Bilirubin Direct 0.2 mg/dL (0-0.2); Bilirubin Total 0.6 mg/dL (0.2-1.0); Glucose Level 110 mg/dL (74-106); NT PRO-BNP 415 pg/mL (<450); Potassium 4.3 mmol/L (3.5-5.1); Protein, Total 7.7 g/dL (6.4-8.2); Sodium Level 137 mmol/L (136-145); Troponin (Emerg Dept Use Only) < 0.02 ng/mL (0.0-0.045)
[2019-07-18 23:54] LABS: Magnesium 1.4 mg/dL (1.8-2.4)
[2019-07-19] MEDS ORDERED: Magnesium Sulfate 2gm IVPB 2 G/50 ML BAG IV ONE (00:01)
[2019-07-19 00:09] LABS: Blood Morphology Comment NOT SEEN (NOT SEEN); Platelet Estimate ADEQ
--- NOTE | 2019-07-19 01:06 | ER ---
Nurse's Notes [facility] Name: Patricia Flynn Age: 78 yrs Sex: Female : 1940 Arrival Date: 07/18/2019 Time: 21:31 Bed 7 Private MD: Diagnosis: Pneumonia. Head injury. S/P Fall Presentation: 07/18 21:35 Chief complaint: Patient states: I was in the parking lot outside the ER when I became sg unsteady and fell backward and hit my head, I came here to be directly admitted for pneumonia from . Care prior to arrival: None. Mechanism of Injury: Fall from standing position. Trauma event details: Injury occurred in the [facility], Injury occurred: in a public building. Injury occurred: July 18, 2019. 21:35 Acuity: VELASQUEZ 2 sg 21:35 Method Of Arrival: Wheelchair 21:35 Note Per Bernie ANTOINEdiet supervisor, would like the ER provider to see the sg patient and assess her after her fall and to notify him of any findings after her stat and her chest xray, the patient will then need to be worked up as a pneumonia workup. 21:49 Coronavirus screen: The patient has NOT traveled to [place] in the past 14 days. Proceed rv with normal triage procedures. The patient has NOT had contact with known and/or suspected case of Coronavirus. Proceed with normal triage procedures. Ebola Screen: No symptoms or risks identified at this time. Initial Sepsis Screen: Does the patient have a suspected source of infection?. Initial Sepsis Screen: Does the patient meet any 2 criteria? RR > 20 per min. HR > 90 bpm. Yes Does the patient have a suspected source of infection? Yes: Productive cough/pneumonia. 22:04 Risk Assessment: Do you want to hurt yourself or someone else? Patient reports no rv desire to harm self or others. Onset of symptoms was July 18, 2019 at 08:00. Trauma Activation: Alert Physician: ED Physician; Name: ; Notified At: ; Arrived At: Physician: General Surgeon; Name: ; Notified At: ; Arrived At: Physician: Radiology; Name: ; Notified At: ; Arrived At: Physician: Respiratory; Name: ; Notified At: ; Arrived At: Physician: Lab; Name: ; Notified At: ; Arrived At: Historical: - Allergies: 22:07 Hydroxychloroquine; rv - Home Meds: 22:07 aspirin 81 mg Oral TbEC 1 tab once daily [Active]; Colace 100 mg Oral cap 2 caps once rv daily [Active]; Crestor 10 mg Oral tab 1 tab once daily [Active]; Detrol LA 4 mg Oral cp24 1 cap once daily [Active]; dicyclomine 20 mg Oral tab 1 tab 4 times per day [Active]; Eliquis 5 mg Oral tab [Active]; folic acid 400 mcg Oral tab 1 tab once daily [Active]; gabapentin 600 mg Oral tab 1 tab nightly [Active]; Glimepiride Oral [Active]; lansoprazole 30 mg Oral cpDR 1 cap once daily [Active]; levothyroxine 125 mcg tab 1 tab once daily [Active]; metoprolol tartrate 50 mg Oral tab 1 tab once daily [Active]; metoprolol tartrate 25 mg Oral tab 1 tab once daily [Active]; Myrbetriq 25 mg Oral Tb24 1 tab once daily [Active]; occuvite [Active]; Ocuvite 305-31-3-150 yk-jvxv-jg-mg Oral cap daily [Active]; ondansetron HCl 4 mg Oral tab [Active]; pantoprazole 40 mg Oral TbEC 1 tab once daily [Active]; Plavix 75 mg Oral tab 1 tab once daily [Active]; prednisone 5 mg Oral tab 1 tab once daily [Active]; prednisone 5 mg Oral tab once daily [Active]; quinapril 20 mg Oral tab 1 tab once daily [Active]; sertraline 25 mg Oral tab 1 tab once daily [Active]; spironolactone 25 mg Oral tab 1 tab once daily [Active]; Synthroid 125 mcg Oral tab 1 tab once daily [Active]; vitmain d 3 [Active]; - PMHx: 22:07 Atrial Fib; Back pain; Diabetes - NIDDM; High Cholesterol; Hypertension; rv Hypothyroidism; Lung CA; Lupus; - Immunization history: Last tetanus immunization: unknown. - Social history:: Smoking status: unknown. Screenin:47 Abuse screen: Denies threats or abuse. Denies injuries from another. Nutritional rv screening: No deficits noted. Tuberculosis screening: No symptoms or risk factors identified. Fall Risk Fall in past 12 months (25 points). Secondary diagnosis (15 points) impaired mobility, No IV (0 pts). Ambulatory Aid- Crutches/Cane/Walker (15 pts). Gait- Weak (10 pts.). Mental Status- Oriented to own ability (0 pts). Total Jimenez Fall Scale indicates Low Risk Score (25-44 pts). Fall prevention measures have been instituted. Side Rails Up X 2 Placed close to Nursing Station Frequent Obs/Assesments occuring As available Patient and Family Educated on Fall Prevention Program and strategies. Primary Survey: 21:48 NO uncontrolled hemorrhage observed. Breathing/Chest: Respiratory pattern: regular, rv Respiratory effort: spontaneous. Circulation: Cardiac rhythm: sinus rhythm. Disability Alert. Exposure/Environment: There is no evidence of uncontrolled external bleeding. Obvious injury(ies) are noted at this time: hematoma on the back of the head A warming method has been applied: A warm blanket has been provided to the patient. 21:49 Reassessment Breathing/Chest. rv Assessment: 21:45 General: Appears in no apparent distress. comfortable, Behavior is calm, cooperative. rv Pain: Complains of pain in scalp. Neuro: Level of Consciousness is awake, alert, obeys commands, Oriented to person, place, time, situation. Cardiovascular: Patient's skin is warm and dry. Respiratory: Airway is patent Breath sounds with wheezes bilaterally. Derm: Skin is intact. Musculoskeletal: Swelling present in scalp. 23:00 Reassessment: Patient appears in no apparent distress at this time. Patient and/or rr5 family updated on plan of care and expected duration. Pain level reassessed. Patient is alert, oriented x 3, equal unlabored respirations, skin warm/dry/pink. Patient denies pain at this time. 07/19 00:49 Reassessment: Patient appears in no apparent distress at this time. Patient and/or rr5 family updated on plan of care and expected duration. Pain level reassessed. Patient is alert, oriented x 3, equal unlabored respirations, skin warm/dry/pink. explained the test results and the plan of care. awaiting admission orders. Patient denies pain at this time. 01:38 Reassessment: Patient appears in no apparent distress at this time. Patient and/or rv family updated on plan of care and expected duration. Pain level reassessed. Patient is alert, oriented x 3, equal unlabored respirations, skin warm/dry/pink. CALLED REPORT TO DERIK ANTOINE. GCS 15 UPON TRANSFER, VIA WHEELCHAIR. OXYGEN SATURATION AT 96-98% ON ROOM AIR. Patient denies pain at this time. Vital Signs: 07/18 21:54 BP 110 / 53; Pulse 95; Resp 20; Temp 99.5; Pulse Ox 98% on R/A; rr5 21:56 Weight 99.79 kg; Pain 2/10; rv 23:00 BP 126 / 72; Pulse 92; Resp 26; Pulse Ox 96% on R/A; rr5 07/19 00:00 BP 124 / 72; Pulse 97; Resp 26; Pulse Ox 96% on R/A; rr5 00:30 BP 128 / 98; Pulse 109; Resp 25; Temp 98.7(O); Pulse Ox 98% ; rr5 01:37 BP 121 / 86; Pulse 94; Resp 23; Temp 99; Pulse Ox 97% on R/A; Pain 0/10; rv Medina Coma Score: 07/18 21:49 Eye Response: spontaneous(4). Verbal Response: oriented(5). Motor Response: obeys rv commands(6). Total: 15. Trauma Score (Adult): 21:49 Eye Response: spontaneous(1); Verbal Response: oriented(1); Motor Response: obeys rv commands(2); Systolic BP: > 89 mm Hg(4); Respiratory Rate: 10 to 29 per min(4); Medina Score: 15; Trauma Score: 12 ED Course: 21:30 Arm band placed on. sg 21:31 Patient arrived in ED. ds1 21:36 Caden Moran RN is Primary Nurse. rv 21:36 Triage completed. sg 21:47 Avila Palomino MD is Attending Physician. pkl 21:54 XRAY Chest (1 view) In Process Unspecified. EDMS 22:05 Patient has correct armband on for positive identification. Placed in gown. Bed in low rv position. Call light in reach. Side rails up X2. equipment monitor phototypesetting on. Pulse ox on. NIBP on. 22:05 Patient maintains SpO2 saturation greater than 95% on room air. rv 22:05 Thermoregulation: warm blanket given to patient. rv 22:28 CT Head C Spine In Process Unspecified. EDMS 22:30 EKG done, by ED staff, reviewed by Avila Palomino MD. rr5 22:34 Missed attempt(s): 22 gauge in right forearm. Bleeding controlled, band aid applied, ds4 catheter tip intact. 22:35 Missed attempt(s): 22 gauge in left forearm. Bleeding controlled, band aid applied, ds4 catheter tip intact. 22:45 Inserted saline lock: 20 gauge in right antecubital area, using aseptic technique. rv Blood collected. 22:55 First set of blood cultures drawn by ED staff, Second set of blood cultures drawn by ED ds4 staff. 23:12 PT-INR Sent. rv 23:12 NT PRO-BNP Sent. rv 23:12 Magnesium Sent. rv 23:12 LFT's Sent. rv 23:12 CBC with Diff Sent. rv 23:12 Basic Metabolic Panel Sent. rv 23:13 Blood Culture Adult (2) Sent. rv 23:13 Lactate Sent. rv 23:13 Procalcitonin Sent. rv 23:54 Notified ED physician of a critical lab result(s). Magnesium 1.4, orders received for sg two grams IVPB. 07/19 01:03 Charles Hammer MD is Hospitalizing Provider. pkl 01:10 Urine Dipstick--Ancillary (enter results) Sent. mw2 01:10 Urine Culture Sent. mw2 01:10 Urine Microscopic Only Sent. mw2 01:38 No provider procedures requiring assistance completed. IV is patent, with fluids rv infusing freely, with good blood return, Flushed right antecubital. 01:40 Patient admitted, IV remains in place. rv Administered Medications: 00:02 Drug: Magnesium Sulfate 2 grams Route: IVPB; Infused Over: 2 hrs; Site: right rv antecubital; 01:41 Follow up: IV Status: Completed infusion rv Outcome: 01:05 Decision to Hospitalize by Provider. pkl 01:39 Admitted to Tele accompanied by tech, via wheelchair, room 423, with chart, Report rv called to DERIK ANTOINE 01:39 Condition: good 01:39 Discharge instructions given to patient, Instructed on the need for admit, Demonstrated understanding of instructions. 01:40 Patient left the ED. rv Signatures: Dispatcher [employer] EDMS Milad Espinosa RN RN sg Lam, Pin, MD MD pkl Marisol James ds1 Mayur Luciano ds4 Reese Freeman mw2 Caden Moran, RN RN rv Stephen Marie RN RN rr5 Corrections: (The following items were deleted from the chart) 07/18 22:04 21:45 Respiratory: Airway is patent Breath sounds are clear bilaterally. rv rv 22:05 21:49 Initial Sepsis Screen: Does the patient meet any 2 criteria? rv rv 23:04 23:02 Missed attempt(s): 22 gauge in right forearm. Bleeding controlled, band aid ds4 applied, catheter tip intact. ds4 07/19 00:49 07/18 23:00 Reassessment: Patient appears in no apparent distress at this time. Patient rr5 and/or family updated on plan of care and expected duration. Pain level reassessed. Patient is alert, oriented x 3, equal unlabored respirations, skin warm/dry/pink. explained the test results and the plan of care. awaiting admission orders. Patient denies pain at this time. rr5
--- NOTE | 2019-07-19 01:07 | EDPHYS ---
Physician Documentation [facility] Name: Patricia Flynn Age: 78 yrs Sex: Female : 1940 Arrival Date: 07/18/2019 Time: 21:31 Bed 7 Private MD: ED Physician Avila Palomino HPI: 07/18 23:23 This 78 yrs old Female presents to ER via Wheelchair with complaints of Fall pkl Injury. 23:23 The patient has shortness of breath at rest. Onset: The symptoms/episode began/occurred pkl 4 day(s) ago. Associated signs and symptoms: Pertinent positives: productive cough. Patient was seen by Dr. Hammer in his office earlier. Patient was on her way to the hospital for admission when she lost her balance and fell backward and hit her head. No lost of conciousness.. Historical: - Allergies: 22:07 Hydroxychloroquine; rv - Home Meds: 22:07 aspirin 81 mg Oral TbEC 1 tab once daily [Active]; Colace 100 mg Oral cap 2 caps once rv daily [Active]; Crestor 10 mg Oral tab 1 tab once daily [Active]; Detrol LA 4 mg Oral cp24 1 cap once daily [Active]; dicyclomine 20 mg Oral tab 1 tab 4 times per day [Active]; Eliquis 5 mg Oral tab [Active]; folic acid 400 mcg Oral tab 1 tab once daily [Active]; gabapentin 600 mg Oral tab 1 tab nightly [Active]; Glimepiride Oral [Active]; lansoprazole 30 mg Oral cpDR 1 cap once daily [Active]; levothyroxine 125 mcg tab 1 tab once daily [Active]; metoprolol tartrate 50 mg Oral tab 1 tab once daily [Active]; metoprolol tartrate 25 mg Oral tab 1 tab once daily [Active]; Myrbetriq 25 mg Oral Tb24 1 tab once daily [Active]; occuvite [Active]; Ocuvite 846-48-2-150 uq-dblg-ng-mg Oral cap daily [Active]; ondansetron HCl 4 mg Oral tab [Active]; pantoprazole 40 mg Oral TbEC 1 tab once daily [Active]; Plavix 75 mg Oral tab 1 tab once daily [Active]; prednisone 5 mg Oral tab 1 tab once daily [Active]; prednisone 5 mg Oral tab once daily [Active]; quinapril 20 mg Oral tab 1 tab once daily [Active]; sertraline 25 mg Oral tab 1 tab once daily [Active]; spironolactone 25 mg Oral tab 1 tab once daily [Active]; Synthroid 125 mcg Oral tab 1 tab once daily [Active]; vitmain d 3 [Active]; - PMHx: 22:07 Atrial Fib; Back pain; Diabetes - NIDDM; High Cholesterol; Hypertension; rv Hypothyroidism; Lung CA; Lupus; - Immunization history: Last tetanus immunization: unknown. - Social history:: Smoking status: unknown. ROS: 23:23 Eyes: Negative for injury, pain, redness, and discharge, ENT: Negative for injury, pkl pain, and discharge, Neck: Negative for injury, pain, and swelling, Cardiovascular: Negative for chest pain, palpitations, and edema. 23:23 Respiratory: Positive for cough, with yellow sputum, shortness of breath, at rest. 23:23 Abdomen/GI: Negative for abdominal pain, nausea, vomiting, and diarrhea. 23:23 Back: Negative for acute changes. 23:23 : Negative for urinary symptoms. 23:23 MS/extremity: Negative for acute changes. 23:23 Skin: Negative for rash. 23:23 Neuro: Negative for altered mental status, loss of consciousness. Exam: 23:23 Head/face: Noted is contusion, hematoma, that is moderate, of the occipital scalp. pkl 23:23 Eyes: Exam is negative for acute changes. 23:23 ENT: Exam is negative for acute changes. 23:23 Neck: Exam negative for nuchal rigidity. 23:23 Chest/axilla: Exam negative for acute changes. 23:23 Cardiovascular: Rate: normal, Rhythm: regular. 23:23 ECG was reviewed by the Attending Physician. 23:23 Respiratory: the patient does not display signs of respiratory distress, Respirations: normal, Breath sounds: rales, that are mild, are scattered, rhonchi, that are mild, are scattered. 23:23 Abdomen/GI: Bowel sounds: normal. 23:23 Abdomen/GI: Palpation: abdomen is soft and non-tender, in all quadrants. 23:23 Back: Exam negative for acute changes. 23:23 : Exam negative for acute changes. 23:23 Musculoskeletal/extremity: Exam is negative for acute changes. 23:23 Skin: Exam negative for rash. 23:23 Neuro: Orientation: is normal, Mentation: is normal, Cranial nerves: grossly normal, Motor: is normal. 07/19 01:06 Eyes: Pupils equal round and reactive to light, extra-ocular motions intact. Lids and pkl lashes normal. Conjunctiva and sclera are non-icteric and not injected. Cornea within normal limits. Periorbital areas with no swelling, redness, or edema. Vital Signs: 07/18 21:54 BP 110 / 53; Pulse 95; Resp 20; Temp 99.5; Pulse Ox 98% on R/A; rr5 21:56 Weight 99.79 kg; Pain 2/10; rv 23:00 BP 126 / 72; Pulse 92; Resp 26; Pulse Ox 96% on R/A; rr5 07/19 00:00 BP 124 / 72; Pulse 97; Resp 26; Pulse Ox 96% on R/A; rr5 00:30 BP 128 / 98; Pulse 109; Resp 25; Temp 98.7(O); Pulse Ox 98% ; rr5 01:37 BP 121 / 86; Pulse 94; Resp 23; Temp 99; Pulse Ox 97% on R/A; Pain 0/10; rv Christian Coma Score: 07/18 21:49 Eye Response: spontaneous(4). Verbal Response: oriented(5). Motor Response: obeys rv commands(6). Total: 15. Trauma Score (Adult): 21:49 Eye Response: spontaneous(1); Verbal Response: oriented(1); Motor Response: obeys rv commands(2); Systolic BP: > 89 mm Hg(4); Respiratory Rate: 10 to 29 per min(4); [place] Score: 15; Trauma Score: 12 MDM: 21:47 Patient [facility] screened. [facility] 07/19 01:02 Data reviewed: vital signs, nurses notes, lab test result(s), EKG, radiologic studies, pkl plain films. 07/18 21:55 Order name: Basic Metabolic Panel; Complete Time: 01: pkl 07/18 21:55 Order name: CBC with Diff; Complete Time: 01: pkl 07/18 21:55 Order name: LFT's; Complete Time: : pkl 07/18 21:55 Order name: Magnesium; Complete Time: : pkl 07/18 21:55 Order name: NT PRO-BNP; Complete Time: 01:02 pkl 07/18 21:55 Order name: PT-INR; Complete Time: 23:31 pkl 07/18 21:55 Order name: Troponin (emerg Dept Use Only); Complete Time: 01:02 pkl 07/18 21:55 Order name: Blood Culture Adult (2) pkl 07/18 21:55 Order name: Lactate; Complete Time: 23:31 pkl 07/18 21:55 Order name: Procalcitonin; Complete Time: 01:02 pkl 07/18 23:32 Order name: Flu; Complete Time: 01:02 pkl 07/18 23:32 Order name: Strep; Complete Time: 01:02 pk 07/19 00:19 Order name: Manual Differential [facility] 07/19 00:36 Order name: Throat Culture [facility] 07/18 21:38 Order name: CT Head C Spine 07/18 21:42 Order name: XRAY Chest (1 view) [facility] 07/19 01:06 Order name: Urine Microscopic Only; Complete Time: 01:56 4 07/19 01:06 Order name: Urine Culture [facility] 07/19 01:07 Order name: Urine Dipstick--Ancillary (enter results); Complete Time: 01:56 [facility] 07/19 01:18 Order name: Basic Metabolic Panel [facility] 07/19 01:18 Order name: Basic Metabolic Panel [facility] 07/19 01:18 Order name: CBC with Automated Diff [facility] 07/19 01:18 Order name: CBC with Automated Diff [facility] 07/19 01:18 Order name: NT PRO-BNP [facility] 07/19 01:18 Order name: NT PRO-BNP [facility] 07/19 01:18 Order name: Troponin I [facility] 07/19 01:18 Order name: Troponin I [facility] 07/19 01:18 Order name: Troponin I [facility] 07/18 21:55 Order name: EKG; Complete Time: 21:57 pkl 07/18 21:55 Order name: Cardiac monitoring; Complete Time: 21:57 pkl 07/18 21:55 Order name: EKG - Nurse/Tech; Complete Time: 22:30 pkl 07/18 21:55 Order name: IV Saline Lock; Complete Time: 23:07 pkl 07/18 21:55 Order name: Labs collected and sent; Complete Time: 23:07 [facility] 07/18 21:55 Order name: O2 Per Protocol; Complete Time: 21:57 pk 07/18 21:55 Order name: O2 Sat Monitoring; Complete Time: 21:58 pk 07/19 01:05 Order name: Urine Dipstick-Ancillary (obtain specimen); Complete Time: 01:05 ds4 07/19 01:18 Order name: Regular EDOH Administered Medications: 00:02 Drug: Magnesium Sulfate 2 grams Route: IVPB; Infused Over: 2 hrs; Site: right rv antecubital; 01:41 Follow up: IV Status: Completed infusion rv Disposition: 07/19/19 01:05 Hospitalization ordered by Charles Hammer for Inpatient Admission. Preliminary diagnosis is Pneumonia. Head injury. S/P Fall. - Bed requested for Telemetry/MedSurg (Inpatient). - Status is Inpatient Admission. rv - Condition is Stable. - Problem is new. - Symptoms are unchanged. Signatures: [facility] Bernie oStelo RN RN mw Gay, Steven, RN RN sg Lam, Pin, MD MD [facility] Mayur Luciano ds4 Caden Moran RN RN rv Corrections: (The following items were deleted from the chart) 07/18 21:53 21:39 Chest Pa And Lat (2 Views)+[email or web address] ordered. [facility] 07/19 01:18 01:05 Hospitalization Ordered by Charles Hammer MD for Inpatient Admission. Preliminary diagnosis is Pneumonia. Head injury. S/P Fall. Bed requested for Telemetry/MedSurg (Inpatient). Status is Inpatient Admission. Condition is Stable. Problem is new. Symptoms are unchanged. pkl 01:40 01:18 07/19/2019 01:05 Hospitalization Ordered by Charles Hammer MD for Inpatient rv Admission. Preliminary diagnosis is Pneumonia. Head injury. S/P Fall. Bed requested for Telemetry/MedSurg (Inpatient). Status is Inpatient Admission. Condition is Stable. Problem is new. Symptoms are unchanged. mw
[2019-07-19 01:17] LABS: Urine Blood TRACE (NEG); Urine Glucose NEGATIVE (NEG); Urine Protein TRACE (NEG)
[2019-07-19 01:33] LABS: Urine Bacteria LOADED /HPF (<20); Urine Culture Reflex Order NOT NEEDED; Urine Mucus 1+ /HPF (NONE SEEN); Urine RBC <5 /HPF (NONE SEEN)
[2019-07-19 02:27] VITALS: BMI 43.0
[2019-07-19] MEDS ORDERED: ALBUTEROL 2.5 MG/3 ML NEB SOL ONE (02:37)
[2019-07-19] MEDS ORDERED: IPRATROPIUM BROM 0.5MG/2.5ML ONE (02:38)
[2019-07-19] MEDS: IPRATROPIUM BROM 0.5MG/2.5ML NEB PRN ×2 (02:40→19:39)
[2019-07-19] MEDS: ALBUTEROL 2.5 MG/3 ML NEB SOL NEB PRN ×2 (02:40→19:39)
[2019-07-19] MEDS: CEFTRIAXONE/SWI 1gm 1 GM/10 ML SYR IV SCH ×2 (02:48→15:12)
[2019-07-19] MEDS ORDERED: CEFTRIAXONE 1 GM/NS 50 ML 1 GM/50 ML BAG IV SCH ×2 (03:00→09:00)
[2019-07-19] MEDS ORDERED: D50W 25 GM/50 ML SYRINGE/VIAL IV PRN (05:23)
[2019-07-19] MEDS ORDERED: GLUCAGON 1 MG/VIAL IM PRN (05:23)
[2019-07-19] MEDS ORDERED: GUAIFENESIN/DM 5 ML UCUP PO PRN (05:29)
[2019-07-19] MEDS: SOTALOL HCL 80 MG TAB PO SCH ×2 (06:10→17:16)
[2019-07-19] MEDS: METHYLPREDNISOLONE 40 MG INJ IV SCH ×2 (06:10→17:16)
[2019-07-19] MEDS: LEVOTHYROXINE SOD 0.125 MG TAB PO SCH (06:10)
--- NOTE | 2019-07-19 07:01 | EKG ---
Test Date: 2019-07-18 Test Time: 22:19:43 Clinical Outcomes Manager: SATURNINO MEASUREMENT RESULTS: Intervals: Rate: 91 TN: 210 QRSD: 74 QT: 336 QTc: 413 Wallace: P: 64 TN: 210 QRS: 230 T: 51 INTERPRETIVE STATEMENTS: Sinus rhythm with 1st degree AV block with premature atrial complexes Right superior axis deviation Pulmonary disease pattern Right ventricular hypertrophy Abnormal ECG Compared to ECG 06/03/2019 16:47:14 Atrial premature complex(es) now present First degree AV block now present Atrial fibrillation no longer present Ventricular premature complex(es) no longer present Electronically Signed On 07-19-19 07:00:21 [employer]NET [employer] by Elmer Barriga
--- NOTE | 2019-07-19 07:09 | RAD REPORT ---
EXAM DESCRIPTION: RAD - Chest Single View - 07/18/2019 9:53 pm CLINICAL HISTORY: BLUNT CHEST TRAUMAfall COMPARISON: Chest Single View dated 06/03/2019; Chest Single View dated 05/19/2019 TECHNIQUE: AP portable chest image was obtained 07/18/2019 9:53 pm . FINDINGS: Lungs are underinflated accentuating lung markings. Lung markings do appear fractionally i ncreased over the comparison. A minimal interstitial edema or infiltrate could be masked. Early right upper lobe pneumonia could also be mass. Heart size magnified by body habitus, portable technique an d shallow inspiration. This also accentuates vasculature. No measurable pleural effusion and no pneum othorax. No acute bony abnormality seen. No acute aortic findings suspected. IMPRESSION: Exam is limited by shallow inspiration, body habitus and portable technique. Early failure or volume overload could be masked. Early right upper lobe pneumonia could be masked.
[2019-07-19] MEDS: INSULIN -REGULAR HUMAN 50 UNIT/0.5 ML ML SQ SCH ×4 (07:30→20:49)
[2019-07-19] MEDS: HOME MED 1 EA UNK (Mirabegron [Myrbetriq] 1 TAB) PO SCH (08:56)
[2019-07-19] MEDS: PANTOPRAZOLE 40MG TABLET PO SCH (08:56)
[2019-07-19] MEDS: APIXABAN 5 MG TABLET PO SCH ×2 (08:56→20:50)
--- NOTE | 2019-07-19 09:47 | PN ---
Date of Progress Note: 07/19/2019 Subjective: Patient was seen this morning for followup. She denies any new complaints. Continues t o have same symptoms as yesterday. Does not feel any better compared to yesterday, but not any worse either. Objective: Vital Signs: Reviewed. HEENT: Unremarkable. Lungs: Bilateral scattered wheezing noted, but better today than yesterday with some rales noted in right upper lobe. Heart: Heart sounds normal. Abdomen: Soft. Bowel sounds normal. No guarding, rigidity, tenderness, or distention. Extremities: No leg edema. Laboratory Data: Troponin less than 0.02, magnesium 1.8. Impression: 1.Pneumonia. 2.Head injury. 3.Hypomagnesemia. 4.Paroxysmal atrial fibrillation. 5.Hypertension. 6.Type 2 diabetes mellitus. 7.Generalized weakness. 8.Debility. Plan: We will go ahead and continue oxygen nebulizer treatment, IV steroid, IV antibiotics. Physica l therapy to help ambulate the patient and home medications will be continued including her Eliquis, sotalol. I will see her tomorr ow for followup. JANNA/MODL Voice ID: [id number] Report ID: [id number]
[2019-07-19] MEDS ORDERED: GABAPENTIN 300 MG CAP PO SCH (21:00)
[2019-07-19] MEDS ORDERED: ROSUVASTATIN 10 MG TAB PO SCH (21:00)
[2019-07-20] MEDS: METHYLPREDNISOLONE 40 MG INJ IV SCH ×2 (00:16→08:47)
[2019-07-20] MEDS: CEFTRIAXONE/SWI 1gm 1 GM/10 ML SYR IV SCH (02:49)
[2019-07-20] MEDS: SOTALOL HCL 80 MG TAB PO SCH (05:08)
[2019-07-20] MEDS: LEVOTHYROXINE SOD 0.125 MG TAB PO SCH (05:08)
[2019-07-20 05:46] LABS: Absolute Lymphocytes (CBC) 0.5 K/uL (0.7-4.9); Basophils % 0.4 % (0-1.3); Hematocrit 39.9 % (36.0-45.0); MPV 9.9 fL (7.6-11.3); RBC Red Blood Cell Count 3.89 M/uL (3.86-4.86)
[2019-07-20 06:00] LABS: Potassium 4.4 mmol/L (3.5-5.1)
[2019-07-20] MEDS ORDERED: ALBUTEROL 2.5 MG/3 ML NEB SOL NEB PRN (08:00)
[2019-07-20] MEDS ORDERED: IPRATROPIUM BROM 0.5MG/2.5ML NEB PRN (08:00)
[2019-07-20 08:36] VITALS: O2SAT 95
[2019-07-20] MEDS: APIXABAN 5 MG TABLET PO SCH (08:41)
[2019-07-20] MEDS: PANTOPRAZOLE 40MG TABLET PO SCH (08:41)
[2019-07-20] MEDS: INSULIN -REGULAR HUMAN 50 UNIT/0.5 ML ML SQ SCH ×2 (08:41→13:24)
[2019-07-20] MEDS: HOME MED 1 EA UNK (Mirabegron [Myrbetriq] 1 TAB) PO SCH (08:47)
--- NOTE | 2019-07-20 10:58 | RAD REPORT ---
EXAM DESCRIPTION: RAD - Chest Pa And Lat (2 Views) - 07/20/2019 10:50 am CLINICAL HISTORY: pneumonia Chest pain. COMPARISON: Chest Single View dated 07/18/2019; Chest Single View dated 06/03/2019; Chest Single View dated 05/19/2019; Chest Single View dated 05/16/2019 FINDINGS: The lungs are clear. The heart is normal in size. Mildly tortuous thoracic aorta. IMPRESSION: No acute finding suspected.
[2019-07-20 14:29] VITALS: TEMP 97.2
[2019-07-20 15:45] VITALS: BP 110/74
--- NOTE | 2019-07-20 17:14 | DS ---
Date of Discharge: 07/20/2019 History Of Present Illness: Patient was seen for followup this morning. She is feeling much better. Ambulating well. Denies any complaints. Has some dry cough, but not coughing up any mucus. Physical Examination: Vital Signs: Reviewed. HEENT: Unremarkable. Lungs: Bilateral good equal air entry. Clear to auscultation. Heart: Sounds normal. Abdomen: Bowel sounds normal. No guarding, rigidity, tenderness, distention. Extremities: No leg edema. Laboratory Data: White count today 4.3, hemoglobin 13.1, platelets and today's chemistry shows sodium 137, potassium 4.4, chloride 105, bicarb 25, BUN 32, creatinine 1.06, glucose 259. Hospital Course: This is a 78-year-old pleasant female patient, admitted to the hospital with pneumo irina problem. Please see dictated H and P for more information. Chest x-ray had indicated right uppe r lobe pneumonia. Patient had fallen down as she was trying to walk into the hospital just outside [facility] emergency room and had contusion on the back of her head involving her posterior scalp area. Ther e was no laceration. I have not seen any hematoma in this area, where she had slight soft tissue swe lling, but there was no skin color noted. CAT scan of the head was negative done in the emergency ro om. Chest x-ray had shown some right upper lobe infiltrate. She was started on IV antibiotic, which was IV ceftriaxone. Home medications were continued. Nebulizer treatment and IV steroid were given . Physical therapy was consulted. Overall, her condition has improved. Today, she reports that she just has some dry cough, but otherwise she is not coughing up any mucus and has good appetite. She feels stronger than before and overall medically she is stable for discharge. Repeat chest x-ray don e today came back normal. Discharge Diagnoses: 1.Pneumonia. 2.Head injury. 3.Paroxysmal atrial fibrillation. Discharge Medications And Instructions: 1.Continue all prior home medication. 2.Take antibiotic cefuroxime 250 mg 2 times a day for 10 days. 3.Prednisone 30 mg daily for 3 days, then 20 mg daily for 3 days, then patient to continue her usual dose which is 10 mg in the morning and 5 mg in the evening. 4.Follow up at my office next week on . JANNA/MODL Voice ID: [id number] Report ID: [id number]
--- NOTE | 2019-07-22 15:27 | RAD REPORT ---
EXAM DESCRIPTION: CT - [id number] - 07/19/2019 12:58 am CLINICAL HISTORY: Fall from standing COMPARISON: CT head May 20, 2019. TECHNIQUE: Multiple helical axial tomographic images were obtained of the head and cervical spine wi thout intravenous contrast. Coronal and sagittal reformatted images were obtained. This exam was perf ormed according to our departmental dose-optimization program, which includes automated exposure cont rol, adjustment of the mA and/or kV according to patient size and/or use of iterative reconstruction technique. FINDINGS: Generalized brain volume loss is demonstrated. There is patchy hypoattenuation in the [place] ventricular white matter suggestive of chronic microvascular ischemic changes. There is no acute intr acranial hemorrhage. No mass. No midline shift. No ventriculomegaly. Mary-white matter differentiatio n is maintained. Trace left maxillary sinus mucosal thickening is present. Mastoid air cells and middle ear spaces are clear. Orbits and orbital contents are unremarkable. No acute calvarial fracture. No evidence for an acute fracture of the cervical spine. Multilevel degenerative disc space narrowing and osteophyte formation is demonstrated with facet joint arthropathy. There is 3 mm anterior sublux ation of C3 relative to C4 and 2 mm anterior subluxation of C4 relative to C5 that is likely degenera tive related. There is multilevel neuroforaminal stenosis. Small area of right parietal scalp swelling is present. IMPRESSION: 1. No acute intracranial process. 2. No evidence for an acute fracture of the cervical spine. 3. Cervical spine degenerative changes. Electronically signed by: Holden Ferraro MD 07/18/2019 11:14 PM [employer] SALES REPRESENTATIVE Due to temporary technical issues with the PACS/Fluency reporting system, reports are being signed by the in house radiologist as a courtesy to ensure prompt reporting. The interpreting radiologist is f ully responsible for the content of the report.
== END 2019-07-20 15:29 | disposition home or self-care (01) | DRG 195 ==
LOC: ER 21:30 → 4TH 07-19 01:22
PROVIDERS: ADMIT Internal Medicine; ATTEND Internal Medicine
DX: J18.9 Pneumonia, unspecified organism (principal); I48.0 Paroxysmal atrial fibrillation; S00.03XA Contusion of scalp, initial encounter; E11.9 Type 2 diabetes mellitus without complications; E78.00 Pure hypercholesterolemia, unspecified; I10 Essential (primary) hypertension; E03.9 Hypothyroidism, unspecified; E83.42 Hypomagnesemia; R53.81 Other malaise; W19.XXXA Unspecified fall, initial encounter
CPT/HCPCS: 36415; 70450; 71045; 71046; 72125; 80048; 80076; 81003; 81015; 82947; 83605; 83735; 83880; 84145; 84484; 85025; 85610; 87040; 87070; 87081; 87086; 87088; 87205; 87804; 93005; 94760; 96365; 96366; 97112; 97116; 97161; 97530; 99285; J0696; J2920

== ENCOUNTER 2019-11-18 16:03 | Observation (INO) | payer OTHER ==
--- OUTSIDE RECORDS SUMMARY | 2019-11-18 16:21 | XMS REPORT | Clinical Summary ---
:1940 Author Organization [facility] Address [address] [place] [address] Care Team Providers Name Role Phone Charles Hammer MD Primary Care Provider Allergies No Known Allergies Medications Medication Sig Dispensed Refills Start Date End Date Status cholestyramine (QUESTRAN) 0 05/25/2018 Active 4 gram packet PREVALITE 4 gram powder 0 04/16/2018 Active in packet clopidogrel (PLAVIX) 75 0 05/31/2018 Active mg tablet gabapentin (NEURONTIN) 0 05/31/2018 Active 300 mg capsule HYDROcodone-acetaminophen 0 05/17/2018 Active (NORCO) 7.5-325 mg per tablet levothyroxine (SYNTHROID, 0 06/08/2018 Active LEVOXYL) 125 mcg tablet lisinopril 0 05/31/2018 Active (PRINIVIL,ZESTRIL) 20 mg tablet oxybutynin XL 0 03/07/2018 Activ e (DITROPAN-XL) 10 MG 24 hr tablet pantoprazole (PROTONIX) 0 06/01/2018 Active 40 MG EC tablet predniSONE (DELTASONE) 5 0 03/12/2018 Active mg tablet rosuvastatin (CRESTOR) 10 0 05/31/2018 Active MG tablet sertraline (ZOLOFT) 25 MG 0 05/29/2018 Active tablet spironolactone 0 05/25/2018 Acti ve (ALDACTONE) 25 MG tablet triamcinolone (KENALOG) 0 06/01/2018 Active 0.1 % cream metoprolol tartrate Take 25 mg by 0 Active (LOPRESSOR) 25 mg tablet mouth 2 (two) times a day. lansoprazole (PREVACID) Take 15 mg by 0 Active 15 MG capsule mouth daily. cyanocobalamin, vitamin Place under the 0 Active B-12, (VITAMIN B-12) tongue. 1,000 mcg tablet, sublingual cholecalciferol, vitamin Take 2,000 0 Active D3, (VITAMIN D3) 2,000 Units by mouth unit capsule capsule daily. Active Problems Not on file Encounters Date Type Specialty Care Team Description 02/14/2019 Office Visit Cardiothoracic Surgery Jamal Leonardot neoplasm MD [place] of hil of rig ht lung (HCC) (Greta ernesto Dx) 02/13/2019 Telephone Cardiothoracic Surgery Rosa M Cordero MA 02/12/2019 Telephone Cardiothoracic Surgery Nolvia Foster MA 02/12/2019 Orders Only General Surgery Alagugurusamy, Malignant neoplasm Chantel of hilus of rig ht SILVERIO Cadena lung (HCC) (Pr imary Dx) 02/11/2019 Telephone General Surgery Jamal Leonardo MD 02/08/2019 [facility] Jamal Leonardo Encounter MD [place] 02/08/2019 [facility] Jamal Leonardo Encounter MD [place] 02/07/2019 [facility] asm of right lung, unspecified part of lung (HCC); Encounter MD [place] Pre-op testing 02/06/2019 Telephone Cardiothoracic Surgery Nolvia Foster MA 02/06/2019 Orders Only Cardiothoracic Surgery ProviderMyrtle MD 02/01/2019 Orders Only Cardiothoracic Surgery Myrtle Hinton MD 01/31/2019 Telephone Cardiothoracic Surgery Anette Barry MA 01/30/2019 Orders Only General Surgery Alagugufiorellamy, Malignant neoplasm Chantel of lung, SILVERIO Cadena unspecified laterality, unspecified par t of lung (HCC) (Greta ernesto Dx) 01/30/2019 Telephone Cardiothoracic Surgery Anette Barry MA 01/30/2019 Telephone Cardiothoracic Surgery Nolvia Foster MA 01/29/2019 Telephone General Surgery Chantel Hollis NP-C 01/28/2019 Telephone General Surgery Chantel Hollis NP-C 01/28/2019 Orders Only General Surgery Alagugurusamy, Malignant neoplasm of right lung, unspecified part of lung (HCC) (Primary Dx); Chantel Pre-op testing SILVERIO Cadena 01/24/2019 [facility] Nabeel, Encounter Mukul Tello MD 01/24/2019 [facility] Nabeel, Encounter Mukul Tello MD 01/24/2019 [facility] Vitor Leonardogreg Hilar mass; Encounter MD [place] Pre-procedure l ab exam 01/17/2019 Telephone Radiology Belinda Alejandro, ARASH 01/16/2019 Orders Only Cardiothoracic Surgery Myrtle Hinton MD 01/14/2019 Orders Only General Surgery Alagugurusamy, Hilar mass (Primary Dx); Chantel Pre-procedure l ab exam SILVERIO Cadena 01/14/2019 Telephone General Surgery Chantel Hollis NP-C 01/14/2019 Telephone Cardiothoracic Surgery Nolvia Foster MA 01/09/2019 Telephone General Surgery Telma, Chantel Cadena NP-C 01/09/2019 Orders Only General Surgery Telma, Chantel Cadena NP-C 01/08/2019 [facility] Medical General Surgery Jamal Leonardo Lung nod ule Review MD [place] (Primary Dx) 12/28/2018 Hospital Radiology JordenJamal Encounter MD [place] 12/20/2018 Office Visit Cardiothoracic Surgery Jamal Leonardo Lymph adenopathyGilmar MD hilar (Primary Dx) 12/19/2018 Orders Only Cardiothoracic Surgery Myrtle Hinton MD 12/19/2018 Telephone Cardiothoracic Surgery Nolvia Foster MA 12/13/2018 Telephone Cardiothoracic Surgery Nolvia Foster MA 12/04/2018 Telephone Cardiothoracic Surgery Anette Barry MA after 11/17/2018 Family History Medical History Relation Name Comments Arthritis Brother Blood Clots Brother Blood Clots Father Alzheimer's disease Mother Congenital heart disease Sister Kidney disease Sister Relation Name Status Comments Brother Father Mother Sister Social History Tobacco Use Types Packs/Day Years Used Date Never Smoker Smokeless Tobacco: Never Used Alcohol Use Drinks/Week oz/Week Comments Yes 1 Glasses of wine 1.0 Sex Assigned at Date Recorded Not on file Job Start Date Occupation Industry Not on file Not on file Not on file Travel History Travel Start Travel End No recent travel history available. Last Filed Vital Signs Vital Sign Reading Time Taken Comments Blood Pressure 167/87 02/14/2019 11:00 AM CDT Pulse 85 02/14/2019 11:00 AM CDT Temperature 35.8 C (96.5 F) 02/14/2019 11:00 AM CDT Respiratory Rate 17 02/14/2019 11:00 AM CDT Oxygen Saturation 100% 02/14/2019 11:00 AM CDT Inhaled Oxygen Concentration - - Weight 100 kg (221 lb) 02/14/2019 11:00 AM CDT Height 162.6 cm (5' 4") 02/14/2019 11:00 AM CDT Body Mass Index 37.93 02/14/2019 11:00 AM CDT Plan of Treatment Health Maintenance Due Date Last Done Comments SHINGLES VACCINES (#1) 1990 65+ PNEUMOCOCCAL VACCINE (1 of 2 - PCV13) 2005 INFLUENZA VACCINE 12/21/2019 Procedures Procedure Name Priority Date/Time Associated Comments Diagnosis PET CT SKULL BASE TO Routine 02/07/2019 11:32 Malignant neopla sm Results for this MID THIGH AM CDT of right lung, procedure are in unspecified part of the resu lts lung (HCC) section. Pre-op testing POC GLUCOSE Routine 02/07/2019 9:58 Results for this AM CDT procedure are i n the results section. MRI HEAD EXTERNAL Routine 01/31/2019 1:10 Result s for this STUDY PM CDT procedure are i n the results section. [id number] Routine 01/31/2019 MRI BRAIN W WO Routine 01/31/2019 CONTRAST XR CHEST 1 VW Routine 01/24/2019 2:40 Results fo r this PM CDT procedure are i n the results section. SURGICAL PATHOLOGY Routine 01/24/2019 12:29 Resul ts for this REQUEST PM CDT procedure are i n the results section. SURGICAL PATHOLOGY Routine 01/24/2019 12:29 Resul ts for this REQUEST PM CDT procedure are i n the results section. SURGICAL PATHOLOGY Routine 01/24/2019 12:29 Resul ts for this REQUEST PM CDT procedure are i n the results section. MISCELLANEOUS REFERRAL Routine 01/24/2019 12:29 R esults for this TEST PM CDT procedure are i n the results section. BRAF, PCR Routine 01/24/2019 12:29 Results for this PM CDT procedure are i n the results section. XR CHEST 1 VW STAT 01/24/2019 11:54 Results fo r this AM CDT procedure are i n the results section. CT NEEDLE BIOPSY NO Routine 01/24/2019 11:33 Hilar mass Results for this CONTRAST AM CDT Pre-procedure lab procedure are in exam the results section. CYTOLOGY Routine 01/24/2019 11:02 Results for this (NON-GYNECOLOGICAL) AM CDT procedur e are in REQUEST the results section. POC GLUCOSE Routine 01/24/2019 8:54 Results for this AM CDT procedure are i n the results section. [id number] Routine 01/15/2019 PULMONARY FUNCTION Routine 01/08/[address] CHEST EXTERNAL Routine 11/26/2018 2:00 Result s for this STUDY PM CDT procedure are i n the results section. CT CHEST WO CONTRAST Routine 11/26/2018 after 11/17/2018 Results PET/CT Skull Base To Mid Thigh (02/07/2019 11:32 AM CDT) Specimen Narrative Performed At PROCEDURE: PET CT SKULL BASE TO MID TH IGH [facility] INDICATION: Initial staging lung cance r. Initial treatment strategy. TECHNIQUE: Blood glucose measured at the time of inj ection was 152 mg/dL. The patient was then injected with 11.7 mCi of 18F-FDG, IV. Approximately one hour later, PET images were acquir ed from the skull base to the mid thighs. Corresponding, l ow dose, non-contrast CT scanning was performed as part of the attenuation correction process. Automated dose exp osure control was utilized. COMPARISON: Outside PET/CT scan 019. FINDINGS: Head and neck: No suspicious brain uptake. Normal uptake in the visualized sinuses, orbits, nasopharynx, and oropharyn x. Uptake by the larynx is normal. No suspicious neck l ymph node uptake. Chest: Right infrahilar mass noted on prior imaging demonstrates an SUV of 11.9, compatible with provided diagnosis of dorothy g malignancy. No suspicious mediastinal, left hilar, or a xillary lymph node uptake. Abdomen: Normal uptake in the stomach, spleen, pancr eas, liver, and adrenal glands. No abnormal retroperitoneal or mesen teric lymph node uptake. Low-density left renal lesion, measuring 2.5 cm. This may reflect a cyst, but is not well characte rized on this study. Pelvis: Physiologic bowel uptake. No suspicious pe lvic sidewall or inguinal lymph node uptake. Review of the osseous structures demonst rates no suspicious uptake. IMPRESSION: 1. 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 [facility]-[id number] Procedure Note Interface, Radiology Results Incoming - 02/07/2019 12:22 PM CDT PROCEDURE: PET CT SKULL BASE TO MID THIGH INDICATION: Initial staging lung cancer . Initial treatment strategy. TECHNIQUE: Blood glucose measured at th e time of injection was 152 mg/dL. The patient was then injected with 11.7 mCi of 18F-FDG, IV. Approximately one hour later, PET images were acquired from the skull base to the mid thighs. Corresponding, low dose, non-contrast CT scanning was performed as part of the attenuation correction process. Automated dose exposure control was utilized. COMPARISON: Outside PET/CT scan 07/12/19. FINDINGS: Head and neck: No suspicious brain upta ke. Normal uptake in the visualized sinuses, orbits, nasopharynx, and oropharynx. Uptake by the larynx is normal. No suspicious neck lymph node uptake. Chest: Right infrahilar mass noted on p rior imaging demonstrates an SUV of 11.9, compatible with provided diagnosis of lung malignancy. No suspicious mediastinal, left hilar, or axillary lymph node uptake. Abdomen: Normal uptake in the stomach, spleen, pancreas, liver, and adrenal glands. No abnormal retroperitoneal or mesenteric lymph node uptake. Low- density left renal lesion, measuring 2.5 cm. This may reflect a cyst, but is not well characte rized on this study. Pelvis: Physiologic bowel uptake. No s uspicious pelvic sidewall or inguinal lymph node uptake. Review of the osseous structures demonst rates no suspicious uptake. IMPRESSION: 1. Primary right infrahilar malignancy, with no evidence for metastatic disease. [id number] Performing Organization Address City/State/Zipcode Phone Number [facility] [address] [place] [address] POC glucose (02/07/2019 9:58 AM CDT)Only the most recent of2 resultswithin the time period is included. Pathologist Sig nature POC glucose 152 (H) 65 - 99 mg/dL LUSI RASTAFARI Comment: HOSPITAL No Action Needed Meter ID: [id number] Ur Coordinator: Pierre Foss Specimen Performing Organization Address City/State/Zipcode Phone Number [facility] DEPARTMENT OF PATHOLOGY AND [address] [place], [place] [address] GENOMIC MEDICINE [facility] [address] [place] [address] MRI Head External Study (01/31/2019 1:10 PM CDT) Specimen Narrative Performed At This exam was not acquired at a [facility] facility and has not been [facility] interpreted by a [employer] Provider. T he exam was imported into our imaging system for comparisons purposes. Performing Organization Address [facility]/Zipcode Phone Number [facility] [address] [place] [address] Miscellaneous Lab Result (01/31/2019)Only the most recent of2 resultswithin the time period is included. Specimen Blood Narrative Performed At This result has an attachment that is no t available. MRI Brain W Wo Contrast (01/31/2019) Narrative Performed At This result has an attachment that is no t available. XR Chest 1 Vw (01/24/2019 2:40 PM CDT)Only the most recent of2 resultswithin the time period is included. Specimen Narrative Performed At EXAMINATION: XR CHEST 1 VW [facility] CLINICAL HISTORY: s p biopsy r hilar m ass COMPARISON: January 24, 2019 IMPRESSION: Heart size is normal. Thoracic aorta is tortuous. Pulmonary vessels are in the normal range. There is no evidence of pneumothorax or pleural effusion. [id number] Procedure Note Interface, Radiology Results Incoming - 01/24/2019 2:47 PM CDT EXAMINATION: XR CHEST 1 VW CLINICAL HISTORY: s p biopsy r hilar ma ss COMPARISON: January 24, 2019 IMPRESSION: Heart size is normal. Thoracic aorta is tortuous. Pulmonary vessels are in the normal range. There is no evidence of pneumothorax or pleural effusion. [id number] Performing Organization Address City/[facility]/Zipcode Phone Number [facility] [address] [place] [address] BRAF, PCR (01/24/2019 12:29 PM CDT) Pathologist Sig nature BRAF, PCR Wild Type [facility] BRAF, PCR See link below for [facility] Lab HOSPITAL ReportComment: Specimen Narrative Performed At [facility] MET [id number] METHODOLOGY: For surgical specimens, manual microdissection was performed on A1 (60%). Specimens with the minimum of 5 0% tumor cells in a microdissection target are accepted f or the analysis. DNA was amplified with primers flanking the reported gene sequences. DNA sequences were determined on the [employer] us ing MALDI-TOF mass spectrometry. Performing Organization Address City/State/Zipcode Phone Number [facility] DEPARTMENT OF PATHOLOGY AND [address] [place] [phone] GENOMIC MEDICINE [facility] [address] [place] [address] [facility] Miscellaneous referral test (01/24/2019 12:29 PM CDT) [facility] test name [facility] MET SHOWN ABOVE [facility] test result SEE NOTE SHOWN ABOVE Comment: MET FISH Sample type: Paraffin, RIGHT HILAR NODULE BX Case# [id number] RESULTS: NEGATIVE Interpretation: MET Amplification: Not Detected MET(7q31) signals per nucleus: 2.7 CEN7 signals per nucleus: 2.3 MET-CEN7 signal ratio: 1.1 An H&E stained slide was reviewed by a pathologist to identify target areas containing invasive tumor. FISH analysis was performed within the marked target areas using a dual-probe FISH assay to detect M ET overexpression. Results show no evidence of MET amplification with a M ET/CEN7 ratio of <2.0. This is a NEGATIVE result. This MET FISH assay was scored manually by a certified certified genetic counselor. Two or more independent areas containing invasiv e tumor were analyzed and the technical results underwent further review for quality compliance coordinator purposes. Reference range: Positive: MET(7q31) to CEN7 signal ration is >/= 2.0 o r when 10% of tumor cells contain clusters of >15 copies per cell of MET ( 7q31) signals. Negative: MET(7q31) to CEN7 signal ratio is <2.0 Equivocal: MET copy number >/=5.0 and MET/CEN7 ratio < 2.0 Nuclei scored: 50 Test(s) performed by: [employer] KANU Mccallum Specimen Narrative Performed At [facility] DEPARTMENT OF PATHOLOGY AND GENOMIC MEDICINE MET [id number] Performing Organization Address City/State/Zipcode Phone Number [facility] DEPARTMENT OF PATHOLOGY AND [address] [place], [place] [address] GENOMIC MEDICINE SHOWN ABOVE Surgical pathology request (01/24/2019 12:29 PM CDT)Only the most recent of3 resultswithin the time period is included. [facility] DEPARTMENT OF PATHOLOGY AND GENOMIC MEDICINE Surgical pathology See link below for [facility] DEPARTMENT O F report PDF Lab Report PATHOLOGY AND GENOMIC MEDICINE Result status This is Supplemental [facility] DEPARTMENT OF Report for PATHOLOGY AND [id number] GENOMIC MEDICINE Specimen Narrative Performed At [facility] DEPARTMENT OF PATHOLOGY AND GENOMIC MEDICINE MET [id number] Performing Organization Address City/State/Zipcode Phone Number [facility] DEPARTMENT OF PATHOLOGY AND [address] [place], [place] [address] Needle Biopsy No Contrast (01/24/2019 11:33 AM CDT) Specimen Narrative Performed At PERFORMING RADIOLOGIST: AMARI Lees MD ASSISTANTS: None. ANESTHESIA TYPE: Moderate sedation was administered by the procedure nu rse and monitored intraservice [id number] by the procedure physician f or 30 minutes. Lidocaine 1% was used for local anesthet ic. PRE PROCEDURE DIAGNOSIS: Right infrahilar mass POST PROCEDURE DIAGNOSIS: Right infrahilar mass status post CT-bianca ded core needle biopsy. PROCEDURE: Limited noncontrast CT of the chest. CT-guided core needle biopsy right infra hilar mass. Limited postprocedural noncontrast CT th e chest. TECHNIQUE: Written informed consent was obtained prior to the pro cedure. The patient was placed in a prone position on the CT gantr y. A limited noncontrast CT of the chest was performed. A suitable approach for biopsy was chosen. The right back was sterilely prepped and draped in the usual routine manner. Using real-time CT guidance, the skin and soft tissues overlying the biopsy site were anesthetized via a 25-gauge needle . A dermatotomy was made. The needle was removed. Then, using intermittent CT guidance, a(n) 17 gauge 15 cm long trocar and stylet were advanced to the level of the lesion. T hen, the stylet was removed and a 8 gauge 20 cm long Temno biopsy alhaji ce was advanced via the trocar into the lesion. A 2 cm biopsy tray was advanced. A biopsy was obtained. The b iopsy device was removed. The stylette was replaced. The sample was sub mitted for pathologic review. This process was repe ated for a total of 3 samples. Initial pathologic review confirmed adeq uate tissue. Consequently, the trocar and stylet were removed while instilling approximately 10 cc of the patient's own blood as a bl ood patch. Hemostasis was achieved with manual pressure. The acce ss site was closed with an occlusive dressing. Limited postprocedure CT of the chest was performed. It demonstrated post biopsy changes within the mass with adjacent grou ndglass opacity, likely secondary to blood patch without evidence of pneumothorax.. COMPLICATIONS: None. SPECIMENS REMOVED: As detailed above. ESTIMATED BLOOD LOSS: Less than 2 mL. BLOOD PRODUCTS ADMINISTERED: None. CONTRAST/IMPLANTS: As described in the above report. IMPRESSION: Successful CT guided biopsy right infrahilar mass with out immediate complication. [facility]-[id number] Procedure Note [facility], Radiology Results Incoming - 01/24/2019 12:49 PM CDT PERFORMING RADIOLOGIST: Mukul Lees MD ASSISTANTS: None. ANESTHESIA TYPE: Moderate sedation was administered by e procedure nurse and monitored intraservice [id number] by the procedure physician for 30 minutes. Lidocaine 1% was used for local anesthetic. PRE PROCEDURE DIAGNOSIS: Right infrahilar mass POST PROCEDURE DIAGNOSIS: Right infrahilar mass status post CT-bianca ded core needle biopsy. PROCEDURE: Limited noncontrast CT of the chest. CT-guided core needle biopsy right infra hilar mass. Limited postprocedural noncontrast CT [facility] chest. TECHNIQUE: Written informed consent was obtained pr ior to the procedure. The patient was placed in a prone position on the CT gantry. A limited noncontrast CT of the chest was performed. A suitable approach for biopsy was chosen. The right back was sterilely prepped and draped in the usual routine manner. Using real-time CT guidance, the skin an d soft tissues overlying the biopsy site were anesthetized via a 25-gauge needle . A dermatotomy was made. The needle was removed. Then, using intermittent CT guidance, a( n) 17 gauge 15 cm long trocar and stylet were advanced to the level of the lesion. Then, the stylet was removed and a 8 gauge 20 cm long Temno biopsy device was advanced via the trocar into the lesion. A 2 cm biopsy tray was advanced. A biopsy was o btained. The biopsy device was removed. The stylette was replaced. The sample was submitted for pathologic review. This process was repeated for a total of 3 samples. Initial pathologic review confirmed adeq uate tissue. Consequently, the trocar and stylet were removed while instilling approximately 10 cc of the patient's own blood as a blood patch. Hemostasis was achieved with manual pressure. The access site was closed with an occlusive dressing. Limited postprocedure CT of the chest w as performed. It demonstrated post biopsy changes within the mass with adjacent groundglass opacity, likely secondary to blood patch without evidence of pneumothorax.. COMPLICATIONS: None. SPECIMENS REMOVED: As detailed above. ESTIMATED BLOOD LOSS: Less than 2 mL. BLOOD PRODUCTS ADMINISTERED: None. CONTRAST/IMPLANTS: As described in the above report. IMPRESSION: Successful CT guided biopsy right infrah ilar mass without immediate complication. [id number] Performing Organization Address City/State/Zipcode Phone Number [facility] [address] [place] [address] Cytology (non-gynecological) request (01/24/2019 11:02 AM CDT) [facility] DEPARTMENT OF PATHOLOGY AND GENOMIC MEDICINE Cytology See link below [facility] DEPARTMENT OF (non-gynecological) for PDF Lab PATHOLOGY AND report Report GENOMIC MEDICINE Result status This is Final [facility] DEPART[facility] OF Report for PATHOLOGY AND [id number] GENOMIC MEDICINE Specimen Performing Organization Address City/State/Zipcode Phone Number [facility] DEPARTMENT OF PATHOLOGY AND [address] [place], [place] [address] GENOMIC MEDICINE Pulmonary function tests, complete (01/08/2019) Narrative Performed At This result has an attachment that is no t available. CT Chest External Study (11/26/2018 2:00 PM CDT) Specimen Narrative Performed At This exam was not acquired at a [facility] facility and has not been [facility] interpreted by a [employer] Provider. T he exam was imported into our imaging system for comparisons purposes. Performing Organization Address City/State/Zipcode Phone Number [facility] [address] [place] [address] CT Chest Wo Contrast (11/26/2018) Narrative Performed At This result has an attachment that is no t available. after 11/17/2018 Insurance Payer Benefit Plan / Subscriber ID Effective Dates Phone Addre ss Type Group MEDICARE MEDICARE PART A xxxxxxxxxxx 2005-Present 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
--- NOTE | 2019-11-18 16:55 | RAD REPORT ---
EXAM DESCRIPTION: CT - CTHCSPWOC - 11/18/2019 4:39 pm CLINICAL HISTORY: trauma/fall;Pain COMPARISON: Head C Spine Mpr Wo Con dated 07/18/2019 TECHNIQUE: Axial 5 mm thick images of the head were obtained. Axial 2 mm thick images of the cervic al spine were obtained with sagittal and coronal reconstruction images generated and reviewed. All CT scans are performed using dose optimization technique as appropriate and may include automated exposure control or mA/KV adjustment according to patient size. FINDINGS: No epidural or subdural hematoma is present. There is a punctate 5 mm focus of cortical co ntusion involving a gyrus of the posterior right frontal lobe convexity. No edema changes. No mass ef fect or midline shift. No cortical edema or sulcal effacement. No suspicion for acute infarction. No extra-axial fluid collections. Mastoid air cells and paranasal sinuses are clear. No globe or orbit a bnormality seen. Left frontal and periorbital scalp hematoma is present. Underlying bone is intact. Patient has underlying atrophy and chronic ischemic change. Cervical bodies are normal in height. Slight anterior subluxation of C3 on C4 has not changed. Slight rotation of C1 at the C2 level also unchanged. Severe disc degenerative change at C5-6, C6-7 and C7- T1 noted and unchanged. No fracture or acute bony abnormality. Central canal detail is inherently li mited. No paraspinal mass or hematoma. IMPRESSION: Solitary punctate focus of cortical contusion posterior right frontal lobe. No other acu te intracranial finding. Baseline moderate severity atrophy and chronic ischemic change similar to comparison. Advanced cervical spine degenerative change as detailed. No acute findings seen.
--- NOTE | 2019-11-18 18:08 | ER ---
Nurse's Notes [facility] Name: Patricia Flynn Age: 79 yrs Sex: Female : 1940 Arrival Date: 11/18/2019 Time: 16:03 Bed 7 Private MD: Diagnosis: Cerebral Contusion Presentation: 11/17 16:03 Chief complaint: EMS states: MECHANICAL FALL WHILE CHASING CAT OUTDOORS. Care prior to bp arrival: Cervical collar in place. Placed on backboard. Mechanism of Injury: Fall from standing position. Trauma event details: Injury occurred in the [facility], Injury occurred: at home. Injury occurred: November 18, 2019 Injury occurred at: 15:30. 16:03 Acuity: VELASQUEZ 3 bp 16:03 Method Of Arrival: EMS: [facility] bp 21:10 Coronavirus screen: Proceed with normal triage. Ebola Screen: Patient negative for ao fever greater than or equal to 101.5 degrees Fahrenheit, and additional compatible Ebola Virus Disease symptoms Patient denies exposure to infectious person. Patient denies travel to an Ebola-affected area in the 21 days before illness onset. Initial Sepsis Screen: Does the patient meet any 2 criteria? No. Patient's initial sepsis screen is negative. Does the patient have a suspected source of infection? No. Patient's initial sepsis screen is negative. Risk Assessment: Do you want to hurt yourself or someone else? Patient reports no desire to harm self or others. Onset of symptoms is unknown. Trauma Activation: Consult Physician: ED Physician; Name: ; Notified At: ; Arrived At: Physician: General Surgeon; Name: ; Notified At: ; Arrived At: Physician: Radiology; Name: ; Notified At: ; Arrived At: Physician: Respiratory; Name: ; Notified At: ; Arrived At: Physician: Lab; Name: ; Notified At: ; Arrived At: Historical: - Allergies: 21:09 Hydroxychloroquine; ao - Home Meds: 21:09 Ocuvite [id number] [id number]-mg Oral cap daily [Active]; Colace 100 mg Oral cap 2 ao caps once daily [Active]; Detrol LA 4 mg Oral cp24 1 cap once daily [Active]; dicyclomine 20 mg Oral tab 1 tab 4 times per day [Active]; Eliquis 5 mg Oral tab [Active]; folic acid 400 mcg Oral tab 1 tab once daily [Active]; gabapentin 600 mg Oral tab 1 tab nightly [Active]; aspirin 81 mg Oral TbEC 1 tab once daily [Active]; levothyroxine 125 mcg tab 1 tab once daily [Active]; metoprolol tartrate 50 mg Oral tab 1 tab once daily [Active]; metoprolol tartrate 25 mg Oral tab 1 tab once daily [Active]; lansoprazole 30 mg Oral cpDR 1 cap once daily [Active]; Myrbetriq 25 mg Oral Tb24 1 tab once daily [Active]; ondansetron HCl 4 mg Oral tab [Active]; pantoprazole 40 mg Oral TbEC 1 tab once daily [Active]; Plavix 75 mg Oral tab 1 tab once daily [Active]; quinapril 20 mg Oral tab 1 tab once daily [Active]; prednisone 5 mg Oral tab 1 tab once daily [Active]; sertraline 25 mg Oral tab 1 tab once daily [Active]; prednisone 5 mg Oral tab once daily [Active]; spironolactone 25 mg Oral tab 1 tab once daily [Active]; Crestor 10 mg Oral tab 1 tab once daily [Active]; Glimepiride Oral [Active]; occuvite [Active]; vitmain d 3 [Active]; Synthroid 125 mcg Oral tab 1 tab once daily [Active]; - PMHx: 21:09 Atrial Fib; Back pain; Diabetes - NIDDM; High Cholesterol; Hypertension; ao Hypothyroidism; Lung CA; Lupus; - Immunization history: Last tetanus immunization: unknown. - Social history:: Smoking status: unknown. Screenin:06 Abuse screen: Denies threats or abuse. Denies injuries from another. Tuberculosis bp screening: No symptoms or risk factors identified. 21:11 Nutritional screening: No deficits noted. Fall Risk Fall in past 12 months (25 points). ao Primary Survey: 16:06 NO uncontrolled hemorrhage observed. A: The patient is alert. Airway: patent. bp Breathing/Chest: Respiratory pattern: regular, Respiratory effort: spontaneous, unlabored. Circulation: Cardiac rhythm: sinus rhythm. Disability Alert. Exposure/Environment: All clothing and personal items were removed. Forensic evidence collection is not deemed to be indicated at this time. Items placed in patient belonging bag. There is no evidence of uncontrolled external bleeding. Obvious injury(ies) are noted at this time: LEFT FRONTAL HEMATOMA, RUE SKIN TEARS. 21:10 Reassessment Breathing/Chest Respiratory pattern Regular Respiratory effort Spontaneous ao Unlabored Breath sounds Clear Diminished. Secondary Survey: 16:06 HEENT: Face Other LEFT FRONTAL HEMATOMA. bp Assessment: 16:03 General: Appears in no apparent distress. uncomfortable, Behavior is cooperative, bp appropriate for age, anxious. Pain: Complains of pain in face. Neuro: Level of Consciousness is awake, alert, obeys commands, Oriented to person, place, time, situation, Appropriate for age. EENT: No deficits noted. Cardiovascular: No deficits noted. Respiratory: No deficits noted. GI: No signs and/or symptoms were reported involving the gastrointestinal system. : No signs and/or symptoms were reported regarding the genitourinary system. Derm: Wound noted right arm Wound is SKIN TEARS. Musculoskeletal: No deficits noted. Injury Description: Head injury sustained to face is closed, did not have loss of consciousness. 16:31 Reassessment: PT TO RADIOLOGY. CLEARED OFF BB BY PROVIDER. bp 16:51 Reassessment: PT RETURNED FROM CT. CC IN PLACE. bp 18:30 Reassessment: ADMIT IN PROCESS FOR CEREBRAL CONTUSION. PT REMAINS NEURO INTACT. bp 19:44 General: Appears in no apparent distress. uncomfortable, Behavior is cooperative, ao appropriate for age. Pain: Complains of pain in face. Neuro: Level of Consciousness is awake, alert, obeys commands, Oriented to person, place, time, situation, Appropriate for age Moves all extremities. Full function. Cardiovascular: No deficits noted. Respiratory: No deficits noted. GI: No signs and/or symptoms were reported involving the gastrointestinal system. : No signs and/or symptoms were reported regarding the genitourinary system. EENT: No deficits noted. Derm: Wound noted. Musculoskeletal: No deficits noted. Injury Description: Head injury sustained to face. 21:11 Reassessment: Patient appears in no apparent distress at this time. Report called to ao Mely, Pt to go to Room 204. Vital Signs: 16:06 BP 139 / 69; Pulse 68; Resp 17; Pulse Ox 98% ; bp 16:58 BP 144 / 61; Pulse 80; Resp 16; Pulse Ox 94% ; bp 18:30 BP 123 / 66; Pulse 64; Resp 16; Pulse Ox 99% ; bp 19:44 BP 118 / 86; Pulse 65; Resp 16; Pulse Ox 93% ; ao Benedict Coma Score: 16:06 Eye Response: spontaneous(4). Verbal Response: oriented(5). Motor Response: obeys bp commands(6). Total: 15. Trauma Score (Adult): 16:06 Eye Response: spontaneous(1); Verbal Response: oriented(1); Motor Response: obeys bp commands(2); Systolic BP: > 89 mm Hg(4); Respiratory Rate: 10 to 29 per min(4); Christian Score: 15; Trauma Score: 12 ED Course: 16:03 Patient arrived in ED. bp 16:03 Ezio Whitten, RN is Primary Nurse. bp 16:04 Triage completed. bp 16:06 Patient has correct armband on for positive identification. Bed in low position. Call bp light in reach. Side rails up X2. 16:07 Germán Allen MD is Attending Physician. becky 16:07 Keith Galvan PA is PHCP. jr8 16:40 CT Head C Spine In Process Unspecified. EDMS 18:02 Eitan Guzman DO is Hospitalizing Provider. jr8 18:11 Key Hammer MD is Hospitalizing Provider. jr8 18:52 Inserted saline lock: 22 gauge in right forearm, using aseptic technique. Blood bp collected. 21:10 No provider procedures requiring assistance completed. Patient admitted, IV remains in ao place. 21:11 Arm band placed on. ao 21:11 Thermoregulation: warm blanket given to patient. ao 21:11 Patient maintains SpO2 saturation greater than 95% on room air. ao Administered Medications: 18:52 Drug: Benadryl 12.5 mg Route: IVP; Site: right forearm; bp Intake: 16:06 PO: 0ml; Total: 0ml. bp Output: 16:06 Urine: 0ml; Total: 0ml. bp Outcome: 18:07 Decision to Hospitalize by Provider. jr8 21:10 Admitted to Med/surg accompanied by tech, room 204. ao 21:10 Condition: stable 21:10 Instructed on the need for admit. 21:11 Patient's length of stay was not longer than 2 hours. ao 21:19 Patient left the ED. ao Signatures: Dispatcher [employer] EDWY Germán Allen MD MD cha Roszak, Josh, PA PA jr8 Derik Lofton, RN RN ao Ezio Whitten, ARASH RN bp
--- NOTE | 2019-11-18 18:08 | EDPHYS ---
Physician Documentation [facility] Name: Patricia Flynn Age: 79 yrs Sex: Female : 1940 Arrival Date: 11/18/2019 Time: 16:03 Bed 7 Private MD: ED Physician Germán Allen HPI: 11/17 16:13 This 76 yrs old presents to ER via EMS with complaints of Fall Injury. jr8 16:13 Details of fall: The patient fell from an upright position, while standing. Onset: The jr8 symptoms/episode began/occurred acutely, today. Associated injuries: The patient sustained injury to the head, neck injury. Severity of symptoms: At their worst the symptoms were moderate, in the emergency department the symptoms are unchanged. The patient has not experienced similar symptoms in the past. The patient has not recently seen a physician. Patient stated that she tripped and lost balance trying to shut door so cat would not go out. Denies LOC . Historical: - Allergies: 21:09 Hydroxychloroquine; ao - Home Meds: 21:09 Ocuvite [id number] [id number]-defn-bq-mg Oral cap daily [Active]; Colace 100 mg Oral cap 2 ao caps once daily [Active]; Detrol LA 4 mg Oral cp24 1 cap once daily [Active]; dicyclomine 20 mg Oral tab 1 tab 4 times per day [Active]; Eliquis 5 mg Oral tab [Active]; folic acid 400 mcg Oral tab 1 tab once daily [Active]; gabapentin 600 mg Oral tab 1 tab nightly [Active]; aspirin 81 mg Oral TbEC 1 tab once daily [Active]; levothyroxine 125 mcg tab 1 tab once daily [Active]; metoprolol tartrate 50 mg Oral tab 1 tab once daily [Active]; metoprolol tartrate 25 mg Oral tab 1 tab once daily [Active]; lansoprazole 30 mg Oral cpDR 1 cap once daily [Active]; Myrbetriq 25 mg Oral Tb24 1 tab once daily [Active]; ondansetron HCl 4 mg Oral tab [Active]; pantoprazole 40 mg Oral TbEC 1 tab once daily [Active]; Plavix 75 mg Oral tab 1 tab once daily [Active]; quinapril 20 mg Oral tab 1 tab once daily [Active]; prednisone 5 mg Oral tab 1 tab once daily [Active]; sertraline 25 mg Oral tab 1 tab once daily [Active]; prednisone 5 mg Oral tab once daily [Active]; spironolactone 25 mg Oral tab 1 tab once daily [Active]; Crestor 10 mg Oral tab 1 tab once daily [Active]; Glimepiride Oral [Active]; occuvite [Active]; vitmain d 3 [Active]; Synthroid 125 mcg Oral tab 1 tab once daily [Active]; - PMHx: 21:09 Atrial Fib; Back pain; Diabetes - NIDDM; High Cholesterol; Hypertension; ao Hypothyroidism; Lung CA; Lupus; - Immunization history: Last tetanus immunization: unknown. - Social history:: Smoking status: unknown. ROS: 16:13 Eyes: Negative for injury, pain, redness, and discharge, ENT: Negative for injury, jr8 pain, and discharge, Cardiovascular: Negative for chest pain, palpitations, and edema, Respiratory: Negative for shortness of breath, cough, wheezing, and pleuritic chest pain, Abdomen/GI: Negative for abdominal pain, nausea, vomiting, diarrhea, and constipation, Back: Negative for injury and pain, MS/Extremity: Negative for injury and deformity, Neuro: Negative for headache, weakness, numbness, tingling, and seizure. 16:13 Neck: Positive for pain with movement, pain at rest. 16:13 Skin: Positive for abrasion(s), hematoma, of the face. Exam: 16:13 ENT: Nares patent. No nasal discharge, no septal abnormalities noted. Tympanic jr8 membranes are normal and external auditory canals are clear. Oropharynx with no redness, swelling, or masses, exudates, or evidence of obstruction, uvula midline. Mucous membranes moist. Neck: Trachea midline, no thyromegaly or masses palpated, and no cervical lymphadenopathy. Supple, full range of motion without nuchal rigidity, or vertebral point tenderness. No Meningismus. Mild tenderness to lateral soft tissues bilaterally Cardiovascular: Regular rate and rhythm with a normal S1 and S2. No gallops, murmurs, or rubs. Normal PMI, no JVD. No pulse deficits. Respiratory: Lungs have equal breath sounds bilaterally, clear to auscultation and percussion. No rales, rhonchi or wheezes noted. No increased work of breathing, no retractions or nasal flaring. Abdomen/GI: Soft, non-tender, with normal bowel sounds. No distension or tympany. No guarding or rebound. No evidence of tenderness throughout. Back: No spinal tenderness. No costovertebral tenderness. Full range of motion. Skin: Warm, dry with normal turgor. Normal color with no rashes, no lesions, and no evidence of cellulitis. MS/ Extremity: Pulses equal, no cyanosis. Neurovascular intact. Full, normal range of motion. Neuro: Awake and alert, GCS 15, oriented to person, place, time, and situation. Cranial nerves II-XII grossly intact. Motor strength 5/5 in all extremities. Sensory grossly intact. Cerebellar exam normal. Normal gait. 16:13 Head/face: Noted is abrasion(s), that are mild, of the forehead, hematoma, that is mild, of the forehead. 16:13 Eyes: Periorbital structures: ecchymosis, that is mild, on the left supraorbital ridge, left upper eyelid and left lower eyelid, Pupils: equal, round, and reactive to light and accomodation, Extraocular movements: intact throughout, Conjunctiva: subconjunctival hemorrhage(s), seen in the left eye, at 9 o'clock, Corneas: are normal, Sclera: no appreciated abnormality, Anterior chamber: normal, Lids and lashes: appear normal, Examination of the other eye reveals no obvious gross abnormality. Vital Signs: 16:06 BP 139 / 69; Pulse 68; Resp 17; Pulse Ox 98% ; bp 16:58 BP 144 / 61; Pulse 80; Resp 16; Pulse Ox 94% ; bp 18:30 BP 123 / 66; Pulse 64; Resp 16; Pulse Ox 99% ; bp 19:44 BP 118 / 86; Pulse 65; Resp 16; Pulse Ox 93% ; ao Christian Coma Score: 16:06 Eye Response: spontaneous(4). Verbal Response: oriented(5). Motor Response: obeys bp commands(6). Total: 15. Trauma Score (Adult): 16:06 Eye Response: spontaneous(1); Verbal Response: oriented(1); Motor Response: obeys bp commands(2); Systolic BP: > 89 mm Hg(4); Respiratory Rate: 10 to 29 per min(4); Christian Score: 15; Trauma Score: 12 MDM: 16:[address] [facility] 17:57 Data reviewed: vital signs, nurses notes, lab test result(s), radiologic studies, CT [facility] scan. Data interpreted: Pulse oximetry: on room air is 95 %. Interpretation: normal. Counseling: I had a detailed discussion with the patient and/or guardian regarding: the historical points, exam findings, and any diagnostic results supporting the discharge/admit diagnosis, lab results, radiology results, the need for further work-up and treatment in the hospital. 18:17 ED course: Talked to Dr. Garcia and Dr. Hammer both will see patient . [facility] 11/17 17:57 Order name: CBC with Diff; Complete Time: 19:17 [facility] 11/17 17:57 Order name: Basic Metabolic Panel; Complete Time: 19:18 [facility] 11/17 16:08 Order name: CT Head C Spine; Complete Time: 17:02 [facility] 11/17 17:57 Order name: Protime (+inr); Complete Time: 19:18 [facility] 11/17 17:57 Order name: Ptt, Activated; Complete Time: 19:18 [facility] 11/17 17:57 Order name: IV; Complete Time: 18:52 [facility] 11/17 18:44 Order name: Labs - recollect needed: recollect all tubes of blood; Complete Time: 18:51 11/17 20:07 Order name: CONS Physician Consult EDTX Administered Medications: 18:52 Drug: Benadryl 12.5 mg Route: IVP; Site: right forearm; bp Disposition: 11/18 13:37 Co-signature as Attending Physician, Germán Allen MD I agree with the assessment and [facility] plan of care. Disposition: 11/18/19 18:07 Hospitalization ordered by Key Hammer for Observation. Preliminary diagnosis is Cerebral Contusion . - Bed requested for Telemetry/MedSurg (observation). - Status is Observation. ao - Condition is Stable. - Problem is new. - Symptoms have improved. Signatures: Dispatcher [employer] EDMS Germán Allen MD MD cha Roszak, Josh, PA PA jr8 Dona Gomez, RN Derik Campos RN Ezio Stern RN RN Venita Burnett Corrections: (The following items were deleted from the chart) 11/17 18:11 18:07 Hospitalization Ordered by Eitan Guzman DO for Observation. Preliminary jr8 diagnosis is Cerebral Contusion . Bed requested for Telemetry/MedSurg (observation). Status is Observation. Condition is Stable. Problem is new. Symptoms have improved. jr8 20:53 18:11 11/18/2019 18:07 Hospitalization Ordered by A Harman CARRASCO for Observation. cg Preliminary diagnosis is Cerebral Contusion . Bed requested for Telemetry/MedSurg (observation). Status is Observation. Condition is Stable. Problem is new. Symptoms have improved. jr8 21:19 20:53 11/18/2019 18:07 Hospitalization Ordered by A Harman CARRASCO for Observation. ao Preliminary diagnosis is Cerebral Contusion . Bed requested for Telemetry/MedSurg (observation). Status is Observation. Condition is Stable. Problem is new. Symptoms have improved. cg
[2019-11-18] MEDS ORDERED: DIPHENHYDRAMINE 50 MG/ML VIAL ONE (18:52)
[2019-11-18 19:03] LABS: Absolute Lymphocytes (CBC) 0.7 K/uL (0.7-4.9); Basophils % 0.7 % (0-1.3); Hematocrit 37.9 % (36.0-45.0); Lymphocytes % 7.9 % (15.3-44.8); MPV 9.7 fL (7.6-11.3); RBC Red Blood Cell Count 3.93 M/uL (3.86-4.86)
[2019-11-18 19:07] LABS: Protime INR 1.23
[2019-11-18 19:17] LABS: Potassium 4.1 mmol/L (3.5-5.1)
[2019-11-18] MEDS ORDERED: D50W 25 GM/50 ML SYRINGE/VIAL IV PRN (21:18)
[2019-11-18] MEDS ORDERED: ACETAMINOPHEN 500 MG TAB PO PRN (21:18)
[2019-11-18] MEDS ORDERED: ONDANSETRON 4 MG/2 ML VIAL IV PRN (21:18)
[2019-11-18] MEDS ORDERED: MORPHINE 2 MG/ML SYR IV PRN (21:18)
[2019-11-18] MEDS ORDERED: GLUCAGON 1 MG/VIAL IM PRN (21:18)
[2019-11-18] MEDS: INSULIN -REGULAR HUMAN 50 UNIT/0.5 ML ML SQ SCH (21:18)
[2019-11-18 21:40] VITALS: BMI 5736.5
[2019-11-18] MEDS: NA CHLORIDE 0.9% 1,000 ML IV SCH (21:50)
[2019-11-19 04:22] LABS: Absolute Lymphocytes (CBC) 0.7 K/uL (0.7-4.9); Basophils % 0.6 % (0-1.3); Hematocrit 36.2 % (36.0-45.0); Lymphocytes % 10.7 % (15.3-44.8); MPV 9.9 fL (7.6-11.3); RBC Red Blood Cell Count 3.75 M/uL (3.86-4.86)
[2019-11-19] MEDS: INSULIN -REGULAR HUMAN 50 UNIT/0.5 ML ML SQ SCH ×4 (07:30→21:05)
--- NOTE | 2019-11-19 07:45 | HP ---
Date of Admission: 11/18/2019 Chief Complaint: Fall and head injury. History Of Present Illness: Ms. Flynn is a pleasant 79-year-old female patient who lives in an [facility], [facility]. As she was just outside her apartment, she was trying to turn an d she was trying to turn, she lost balance and fell down and hit her head on a concrete surface. She was not able to get up and EMS was called and she was brought into the emergency room. After she wa s evaluated in the ER, she was admitted to the hospital. When I saw her, she was in emergency room. She has multiple superficial abrasions on her extremity and face and forehead area. No active bleed ing. Allergies: TO PLAQUENIL CAUSING RASH. Medications: List reviewed includes Eliquis 5 mg twice a day, famotidine 40 mg at bedtime, Breo inha ler 1 puff daily, folic acid 0.4 mg daily, gabapentin 300 mg 2 times a day, glimepiride 2 mg 2 times a day, vitamin B12 1 mg p.o. daily, sotalol 80 mg she takes 1-1/2 tablet by mouth 2 times a day, rosu vastatin 5 mg p.o. daily in the evening time, prednisone 5 mg she takes 2 tablets by mouth daily in m orning and 1 tablet by mouth daily in the evening, pantoprazole 40 mg p.o. daily in morning, Myrbetri q 25 mg p.o. daily, levothyroxine 125 mcg p.o. daily. Review of Systems: TICKETING AGENT: As mentioned above. Dermatology: As mentioned above. All other systems reviewed and negative. Past Medical History: History of stroke in 2011, hypothyroidism, type 2 diabetes mellitus, hypertens ion, lung cancer, hyperlipidemia, chronic diastolic congestive heart failure, paroxysmal atrial fibri llation, gastroesophageal reflux disease, overactive bladder, osteoarthritis, systemic lupus erythema tosus, thrombocytopenia, lung cancer. Past Surgical History: Significant for back surgery, carpal tunnel syndrome surgery. Family History: Father , had cerebral hemorrhage. Mother , had MD and cerebral hemorrhage. Social History: Negative for smoking. Negative for alcohol use. Physical Examination: Vital Signs: When she came into emergency room, blood pressure 133/69, pulse 68, respiratory rate 17 , oxygen saturation 98%. General: Awake, alert, oriented, not in distress. HEENT: Head examination shows multiple abrasion and small area of hematoma on the forehead, but mult iple abrasion involving forehead and the face including nose and cheeks region. Has some bruising ar ound her left eye. Conjunctivae nonerythematous. Sclerae white. Mouth, no thrush or edema noted. Ears/Nose, no mass, lesion, discharge noted. Neck: Supple. No JVD, lymph nodes, bruit, thyromegaly noted. Lungs: Bilateral good equal air entry. Clear to auscultation. No rhonchi. No rales. Heart: Normal heart sounds, no murmur or gallop. Abdomen: Soft, bowel sounds normal. No guarding, rigidity, tenderness, mass, hepatosplenomegaly, dis tention, or bruit noted. Extremities: No leg edema. No calf tenderness. Skin: Has multiple superficial small abrasion and laceration over upper extremity. Lymphatics: No lymph node enlargement in neck, supraclavicular, infraclavicular region. Neuro: No focal neurological deficit. Chest: Unremarkable. External Genitalia: Deferred. Rectal: Deferred. Laboratory Data: White count 8.4, hemoglobin 12.2, platelets 219. INR 1.23. Sodium 142, potassium 4.1, chloride 106, bicarb 30, BUN 36, creatinine 1.06, glucose 238. CAT scan of the head and cervica l spine done in emergency room shows advanced degenerative changes of cervical spine and CAT scan of the head shows contusion of the right frontal lobe region. Impression: 1.Cerebral contusion. 2.Head injury. 3.Paroxysmal atrial fibrillation. 4.Chronic anticoagulation therapy. 5.Chronic steroid therapy. 6.Hypothyroidism. 7.Type 2 diabetes mellitus. 8.Lung cancer. 9.Hypertension. 10.Hyperlipidemia. 11.Chronic diastolic congestive heart failure. 12.Gastroesophageal reflux disease. 13.Osteoarthritis, multiple sites. 14.Systemic lupus erythematosus. Plan: Admit patient to hospital for further evaluation and management of this problem. We will cons ult neurologist, Dr. Garcia. Patient is on chronic anticoagulation for atrial fibrillation and she reports that she has not taken any Eliquis for last 4-5 days as she ran out of it and has not obtain ed refill. At this point, we will not give any anticoagulation therapy. We will have to monitor her closely in the hospital. I will see her tomorrow for followup, but at this time use of anticoagulat ion therapy is contraindicated, so we will not use it and details were discussed with her. Home medi cations will be continued per order. I will see her tomorrow for followup. JANNA/NIYA Voice ID: [id number]
[2019-11-19] MEDS: SOTALOL HCL 80 MG TAB PO SCH ×2 (08:18→20:53)
[2019-11-19] MEDS: GLIMEPIRIDE 2 MG TABLET PO SCH ×2 (08:19→16:57)
[2019-11-19] MEDS: DICYCLOMINE HCL 10 MG CAP PO SCH ×2 (08:19→20:54)
[2019-11-19] MEDS: predniSONE 10 MG TAB PO SCH (08:19)
[2019-11-19] MEDS: FOLIC ACID 1 MG TABLET PO SCH (08:20)
[2019-11-19] MEDS: PANTOPRAZOLE 40MG TABLET PO SCH (08:20)
[2019-11-19] MEDS: CLOTRIMAZ/BETAMETH CREAM 15GM TOP SCH ×2 (08:21→20:54)
[2019-11-19] MEDS: ROSUVASTATIN 10 MG TAB PO SCH (08:28)
[2019-11-19] MEDS: HOME MED 1 EA UNK (Fluticasone/Vilanterol [Breo Ellipta 100-25 Mcg Inh] 1 PUFF) IH SCH (08:28)
[2019-11-19] MEDS: HOME MED 1 EA UNK (Mirabegron [Myrbetriq] 1 TAB) PO SCH (08:28)
[2019-11-19] MEDS: NA CHLORIDE 0.9% 1,000 ML IV SCH (11:10)
--- NOTE | 2019-11-19 17:43 | RAD REPORT ---
EXAM DESCRIPTION: CT - Head Brain Wo Cont - 11/19/2019 5:06 pm CLINICAL HISTORY: cerebral contusion Headache, drowsiness COMPARISON: Head Brain Wo Cont dated 05/20/2019; HEAD BRAIN W O CONTRAST dated 04/04/2011; Head C Sp ine Mpr Wo Con dated 11/18/2019 TECHNIQUE: All CT scans are performed using dose optimization technique as appropriate and may inclu de automated exposure control or mA/KV adjustment according to patient size. FINDINGS: No intracranial hemorrhage, hydrocephalus or extra-axial fluid collection.Previously noted area of right-sided cortical contusion has likely resolved.No areas of brain edema or evidence of mi dline shift. Moderate brain atrophy. The paranasal sinuses and mastoids are clear. The calvarium is intact. Vertebral arteries are atheros clerotic. IMPRESSION: No acute or progressive intracranial abnormality.
[2019-11-19] MEDS ORDERED: predniSONE 5 MG TAB PO SCH (21:00)
[2019-11-19] MEDS ORDERED: GABAPENTIN 300 MG CAP PO SCH (21:00)
--- NOTE | 2019-11-19 22:12 | CON ---
Reason For Consultation: Consultation called by Dr. Hammer because of fall and head injury. History Of Present Illness: Ms. Flynn is a 79-year-old right-handed [facility] when she fell. She said she was turning to her cat and kind o f lost track of where it was, tripped and fell outside of her apartment onto a concrete surface. She impacted the left side of her face and body, developed significant bruising in her supra and infraor bital regions and in the zygomatic region on the left. Emergency Medical Services brought her to the hospital as she is unable to actually get up on her own at that time. Head CT scan identified a 5 m m area of left frontal lobe contusion and the cervical spine showed advanced cervical spine degenerat genesis disease, but there was no fracture in the head orbit or cervical region or rest of the CT trauma series. She was supposed to be on Eliquis 5 mg daily, but said she ran out of the prescription about 5 days ago and actually was not on it when she fell. Past Medical History: Diabetes mellitus 2, hypertension, lung cancer, dyslipidemia, end-diastolic co ngestive heart failure, atrial fibrillation, GE reflux, SLE and thrombocytopenia. Surgical History: Carpal tunnel release and low back surgery. Family History: Father had [employer] MANAGER hemorrhage and mother had myocardial infarction. Social History: She lives independently at [facility]. No alcohol, tobacco, or IV drug use. Review of Systems: No recent fevers, chills, nausea, vomiting, myalgias, arthralgias, headache, weight change, rash, psy chiatric issues. Physical Examination: Vital Signs: Blood pressure 137/82, pulse 82, respiratory rate 18, temperature 97.8, oxygen saturati on 95% on room air. Weight 204 pounds, height 5 feet, BMI of 39.8. General: Ms. Flynn is sitting on side of the bed and she had just come back from the bathroom. She does have significant bruising in the left supraorbital and infraorbital region in the zygomatic anne-marie on. These areas are all hyperemic, sensitive to touch in addition to the left lower jaw and her left arms and legs. Respiratory: Otherwise has good air movement. Abdomen: Soft. Extremities: No significant edema in the extremities. Neurologic: She is alert and oriented to situation, place, and person. She does recall doing physic al therapy when she was in the inpatient rehabilitation unit in May. She has full recall of date , and activities. She has no expressive or receptive aphasias. Her cranial nerve examination 2 thro ugh 12 show no focal deficits. Motor examination show mild diffuse weakness in upper and lower extre mities with no focality. Sensory exam, mild stocking-glove loss to light touch temperature. Her ref lexes are depressed in all extremities. Her gait, she actually will be ambulated with physical thera py using a rolling walker and gait belt. Laboratory Studies: Complete blood count with differential is essentially unremarkable. Coagulation panel shows INR of 1.23. Chemistries show slightly elevated BUN of 30, glucose elevated 260. Hemog lobin A1c elevated at 10.7. Calcium is normal at 8.6. She had a repeat head CT scan is 24 hours aft er the first and that study actually showed resolution of the area contusion, no longer seen on the r epeat CT scan in 24 hours after the first. Assessment: Ms. Flynn is a 79-year-old patient with a fall, left frontal contusion that appears to h ave resolved very quickly, which appears somewhat unusual, although it does suppose happen. She has no evidence of any intracerebral bleeding. She was off high dose anticoagulation and has again had n o evidence of any bleeding. At this point, she does very well and is at her baseline level of functio rachell. She does have multiple comorbid conditions including hypertension, dyslipidemia, chronic conge stive heart failure, gastroesophageal reflux, systemic lupus erythematosus, history of lung cancer. Plan: 1.She may be ambulated with physical therapy and may require some physical therapy at home to improv e her gait, balance coordination. She should use a walker at all times when ambulating and she is ac tually not using a walker when she fell. Her comorbid conditions are addressed of course by primary care physician Dr. Hammer. 2.Once she is away from this acute phase at least around a week or up to 2 weeks, she may restart fu anticoagulation with Eliquis 5 mg twice daily. 3.After discharge, she may follow up in Dr. Garcia's clinic 1 month later. ALISA/NIYA Voice ID: [id number] Report ID: [id number]
--- NOTE | 2019-11-20 00:45 | PN ---
Date of Progress Note: 11/19/2019 Subjective: Patient was seen this morning for followup. She was lying in bed not in distress. No ne w complaints, problems reported by her. Physical Examination: Vital Signs: Reviewed. HEENT: Unremarkable, except evidence of contusion around left eye which is worse today than yesterda y. Cardiac: Heart sounds normal. Lungs: Clear to auscultation. Abdomen: Soft, bowel sounds normal. No guarding, rigidity, tenderness, or distention. Extremities: No leg edema. Laboratory Data: White count 6.8, hemoglobin 12, platelets 175. Sodium 142, potassium 4, chloride 1 06, bicarb 29, BUN 30, creatinine 0.93, glucose 260. Impression: 1.Contusion, right frontal lobe. 2.Head injury. 3.Chronic anticoagulation therapy. 4.Chronic steroid therapy. 5.Hypertension. 6.Type 2 diabetes mellitus. Plan: We will continue current home medications per order. We will not give any anticoagulation the rapy. Patient will have repeat CAT scan done today. We will consult Physical therapy, consult Socia l Service to help make arrangements for home health and home physical therapy. Follow up with neurol ogist, Dr. Garcia. Patient has a walker, but she does not use it all the time and in fact she was not using it when she fell down. I did advise her to use her walker all the time to reduce any chances o f fall. JANNA/MODL Voice ID: [id number] Report ID: [id number]
[2019-11-20] MEDS ORDERED: LEVOTHYROXINE SOD 0.125 MG TAB PO SCH (06:00)
[2019-11-20] MEDS: NA CHLORIDE 0.9% 1,000 ML IV SCH (06:28)
[2019-11-20] MEDS: INSULIN -REGULAR HUMAN 50 UNIT/0.5 ML ML SQ SCH (07:30)
[2019-11-20 07:58] VITALS: BP 146/77; TEMP 97.2
[2019-11-20] MEDS: predniSONE 10 MG TAB PO SCH (08:07)
[2019-11-20] MEDS: DICYCLOMINE HCL 10 MG CAP PO SCH (08:07)
[2019-11-20] MEDS: ROSUVASTATIN 10 MG TAB PO SCH (08:08)
[2019-11-20] MEDS: SOTALOL HCL 80 MG TAB PO SCH (08:09)
[2019-11-20] MEDS: PANTOPRAZOLE 40MG TABLET PO SCH (08:10)
[2019-11-20] MEDS: GLIMEPIRIDE 2 MG TABLET PO SCH (08:10)
[2019-11-20] MEDS: CLOTRIMAZ/BETAMETH CREAM 15GM TOP SCH (08:10)
[2019-11-20] MEDS: HOME MED 1 EA UNK (Fluticasone/Vilanterol [Breo Ellipta 100-25 Mcg Inh] 1 PUFF) IH SCH (08:11)
[2019-11-20] MEDS: FOLIC ACID 1 MG TABLET PO SCH (08:11)
[2019-11-20] MEDS: HOME MED 1 EA UNK (Mirabegron [Myrbetriq] 1 TAB) PO SCH (08:12)
[2019-11-20 08:17] VITALS: O2SAT 92
--- NOTE | 2019-11-20 23:34 | DS ---
Date of Discharge: 11/20/2019 Disposition: Discharged to go home. Physical Examination: HEENT: Unremarkable, except bruising around the left eye and some superficial abrasions in the face. Lungs: Clear to auscultation. Heart: Heart sounds normal. Abdomen: Soft, bowel sounds normal. No guarding, rigidity, tenderness, or distention. EXTREMITIES: No leg edema. Laboratory Data: Upon admission, white count 8.4, hemoglobin 12.2, platelets 201. Chemistry upon ad mission, sodium 142, potassium 4.1, chloride 106, bicarb 30, BUN 36, creatinine 1.06, glucose 238. H er hemoglobin A1c is 10.7 and during this hospitalization 8. Discharge Medications And Instructions: 1.Continue all prior home medications except stop Eliquis. 2.Follow up at my office next week on Monday and patient to call office for appointment. 3.Patient was advised to use walker all the time. 4.Do not take any medications like aspirin, Aleve or Motrin type of medications. Hospital Course: This is a 79-year-old pleasant female patient living at [facility] fell down outside her apartment on the hard surface. She was getting in her car to go to the post office and as she was turning, she lost her balance and fell on the concrete surface. She has a walker, but she was not using her walker at that time. She was brought into emergency room. A fter she was evaluated in the ER, she was admitted to the hospital with contusion of the left frontal lobe. There was no midline shift. No cervical hemorrhage. She was kept in the hospital for observ ation. Repeat CAT scan of the head about 24 hours later came back unremarkable and the abnormality n oted on the initial CAT scan had resolved. Neurology consultation was obtained from Dr. Garcia. H er home medications were continued. She was also requested to be seen by Physical Therapy and she st arted as well. Social Service was consulted to assist her with home health care services and home ph ysical therapy and the patient refused to get any help with home health care services. This morning when I saw her, she denied any complaints. Her contusion and swelling from the left zygomatic region were better today compared to yesterday. I did advise her to use her walker all the time to reduce chances of fall and injury. Dr. Garcia has suggested for patient to resume her Eliquis after 2 wee ks and I have instructed her about that as well. Fortunately, she had run out of her Eliquis about 4 -5 days ago so she was not taking it prior to this hospital admission. We did talk about risk of fal l and injury and instructed her to use walker all the time. I will see her at office next week for nona fink. Final Diagnoses: 1.Cerebral contusion. 2.Head injury. 3.Paroxysmal atrial fibrillation. 4.Chronic anticoagulation therapy. 5.Chronic steroid therapy. 6.Hypothyroidism. 7.Type 2 diabetes mellitus, uncontrolled. 8.Lung cancer. 9.Hypertension. 10.Hyperlipidemia. 11.Chronic diastolic congestive heart failure. 12.Gastroesophageal reflux disease. 13.Osteoarthritis, multiple sites. 14.Systemic lupus erythematosus. JANNA/MODL Voice ID: [id number] Report ID: [id number]
== END 2019-11-20 09:57 | disposition home or self-care (01) ==
LOC: ER 16:03 → ERHOLD 20:06 → 2ND 21:14
PROVIDERS: ADMIT Internal Medicine; ATTEND Internal Medicine
DX: S06.329A Contusion and laceration of left cerebrum with loss of consciousness of unspecified duration, initial encounter (principal); W19.XXXA Unspecified fall, initial encounter; Y92.039 Unspecified place in apartment as the place of occurrence of the external cause; I11.0 Hypertensive heart disease with heart failure; I50.32 Chronic diastolic (congestive) heart failure; E11.65 Type 2 diabetes mellitus with hyperglycemia; I48.0 Paroxysmal atrial fibrillation; E03.9 Hypothyroidism, unspecified; M32.9 Systemic lupus erythematosus, unspecified; E78.5 Hyperlipidemia, unspecified; K21.9 Gastro-esophageal reflux disease without esophagitis; D69.6 Thrombocytopenia, unspecified; M15.9 Polyosteoarthritis, unspecified; N32.81 Overactive bladder; Z11.59 Encounter for screening for other viral diseases; Z79.01 Long term (current) use of anticoagulants; Z79.52 Long term (current) use of systemic steroids; Z85.118 Personal history of other malignant neoplasm of bronchus and lung; Z86.73 Personal history of transient ischemic attack (TIA), and cerebral infarction without residual deficits; Z82.49 Family history of ischemic heart disease and other diseases of the circulatory system
CPT/HCPCS: 85025 ×2; 80048 ×2; 36415; 85610; 82947 ×6; 85730; 83036; 70450 ×2; 72125; 97112; 97116 ×3; 97161; 97530; 96374; 99285; U0002; J1200; J7030 ×3; G0378 ×4; A9577; J7512

== ENCOUNTER 2020-02-25 14:06 | Inpatient (IN) | payer OTHER ==
[2020-02-25] MEDS ORDERED: NA CHLORIDE 0.9% 500 ML ONE ×2 (14:44→15:41)
[2020-02-25] MEDS ORDERED: ONDANSETRON 4 MG/2 ML VIAL ONE (14:44)
[2020-02-25 15:20] LABS: Protime INR 1.35
--- NOTE | 2020-02-25 15:23 | RAD REPORT ---
EXAM DESCRIPTION: RAD - Chest Single View - 02/25/2020 2:43 pm CLINICAL HISTORY: DYSPNEA, history of lung cancer COMPARISON: CT chest February 23, two view chest February 04 TECHNIQUE: AP portable chest image was obtained 02/25/2020 2:43 pm . FINDINGS: Lung volumes are low. Patient has a known perihilar and suprahilar area of mass density an d parenchymal change from known cancer and therapy. This has not changed in the short interval from p rior imaging. No acute infiltrate or mass elsewhere in the lung hurtado. Heart and vasculature are nor mal. No measurable pleural effusion and no pneumothorax. No acute bony abnormality seen. No acute aor tic findings suspected. IMPRESSION: No acute cardiopulmonary process. Patient has a known of mass density at the right perihilar and suprahilar region not clearly differen t from recent imaging.
[2020-02-25 15:25] LABS: Absolute Lymphocytes (CBC) 0.4 K/uL (0.7-4.9); Basophils % 0.6 % (0-1.3); Hematocrit 42.7 % (36.0-45.0); Lymphocytes % 4.8 % (15.3-44.8); MPV 10.4 fL (7.6-11.3); RBC Red Blood Cell Count 4.44 M/uL (3.86-4.86)
[2020-02-25] MEDS ORDERED: SOTALOL HCL 80 MG TAB ONE (15:39)
[2020-02-25 15:54] LABS: Albumin 2.9 g/dL (3.4-5.0); Bilirubin Direct 0.4 mg/dL (0-0.2); Bilirubin Total 1.2 mg/dL (0.2-1.0); Magnesium 1.5 mg/dL (1.8-2.4); Potassium 4.2 mmol/L (3.5-5.1); Protein, Total 7.4 g/dL (6.4-8.2); Troponin (Emerg Dept Use Only) 0.14 ng/mL (0.0-0.045)
--- NOTE | 2020-02-25 16:45 | RAD REPORT ---
EXAM DESCRIPTION: CT - Head Brain Wo Cont - 02/25/2020 4:17 pm CLINICAL HISTORY: vomiting, headache COMPARISON: Head Brain Wo Cont dated 11/19/2019 TECHNIQUE: Axial 5 mm thick images of the head were obtained without IV contrast. All CT scans are performed using dose optimization technique as appropriate and may include automated exposure control or mA/KV adjustment according to patient size. FINDINGS: No intracranial hemorrhage, mass, edema or shift of mid-line structures. No acute infarcti on changes seen. No cortical edema or sulcal effacement. Mild to moderate for age atrophy changes are present. Ventricles are in proportion to volume loss. Chronic ischemic change in the cerebral white matter matches the comparison. Arterial tree calcifications are present. Mastoid air cells and visualized portions of the paranasal sinuses are clear. No acute bony findings. IMPRESSION: Atrophy and chronic ischemic changes are present matching comparison. No acute intracranial finding.
--- NOTE | 2020-02-25 16:50 | RAD REPORT ---
EXAM DESCRIPTION: CT - Abdomen Pelvis Wo Contrast - 02/25/2020 4:17 pm CLINICAL HISTORY: vomiting COMPARISON: Abdomen Pelvis W Contrast dated 05/08/2019; Stone Protocol dated 09/24/2016; Thorax W/ C on dated 02/24/2020 TECHNIQUE: Axial [address] imaging of the abdomen and pelvis was performed without IV contrast. No IV contrast was given because of allergy, abnormal renal function, patient refusal or physician re quest. No oral contrast given. All CT scans are performed using dose optimization technique as appropriate and may include automated exposure control or mA/KV adjustment according to patient size. FINDINGS: No suspicious findings in the lung bases. The liver, spleen and pancreas show no suspicious findings on non-contrast imaging. Hyperdense materi al in the gallbladder may be vicarious excretion of contrast from prior diagnostic imaging. Patient h ad a contrast CT study February 23. No biliary tree dilatation. Active gallbladder process not suspecte d. No hydronephrosis or suspicious renal mass. Nonobstructing calculi in renal cysts match prior CT imag ing. No significant adrenal finding. Isodense renal masses and pyelonephritis cannot be excluded in t he absence of IV contrast. Urinary bladder is fully contracted around a Pierce catheter. Atrophic uter us shows no acute finding. Ovaries are atrophic. No adnexal mass. No dilated bowel loops or bowel wall thickening. Diverticulosis is present without diverticulitis. No free air, free fluid or inflammatory stranding. No mass or bulky lymphadenopathy. A 4 centimeter per iumbilical fat only hernia has not changed. No active component. Prominent disc and bony degenerative changes are present. IMPRESSION: Non-contrast enhanced CT abdomen and pelvis imaging shows no acute or emergent finding. Nonacute findings are detailed in the body of the report. Full assessment is limited is the absence of IV contrast.
[2020-02-25] MEDS ORDERED: MAGNESIUM SULFATE 1 gm IVPB 1 GM/100 ML BAG IV ONE (17:16)
--- NOTE | 2020-02-25 18:07 | ER ---
Nurse's Notes [facility] Name: Simon Flynn Age: 79 yrs Sex: Female : 1940 Arrival Date: 02/25/2020 Time: 14:09 Bed 16 Private MD: Diagnosis: Unspecified combined systolic (congestive) and diastolic (congestive) heart failure;Dehydration;Persistent atrial fibrillation-with rapid ventricular rate Presentation: 02/24 14:10 Chief complaint: EMS states: called out to Dr. Swanson's office for lethargic pt who iw was tachycardic, pt state sshe has been feeling bad for 3 days, c/o nausea, not able to tolerate fluids states she gags when she tries to drink water, denies cough fever chills, no vomiting or diarrhea , hx of diabetes, afib, HR=411 has not eaten today, pt tachycardic and hypotensive, EMs unable to start IV. Coronavirus screen: fatigue, nausea, Client presents with at least one sign or symptom that may indicate coronavirus-19. Standard/surgical mask placed on the client. Provider contacted for isolation considerations. Ebola Screen: Patient negative for fever greater than or equal to 101.5 degrees Fahrenheit, and additional compatible Ebola Virus Disease symptoms Patient denies exposure to infectious person. Patient denies travel to an Ebola-affected area in the 21 days before illness onset. No symptoms or risks identified at this time. Initial Sepsis Screen:. Risk Assessment: Do you want to hurt yourself or someone else? Patient reports no desire to harm self or others. Onset of symptoms was February 22, 2020. 14:10 Method Of Arrival: EMS: [facility] iw 14:10 Acuity: VELASQUEZ 2 iw 14:10 Initial Sepsis Screen: Does the patient meet any 2 criteria? HR > 90 bpm. No. Patient's sv initial sepsis screen is negative. Does the patient have a suspected source of infection? No. Patient's initial sepsis screen is negative. Triage Assessment: 14:10 General: Appears in no apparent distress. uncomfortable, obese, well developed, sv Behavior is calm, cooperative, appropriate for age. Pain: Denies pain. Neuro: Level of Consciousness is awake, alert, obeys commands, Oriented to person, place, time, situation, Moves all extremities. Full function Speech is normal, Reports weakness. Cardiovascular: Patient's skin is warm and dry. Rhythm is atrial fibrillation with rapid ventricular response. Respiratory: Reports cough that is non-productive, Airway is patent Respiratory effort is even, unlabored, Respiratory pattern is regular, tachypnea. GI: Abdomen is obese, Reports nausea. Derm: Skin is normal, Pt has multiple scratch horne noted to the abdomen area. Pt states that she is always itchy. Derm: Pt also has open area noted under the breasts and in the folds of her groin area. Musculoskeletal: Range of motion: intact in all extremities. Historical: - Allergies: 14:15 Hydroxychloroquine; iw 14:12 Hydroxychloroquine; sv - Home Meds: 14:21 furosemide 20 mg Oral tab 1 tab 2 times per day [Active]; folic acid 400 mcg Oral tab 1 iw tab once daily [Active]; Vitamin D Oral 1,000 unit daily [Active]; Vitamin B-12 1,000 mcg Oral tab daily [Active]; melatonin 5 mg Oral cap daily [Active]; Stool Softener 100 mg oral tab 1 tab once daily [Active]; turmeric root extract 500 mg oral cap daily [Active]; Eliquis 5 mg oral tab 1 tab 2 times per day [Active]; sotalol 120 mg Oral tab 1 tab 2 times per day [Active]; 14:25 levothyroxine 150 mcg oral tab once daily [Active]; Myrbetriq 25 mg Oral Tb24 1 tab iw once daily [Active]; Protonix 40 mg Oral TbEC 1 tab once daily [Active]; glimepiride 2 mg Oral tab twice a day [Active]; rosuvastatin 5 mg oral tab 1 tab once daily [Active]; gabapentin 300 mg oral cap twice a day [Active]; prednisone 10 mg Oral tab once daily [Active]; Trelegy Ellipta inhaler [Active]; - PMHx: 14:15 Atrial Fib; Back pain; Diabetes - NIDDM; High Cholesterol; Hypertension; iw Hypothyroidism; Lung CA; Lupus; 14:12 Atrial Fib; Hypothyroidism; Back pain; Diabetes - NIDDM; High Cholesterol; sv Hypertension; Lung CA; Lupus; - Immunization history:: Adult Immunizations up to date. - Family history:: not pertinent. - Social history:: Smoking status: . - Hospitalizations: : No recent hospitalization is reported. Screenin:35 Abuse screen: Denies threats or abuse. Denies injuries from another. Nutritional sv screening: No deficits noted. Tuberculosis screening: No symptoms or risk factors identified. Fall Risk None identified. Assessment: 14:35 Reassessment: Patient appears in no apparent distress at this time. No changes from sv previously documented assessment. Patient and/or family updated on plan of care and expected duration. Pain level reassessed. Patient is alert, oriented x 3, equal unlabored respirations, skin warm/dry/pink. 15:55 Reassessment: Patient appears in no apparent distress at this time. No changes from sv previously documented assessment. Patient and/or family updated on plan of care and expected duration. Pain level reassessed. Patient is alert, oriented x 3, equal unlabored respirations, skin warm/dry/pink. 17:40 Reassessment: Patient appears in no apparent distress at this time. No changes from sv previously documented assessment. Patient and/or family updated on plan of care and expected duration. Pain level reassessed. Patient is alert, oriented x 3, equal unlabored respirations, skin warm/dry/pink. 18:25 Reassessment: Patient appears in no apparent distress at this time. No changes from sv previously documented assessment. Patient and/or family updated on plan of care and expected duration. Pain level reassessed. Patient is alert, oriented x 3, equal unlabored respirations, skin warm/dry/pink. 19:38 General: Appears in no apparent distress. comfortable, Behavior is calm, cooperative. bb Pain: Denies pain. Neuro: Level of Consciousness is awake, alert, obeys commands, Oriented to person, place, situation. Cardiovascular: Rhythm is atrial fibrillation. Respiratory: Respiratory effort is even, unlabored, Respiratory pattern is regular. GI: No signs and/or symptoms were reported involving the gastrointestinal system. Derm: Skin is pale. Musculoskeletal: Circulation, motion, and sensation intact. 19:38 Reassessment: pt awaiting room assignment. bb 21:02 Reassessment: Patient is alert, oriented x 3, equal unlabored respirations, skin bb warm/dry/pink. pt is awaiting room assignment, resting quietly, resp unlabored. 21:38 Reassessment: report called to Alyssa ANTOINE for room 218. bb Vital Signs: 14:26 BP 103 / 82; Pulse 141; Resp 16; Temp 98.8; Pulse Ox 97% ; sv 14:30 BP 113 / 68; Pulse 142 MON; Resp 19; Pulse Ox 98% ; sv 15:00 BP 95 / 50; Pulse 128; Resp 24; Pulse Ox 88% on R/A; sv 16:00 BP 139 / 88; Pulse 128 MON; Resp 25; Pulse Ox 100% on 3 lpm NC; sv 17:00 BP 118 / 90; Pulse 129; Resp 19; Pulse Ox 96% on 3 lpm NC; sv 18:11 BP 94 / 58; Pulse 124; Resp 22; Pulse Ox 100% on 3 lpm NC; sv 18:45 BP 110 / 70; Pulse 93 MON; Resp 18; Pulse Ox 97% on 3 lpm NC; sv 19:37 BP 114 / 72; Pulse 94; Resp 16 S; Temp 97.7(O); Pulse Ox 97% on 2 lpm NC; Pain 0/10; bb 21:02 BP 102 / 82; Pulse 115; Resp 22 S; Pulse Ox 100% on 2 lpm NC; bb 14:30 A fib with Rapid ventricular response sv 16:00 Sinus tachycardia sv 18:45 A fib sv 14:26 Dr Olvera aware of vitals, no further orders at this time. sv 15:00 Pt placed on O2 \T\ 2L per NC. O2 sat up to 98%. sv ED Course: 14:09 Patient arrived in ED. iw 14:10 Salma Bazan, ARASH is Primary Nurse. sv 14:13 Florentino Moon MATH AND PHYSICS INSTRUCTOR is PHCP. pm1 14:13 Oscar Olvera MD is Attending Physician. pm1 14:14 Triage completed. iw 14:15 Arm band placed on. iw 14:27 Inserted saline lock: 20 gauge in left forearm, using aseptic technique. Flushed left sv forearm with 2 ml normal saline. 14:35 Patient has correct armband on for positive identification. Placed in gown. Bed in low sv position. Call light in reach. Side rails up X2. drug safety physician on. Pulse ox on. NIBP on. Door closed. Warm blanket given. Head of bed elevated. 14:43 XRAY Chest (1 view) In Process Unspecified. EDMS 15:50 EKG done, by ED staff, reviewed by Oscar Olvera MD. sv 15:59 Pierce cath inserted, using sterile technique, 16 Fr., by me, balloon inflated, to sv gravity drainage, returned wilder urine. 16:16 CT Head Brain wo Cont In Process Unspecified. EDMS 16:16 Abdomen In Process Unspecified. EDMS 16:53 EKG done, by ED staff, reviewed by Oscar Olvera MD. sv 18:05 Key Hmamer MD is Hospitalizing Provider. rn 18:08 Repeat lab(s) drawn. by mt, sent to lab. jp3 18:26 Awaiting bed assignment. sv 19:06 Primary Nurse role handed off by Salma Bazan RN sv 19:06 Report given to Kaelyn ANTOINE. sv 19:39 No provider procedures requiring assistance completed. Patient admitted, IV remains in bb place. 19:39 COVID-19 Sent. bb 21:02 Kaelyn Curran RN is Primary Nurse. bb Administered Medications: 14:35 Drug: NS 0.9% 500 ml Route: IV; Rate: bolus; Site: left forearm; sv 15:00 Follow up: Response: No adverse reaction; IV Status: Completed infusion; IV Intake: sv 500ml 14:35 Drug: Zofran (Ondansetron) 4 mg Route: IVP; Site: left forearm; sv 15:56 Follow up: Response: No adverse reaction sv 15:55 Drug: NS 0.9% 500 ml Route: IV; Rate: bolus; Site: left forearm; sv 16:30 Follow up: Response: No adverse reaction; IV Status: Completed infusion; IV Intake: sv 500ml 17:20 Drug: Sotalol 40 mg Route: PO; sv 18:18 Follow up: Response: No adverse reaction sv 17:21 Drug: Magnesium Sulfate 1 grams Route: IVPB; Infused Over: 1 hrs; Site: left forearm; sv 18:20 Follow up: IV Status: Completed infusion; IV Intake: 100ml bb Intake: 15:00 IV: 500ml; Total: 500ml. sv 16:30 IV: 500ml; Total: 1000ml. sv 18:20 IV: 100ml; Total: 1100ml. bb Outcome: 18:06 Decision to Hospitalize by Provider. rn 19:39 Instructed on the need for admit. bb 21:39 Admitted to Tele accompanied by tech, via stretcher, room 218, with chart, Report bb called to Alyssa ANTOINE 21:39 Condition: stable 21:51 Patient left the ED. bb Signatures: Dispatcher [employer] EDSalma Mirza RN RN sv Ballard, Brenda, RN RN bb Williams, Irene, RN RN iw Nieto, Roman, MD MD rn Marinas, Patrick, PANDA MATH AND PHYSICS INSTRUCTOR pm1 Ron Wilkerson jp3 Corrections: (The following items were deleted from the chart) 14:36 14:26 BP 103 / 82; Pulse 141bpm; Pulse Ox 97%; sv sv 17:00 14:26 BP 103 / 82; Pulse 141bpm; Resp 16bpm; Pulse Ox 97%; Dr Olvera aware of vitals, no sv further orders at this time.; sv 18:11 17:00 BP 118 / 90; Pulse 129bpm; Resp 19bpm; Pulse Ox 100% 2 lpm Nasal Cannula; sv sv 19:01 14:30 BP 113 / 68; Pulse 142bpm; Resp 19bpm; Pulse Ox 98%; sv sv 19:01 16:00 BP 139 / 88; Pulse 128bpm; Resp 25bpm; Pulse Ox 100% 3 lpm Nasal Cannula; sv sv
--- NOTE | 2020-02-25 18:07 | EDPHYS ---
Physician Documentation [facility] Name: Simon Flynn Age: 79 yrs Sex: Female : 1940 Arrival Date: 02/25/2020 Time: 14:09 Bed 16 Private MD: ED Physician Oscar Olvera HPI: 02/24 15:21 This 79 yrs old Female presents to ER via EMS with complaints of General rn Weakness, Nausea. 15:21 The patient presents to the emergency department with nausea, vomiting. Onset: The rn symptoms/episode began/occurred 3 day(s) ago. Possible causes: unknown. The symptoms are aggravated by nothing. The symptoms are alleviated by nothing. Severity of symptoms: At their worst the symptoms were moderate in the emergency department the symptoms are unchanged. It is unknown whether or not the patient has had similar symptoms in the past. Reports at [facility], sent here for tachycardia, hypotension, generalized weakness, reports began 3 days ago, not eating/drinking for 3 days. No fever. No abd pain. . Historical: - Allergies: 14:15 Hydroxychloroquine; iw 14:12 Hydroxychloroquine; sv - Home Meds: 14:21 furosemide 20 mg Oral tab 1 tab 2 times per day [Active]; folic acid 400 mcg Oral tab 1 iw tab once daily [Active]; Vitamin D Oral 1,000 unit daily [Active]; Vitamin B-12 1,000 mcg Oral tab daily [Active]; melatonin 5 mg Oral cap daily [Active]; Stool Softener 100 mg oral tab 1 tab once daily [Active]; turmeric root extract 500 mg oral cap daily [Active]; Eliquis 5 mg oral tab 1 tab 2 times per day [Active]; sotalol 120 mg Oral tab 1 tab 2 times per day [Active]; 14:25 levothyroxine 150 mcg oral tab once daily [Active]; Myrbetriq 25 mg Oral Tb24 1 tab iw once daily [Active]; Protonix 40 mg Oral TbEC 1 tab once daily [Active]; glimepiride 2 mg Oral tab twice a day [Active]; rosuvastatin 5 mg oral tab 1 tab once daily [Active]; gabapentin 300 mg oral cap twice a day [Active]; prednisone 10 mg Oral tab once daily [Active]; Trelegy Ellipta inhaler [Active]; - PMHx: 14:15 Atrial Fib; Back pain; Diabetes - NIDDM; High Cholesterol; Hypertension; iw Hypothyroidism; Lung CA; Lupus; 14:12 Atrial Fib; Hypothyroidism; Back pain; Diabetes - NIDDM; High Cholesterol; sv Hypertension; Lung CA; Lupus; - Immunization history:: Adult Immunizations up to date. - Family history:: not pertinent. - Social history:: Smoking status: . - Hospitalizations: : No recent hospitalization is reported. ROS: 15:21 Constitutional: Negative for fever, chills, and weight loss, Eyes: Negative for injury, rn pain, redness, and discharge, Neck: Negative for injury, pain, and swelling, Cardiovascular: + palpitations, negative for chest pain Respiratory: + mild sob Abdomen/GI: + nausea and vomiting, negative for abd pain MS/Extremity: Negative for injury and deformity, Skin: Negative for injury, rash, and discoloration, Neuro: Negative for headache, numbness, tingling, and seizure. Exam: 15:21 Constitutional: This is a well developed, well nourished patient who is awake, alert, rn appears weak all over Head/Face: Normocephalic, atraumatic. Cardiovascular: Tachycardic, irregular Respiratory: No increased work of breathing, no retractions or nasal flaring. Abdomen/GI: sof,t non-tender Skin: Warm, dry MS/ Extremity: Pulses equal, no cyanosis Neuro: Awake and alert, GCS 15, 4/5 strength throughout Vital Signs: 14:26 BP 103 / 82; Pulse 141; Resp 16; Temp 98.8; Pulse Ox 97% ; sv 14:30 BP 113 / 68; Pulse 142 MON; Resp 19; Pulse Ox 98% ; sv 15:00 BP 95 / 50; Pulse 128; Resp 24; Pulse Ox 88% on R/A; sv 16:00 BP 139 / 88; Pulse 128 MON; Resp 25; Pulse Ox 100% on 3 lpm NC; sv 17:00 BP 118 / 90; Pulse 129; Resp 19; Pulse Ox 96% on 3 lpm NC; sv 18:11 BP 94 / 58; Pulse 124; Resp 22; Pulse Ox 100% on 3 lpm NC; sv 18:45 BP 110 / 70; Pulse 93 MON; Resp 18; Pulse Ox 97% on 3 lpm NC; sv 19:37 BP 114 / 72; Pulse 94; Resp 16 S; Temp 97.7(O); Pulse Ox 97% on 2 lpm NC; Pain 0/10; bb 21:02 BP 102 / 82; Pulse 115; Resp 22 S; Pulse Ox 100% on 2 lpm NC; bb 14:30 A fib with Rapid ventricular response sv 16:00 Sinus tachycardia sv 18:45 A fib sv 14:26 Dr Olvera aware of vitals, no further orders at this time. sv 15:00 Pt placed on O2 \T\ 2L per NC. O2 sat up to 98%. sv MDM: 14:20 Patient medically screened. rn 17:55 Differential diagnosis: enteritis, gastritis, afib with RVR, dehydration, CHF rn exacerbation. Data reviewed: vital signs, nurses notes, lab test result(s), EKG, radiologic studies, plain films, and as a result, I will admit patient. Counseling: I had a detailed discussion with the patient and/or guardian regarding: the historical points, exam findings, and any diagnostic results supporting the discharge/admit diagnosis, lab results, radiology results, the need for further work-up and treatment in the hospital. Response to treatment: the patient's symptoms have mildly improved after treatment, and as a result, I will admit patient. Admission orders: after a detailed discussion of the patient's condition and case, the admit orders are written by me. ED course: Pt improved, HR improving with variable sinus beats, BP improving and can slowly tolerate more sotalol, admitted to Dr. Hammer for CHF, afib with RVR, and dehydration, he requests Dr. Barriga consult placed. . 02/24 14:21 Order name: Basic Metabolic Panel; Complete Time: 16:30 rn 02/24 14:21 Order name: CBC with Diff; Complete Time: 15:45 rn 02/24 14:21 Order name: LFT's; Complete Time: 16:30 rn 02/24 14:21 Order name: Magnesium; Complete Time: 16:30 rn 02/24 14:21 Order name: NT PRO-BNP; Complete Time: 16:30 rn 02/24 14:21 Order name: PT-INR; Complete Time: 15:45 rn 02/24 14:21 Order name: Troponin (emerg Dept Use Only); Complete Time: 16:30 rn 02/24 14:21 Order name: XRAY Chest (1 view); Complete Time: 15:45 rn 02/24 14:21 Order name: Lipase; Complete Time: 16:30 rn 02/24 14:22 Order name: Lactate; Complete Time: 15:45 rn 02/24 14:22 Order name: Procalcitonin; Complete Time: 16:37 rn 02/24 18:36 Order name: Lactate Sepsis 2 HR Follow-up EDMS 02/24 18:59 Order name: COVID-19 iw 02/24 21:18 Order name: CORONAVIRUS EDMS 02/24 14:21 Order name: EKG; Complete Time: 14:23 rn 02/24 14:21 Order name: Cardiac monitoring; Complete Time: 14:25 rn 02/24 14:21 Order name: EKG - Nurse/Tech; Complete Time: 14:25 rn 02/24 14:21 Order name: IV Saline Lock; Complete Time: 14:25 rn 02/24 14:21 Order name: Labs collected and sent; Complete Time: 18:19 rn 02/24 14:21 Order name: O2 Per Protocol; Complete Time: 14:25 rn 02/24 14:23 Order name: CT Head Brain wo Cont; Complete Time: 16:52 rn 02/24 15:58 Order name: Abdomen ; Complete Time: 16:52 EDMS 02/24 16:35 Order name: EKG; Complete Time: 16:36 sv 02/24 16:59 Order name: EKG; Complete Time: 16:59 sv 02/24 14:21 Order name: O2 Sat Monitoring; Complete Time: 14:25 rn 02/24 16:35 Order name: EKG - Nurse/Tech; Complete Time: 16:58 sv 02/24 16:59 Order name: EKG - Nurse/Tech; Complete Time: 16:59 sv 02/24 17:51 Order name: Labs - recollect needed: lactate sepsis due; Complete Time: 18:09 iw Administered Medications: 14:35 Drug: NS 0.9% 500 ml Route: IV; Rate: bolus; Site: left forearm; sv 15:00 Follow up: Response: No adverse reaction; IV Status: Completed infusion; IV Intake: sv 500ml 14:35 Drug: Zofran (Ondansetron) 4 mg Route: IVP; Site: left forearm; sv 15:56 Follow up: Response: No adverse reaction sv 15:55 Drug: NS 0.9% 500 ml Route: IV; Rate: bolus; Site: left forearm; sv 16:30 Follow up: Response: No adverse reaction; IV Status: Completed infusion; IV Intake: sv 500ml 17:20 Drug: Sotalol 40 mg Route: PO; sv 18:18 Follow up: Response: No adverse reaction sv 17:21 Drug: Magnesium Sulfate 1 grams Route: IVPB; Infused Over: 1 hrs; Site: left forearm; sv 18:20 Follow up: IV Status: Completed infusion; IV Intake: 100ml bb Disposition: 02/25/20 18:06 Hospitalization ordered by Key Hammer for Inpatient Admission. Preliminary diagnosis are Unspecified combined systolic (congestive) and diastolic (congestive) heart failure, Dehydration, Persistent atrial fibrillation - with rapid ventricular rate. - Bed requested for Telemetry/MedSurg (Inpatient). - Status is Inpatient Admission. bb - Condition is Stable. - Problem is new. - Symptoms have improved. Signatures: Dispatcher [employer] [facility] Salma Bazan RN RN sv Ballard, Brenda, RN RN bb Williams, Irene, RN RN iw Nieto, Roman, MD MD rn Robles, Autumn ar5 Corrections: (The following items were deleted from the chart) 15:58 14:24 Abdomen Pelvis W Con+CT.RAD.BRZ ordered. [facility] 21:16 18:06 Hospitalization Ordered by A Harman CARRASCO for Inpatient Admission. Preliminary bb diagnosis is Unspecified combined systolic (congestive) and diastolic (congestive) heart failure; Dehydration; Persistent atrial fibrillation - with rapid ventricular rate. Bed requested for Telemetry/MedSurg (Inpatient). Status is Inpatient Admission. Condition is Stable. Problem is new. Symptoms have improved. rn 21:19 21:16 02/25/2020 18:06 Hospitalization Ordered by A Harman CARRASCO for Inpatient Admission. ar5 Preliminary diagnosis is Unspecified combined systolic (congestive) and diastolic (congestive) heart failure; Dehydration; Persistent atrial fibrillation - with rapid ventricular rate. Bed requested for Telemetry/MedSurg (Inpatient). Status is Inpatient Admission. Condition is Stable. Problem is new. Symptoms have improved. bb 21:51 21:19 02/25/2020 18:06 Hospitalization Ordered by A Harman CARRASCO for Inpatient Admission. bb Preliminary diagnosis is Unspecified combined systolic (congestive) and diastolic (congestive) heart failure; Dehydration; Persistent atrial fibrillation - with rapid ventricular rate. Bed requested for Telemetry/MedSurg (Inpatient). Status is Inpatient Admission. Condition is Stable. Problem is new. Symptoms have improved. ar5
[2020-02-25 22:03] VITALS: BMI 34.4
[2020-02-25] MEDS ORDERED: ONDANSETRON 4 MG/2 ML VIAL IV PRN (22:38)
[2020-02-26 03:53] LABS: Absolute Lymphocytes (CBC) 0.4 K/uL (0.7-4.9); Basophils % 0.3 % (0-1.3); Hematocrit 38.3 % (36.0-45.0); Lymphocytes % 5.9 % (15.3-44.8); MPV 10.1 fL (7.6-11.3); RBC Red Blood Cell Count 4.02 M/uL (3.86-4.86)
[2020-02-26 03:59] LABS: Potassium 3.9 mmol/L (3.5-5.1)
[2020-02-26 04:00] LABS: Magnesium 1.6 mg/dL (1.8-2.4)
--- NOTE | 2020-02-26 04:22 | HP ---
Date of Admission: 02/25/2020 Chief Complaint: Low blood pressure, rapid heart rate, and not feeling good. History Of Present Illness: A 79-year-old female patient who had appointment to see Dr. Kiki beaulieu. Dr. Swanson was concerned about her condition, so he opted to come to emergency room. When she arrived to emergency room, she was in atrial fibrillation with rapid ventricular rate with low blood pressure, having shortness of breath, feeling very weak, has cough, but not coughing up any mucus. After she was evaluated, she was treated in emergency room and admitted to the hospital. I saw her i n the emergency room. Overall, she was feeling much better by time. Her COVID-19 test, which was do ne in the emergency room, result is pending, so she still remains in isolation. Medications: List reviewed. Review of Systems: Respiratory: As mentioned above. Cardiovascular: As mentioned above. Constitutional: As mentioned above. All other systems reviewed and negative. Allergies: PLAQUENIL CAUSING RASH. Past Medical History: Significant for stroke in 2011, hypothyroidism, type 2 diabetes mellitus, hype rtension, lung cancer, hyperlipidemia, chronic diastolic congestive heart failure, paroxysmal atrial fibrillation, gastroesophageal reflux disease, overactive bladder, osteoarthritis at multiple sites, systemic lupus erythematosus, thrombocytopenia, lung cancer. Past Surgical History: Significant for back surgery, carpal tunnel syndrome surgery. Family History: Father , had cerebral hemorrhage. Mother , she had NM and cerebral hemorrha ge. Social History: Negative for smoking and alcohol use. Physical Examination: Vital Signs: Temperature , pulse , respiratory , blood pressure ____, oxygen saturation , height 5 feet inches, weight pounds. General: Awake, alert, oriented, not in distress. HEENT: Head atraumatic, normocephalic. Conjunctivae nonerythematous. Sclerae white. Mouth, no thr ush or edema noted. Ears/Nose, no mass, lesion, discharge noted. Neck: Supple. No JVD, lymph nodes, bruit, thyromegaly noted. Lungs: Bilateral good equal air entry. Clear to auscultation. No rhonchi. No rales. Heart: Normal heart sounds. No murmur or gallop. Abdomen: Soft, bowel sounds normal. No guarding, rigidity, tenderness, mass, hepatosplenomegaly, di stention, or bruit noted. Extremities: No leg edema. No calf tenderness. Skin: No rash, ulcer, cellulitis. Lymphatics: No lymph node enlargement in neck, supraclavicular, infraclavicular region. Neuro: No focal neurological deficit. Chest: Unremarkable. External Genitalia: Deferred. Rectal: Deferred. Laboratory Data: White count 8.6, hemoglobin 14.1, platelets 178. INR 1.35. Sodium 139, potassium 4.2, chloride 100, bicarb 26, BUN 32, creatinine 1.50, glucose 175. Lactic acid 2.6 . Tona er function tests unremarkable. Troponin 0.14. Procalcitonin level 0.05. Chest x-ray, no acute car diopulmonary changes. The patient has a known perihilar and suprahilar area of mass density and pare nchymal changes unchanged from before. CAT scan of abdomen and pelvis, no acute changes, renal cyst present. CAT scan of the head, no acute intracranial changes. Impression: 1.Atrial fibrillation with rapid ventricular rate. 2.Hypomagnesemia. 3.Abnormal cardiac enzymes. 4.Hypothyroidism. 5.Type 2 diabetes mellitus. 6.Hypertension. 7.Lung cancer. 8.Hyperlipidemia. 9.Chronic diastolic congestive heart failure. 10.Gastroesophageal reflux disease. 11.Overactive bladder. 12.Osteoarthritis, multiple sites. Plan: Admit the patient to hospital for further evaluation and management of this problem. The chani ent is appropriate for inpatient and is expected to spend 2 midnights in the hospital. We will go ah ead and continue home medications. . [facility]. We will continue sotalol and continue follow up with consultant rn regarding further management of her atrial fibrillation, managing cardiac enzymes, and we will get an echo with Doppler on her. Details and plan of treatment discussed with her. I will see her tomorrow for hollis reeder. JANNA/MODL Voice ID: [id number]
[2020-02-26] MEDS: SOTALOL HCL 80 MG TAB PO SCH ×3 (05:18→19:51)
--- NOTE | 2020-02-26 05:56 | EKG ---
Test Date: 2020-02-25 Test Time: 16:53:10 Legal Administrator: LILY MEASUREMENT RESULTS: Intervals: Rate: 128 PA: 104 QRSD: 62 QT: 316 QTc: 461 [place]: P: PA: 104 QRS: 237 T: 40 INTERPRETIVE STATEMENTS: Sinus tachycardia with short PA Right superior axis deviation Right ventricular hypertrophy with repolarization abnormality Septal infarct, age undetermined Abnormal ECG Compared to ECG 02/25/2020 14:29:46 Short PA interval now present Early repolarization now present Myocardial infarct finding now present Atrial flutter no longer present ST (T wave) deviation no longer present Electronically Signed On 02-26-20 05:55:30 CDT by Elmer Barriga
--- NOTE | 2020-02-26 05:56 | EKG ---
Test Date: 2020-02-25 Test Time: 14:29:46 Meeting Planner: VENTURA MEASUREMENT RESULTS: Intervals: Rate: 143 [place]: QRSD: 64 QT: 290 QTc: 447 [place]: P: 257 VA: QRS: 258 T: 63 INTERPRETIVE STATEMENTS: Atrial flutter with 2:1 AV conduction Right superior axis deviation Pulmonary disease pattern Right ventricular hypertrophy Nonspecific ST and T wave abnormality Abnormal ECG Compared to ECG 07/18/2019 22:19:43 ST (T wave) deviation now present Sinus rhythm no longer present Atrial premature complex(es) no longer present First degree AV block no longer present Electronically Signed On 02-26-20 05:55:31 CDT by Elmer Barriga
[2020-02-26] MEDS: PANTOPRAZOLE 40MG TABLET PO SCH (06:42)
[2020-02-26] MEDS: MAGNESIUM OXIDE 400 MG TAB PO SCH ×2 (08:51→21:20)
[2020-02-26] MEDS: GABAPENTIN 300 MG CAP PO SCH ×2 (08:51→21:21)
[2020-02-26] MEDS: predniSONE 10 MG TAB PO SCH (08:51)
[2020-02-26] MEDS: LEVOTHYROXINE SOD 0.05 MG TABLET PO SCH (08:51)
[2020-02-26] MEDS: VITAMIN D 1000 UNIT TAB PO SCH (08:52)
[2020-02-26] MEDS: FOLIC ACID 1 MG TABLET PO SCH (08:52)
[2020-02-26] MEDS: CYANOCOBALAMIN 1,000 MCG TAB PO SCH (08:52)
[2020-02-26] MEDS: APIXABAN 5 MG TABLET PO SCH ×2 (08:52→21:20)
[2020-02-26] MEDS: HOME MED 1 EA UNK (Mirabegron [Myrbetriq] 1 TAB) PO SCH (09:00)
[2020-02-26] MEDS ORDERED: HOME MED 1 EA UNK (Folic Acid [Folic Acid] 0.4 MG) PO SCH (09:00)
[2020-02-26] MEDS: HOME MED 1 EA UNK (Fluticasone/Umeclidin/Vilanter [Trelegy Ellipta 100-62.5-25] 1 PUFF) IH SCH (09:00)
--- NOTE | 2020-02-26 12:10 | P.CNS ---
Date of Consult: 02/26/20 Reason for Consult: Abnormal chest x-ray nausea History of Present Illness: Patient is 79 years of age history of lung cancer came to my office very sick complained of nausea gagging weakness found to be in AFib read rapid ventricular rate low blood pressure and he was picked up from my office by an ambulance the day she is doing better her nausea has improved Allergies hydroxychloroquine Allergy (Verified 05/21/19 03:46) unknown Home Medications: Folic Acid 0.4 mg PO DAILY 02/21/18 Glimepiride [Amaryl*] 2 mg PO BIDWM 02/21/18 Pantoprazole Sodium [Protonix] 1 tab PO DAILY 05/17/19 Rosuvastatin Calcium 1 tab PO BEDTIME 05/17/19 Mirabegron [Myrbetriq] 1 tab PO DAILY #30 tab.er.24h 05/31/19 Sotalol HCl [Betapace*] 1.5 tab PO BID 6AM 6PM 11/18/19 Apixaban [Eliquis] 1 tab PO BID 02/26/20 Cholecalciferol (Vitamin D3) [Vitamin D3] 1 cap PO DAILY 02/26/20 Cyanocobalamin (Vitamin B-12) [Vitamin B12] 1,000 mcg PO DAILY 02/26/20 Fluticasone/Umeclidin/Vilanter [Trelegy Ellipta 100-62.5-25] 1 puff IH DAILY 02/26/20 Furosemide 1 tab PO BID 02/26/20 Gabapentin 1 cap PO BID 02/26/20 Levothyroxine Sodium 1 tab PO DAILY 02/26/20 Melatonin 1 tab PO BEDTIME 02/26/20 Turmeric Root Extract [Turmeric] 1 cap PO DAILY 02/26/20 predniSONE [Deltasone*] 1 tab PO DAILY 02/26/20 - Past Medical/Surgical History Diabetic: Yes -: HTN -: HLD -: Hypothyroidism -: Lupus -: Depression -: LUNG CA- R main bronchus -: CVA (2009) -: DVT -: PULMONARY EMBOLUS -: CHRONIC AFIB -: chemo/radiation completed Apr 2019 -: GERD -: laminectomy, L3 L4 -: cyst removed from neck -: carpal tunnel surgery - Family History Father Medical History: Cancer Notes: brain bleed. colon cancer Mother Notes: macular degeneration, depression, brain bleed as stated Sister Medical History: Heart disease, Kidney disease Notes: with kidney failure - Social History Smoking Status: Unknown if ever smoked Alcohol use: No CD- Drugs: No Caffeine use: Yes Place of Residence: Home Review of Systems 10-point ROS is otherwise unremarkable General: Weakness Respiratory: Shortness of Breath Physical Examination Temp Pulse Resp BP Pulse Ox 97 F 102 H 20 118/58 L 96 02/26/20 08:00 02/26/20 08:00 02/26/20 08:00 02/26/20 08:00 02/26/20 08:00 General: Alert, In no apparent distress, Oriented x3 Respiratory: Clear to auscultation bilaterally Cardiovascular: Edema, Irregular heart rate/rhythm Gastrointestinal: Normal bowel sounds, Soft and benign Musculoskeletal: No clubbing, No contractures Laboratory Data (last 24 hrs) 02/25/20 15:03: PT 15.8 H, INR 1.35 02/25/20 15:03: WBC 8.6, Hgb 14.1, Hct 42.7, Plt Count 178 02/25/20 15:03: Sodium 139, Potassium 4.2, BUN 32 H, Creatinine 1.50 H, Glucose 175 H, Magnesium 1.5 L, Total Bilirubin 1.2 H, AST 20, ALT 19, Alkaline Phosphatase 66, Lipase 76 - Problems (1) Uncontrolled atrial fibrillation Current Visit: Yes Status: Acute Plan: Patient is 79 years of age admitted with low blood pressure rapid heart rate doing better patient is on sotalol the trilogy in addition to anticoagulation patient's troponins are elevated echocardiogram is pending EKG changes for ischemia blood pressure is still slightly low wagner virus test is negative not sure why patient was nauseated (2) Abnormal chest x-ray Current Visit: Yes Status: Acute Plan: Patient has a history of lung cancer has had upper or lobe opacity patient has had treatment last treatment was in April and does follow up with Oncology
[2020-02-26] MEDS: FUROSEMIDE 20 MG TABLET PO SCH ×2 (12:15→18:00)
[2020-02-26] MEDS ORDERED: MELATONIN 5 MG TABLET PO SCH (21:00)
[2020-02-26] MEDS ORDERED: ROSUVASTATIN 10 MG TAB PO SCH (21:00)
--- NOTE | 2020-02-26 21:46 | PN ---
Date of Progress Note: 02/26/2020 Subjective: The patient was seen this morning for followup. No new complaints or problems reported by the patient, lying in bed, not in distress. Overall, she is feeling better this morning compared to yesterday. Objective: Vital Signs: Reviewed. HEENT: Unremarkable. Lungs: Clear to auscultation. Heart: Sounds normal. Abdomen: Soft. Bowel sounds normal. No guarding, rigidity, tenderness, or distention. Extremities: No leg edema. Laboratory Data: White count 6.9, hemoglobin 12.7, platelets 159. Sodium 141, potassium 3.9, chlori de 103, bicarb 31, BUN 31, creatinine 1.14, glucose 72, magnesium 1.6. Impression: 1.Atrial fibrillation with rapid ventricular rate. 2.Lung cancer. 3.Volume depletion. 4.Diabetes mellitus. 5.Hypomagnesemia. 6.Hypoxia. Plan: The patient's room air oxygen saturation is low and she qualifies for home oxygen, which was o rdered today. We will continue to follow with Dr. Barriga from Cardiology. The patient is on sotalo l and Eliquis. We will continue that. Continue IV steroid and probable discharge tomorrow to go home. Her medications will be continued per order. Echocardiogram was orde red. We will follow up on it. JANNA/MODL Voice ID: [id number] Report ID: [id number]
[2020-02-27 00:36] VITALS: O2SAT 95
--- NOTE | 2020-02-27 05:31 | EKG ---
Test Date: 2020-02-25 Test Time: 15:33:06 Grinder Set Up Operator Thread: VENTURA MEASUREMENT RESULTS: Intervals: Rate: 143 [place]: QRSD: 68 QT: 298 QTc: 459 [place]: P: 267 [place]: QRS: 255 T: 57 INTERPRETIVE STATEMENTS: Atrial flutter with 2:1 AV conduction Right superior axis deviation Pulmonary disease pattern Right ventricular hypertrophy ST & T wave abnormality, consider inferior ischemia Abnormal ECG Compared to ECG 02/25/2020 14:29:46 Possible ischemia now present ST (T wave) deviation still present Electronically Signed On 02-27-20 05:29:13 CDT by Elmer Barriga
[2020-02-27] MEDS: SOTALOL HCL 80 MG TAB PO SCH (05:57)
[2020-02-27] MEDS: PANTOPRAZOLE 40MG TABLET PO SCH (05:57)
--- NOTE | 2020-02-27 07:22 | ECHO ---
HEIGHT: 5 ft 5 in WEIGHT: 207 lb 6.4 oz DATE OF STUDY: 02/26/[address]: Charles Hammer MD 2-DIMENSIONAL: YES M.MODE: YES DOPPLER: YES COLOR FLOW: YES TDS: YES PORTABLE: DEFINITY: BUBBLE STUDY: DIAGNOSIS: ATRIAL FIBRILLATION CARDIAC HISTORY: CATHERIZATION: NO SURGERY: NO PROSTHETIC VALVE: NO PACEMAKER: NO MEASUREMENTS (cm) DIASTOLIC (NORMALS) SYSTOLIC (NORMALS) IVSd 1.1 (0.6-1.2) LA Diam 4.0 (1.9-4.0) LVEF 76% LVIDd 4.3 (3.5-5.7) LVIDs 2.4 (2.0-3.5) %FS 44% LVPWd 1.1 (0.6-1.2) Ao Diam 2.4 (2.0-3.7) 2 DIMENSIONAL ASSESSMENT: RIGHT ATRIUM: NORMAL LEFT ATRIUM: NORMAL RIGHT VENTRICLE: NORMAL LEFT VENTRICLE: NORMAL TRICUSPID VALVE: NORMAL MITRAL VALVE: NORMAL PULMONIC VALVE: NORMAL AORTIC VALVE: NORMAL PERICARDIAL EFFUSION: NONE AORTIC ROOT: NORMAL LEFT VENTRICULAR WALL MOTION: NORMAL DOPPLER/COLOR FLOW: NORMAL COMMENTS: TECHNICALLY DIFFICULT STUDY. GROSSLY NORMAL LEFT VENTRICULAR SIZE AND FUNCTION. NO WALL MOTION ABNORMALITY. NO EFFUSION. TECHNOLOGIST: MARIBEL STEPHENS
[2020-02-27] MEDS: HOME MED 1 EA UNK (Mirabegron [Myrbetriq] 1 TAB) PO SCH (09:00)
[2020-02-27] MEDS: HOME MED 1 EA UNK (Fluticasone/Umeclidin/Vilanter [Trelegy Ellipta 100-62.5-25] 1 PUFF) IH SCH (09:00)
[2020-02-27 09:39] VITALS: TEMP 97
[2020-02-27] MEDS: CYANOCOBALAMIN 1,000 MCG TAB PO SCH (10:10)
[2020-02-27] MEDS: predniSONE 10 MG TAB PO SCH (10:10)
[2020-02-27] MEDS: LEVOTHYROXINE SOD 0.05 MG TABLET PO SCH (10:10)
[2020-02-27] MEDS: FOLIC ACID 1 MG TABLET PO SCH (10:10)
[2020-02-27] MEDS: FUROSEMIDE 20 MG TABLET PO SCH (10:11)
[2020-02-27] MEDS: MAGNESIUM OXIDE 400 MG TAB PO SCH (10:11)
[2020-02-27] MEDS: GABAPENTIN 300 MG CAP PO SCH (10:11)
[2020-02-27] MEDS: VITAMIN D 1000 UNIT TAB PO SCH (10:12)
[2020-02-27] MEDS: APIXABAN 5 MG TABLET PO SCH (10:13)
--- NOTE | 2020-02-27 10:55 | CON ---
Date of Consultation: 02/26/[address] Hammer's service on 02/25/2020. I saw the patient on 02/26/2020. Reason For Consultation: Atrial fibrillation. History Of Present Illness: Ms. Flynn is a 79-year-old woman. She is a patient of Dr. Hammer. She wa s admitted on 02/25/2020 with generalized weakness, nausea, was found to have rapid atrial fibrillati on at a rate of 141. Her atrial fibrillation is chronic. She takes Eliquis and sotalol 120 mg b.i.d . for it. She was afebrile. She had good oxygen saturation. When she came, she was breathing adequ ately. Her blood pressure was 103/82. She just did not feel well. No specific complaints. She has had really poor appetite for the last few days, had been slightly hypotensive, and slightly tachycar diac. Allergies: INCLUDE HYDROXYCHLOROQUINE. Review of Systems: Negative. Social History: Negative. Family History: Noncontributory. Past Medical History: Includes atrial fibrillation, diabetes, hypertension, dyslipidemia, hypothyroi dism, lung cancer, and lupus. Present Medications: Include Lasix, folic acid, melatonin, sotalol 120 b.i.d., Eliquis 5 b.i.d., Syn throid 150 mcg daily. She is on glimepiride, Protonix, Crestor, gabapentin, and prednisone as well a s inhalers. Physical Examination: Vital Signs: When I saw her, her vital signs were stable. She was still in AFib, but her heart rate was in the 90s. HEENT: Negative. Neck: Supple without any bruit, lymphadenopathy, JVD, or thyromegaly. Chest: Revealed some expiratory wheezing. Cardiac: Revealed atrial fibrillation, otherwise no murmurs, gallops or rubs. Abdomen: Benign. Extremities: Revealed no clubbing, cyanosis, or edema. Diagnostic Data: That were of significance included creatinine of 1.14. Her troponin was 0.29. Her BNP was 1940. Her procalcitonin was negative. Her COVID test was negative. TSH was pending. Impression And Plan: Chronic atrial fibrillation with rapid ventricular response, possibly secondary to dehydration and poor p.o. intake. The patient remains on sotalol and Eliquis, and I think we nee d to continue the same dose at 120 b.i.d. if her blood pressure tolerates it. I think the patient is a candidate at this point for cardioversion or ablation unless we have to. She has multiple other i ssues including history of lung cancer, hypothyroidism, gastroesophageal reflux disease, hypertension , and dyslipidemia. She also has diabetes and lupus. Again as mentioned earlier, echocardiogram is pending and I would continue her present regimen. Otherwise, I will discuss the case further with Dr Clara Hammer. I will continue to follow her as needed. EMILY/NIYA Voice ID: [id number] Report ID: [id number]
[2020-02-27 14:13] VITALS: BP 111/55
--- OUTSIDE RECORDS SUMMARY | 2020-02-27 15:14 | XMS REPORT | Clinical Summary ---
:1940 Author Organization [facility] Address [address] [place] [address] Care Team Providers Name Role Phone Charles Hammer MD Primary Care Provider Allergies No Known Active Allergies Medications Medication Sig Dispensed Refills Start [...] capsule daily. Active Problems Not on file Surgical History Surgery Date Site/Laterality Comments LAMINECTOMY CYST REMOVAL COLONOSCOPY BRONCHOSCOPY 06/22/2018 N/A Procedure: FLEXI BLE BRONCHOSCOPY; Surgeon: Shaista Leonardo MD; Location: [facility]; Service: Thoracic; Later ality: N/A; EGD, INTRAOPERATIVE 06/22/2018 N/A Procedure: E BUS W/BIOPSY; Surgeon: Jamal Leonardo MD; Location: [facility]; Serv ice: Thoracic; Laterality: N/A; Medical History Medical History Date Comments Arthritis Breast disorder Depression GERD (gastroesophageal reflux disease) Hiatal hernia Hypertension Hypothyroidism Chronic kidney disease Obesity Osteoarthritis Pulmonary embolism (HCC) Sleep apnea Family History Medical History Relation Name Comments [...] Assigned at Date Recorded Not on file Last Filed Vital Signs Not on file Plan of Treatment Health Maintenance Due Date Last Done Comments SHINGLES VACCINES (#1) 1990 65+ PNEUMOCOCCAL VACCINE (1 of 1 - PPSV23) 2005 INFLUENZA VACCINE 12/21/2019 Results Not on fileafter 02/25/2019 Insurance Payer Benefit Plan / Subscriber ID Effective Dates Phone Addre ss Type Group MEDICARE MEDICARE PART A [id number] 2005-Present [place], [place] Medicare AND B Advance Directives For more information, please contact: [phone] Type Date Recorded 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
== END 2020-02-27 13:04 | disposition home or self-care (01) | DRG 309 ==
LOC: ER 14:06 → ERHOLD 18:11 → 2ND 21:39
PROVIDERS: ADMIT Internal Medicine; ATTEND Internal Medicine
DX: I48.20 Chronic atrial fibrillation, unspecified (principal); I50.32 Chronic diastolic (congestive) heart failure; I11.0 Hypertensive heart disease with heart failure; E03.9 Hypothyroidism, unspecified; K21.9 Gastro-esophageal reflux disease without esophagitis; E86.0 Dehydration; N32.81 Overactive bladder; M19.90 Unspecified osteoarthritis, unspecified site; E83.42 Hypomagnesemia; E78.5 Hyperlipidemia, unspecified; E11.9 Type 2 diabetes mellitus without complications; R74.8 Abnormal levels of other serum enzymes; Z88.8 Allergy status to other drugs, medicaments and biological substances; Z79.01 Long term (current) use of anticoagulants; Z79.890 Hormone replacement therapy; Z79.899 Other long term (current) drug therapy; Z85.118 Personal history of other malignant neoplasm of bronchus and lung; Z86.73 Personal history of transient ischemic attack (TIA), and cerebral infarction without residual deficits; Z79.84 Long term (current) use of oral hypoglycemic drugs; Z79.52 Long term (current) use of systemic steroids; Z86.711 Personal history of pulmonary embolism; Z86.718 Personal history of other venous thrombosis and embolism; Z92.21 Personal history of antineoplastic chemotherapy; Z20.828 Contact with and (suspected) exposure to other viral communicable diseases
CPT/HCPCS: 36415; 51702; 70450; 71045; 71260; 74176; 80048; 80076; 82947; 83605; 83690; 83735; 83880; 84145; 84484; 85025; 85610; 93005; 93306; 96361; 96365; 96375; 99285; J2405; J3475; J7040; J7512; Q9967; U0003

== ENCOUNTER 2020-03-04 13:09 | Inpatient (IN) | payer OTHER ==
--- OUTSIDE RECORDS SUMMARY | 2020-03-04 13:29 | XMS REPORT | Clinical Summary ---
:1940 Author Organization [facility] Address [address] [place] [address] Care Team Providers Name Role Phone Charles [...] BLE BRONCHOSCOPY; Surgeon: Shaista Leonardo MD; Location: [facility]; Service: Thoracic; Later ality: N/A; EGD, INTRAOPERATIVE 06/22/2018 N/A Procedure: E BUS W/BIOPSY; Surgeon: Jamal Leonardo MD; Location: [facility]; Serv ice: Thoracic; Laterality: N/A; Medical [...] INFLUENZA VACCINE 12/21/2019 Results Not on fileafter 03/04/2019 Insurance Payer Benefit Plan / Subscriber ID Effective Dates Phone Addre ss Type Group MEDICARE MEDICARE PART A [id number] 2005-Present [place], [place] Medicare AND B Advance Directives For more information, please contact: [phone] Type Date Recorded 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
[2020-03-04] MEDS ORDERED: PROMETHAZINE INJ 25 MG/ML AMP IV PRN (13:41)
[2020-03-04] MEDS ORDERED: GLUCAGON 1 MG/VIAL IM PRN (13:42)
[2020-03-04] MEDS ORDERED: D50W 25 GM/50 ML SYRINGE/VIAL IV PRN (13:42)
[2020-03-04] MEDS ORDERED: DIGOXIN 0.25 MG/ML AMP IV SCH (14:00)
[2020-03-04 14:01] VITALS: BMI 38.7
[2020-03-04] MEDS: NA CHLORIDE 0.9% 1,000 ML IV SCH (14:11)
[2020-03-04 14:28] LABS: Absolute Lymphocytes (CBC) 0.4 K/uL (0.7-4.9); Basophils % 0.8 % (0-1.3); Hematocrit 40.2 % (36.0-45.0); MPV 9.4 fL (7.6-11.3); RBC Red Blood Cell Count 4.19 M/uL (3.86-4.86)
--- NOTE | 2020-03-04 14:32 | RAD REPORT ---
[facility]22 pm CLINICAL HISTORY: Atrial fibrillation COMPARISON: 2017 FINDINGS: Right upper lobe opacity appears mildly enlarged. Mild additional right lung opacities Left lung appears clear of acute infiltrate. The heart is normal size
[2020-03-04 14:52] LABS: Bilirubin Total 1.3 mg/dL (0.2-1.0); Potassium 3.2 mmol/L (3.5-5.1); Protein, Total 7.6 g/dL (6.4-8.2)
[2020-03-04 14:54] LABS: Magnesium 1.1 mg/dL (1.8-2.4)
[2020-03-04] MEDS ORDERED: Magnesium Sulfate 2gm IVPB 2 G/50 ML BAG IV ONE (15:30)
[2020-03-04] MEDS ORDERED: POTASSIUM 25 MEQ EFFERV TAB PO ONE (15:30)
[2020-03-04 15:54] LABS: Urine Appearance CLOUDY; Urine Blood NEGATIVE (NEG); Urine Color DK YELLOW; Urine Glucose NEGATIVE (NEG); Urine Protein 1+ (NEG); Urine Specific Gravity 1.015 (1.005-1.030)
[2020-03-04] MEDS ORDERED: NA CHLORIDE 0.9% 500 ML IV ONE (16:00)
[2020-03-04 16:07] LABS: Urine Bilirubin 2+ (NEG)
[2020-03-04 16:28] LABS: Urine Bacteria >50 /HPF (<20); Urine Culture Reflex Order REFLEXED; Urine RBC <5 /HPF (NONE SEEN)
[2020-03-04] MEDS: INSULIN -REGULAR HUMAN 50 UNIT/0.5 ML ML SQ SCH ×2 (16:30→20:49)
[2020-03-04] MEDS: predniSONE 20 MG TAB PO SCH (20:49)
[2020-03-04] MEDS: FAMOTIDINE 20 MG/2 ML VIAL IV SCH (20:49)
[2020-03-04 21:40] LABS: Magnesium 1.7 mg/dL (1.8-2.4); Potassium 3.8 mmol/L (3.5-5.1)
[2020-03-04] MEDS ORDERED: SOTALOL HCL 80 MG TAB PO ONE (22:19)
[2020-03-04] MEDS ORDERED: APIXABAN 5 MG TABLET PO ONE (23:00)
[2020-03-05] MEDS ORDERED: MAGNESIUM SULFATE 1 gm IVPB 1 GM/100 ML BAG IV ONE (01:00)
[2020-03-05] MEDS: NA CHLORIDE 0.9% 1,000 ML IV SCH ×2 (02:46→16:40)
[2020-03-05 06:00] LABS: Magnesium 2.1 mg/dL (1.8-2.4); Potassium 4.1 mmol/L (3.5-5.1)
--- NOTE | 2020-03-05 07:06 | EKG ---
Test Date: 2020-03-04 Test Time: 14:05:23 Sander Operator: MEGHAN/ MEASUREMENT RESULTS: Intervals: Rate: 133 [place]: QRSD: 66 QT: 304 QTc: 452 [place]: P: [place]: QRS: 258 T: 45 INTERPRETIVE STATEMENTS: Supraventricular tachycardia Right superior axis deviation Pulmonary disease pattern Right ventricular hypertrophy with repolarization abnormality Septal infarct, age undetermined Abnormal ECG Compared to ECG 02/25/2020 16:53:10 Sinus tachycardia no longer present Short [place] interval no longer present Myocardial infarct finding still present Electronically Signed On 03-05-20 07:03:57 CDT by Elmer Barriga
[2020-03-05] MEDS: INSULIN -REGULAR HUMAN 50 UNIT/0.5 ML ML SQ SCH ×4 (07:30→21:11)
[2020-03-05] MEDS: CEFTRIAXONE/SWI 1gm 1 GM/10 ML SYR IV SCH ×2 (09:00→21:11)
[2020-03-05] MEDS ORDERED: CEFTRIAXONE 1 GM/NS 50 ML 1 GM/50 ML BAG IV SCH (09:00)
--- NOTE | 2020-03-05 09:03 | HP ---
Date of Admission: 03/04/2020 Chief Complaint: Nausea, no appetite, feeling weak. History Of Present Illness: Ms. Flynn is a very pleasant 79-year-old female patient, living at [facility], who came into office today as she has not felt good at all in last 4-5 days. When she came to office, she appeared pale and she was appearing extremely weak and office staff had to assist her in the exam room as she was not able to get on the exam table. She was not even able to stand up to even check her weight. She denies any vomiting or diarrhea. No fever, no chills, but says that for last 4 days or so she has significant nausea and reports that she did not eat anything in last 4 days except she just had water and took her medications. She brought her medication bottles at office, and medication bottles were reviewed and she was missing some of the medication and I am concerned on basis of how she appears with this frequent atrial fibrillation with rapid ventricular rate that there is a good possibility that she may not be taking her medications on a regular basis as prescribed which was a problem in the past as well. She feels very weak. No abdominal pain. After I examined her, decision was made to admit her to hospital and she wanted to drive herself to a hospital which was considered not safe and she did not want us to call ambulance, so we did offer her that my office staff will transport her in a wheelchair and she agreed to do so. Allergies: TO PLAQUENIL, CAUSING RASH. Medications: According to office chart, the patient should be on following medications: Eliquis 5 mg 2 times a day; vitamin D3 1000 units daily; Breo Ellipta 100/25 mcg inhaler 1 puff by mouth daily; folic acid 0.4 mg p.o. daily; gabapentin 300 mg p.o. 2 times a day; glimepiride 2 mg tablets 3 times a day; levothyroxine 150 mcg p.o. daily; Janumet XR 100/1000 one tablet by mouth daily in the evening with meal; Myrbetriq 25 mg p.o. daily; pantoprazole 40 mg p.o. daily; prednisone 5 mg, patient to take 2 tablets in the morning, 1 tablet in the evening; rosuvastatin 5 mg p.o. daily in the evening; sotalol 80 mg, patient to take 1-1/2 tablet by mouth 2 times a day; vitamin B12 1 mg p.o. daily. Review of Systems: GI: As mentioned above. Constitutional: As mentioned above. All other systems reviewed and negative. Past Medical History: Significant for stroke in 2011; hypothyroidism; type 2 diabetes mellitus; lung cancer, for which she is under care of Dr. Julio and Dr. Nolasco and so far she has received chemotherapy and radiation therapy; hypertension; hyperlipidemia; chronic diastolic congestive heart failure; paroxysmal atrial fibrillation; gastroesophageal reflux disease; chronic kidney disease; overactive bladder; osteoarthritis; systemic lupus erythematosus; thrombocytopenia. Past Surgical History: Back surgery, carpal tunnel release on left hand. Family History: Father , had cerebral hemorrhage. Mother , had [place] and cerebral hemorrhage. Social History: Negative for smoking and alcohol use. Physical Examination: Vital Signs: Upon admission, height 5 feet, weight 198 pounds, temperature 97, glucose 137, respiratory rate 16, blood pressure 124/69, oxygen saturation 91%. General: The patient appears weak and pale, not in any respiratory distress. HEENT: Head atraumatic, normocephalic. Conjunctivae nonerythematous. Sclerae white. Mouth, no thrush or edema noted. Ears/Nose, no mass, lesion, discharge noted. Neck: Supple. No JVD, lymph nodes, bruit, thyromegaly noted. Lungs: Bilateral good equal air entry. Clear to auscultation. No rhonchi. No rales. Heart: Normal heart sounds, no murmur or gallop. Abdomen: Soft, bowel sounds normal. No guarding, rigidity, tenderness, mass, hepatosplenomegaly, distention, or bruit noted. Extremities: No leg edema. No calf tenderness. Skin: No rash, ulcer, cellulitis. Lymphatics: No lymph node enlargement in neck, supraclavicular, infraclavicular region. Neuro: No focal neurological deficit. Chest: Unremarkable. External Genitalia: Deferred. Rectal: Deferred. Laboratory Data: White count 6.5, hemoglobin 13.1, platelets 235. Sodium 138, potassium 3.2, chloride 98, bicarb 30, BUN 20, creatinine 1.31, glucose 132. Lactic acid 4.2. Procalcitonin, less than 0.05. Liver function tests unremarkable. Magnesium low at 1.1, albumin 3. Urinalysis; 1+ leukocyte esterase, 5-10 wbc, bacteria more than 50. Chest x-ray showing right upper lobe opacity, appears mildly enlarged, mild additional right lung opacity noted, left lung appears clear. The patient had a CAT scan of abdomen done during last hospital admission on 02/25/2020, results reviewed and it did not show any acute changes. There was hyperdense material in the gallbladder, reported to be maybe vicarious excretion of contrast from prior diagnostic imaging. No biliary tree dilatation, no acute gallbladder process. The patient had a CAT scan of the chest done with contrast on 02/24/2020, which showed worsening of the lung parenchymal opacification in the posterior right upper lung field, and this extends from the hilum to near the apex, underlying perihilar and suprahilar parenchymal stranding from therapy noted. Impression: 1. Atrial fibrillation with rapid ventricular rate. 2. Urinary tract infection. 3. Volume depletion. 4. Rule out pneumonia. 5. Lung cancer. 6. Type 2 diabetes mellitus. 7. Hypothyroidism. 8. Hypertension. 9. Hyperlipidemia. 10. Chronic diastolic congestive heart failure. 11. Chronic steroid therapy. 12. Overactive bladder. 13. Osteoarthritis. 14. Systemic lupus erythematosus. 15. Gastroesophageal reflux disease. Plan: Admit patient to hospital for further evaluation and management of this problem. The patient is appropriate for inpatient and is expected to spend 2 midnights in the hospital. I did talk to her at office regarding advance directive and she is full code according to her decision. Her medical power of employee benefits attorney is sister, Corey, and I did contact her at [phone] after obtaining the patient's consent to discuss and disclose protected health information. Our plan is to admit her to the hospital, give her IV fluid bolus, normal saline was ordered and then we will continue maintenance IV fluid. Empiric IV antibiotics will be given. We will follow up on urine culture results. Home medications will be given per order. We will call her pharmacy to verify her refill history as I am definitely concerned that she may not be taking her medications regularly as prescribed. We will consult Cardiology. The patient had echocardiogram done during the last hospital stay, so she does not need to have any repeat echocardiogram done. We will replace electrolytes per protocol. We will monitor her blood work. Diabetes will be managed with sliding scale. Continue her anticoagulation. Her overall prognosis is guarded. I did call sisterCorey, and all the details were discussed with her. In my opinion, the patient needs more help than what she can do for herself as she lives at [facility], which is an independent living facility, and she is not able to take care of herself at this particular facility. I agree with plan to go to [facility] in [place] where sister Corey is and they have a facility where the patient will be taken care of. I have discussed these details with the patient in the past on multiple occasions and she was going to think about moving sometime after the holidays, but after today's discussion she was agreeable to move there and I feel like she should move there as soon as possible upon discharge from the hospital. She is on home oxygen, which should be continued as well and this was arranged during last hospital stay. The patient will need penitentiary care and therapy. We will also see if we can get her to our inpatient rehab floor for few days prior to discharge if she can qualify for that. All the details were discussed with sisterCorey. I will see her tomorrow morning for followup. JANNA/MODL Voice ID: [id number] SIOBHAN
[2020-03-05] MEDS: predniSONE 20 MG TAB PO SCH ×2 (10:39→21:11)
[2020-03-05] MEDS: FAMOTIDINE 20 MG/2 ML VIAL IV SCH (21:11)
[2020-03-06] MEDS: NA CHLORIDE 0.9% 1,000 ML IV SCH ×2 (01:27→03:47)
[2020-03-06] MEDS: INSULIN -REGULAR HUMAN 50 UNIT/0.5 ML ML SQ SCH ×2 (08:38→11:52)
[2020-03-06] MEDS: CEFTRIAXONE/SWI 1gm 1 GM/10 ML SYR IV SCH (08:38)
[2020-03-06] MEDS: predniSONE 20 MG TAB PO SCH (08:38)
[2020-03-06 12:37] VITALS: O2SAT 96
[2020-03-06] MEDS ORDERED: AMOX/K CLAV 500 MG TAB PO ONE (12:40)
[2020-03-06 13:49] VITALS: BP 145/76; TEMP 97.3
--- NOTE | 2020-03-06 14:22 | PN ---
Date of Progress Note: 03/05/2020 Subjective: Patient was seen this morning for followup. No new complaints or problems reported by patient. She was lying in bed, not in distress. Denies any nausea, vomiting. Objective: Vital Signs: Reviewed. HEENT: Examination unremarkable. Lungs: Clear to auscultation. Heart: Sounds normal. Abdomen: Soft. Bowel sounds normal. No guarding, rigidity, tenderness, or distention. Extremities: No leg edema. Laboratory Data: Sodium 135, potassium 4.1, chloride 99, bicarb 24, BUN 20, creatinine 1.16, glucose 216. Impression: 1. Atrial fibrillation with rapid ventricular rate. 2. Volume depletion. 3. Type 2 diabetes mellitus. 4. Lung cancer. Plan: We will continue current IV fluid. Physical therapy to continue to help ambulate the patient. We will continue her current anticoagulation therapy. Diabetes will be managed with sliding scale insulin and continue sotalol and Eliquis per order. Per my request, nurse did contact the patient's [facility] to get refill history on sotalol, Eliquis, and prednisone, and it appears that the patient is taking those medications or lately she has picked up refills appropriately in timely manner. So at this point, we believe that the patient is taking her medications as prescribed and this is what she has also reported. So now we will have to think about her atrial fibrillation with rapid ventricular rate that she is having problem with when she presented could be very well due to failure of therapy or noncompliance and all these details were discussed with correctional cook Dr. Barriga who has recommended for patient to consider ablation therapy on an elective outpatient basis. He has suggested for patient to follow up at his office after discharge. I did call patient's medical power of patent prosecution attorney sister Corey, and all the details were discussed with her including need for the patient to get evaluation done by support assistant for consideration of ablation therapy. Sister Corey is planning to come to town and she will help move patient to [facility] that she is planning where she will receive medical care, and she will also make arrangements for patient to be evaluated by Safety Sealer at a nearby hospital. I will see her tomorrow for followup and possible discharge to go home tomorrow. JANNA/MODL Voice ID: [id number] Report ID: [id number] MTDD
--- NOTE | 2020-03-06 22:22 | DS ---
Date of Discharge: 03/06/2020 Disposition: Discharged to go home. Physical Examination: HEENT: Unremarkable. Lungs: Clear to auscultation. Heart: Sounds normal. Abdomen: Soft. Bowel sounds normal. No guarding, rigidity, tenderness, or distention. Extremities: No leg edema. Vital Signs: Temperature 97.1, pulse 71, respiratory rate 20, blood pressure 142/63. Discharge Medications And Instructions: 1.Continue all prior home medication. 2.Take Augmentin 500 mg 1 tablet by mouth 2 times a day for 1 week. Labs Done During This Hospitalization: White count 6.5 upon admission with hemoglobin 13.1, platelet s 235. Yesterday, sodium 135, potassium 4.1, chloride 99, bicarb 24, BUN 20, creatinine 1.16, glucos e 216. Her magnesium yesterday was 2.1. Upon admission, magnesium was 1.1, potassium 3.2, BUN 20, c reatinine 1.31. Her hemoglobin A1c is 8.4. Urine culture grew citrobacter and it is sensitive to Au gmentin. Hospital Course: Ms. Flynn is a pleasant 79-year-old female patient admitted to the hospital with na usea, no appetite, feeling weak. Please see dictated H and P for more information. After the patien rachell was evaluated at our office, she was admitted to the hospital. Arrangements were made for direct a dmission and the patient was admitted to the hospital. Further test results revealed the patient had low potassium, low magnesium, and she was started on IV fluid. IV fluid bolus was given and mainten ance IV fluids were given during this hospital stay. Electrolytes were corrected using electrolyte r eplacement protocol. Empiric antibiotic was started for urinary tract infection. Cardiology consult ation was requested from Dr. 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 So at th is point, we believe that she is taking her medications regularly and we have to consider atrial fibr illation with rapid ventricular rate as failure of her therapy, so Dr. Barriga has recommended ablati on therapy. The patient saw sister organization and her medical power of blocking machine operator, sister Corey was in contact with me and I did talk to her couple of times, once yesterday, once day before yesterday, and all those details were discussed with her. Sister Corey is planning to come down to [facility] today or tomorrow and she will take sister Patricia with her [facility] as she reports whe re the patient will get her medical care and sister Corey will make arrangements for patient to have evaluation by mail service coordinator as per our recommendation. As per request, order for skilled nurs ing came was written and it will be faxed to the number requested by sister Corey and nursing staff will assist us with that. The patient is in agreement with all this treatment plan. First dose of A ugmentin will be given today prior to discharge as urine culture result became available today. Final Diagnoses: 1.Atrial fibrillation with rapid ventricular rate. 2.Urinary tract infection. 3.Volume depletion. 4.Lung cancer. 5.Type 2 diabetes mellitus, uncontrolled. 6.Hypothyroidism. 7.Hypertension. 8.Hyperlipidemia. 9.Chronic diastolic congestive heart failure. 10.Chronic steroid therapy. 11.Overactive bladder. 12.Osteoarthritis, multiple sites. 13.Systemic lupus erythematosus. 14.Gastroesophageal reflux disease. JANNA/MODL Voice ID: [id number] Report ID: [id number]
--- NOTE | 2020-03-09 09:58 | CON ---
Date of Consultation: 03/05/2020 Reason For Consultation: Atrial fibrillation. History Of Present Illness: Ms. Flynn is a 79-year-old woman. She has a history of atrial fibrillat ion that is paroxysmal. She was recently in the hospital for UTI and has had issue with her atrial f ibrillation rate going up. We were not sure about her compliance with therapy, but she is obviously getting her medication at home. She was supposed to be taking sotalol at 120 b.i.d. She was seen at Dr. Hammer's office, had a heart rate of 140, was admitted. She had been given digoxin. Sotalol had been restarted. She is on Eliquis, Crestor, Synthroid, and glimepiride, and her heart rate is much i mproved today in the 90s. She does not have any symptoms with her atrial fibrillation. Past Medical History: Otherwise as stated above. Allergies: SHE IS ALLERGIC TO HYDROCHLOROQUINE. Review of Systems: Negative. Social History: Negative. Family History: Noncontributory. Medications: As listed earlier. Physical Examination: Vital Signs: She was in atrial flutter at a rate of 100. HEENT: Negative. Neck: Supple with no bruit. Chest: Clear. Cardiac: Exam revealed atrial fibrillation. Abdomen: Benign. Extremities: Revealed no clubbing, cyanosis, or edema. Diagnostic Data: She had a potassium of 3.2, supplemented to 3.8. Her magnesium was 1.1, supplement ed to 1.7. Her creatinine is 1.31. Impression And Plan: Recurrent atrial fibrillation. She is on sotalol 120 b.i.d. The case was disc ussed with Dr. Hammer. We will check with her compliance regimen, but she may be a good candidate for ablation. We will have to see her as an outpatient and make arrangements for that. She is on Eliqui s only to continue that. Her other issues including dyslipidemia, hypothyroidism, and diabetes are s table on appropriate regimen. Her magnesium and potassium were supplemented. We need to watch for eben franklin in that regard. She had some mild renal insufficiency. NB/MODL Voice ID: [id number] Report ID: [id number]
== END 2020-03-06 14:20 | disposition home or self-care (01) | DRG 309 ==
LOC: 2ND 13:11
PROVIDERS: ADMIT Internal Medicine; ATTEND Internal Medicine
DX: I48.91 Unspecified atrial fibrillation (principal); I13.0 Hypertensive heart and chronic kidney disease with heart failure and stage 1 through stage 4 chronic kidney disease, or unspecified chronic kidney disease; I50.32 Chronic diastolic (congestive) heart failure; N39.0 Urinary tract infection, site not specified; C34.90 Malignant neoplasm of unspecified part of unspecified bronchus or lung; N18.9 Chronic kidney disease, unspecified; E11.22 Type 2 diabetes mellitus with diabetic chronic kidney disease; E86.9 Volume depletion, unspecified; M19.90 Unspecified osteoarthritis, unspecified site; M32.9 Systemic lupus erythematosus, unspecified; N32.81 Overactive bladder; E78.5 Hyperlipidemia, unspecified; K21.9 Gastro-esophageal reflux disease without esophagitis; E03.9 Hypothyroidism, unspecified; Z79.01 Long term (current) use of anticoagulants; Z79.84 Long term (current) use of oral hypoglycemic drugs; Z79.890 Hormone replacement therapy; Z79.52 Long term (current) use of systemic steroids; Z79.899 Other long term (current) drug therapy; Z86.73 Personal history of transient ischemic attack (TIA), and cerebral infarction without residual deficits; Z88.8 Allergy status to other drugs, medicaments and biological substances; Z99.81 Dependence on supplemental oxygen; Z20.828 Contact with and (suspected) exposure to other viral communicable diseases
CPT/HCPCS: 36415; 71045; 80048; 80053; 81001; 82947; 83036; 83605; 83735; 84132; 84145; 85025; 87077; 87086; 87088; 87186; 93005; 97116; 97161; 97530; J0696; J1160; J2550; J3475; J7030; J7040; J7512; U0003

== ENCOUNTER 2020-03-12 10:46 | Inpatient (IN) | payer OTHER ==
[2020-03-12 11:10] LABS: Absolute Lymphocytes (CBC) 0.4 K/uL (0.7-4.9); Basophils % 0.6 % (0-1.3); Hematocrit 38.5 % (36.0-45.0); Lymphocytes % 4.4 % (15.3-44.8); MPV 9.8 fL (7.6-11.3); RBC Red Blood Cell Count 4.02 M/uL (3.86-4.86)
[2020-03-12 11:15] LABS: Protime INR 2.06
--- NOTE | 2020-03-12 11:21 | RAD REPORT ---
EXAM DESCRIPTION: CT - Ct Stroke Brain Wo Cont - 03/12/2020 11:12 am CLINICAL HISTORY: Left arm weakness COMPARISON: February 24, 2020 TECHNIQUE: Computed axial tomography of the head was obtained. All CT scans are performed using dose optimization technique as appropriate and may include automated exposure control or mA/KV adjustment according to patient size. FINDINGS: An intracranial bleed is not seen . The ventricles are normal in caliber. No extra-axial fluid collection is noted. Mild low-density within periventricular, deep and subcortical white matter likely ischemic changes se condary to small vessel disease Fluid within the sinuses/ mastoids is not seen. IMPRESSION: No acute intracranial abnormality is seen. If patient's symptoms persist MRI of the bra in would be recommended. Mary Alice of the emergency room was notified at 11:16 a.m. March 12, 2020
[2020-03-12 11:24] LABS: Potassium 3.9 mmol/L (3.5-5.1)
[2020-03-12] MEDS ORDERED: ASPIRIN 81 MG CHEWABLE TABLET ONE (11:59)
--- NOTE | 2020-03-12 12:20 | RAD REPORT ---
EXAM DESCRIPTION: [facility] 12:10 pm CLINICAL HISTORY: Chest pain COMPARISON: March 04, 2020 FINDINGS: Right lung mass/opacities without significant change The left lung appears clear of acute infiltrate. Small right pleural effusion. The heart is mildly enlarged
[2020-03-12 12:30] LABS: Anisocytosis 1+; Blood Morphology Comment NOTED (NOT SEEN); Platelet Estimate ADEQ; Platelets, Giant NOTED
--- OUTSIDE RECORDS SUMMARY | 2020-03-12 12:59 | XMS REPORT | Clinical Summary ---
:1940 Author Organization [facility] Address [address] [place] [address] Care Team Providers Name Role Phone Charles [...] BLE BRONCHOSCOPY; Surgeon: Shaista Leonardo MD; [facility]; Service: Thoracic; Later ality: N/A; EGD, INTRAOPERATIVE 06/22/2018 N/A Procedure: E BUS W/BIOPSY; Surgeon: Jamal Leonardo MD; Location: [facility]; Serv ice: Thoracic; Laterality: N/A; Medical History [...] INFLUENZA VACCINE 12/21/2019 Results Not on fileafter 03/12/2019 Insurance Payer Benefit Plan / Subscriber ID Effective Dates Phone Addre ss Type Group MEDICARE MEDICARE PART A [id number] 2005-Present [place], [place] Medicare AND B Advance Directives For more information, please contact: [phone] Type Date Recorded Patient Panel Monitor Explanati on Advance Directives, Living Will and Medical Power of Regulatory Agency Director
--- NOTE | 2020-03-12 13:09 | RAD REPORT ---
EXAM DESCRIPTION: MRI - Brain W/Wo Cont - 03/12/2020 12:51 pm CLINICAL HISTORY: upper extremity weakness Headache, drowsiness, lung carcinoma, history of CVA, weakness COMPARISON: Ct Stroke Brain Wo Cont dated 03/12/2020 TECHNIQUE: Multi-sequence, multiplanar MR imaging of the brain was performed with contrast. FINDINGS: No intracranial hemorrhage, hydrocephalus, or extra-axial fluid collection.Moderate conflu ent T2 and FLAIR hyperintensity is seen compatible with chronic microvascular ischemic changes. No ed eusebia or shift of midline structures. No intracranial mass. 9 mm area of restricted diffusion is seen p osterior right centrum semiovale white matter compatible with acute nonhemorrhagic infarct. Several a dditional punctate micro-infarcts are seen in the subcortical region of both superior frontal lobes.. The midline structures are normally formed. Mastoid air cells and paranasal sinuses are clear. Post-contrast images show no abnormal enhancement to suggest tumor or infection. IMPRESSION: 9 mm acute nonhemorrhagic CVA posterior right periventricular white matter. Additional punctate micro-infarcts bilaterally subcortical white matter of both superior frontal lobe s. No evidence of intracranial metastatic disease.
--- NOTE | 2020-03-12 14:20 | ER ---
Nurse's Notes [facility] Name: Simon Flynn Age: 79 yrs Sex: Female : 1940 Arrival Date: 03/12/2020 Time: 10:51 Bed 7 Private MD: Diagnosis: Nonhemorrhagic CVA Presentation: 03/12 10:53 Chief complaint: Patient states: left hand/arm weakness x 1 week, worsening last night. jl7 Coronavirus screen: Client denies travel out of the [place] in the last 14 days. At this time, the client does not indicate any symptoms associated with coronavirus-19. Ebola Screen: No symptoms or risks identified at this time. No acute neurological deficit is noted. Pre-hospital glucose is not applicable to this patient. Initial Sepsis Screen: Does the patient meet any 2 criteria? No. Patient's initial sepsis screen is negative. Does the patient have a suspected source of infection? No. Patient's initial sepsis screen is negative. Risk Assessment: Do you want to hurt yourself or someone else? Patient reports no desire to harm self or others. Onset of symptoms was March 05, 2020. Care prior to arrival: None. Transition of care: patient was not received from another setting of care. 10:53 Method Of Arrival: Wheelchair [facility] 10:53 Acuity: VELASQUEZ 2 jl7 Triage Assessment: 10:59 The onset of the patients symptoms was March 05, 2020 at 12:00. General: Appears in jl7 no apparent distress. uncomfortable, Behavior is calm, cooperative, appropriate for age. Pain: Denies pain. Neuro: Level of Consciousness is awake, alert, obeys commands, Oriented to person, place, time, situation, Reports weakness in left arm. Cardiovascular: Denies chest pain, Patient's skin is warm and dry. Respiratory: Airway is patent Respiratory effort is even, unlabored, Respiratory pattern is regular, symmetrical, Denies shortness of breath. Derm: Skin is pink, warm \\T\\ dry. Wound noted right johnson and left johnson Wound is several tiny abrasions noted to bilateral shins, weeping clear fluid, redness noted extending up to left knee and wrapping around to calf on bilateral calves. Pt reports "I didn't even know they were there.". Stroke Activation: Symptom onset > 6 hours Physician: Stroke Attending; Name: ; Notified At: ; Arrived At: Physician: Chief Stroke Resident; Name: ; Notified At: ; Arrived At: Physician: Stroke Resident; Name: ; Notified At: ; Arrived At: Physician: ED Attending; Name: ; Notified At: ; Arrived At: Physician: ED Resident; Name: ; Notified At: ; Arrived At: Historical: - Allergies: 10:59 Hydroxychloroquine; jl7 - Home Meds: 10:59 aspirin 81 mg Oral TbEC 1 tab once daily [Active]; Colace 100 mg Oral cap 2 caps once jl7 daily [Active]; Crestor 10 mg Oral tab 1 tab once daily [Active]; Detrol LA 4 mg Oral cp24 1 cap once daily [Active]; dicyclomine 20 mg Oral tab 1 tab 4 times per day [Active]; Eliquis 5 mg Oral tab 1 tab 2 times per day [Active]; folic acid 400 mcg Oral tab 1 tab once daily [Active]; gabapentin 300 mg Oral cap twice a day [Active]; glimepiride 2 mg Oral tab twice a day [Active]; levothyroxine 150 mcg tab once daily [Active]; melatonin 5 mg Oral cap daily [Active]; Myrbetriq 25 mg Oral Tb24 1 tab once daily [Active]; prednisone 10 mg Oral tab once daily [Active]; Vitamin B-12 1,000 mcg Oral tab daily [Active]; turmeric root extract 500 mg Oral cap daily [Active]; sotalol 120 mg Oral tab 1 tab 2 times per day [Active]; Stool Softener 100 mg Oral tab 1 tab once daily [Active]; vitmain d 3 [Active]; rosuvastatin 5 mg Oral tab 1 tab once daily [Active]; furosemide 20 mg Oral tab 1 tab 2 times per day [Active]; trelegy ellipta inhaler [Active]; Protonix 40 mg Oral TbEC 1 tab once daily [Active]; Vitamin D Oral 1000 unit daily [Active]; - PMHx: 10:59 Atrial Fib; Back pain; Diabetes - NIDDM; High Cholesterol; Hypertension; jl7 Hypothyroidism; Lung CA; Lupus; IBS; - Immunization history:: Adult Immunizations unknown. - Social history:: Smoking status: Patient denies any tobacco usage or history of. Screenin:00 Abuse screen: Denies threats or abuse. Denies injuries from another. Nutritional jl7 screening: No deficits noted. Tuberculosis screening: No symptoms or risk factors identified. Fall Risk IV access (20 points). Ambulatory Aid- Crutches/Cane/Walker (15 pts). Gait- Weak (10 pts.). Mental Status- Oriented to own ability (0 pts). Total Jimenez Fall Scale indicates High Risk Score (45 or more points). Fall prevention measures have been instituted. Side Rails Up X 2 Placed Close to Nursing Station Frequent Obs/Assessments Occuring Family Present and informed to notify staff if the need to leave the bedside As available patient and family educated on Fall Prevention Program and Strategies. Assessment: 11:00 T-PA (Activase) Screening: Contraindications: Patient reports onset of signs and jl7 symptoms of stroke greater than 6 hours ago: Yes. 11:00 VAN Scoring: Arm Drift: Severe drift Visual Disturbance: No visual disturbance noted. jl7 Aphasia: No aphasia noted. Neglect: No neglect noted. 11:00 General: See triage assessment. jl7 11:02 Reassessment: Dr. Braswell at bedside. jl7 11:06 Reassessment: Pt to CT. jl7 11:18 The patient has not been NPO before screening. The patient is currently on the jl7 following diet: Regular The patient is alert, and able to follow commands. The patient does not exhibit slurred or garbled speech. The patient is not exhibiting difficulty speaking. The patient does not exhibit difficulty understanding words. The patient is able to swallow own secretions with no drooling or need for suction. Patient tolerated one teaspoon of water. No drooling, immediate coughing, gurgling, or clearing of the throat was noted. The patient tolerated 90mL of water. No drooling, immediate coughing, gurgling, or clearing of the throat was noted. The patient passed the bedside swallow screening. Oral medications may be given as ordered. Contact Physician for further diet orders. Provider notified of bedside swallow screening results: Yomi Braswell MD. 12:00 Reassessment: Patient appears in no apparent distress at this time. No changes from jl7 previously documented assessment. Patient and/or family updated on plan of care and expected duration. Pain level reassessed. Patient is alert, oriented x 3, equal unlabored respirations, skin warm/dry/pink. 13:00 Reassessment: Patient appears in no apparent distress at this time. No changes from jl7 previously documented assessment. Patient and/or family updated on plan of care and expected duration. Pain level reassessed. Patient is alert, oriented x 3, equal unlabored respirations, skin warm/dry/pink. 14:15 Reassessment: Assisted pt to bathroom via wheelchair, pt able to transfer with assist. jl7 17:00 Reassessment: Patient is alert, oriented x 3, equal unlabored respirations, skin aa5 warm/dry/pink. Unsuccessful attempt to call report to admitting nurse. Pt sitting up in bed watching TV and notified of wait time to be transported to Room assignment. . 17:50 Reassessment: Patient is alert, oriented x 3, equal unlabored respirations, skin aa5 warm/dry/pink. Vital Signs: 10:53 Pulse 59; Resp 17; Pulse Ox 24% ; Weight 89.81 kg; Height 5 ft. 0 in. (152.40 cm); Pain jl7 0/10; 11:34 BP 106 / 68; Pulse 95; Resp 19; Pulse Ox 100% on 2 lpm NC; jl7 13:47 BP 110 / 80; Pulse 96; Resp 17; Pulse Ox 99% on 2 lpm NC; jl7 14:26 BP 113 / 66; Pulse 59; Resp 19 S; Pulse Ox 99% on 2 lpm NC; jl7 15:30 BP 106 / 51; Pulse 85; Resp 18 S; Pulse Ox 100% on 2 lpm NC; aa5 17:00 BP 107 / 53; Pulse 99; Resp 16 S; Pulse Ox 100% on 2 lpm NC; aa5 17:45 BP 109 / 78; Pulse 84; Resp 18 S; Temp 98.0(TE); Pulse Ox 98% on 2 lpm NC; aa5 10:53 Body Mass Index 38.67 (89.81 kg, 152.40 cm) jl7 NIH Stroke Scale Scores: 11:00 NIHSS Score: 2 jl7 ED Course: 10:51 Patient arrived in ED. iw 10:53 Modesto Mckee, RN is Primary Nurse. jl7 10:55 Triage completed. jl7 10:58 Initial lab(s) drawn, by me, sent to lab. Inserted saline lock: 20 gauge in right aa5 forearm, using aseptic technique. Blood collected. 10:59 Yomi Braswell MD is Attending Physician. kdr 10:59 Arm band placed on right wrist. jl7 11:00 EKG done, by ED staff, reviewed by Yomi Braswell MD. jl7 11:00 Patient has correct armband on for positive identification. Placed in gown. Bed in low jl7 position. Call light in reach. Side rails up X 1. cash grain farmer on. Pulse ox on. NIBP on. Warm blanket given. Pillow given. 11:13 CT Stroke Brain w/o Contrast In Process Unspecified. EDMS 12:03 Manual Differential Sent. jl7 12:11 Stroke CXR 1 View In Process Unspecified. EDMS 12:42 Brain W/Wo Cont In Process Unspecified. EDMS 14:19 Key Hammer MD is Hospitalizing Provider. kdr 14:26 No provider procedures requiring assistance completed. Patient admitted, IV remains in jl7 place. intact, No redness/swelling at site. Administered Medications: 11:45 Drug: Aspirin Chewable Tablet 81 mg Route: PO; jl7 12:03 Follow up: Response: No adverse reaction jl7 Point of Care Testing: Blood Glucose: 10:59 Blood Glucose: 96 mg/dL; jl7 Ranges: Outcome: 14:20 Decision to Hospitalize by Provider. kdr 17:50 Admitted to Tele accompanied by tech, via stretcher, with oxygen, with chart, Report aa5 called to ARASH STOUT 17:50 Condition: stable 17:50 Instructed on the need for admit, Demonstrated understanding of instructions. 17:55 Patient left the ED. aa5 NIH Stroke Scale - NIH Stroke Score Date: 03/12/2020 Time: 11:00 Total Score = 2 1a. Level of Consciousness (LOC) - 0(Alert) 1b. Level of Consciousness (LOC) (Year \\T\\ Age) - 0(Both) 1c. LOC Commands (Open \\T\\ Closes Eyes/Warp Hauler) - 0(Both) 2. Best Gaze (Lateral Gaze Paresis) - 0(Normal) 3. Visual Field Loss - 0(No visual loss) 4. Facial Palsy - 0(Normal) 5a. Left Arm: Motor (10-second hold) - 1(Drift) 5b. Right Arm: Motor (10-second hold) - 0(No drift) 6a. Left Leg: Motor (5-second hold - always test supine) - 0(No drift) 6b. Right Leg: Motor (5-second hold - always test supine) - 0(No drift) 7. Limb Ataxia (finger/nose \\T\\ heel/johnson - test with eyes open) - 1(Present in one limb) 8. Sensory Loss (pinprick arms/legs/face) - 0(Normal) 9. Best Language: Aphasia (description/naming/reading) - 0(No aphasia) 10. Dysarthria (speech clarity - read or repeat words) - 0(Normal) 11. Extinction and Inattention (visual/tactile/auditory/spatial/personal) - 0(No abnormality) Initials: jl7 Signatures: Dispatcher [employer] EDMS Yomi Braswell MD MD kdr Pricila Dorman RN RN iw Natasha Benavides RN RN aa5 Modesto Mckee RN RN jl7 Corrections: (The following items were deleted from the chart) 17:59 17:45 BP 109 / 78; Pulse 84bpm; Resp 18bpm; Spontaneous; Pulse Ox 98% RA; Temp aa5 98.0F Temporal; aa5
--- NOTE | 2020-03-12 14:20 | EDPHYS ---
Physician Documentation [facility] Name: Simon Flynn Age: 79 yrs Sex: Female : 1940 Arrival Date: 03/12/2020 Time: 10:51 Bed 7 Private MD: ED Physician Yomi Braswell HPI: 03/12 11:18 This 79 yrs old Female presents to ER via Wheelchair with complaints of S/S kdr of Possible Stroke. 11:18 The patient's problem is reported as weakness, in the left upper extremity. Onset: The kdr symptoms/episode began/occurred gradually, 1 week(s) ago. Duration: The episode is continuous, the symptoms became worse This morning. Context: the episode(s) was witnessed, by a friend, symptoms became apparent at an unknown time, occurred at home, occurred while the patient was Light activity. Was unable to lift a dish about a week ago and has persisted with the weakness.. The symptoms are alleviated by nothing. The symptoms are aggravated by. Associated signs and symptoms: The patient has no apparent associated signs or symptoms. Severity of symptoms: At their worst the symptoms were mild in the emergency department the symptoms are unchanged. Patient's baseline: Neuro: alert and fully oriented, Motor: left-sided weakness, LUE weakness, Ambulation: walks without assistance, Speech: normal for age. The patient has not experienced similar symptoms in the past. The patient has not recently seen a physician. Historical: - Allergies: 10:59 Hydroxychloroquine; jl7 - Home Meds: 10:59 aspirin 81 mg Oral TbEC 1 tab once daily [Active]; Colace 100 mg Oral cap 2 caps once jl7 daily [Active]; Crestor 10 mg Oral tab 1 tab once daily [Active]; Detrol LA 4 mg Oral cp24 1 cap once daily [Active]; dicyclomine 20 mg Oral tab 1 tab 4 times per day [Active]; Eliquis 5 mg Oral tab 1 tab 2 times per day [Active]; folic acid 400 mcg Oral tab 1 tab once daily [Active]; gabapentin 300 mg Oral cap twice a day [Active]; glimepiride 2 mg Oral tab twice a day [Active]; levothyroxine 150 mcg tab once daily [Active]; melatonin 5 mg Oral cap daily [Active]; Myrbetriq 25 mg Oral Tb24 1 tab once daily [Active]; prednisone 10 mg Oral tab once daily [Active]; Vitamin B-12 1,000 mcg Oral tab daily [Active]; turmeric root extract 500 mg Oral cap daily [Active]; sotalol 120 mg Oral tab 1 tab 2 times per day [Active]; Stool Softener 100 mg Oral tab 1 tab once daily [Active]; vitmain d 3 [Active]; rosuvastatin 5 mg Oral tab 1 tab once daily [Active]; furosemide 20 mg Oral tab 1 tab 2 times per day [Active]; trelegy ellipta inhaler [Active]; Protonix 40 mg Oral TbEC 1 tab once daily [Active]; Vitamin D Oral 1000 unit daily [Active]; - PMHx: 10:59 Atrial Fib; Back pain; Diabetes - NIDDM; High Cholesterol; Hypertension; jl7 Hypothyroidism; Lung CA; Lupus; IBS; - Immunization history:: Adult Immunizations unknown. - Social history:: Smoking status: Patient denies any tobacco usage or history of. ROS: 11:18 Constitutional: Negative for fever, chills, and weight loss, Eyes: Negative for injury, kdr pain, redness, and discharge, ENT: Negative for injury, pain, and discharge, Neck: Negative for injury, pain, and swelling, Cardiovascular: Negative for chest pain, palpitations, and edema, Respiratory: Negative for shortness of breath, cough, wheezing, and pleuritic chest pain, Abdomen/GI: Negative for abdominal pain, nausea, vomiting, diarrhea, and constipation, Back: Negative for injury and pain, : Negative for injury, bleeding, discharge, and swelling, MS/Extremity: Negative for injury and deformity, Skin: Negative for injury, rash, and discoloration, Psych: Negative for depression, anxiety, suicide ideation, homicidal ideation, and hallucinations, Allergy/Immunology: Negative for hives, rash, and allergies, Endocrine: Negative for neck swelling, polydipsia, polyuria, polyphagia, and marked weight changes, Hematologic/Lymphatic: Negative for swollen nodes, abnormal bleeding, and unusual bruising. 11:18 Neuro: Positive for weakness, of the left arm. Exam: 11:18 Radiologist reports: Negative kdr 11:18 Constitutional: This is a well developed, well nourished patient who is awake, alert, and in no acute distress. Head/Face: Normocephalic, atraumatic. Eyes: Pupils equal round and reactive to light, extra-ocular motions intact. Lids and lashes normal. Conjunctiva and sclera are non-icteric and not injected. Cornea within normal limits. Periorbital areas with no swelling, redness, or edema. Neck: Trachea midline, no thyromegaly or masses palpated, and no cervical lymphadenopathy. Supple, full range of motion without nuchal rigidity, or vertebral point tenderness. No Meningismus. Chest/axilla: Normal chest wall appearance and motion. Nontender with no deformity. No lesions are appreciated. Cardiovascular: Regular rate and rhythm with a normal S1 and S2. No gallops, murmurs, or rubs. Normal PMI, no JVD. No pulse deficits. Respiratory: Lungs have equal breath sounds bilaterally, clear to auscultation and percussion. No rales, rhonchi or wheezes noted. No increased work of breathing, no retractions or nasal flaring. Abdomen/GI: Soft, non-tender, with normal bowel sounds. No distension or tympany. No guarding or rebound. No evidence of tenderness throughout. Back: No spinal tenderness. No costovertebral tenderness. Full range of motion. Skin: Warm, dry with normal turgor. Normal color with no rashes, no lesions, and no evidence of cellulitis. MS/ Extremity: Pulses equal, no cyanosis. Neurovascular intact. Full, normal range of motion. Psych: Awake, alert, with orientation to person, place and time. Behavior, mood, and affect are within normal limits. 11:18 Constitutional: The patient appears in no acute distress. 11:18 Neuro: Orientation: is normal, Mentation: is normal, appropriate for stated age, Cranial nerves: no acute changes, Cerebellar function: no acute changes, Motor: no acute changes, moves all fours, strength is 5/5 in the right arm, right leg and left leg, strength is 4/5 in the left arm, Sensation: is normal, Gait: not tested. 17:49 ECG was reviewed by the Attending Physician. kdr Vital Signs: 10:53 Pulse 59; Resp 17; Pulse Ox 24% ; Weight 89.81 kg; Height 5 ft. 0 in. (152.40 cm); Pain jl7 0/10; 11:34 BP 106 / 68; Pulse 95; Resp 19; Pulse Ox 100% on 2 lpm NC; jl7 13:47 BP 110 / 80; Pulse 96; Resp 17; Pulse Ox 99% on 2 lpm NC; jl7 14:26 BP 113 / 66; Pulse 59; Resp 19 S; Pulse Ox 99% on 2 lpm NC; jl7 15:30 BP 106 / 51; Pulse 85; Resp 18 S; Pulse Ox 100% on 2 lpm NC; aa5 17:00 BP 107 / 53; Pulse 99; Resp 16 S; Pulse Ox 100% on 2 lpm NC; aa5 17:45 BP 109 / 78; Pulse 84; Resp 18 S; Temp 98.0(TE); Pulse Ox 98% on 2 lpm NC; aa5 10:53 Body Mass Index 38.67 (89.81 kg, 152.40 cm) jl7 NIH Stroke Scale Scores: 11:00 NIHSS Score: 2 jl7 MDM: 14:20 Patient medically screened. kdr 14:20 Data reviewed: vital signs, nurses notes, lab test result(s), radiologic studies. kdr Counseling: I had a detailed discussion with the patient and/or guardian regarding: the historical points, exam findings, and any diagnostic results supporting the discharge/admit diagnosis, lab results, radiology results, the need for further work-up and treatment in the hospital. 03/12 10:57 Order name: Basic Metabolic Panel; Complete Time: 13:48 aa5 03/12 10:57 Order name: CBC with Diff; Complete Time: 13:48 aa 03/12 10:57 Order name: Protime (+inr); Complete Time: 13:48 aa 03/12 10:57 Order name: Ptt, Activated; Complete Time: 13:48 aa5 03/12 10:57 Order name: glucometer results - FOR PT WITH NO ID; Complete Time: 13:48 aa 03/12 11:14 Order name: Manual Differential; Complete Time: 13:48 EDTX 03/12 16:04 Order name: CKMB Creatine Kinase MB EDTX 03/12 16:04 Order name: CKMB Creatine Kinase MB EDTX 03/12 16:04 Order name: Creatine Phosphokinase EDTX 03/12 16:04 Order name: Creatine Phosphokinase EDTX 03/12 16:04 Order name: Lipid Profile [facility] 03/12 16:04 Order name: Lipid Profile EDTX 03/12 16:04 Order name: Troponin I EDTX 03/12 16:04 Order name: Troponin I EDTX 03/12 10:57 Order name: CT Stroke Brain w/o Contrast; Complete Time: 13:48 aa5 03/12 10:57 Order name: Stroke CXR 1 View; Complete Time: 13:48 aa5 03/12 10:57 Order name: EKG; Complete Time: 10:58 aa5 03/12 10:57 Order name: Accucheck; Complete Time: 10:57 aa5 03/12 10:57 Order name: Cardiac monitoring; Complete Time: 10:57 aa5 03/12 10:57 Order name: EKG - Nurse/Tech; Complete Time: 10:57 aa5 03/12 10:57 Order name: IV Saline Lock; Complete Time: 10:57 aa5 03/12 10:57 Order name: Labs collected and sent; Complete Time: 10:57 aa5 03/12 10:57 Order name: NPO; Complete Time: 10:57 aa5 03/12 12:25 Order name: Brain W/Wo Cont; Complete Time: 13:48 EDTX 03/12 16:04 Order name: NPO EDTX 03/12 16:04 Order name: NPO [facility] 03/12 16:04 Order name: NPO [facility] 03/12 10:57 Order name: O2 Per Protocol; Complete Time: 10:57 aa5 03/12 10:57 Order name: O2 Sat Monitoring; Complete Time: 10:57 aa5 03/12 10:57 Order name: Stroke Swallow Screen; Complete Time: 11:24 aa5 Administered Medications: 11:45 Drug: Aspirin Chewable Tablet 81 mg Route: PO; jl7 12:03 Follow up: Response: No adverse reaction jl7 Point of Care Testing: Blood Glucose: 10:59 Blood Glucose: 96 mg/dL; jl7 Ranges: Critical Glucose Levels:Adult <50 mg/dl or >400 mg/dl <40 mg/dl or >180 mg/dl Disposition: 03/12/20 14:20 Hospitalization ordered by Key Hammer for Inpatient Admission. Preliminary diagnosis is Nonhemorrhagic CVA. - Bed requested for Telemetry/MedSurg (Inpatient). - Status is Inpatient Admission. aa5 - Condition is Fair. - Problem is new. - Symptoms are unchanged. NIH Stroke Scale - NIH Stroke Score Date: 03/12/2020 Time: 11:00 Total Score = 2 1a. Level of Consciousness (LOC) - 0(Alert) 1b. Level of Consciousness (LOC) (Year \T\ Age) - 0(Both) 1c. LOC Commands (Open \T\ Closes Eyes/Plant Control Operator) - 0(Both) 2. Best Gaze (Lateral Gaze Paresis) - 0(Normal) 3. Visual Field Loss - 0(No visual loss) 4. Facial Palsy - 0(Normal) 5a. Left Arm: Motor (10-second hold) - 1(Drift) 5b. Right Arm: Motor (10-second hold) - 0(No drift) 6a. Left Leg: Motor (5-second hold - always test supine) - 0(No drift) 6b. Right Leg: Motor (5-second hold - always test supine) - 0(No drift) 7. Limb Ataxia (finger/nose \T\ heel/johnson - test with eyes open) - 1(Present in one limb) 8. Sensory Loss (pinprick arms/legs/face) - 0(Normal) 9. Best Language: Aphasia (description/naming/reading) - 0(No aphasia) 10. Dysarthria (speech clarity - read or repeat words) - 0(Normal) 11. Extinction and Inattention (visual/tactile/auditory/spatial/personal) - 0(No abnormality) Initials: jl7 Signatures: Dispatcher [employer] EDMS Renetta Lovell RN RN dw Rittger, Kevin, MD MD [facility] Natasha Benavides RN RN aa5 Modesto Mckee RN RN jl7 Corrections: (The following items were deleted from the chart) 12:24 11:25 MRA Head Wo Cont ordered. EDMS EDMS 12:25 11:31 Brain With Cont ordered. EDMS EDMS 16:54 14:20 Hospitalization Ordered by A Harman CARRASCO for Inpatient Admission. Preliminary dw diagnosis is Nonhemorrhagic CVA. Bed requested for Telemetry/MedSurg (Inpatient). Status is Inpatient Admission. Condition is Fair. Problem is new. Symptoms are unchanged. kdr 17:55 16:54 03/12/2020 14:20 Hospitalization Ordered by A Harman CARRASCO for Inpatient aa5 Admission. Preliminary diagnosis is Nonhemorrhagic CVA. Bed requested for Telemetry/MedSurg (Inpatient). Status is Inpatient Admission. Condition is Fair. Problem is new. Symptoms are unchanged. dw
[2020-03-12] MEDS: NA CHLORIDE 0.9% 1,000 ML IV SCH ×2 (16:00→18:39)
[2020-03-12 20:58] VITALS: BMI 38.7
[2020-03-12] MEDS ORDERED: AMOX/K CLAV 875 MG TAB PO ONE (22:04)
[2020-03-12] MEDS ORDERED: GLUCAGON 1 MG/VIAL IM PRN (22:08)
[2020-03-12] MEDS ORDERED: D50W 25 GM/50 ML SYRINGE/VIAL IV PRN (22:08)
[2020-03-12] MEDS: APIXABAN 5 MG TABLET PO SCH (23:19)
--- NOTE | 2020-03-12 23:22 | HP ---
Date of Admission: 03/12/2020 Chief Complaint: Weakness of left arm. History Of Present Illness: Ms. Flynn is a very pleasant 79-year-old female patient who was recently in the hospital with atrial fibrillation with rapid ventricular rate. The patient was discharged to go home last week and her medical power of estate attorney from out of town came here to [facility] and plan was for the patient to travel to [place] to mother home for further care, and after all the arrangements including arrangements for portable oxygen completed, the patient was planning to leave today, so jesus cisco actually came to my office to say goodbye to me since she knew that she probably will not be coming back to this area anymore after leaving today. So, I did go out while she was in the office parking lot and talked to her for about 5 minutes, and at that time she did not voice any complaints at all and probably about hour or 2 hours after that visit, I received a phone call that the patient was goi ng to emergency room with possibility of stroke. After she was evaluated in the ER, she was actually diagnosed of having non-hemorrhagic stroke, and she was admitted to the hospital. I saw her this ev ening and she was in the room. Denies any headache, nausea, or vomiting. Upon further questioning, she reports that for last at least 4-5 days or maybe little longer, but she thinks probably as of beg inning of this week so last 4-5 days, she has been having trouble using her left hand and left arm an d she did not know exactly what was wrong, so she did not mention it to me or anybody else, and the p atient describes her weakness of left arm as her left hand and left arm does not do what she wants he r hand or arm to do, so she actually had trouble caring out her day-to-day function. She also had a little bit trouble walking, but she did not realize and did not pay much attention. Allergies: TO HYDROXYCHLOROQUINE. Review of Systems: GEOTECHNICAL FIELD TECHNICIAN as mentioned above. All other systems reviewed and negative. Medications: List reviewed and see copy of a prior H and P from 03/04/2020 for details. Past Medical History: Significant for stroke in 2012, hypothyroidism, type 2 diabetes mellitus, lung cancer for which she has received chemotherapy and radiation therapy and she is under care of Dr. Lm talavera and Dr. Phillip. Past medical history also significant for hypertension, hyperlipidemia, chronic diastolic congestive heart failure, paroxysmal atrial fibrillation, gastroesophageal reflux disease, chronic kidney disease, overactive bladder, osteoarthritis at multiple sites, systemic lupus erythem atosus, and thrombocytopenia. Past Surgical History: Back surgery, carpal tunnel release of the left hands. Family History: Father , had cerebral hemorrhage. Mother , had PR and cerebral hemorrhage. Social History: Negative for smoking or alcohol use. Physical Examination: Vital Signs: Last temperature 97, pulse 81, respiratory rate 20, blood pressure 113/69. General: Awake, alert, oriented, not in distress. HEENT: Head atraumatic, normocephalic. Conjunctivae nonerythematous. Sclerae white. Mouth, no thr ush or edema noted. Ears/Nose, no mass, lesion, discharge noted. Neck: Supple. No JVD, lymph nodes, bruit, thyromegaly noted. Lungs: Bilateral good equal air entry. Clear to auscultation. No rhonchi. No rales. Heart: Normal heart sounds, no murmur or gallop. Abdomen: Soft, bowel sounds normal. No guarding, rigidity, tenderness, mass, hepatosplenomegaly, dis tention, or bruit noted. Extremities: Bilateral grade 1 pedal edema and skin over both lower anterior leg is pink and warm to touch. Skin: No rash, ulcer, cellulitis. Lymphatics: No lymph node enlargement in neck, supraclavicular, infraclavicular region. GEOTECHNICAL FIELD TECHNICIAN: Power in the left upper and left lower extremity is grade 4+ over 5. Otherwise, no focal neuro logical deficits. Chest: Unremarkable. External Genitalia: Deferred. Rectal: Deferred. Laboratory Data: White count 8.8, hemoglobin 12.7, platelets 244. INR 2.06. Sodium 141, potassium 3.9 chloride 104, bicarb 32, BUN 28, creatinine 1.05, glucose 99. Chest x-ray shows right lung mass without significant change. CAT scan of the brain without contrast; no acute intracranial changes. MRI of the brain shows 9 mm acute non-hemorrhagic CVA, posterior right periventricular white matter, additional punctate micro infarct bilaterally, subcortical white matter on both superior frontal lobe s, no evidence of metastatic disease. Impression: 1.Stroke. 2.Atrial fibrillation. 3.Hypertension. 4.Cellulitis, both legs. 5.Lung cancer. 6.Type 2 diabetes mellitus. 7.Hypothyroidism. 8.Hyperlipidemia. 9.Chronic diastolic congestive heart failure. 10.Chronic steroid therapy. 11.Overactive bladder. 12.Osteoarthritis, multiple sites. 13.Systemic lupus erythematosus. 14.Gastroesophageal reflux disease. Plan: Admit the patient to hospital for further evaluation and management of this problem. The the medical center ent is appropriate for inpatient and is expected to spend 2 midnights in hospital. We will continue home medications per order. We will go ahead and consult Physical Therapy consult neurologist, Dr. Augustus hinojosa, and consult outbound telemarketer, Dr. Barriga. We will communicate with Dr. Barriga and Dr. Renata molina both, and the patient reports that she is taking her Eliquis regularly, so only other concern we [place] ve is the failure of anticoagulation therapy as underlying cause for this, and I will communicate wit Dr. Barriga to see if the patient qualifies for Watchman's procedure or not. I did discuss with e patient about all these details. I will see her tomorrow for followup. JANNA/MODL Voice ID: [id number]
[2020-03-13] MEDS: NA CHLORIDE 0.9% 1,000 ML IV SCH ×3 (04:31→17:09)
[2020-03-13 06:49] LABS: CKMB Creatine Kinase MB 1.4 ng/mL (0.3-3.6); Creatine Phosphokinase 47 U/L (26-192); HDL Cholesterol 37 mg/dL (40-60); LDL Cholesterol, Calculated 75 (<130); Troponin I < 0.02 ng/mL (0.0-0.045)
[2020-03-13] MEDS: INSULIN -REGULAR HUMAN 50 UNIT/0.5 ML ML SQ SCH ×3 (07:30→16:04)
[2020-03-13] MEDS: APIXABAN 5 MG TABLET PO SCH (07:55)
[2020-03-13] MEDS ORDERED: SOTALOL HCL 80 MG TAB PO SCH (09:00)
[2020-03-13] MEDS ORDERED: AMOX/K CLAV 875 MG TAB PO SCH (09:00)
[2020-03-13 09:24] VITALS: O2SAT 98
--- NOTE | 2020-03-13 10:15 | RAD REPORT ---
EXAM DESCRIPTION: - CP - 03/13/2020 9:55 am CLINICAL HISTORY: stroke Headache, drowsiness, CVA symptomology COMPARISON: Head C Spine Mpr Wo Con dated 11/18/2019; Brain W/Wo Cont dated 03/12/2020 TECHNIQUE: Real-time sonographic evaluation of both carotid systems was performed. Doppler interroga tion was performed with waveform tracing bilaterally. FINDINGS: Normal high resistance waveforms are noted in both external carotid arteries. The common c arotid arteries and internal carotid arteries show normal low resistance waveforms. Small hard plaque is present in both carotid bulbs. Peak systolic and end diastolic velocity values a nd the ICA/CCA ratios are in the non-hemodynamically significant range. Antegrade flow seen in both vertebral arteries. IMPRESSION: Small hard plaque is present in both carotid bulbs. No evidence of a hemodynamically significant stenosis.
--- NOTE | 2020-03-13 13:25 | CON ---
Reason For Consultation: Consultation called because of strokes. These are embolic strokes likely from the heart. History Of Present Illness: Ms. Flynn is a 79-year-old right-handed patient with paroxysmal atrial fibrillation with occasional rapid ventricular response, who has been in and out of atrial fibrillation over the last few weeks. She has other comorbidities including hypertension, dyslipidemia, cellulitis, lung cancer, diabetes mellitus type 2, chronic steroid therapy, and class [address] obesity[address] She was seeing Dr. Hammer and was actually on the way out of town when at that point, she did not voice any issues in terms of weakness of her arms or legs, but 2 hours later was apparently on her way to the emergency room because of worsening left-sided weakness. She did note in retrospect that she had off and on about 4 to 5 days of left-sided weakness in the arm, but did not immediately seek attention then. Imaging at the [facility] included a head CT scan which showed no acute ischemic or hemorrhagic change. The study was remarkable for mild small-vessel ischemic disease in the periventricular region. However, MRI of the brain done subsequently identified moderate confluent T2 and FLAIR hyperintensities compatible with chronic small- vessel disease. However, there was a 9 mm area of restricted diffusion in the posterior right centrum semiovale compatible with acute hemorrhagic infarct. Also several additional punctate micro infarcts were seen in the subcortical region of both superior frontal lobes. The suggestion is that the patient has a cardiac clots from atrial fibrillation, which resulted in cardioembolic strokes. She had no evidence of intracranial metastatic disease. There was a review of the patient's medications Eliquis, which she should have been taking 5 mg daily. She was prescribed medication on 17 of last month, a 3-month supply. She should have been taking it twice daily. Therefore, in a month, she should use 60 tablets. However, she had used less than 30 tablets in that time. On questioning, she did say she would occasionally forget, but is not sure how often she forgot to take the medication. Past Medical History: As indicated. Allergies: HYDROXYCHLOROQUINE. Home Medications: Although aspirin is listed as a home medication, she was just on the Eliquis and aspirin has been stopped. Colace 100 mg 2 capsules daily, Crestor 10 mg daily, Detrol long-acting daily, dicyclomine 20 mg daily, Eliquis 5 mg twice daily listed with poor compliance, folate 400 mcg daily, gabapentin 300 mg twice daily, glimepiride 2 mg twice daily, levothyroxine 150 mcg daily, melatonin 5 mg daily, Myrbetriq 25 mg daily, prednisone 10 mg daily, Vitamin B12 1000 mcg daily, turmeric extract 500 mg daily, sotalol twice daily, Colace 100 mg daily, vitamin D3 1000 units daily, Rosuvastatin 5 mg daily, furosemide 20 mg twice daily, Trelegy Ellipta inhaler daily, Protonix 40 mg daily. Past Medical History: Additional past medical history includes lupus, lung cancer, hypothyroidism, and irritable bowel syndrome. Family History: Noncontributory. Social History: No alcohol, tobacco, or IV drug use. Review of Systems: She has not had recent fevers or chills. No nausea, vomiting, myalgias, arthralgias, headache, weight change, rash, psychiatric complaints, gastrointestinal complaints, and urinary complaints. Physical Examination: Vital Signs: Blood pressure 116/59, pulse 82, respiratory rate 18, temperature 97.9. Oxygen saturation 98 to 99% on 2 to 3 L oxygen. Weight 198 pounds, height 5 feet, BMI 38.7. General: Ms. Flynn is lying in bed, in no significant distress. She is normocephalic, atraumatic. Sclerae anicteric. Oropharynx is pink and moist. Neck: Supple. Chest: Clear. Extremities: Show evidence of cellulitis with red petechial areas and the left more than right lower extremity in the tibialis anterior region more prominent and the posterior leg. Neurological: She is alert and oriented to situation, place, and person. She follows all commands appropriately. In terms of cranial nerve deficits, no focal deficits detected. Her motor examination on the left upper extremity, she is 3/5. On the right, she is 4/5, diffuse weakness, possibly debility and this is proximally and distally. Sensory examination, slight decrease to light touch temperature in the left compared to the right side, in the lower extremity, she has a 4/5 strength, right 5/5. Sensation slightly decreased in the left compared to the right lower extremity. Coordination intact in the upper and lower extremities. Reflexes depressed and symmetric in upper and lower extremities and sensation, she has a stocking-glove loss to light touch and temperature as well. Gait, she will be ambulated with the physical therapist. She does have a tendency to lose her balance. She did ambulate to the bathroom and required 2-person assistance to get up and out of bed to the bathroom and one-person assistance to get back to bed. Laboratory Studies: Complete blood count with differential is essentially normal except neutrophils elevated at 87.3 with normal white blood cell count of 8.8. Coagulation panel shows INR 2.06. Glucose ranged from 45 up to 139, HDL cholesterol 37, LDL cholesterol 75. The cholesterol to HDL ratio 3.7, otherwise electrolytes essentially unremarkable. Her echocardiogram is pending. Carotid artery ultrasound showed small hard plaque in the bulb. No evidence of hemodynamically significant stenosis bilaterally. Assessment: Ms. Flynn is a 79-year-old patient with multiple stroke risk factors as outlined above including hypertension, diabetes mellitus, dyslipidemia, and she has atrial fibrillation and likely cardioembolic strokes in multiple vascular territories. She does plan to go out of town. She was poorly compliant with Eliquis and possibly a contributing factor to her stroke. In addition, she had mild dehydration. Plan: 1. Eliquis 5 mg daily. 2. She should start aggressive physical therapy. 3. Continue treatment for her cellulitis. 4. High-dose statin at night. 5. She may follow up with neurologist as soon as she arrives at her destination. BLAKE Voice ID: [id number] Report ID: [id number] SIOBHAN
[2020-03-13 16:15] VITALS: BP 140/90; TEMP 97
--- NOTE | 2020-03-13 21:43 | DS ---
Date of Discharge: 03/13/2020 Disposition: The patient was discharged with her medical power of smasher and she will be traveling to go to [place] tomorrow to mother home. Physical Examination: HEENT: Unremarkable. Lungs: Clear to auscultation. Heart: Sounds normal. Abdomen: Soft. Bowel sounds normal. No guarding, rigidity, tenderness, or distention. Extremities: Trace leg edema. Redness from both lower extremity. Anterior lower leg is better toda y than yesterday. 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 Rest of the neurolog ical exam remains unremarkable. Hospital Course: This is a 79-year-old female patient, who was admitted to the hospital with stroke. Please see dictated H and P for more information. After the patient was evaluated in the emergency room, she was admitted to the hospital with this nonhemorrhagic stroke. Please see dictated H and P for more details. The patient informed me yesterday at the time of admission as well as during rece nt prior admission that she takes her medications regularly as prescribed. We did verify her refill history during last hospital stay, but we did not have any medication bottles to verify. During this hospital stay, her medical power of smasher did bring all her medication bottles with her to the [facility] today and I did review all those medication bottles, especially Eliquis. Upon review, we foun d out that the patient received her 90 days supply of Eliquis on February 06, 2020, so she received 180 tablets on that particular day. Out of that supply, she has 150 tablets left as we counted today , so in 45 days or after 45 days from that refill date from February 06, 2020 until today, she shoul d have used half of her supply, so she should have used 90 pills and should have only 90 pills left o hector, but instead of that, we have 154 tablets left and she also has pill box at home, which may have another week to 2 weeks supply in that. So, obviously it is very clear on basis of pill count that s he is not taking her medications the way it is prescribed to her and this is the reason why we believ e that she actually ended up having this stroke from her atrial fibrillation and we believe that this is due to embolization from left atrial blood clot due to underlying atrial fibrillation. The patie nt was made aware of this, medical power of smasher was made aware of this. I did discuss all these details with neurologist, Dr. Garcia, as well as gum cook and we all have the same opinion irina t the patient was not compliant with her medication resulting in this stroke. From now on, the valeria nt will be going to mother home where she will be taken care of by nursing staff and she will receive therapy over there. As we originally thought yesterday that she may need Watchman device placed, bu t on basis of today's information, she does not need such device and all she needs to do is at this p oint, take her medications regularly. She originally was planning to fly from here to [place] today afternoon, but because of this hospital stay that trip was canceled and she will be leaving tomorrow with her medical power of smasher to go to mother home where she will stay from now on and she will not be returning back to town as I understand. Her left-sided weakness on exam remains unchanged to day from yesterday. Discharge Medications And Instructions: Continue all prior home medications. The patient and the mallory rehman's medical power of smasher were advised that she should not ambulate, she should not walk, she should use wheelchair and medical power of smasher already has arranged for the wheelchair, and the patient should not transfer independently. Also, she should be assisted with the transfer to avoid any fall or injury. All these instructions were explained to medical power of smasher and the chanie nt. Her carotid Doppler came back unremarkable. No evidence of hemodynamically significant stenotic lesion. Copy of this hospital's H and P, chest x-ray, CAT scan of the brain, MRI of the brain, and last hospital's H and P, discharge summary including recent PET scan that she had on outpatient basis , all those copies given to medical power of smasher to take with her for continuity of care and she will contact my office if she needs any further assistance or any medical record, so we can assist h er. Final Diagnoses: 1.Acute stroke, bilateral frontal lobe, due to cardiac embolization with underlying atrial fibrillat ion. 2.Paroxysmal atrial fibrillation. 3.Cellulitis, both lower legs. 4.Hypertension. 5.Lung cancer. 6.Type 2 diabetes mellitus. 7.Hypothyroidism. 8.Hyperlipidemia. 9.Chronic diastolic congestive heart failure. 10.Chronic steroid therapy. 11.Overactive bladder. 12.Osteoarthritis, multiple sites. 13.Systemic lupus erythematosus. 14.Gastroesophageal reflux disease. JANNA/MODL Voice ID: [id number] Report ID: [id number]
--- NOTE | 2020-03-15 03:55 | CON ---
Date of Consultation: 03/13/2020 Reason For Consultation: CVA. History Of Present Illness: Ms. Flynn is very well known to me from previous admissions over the las t month or so and from the office and from conversation with Dr. Hammer. She is a 79-year-old woman. She has a history of paroxysmal atrial fibrillation, for which she takes Betapace 120 mg b.i.d. Ther e have been a lot of question regarding her compliance with her medication, but nevertheless came in with stroke. She was fully alert and oriented, but had left-sided weakness, left upper extremity wea kness. Her speech was normal for age. Denied any chest pain, palpitation, or syncope. Denied any n ausea, vomiting, diaphoresis. Denied any fever or chills. She had been planning a trip out of town in the next day or 2 and this case has been discussed with Dr. Hammer in details. Past Medical History: Include paroxysmal atrial fibrillation, diabetes, lupus, hypertension, dyslipi demia, irritable bowel syndrome, lung cancer, and hypothyroidism. Allergies: HYDROXYCHLOROQUINE. Review of Systems: Negative. Social History: Negative. Family History: Negative. Medications: At home include aspirin, Crestor, Eliquis 5 b.i.d., Neurontin, Synthroid, Myrbetriq, pr ednisone, sotalol 120 b.i.d., Lasix 20 mg daily, Lipitor, Ellipta, Protonix. Physical Examination: Vital Signs: Stable. She was afebrile. HEENT: Negative. Neck: Supple with no bruit. Chest: Clear to auscultation and percussion. Cardiac: Atrial fibrillation, rate of 74. Abdomen: Normal. Extremities: No clubbing, cyanosis, or edema. Neurologic: She has some left-sided weakness. Otherwise, normal speech. Diagnostic Data: Her laboratory evaluation was fairly normal except for a glucose of 163, her INR wa s 2.06, her lipid profile was normal. She had a carotid artery ultrasound that showed some small lisa ques in both carotids, but no significant stenosis. Chest x-ray was positive for right lung mass and small right pleural effusion. MRI of the brain revealed a 9 mm acute nonhemorrhagic CVA in the post erior right periventricular white matter. No evidence of metastatic disease. Impression And Plan: Paroxysmal atrial fibrillation with stroke. It is unclear to me and Dr. Hammer a t this point whether she has been taking her medication adequately. The patient should be a candidat e for Watchman procedure if she is taking her Eliquis. We will investigate that further. Dr. Hammer i s going to do a pill count. For now, she is hemodynamically stable. She has been seen by Dr. Kodak beauchamp, who recommended Eliquis, aggressive physical therapy, treatments for cellulitis, high-dose statin at night. Regarding her other issues including diabetes, dyslipidemia, hypertension, hypothyroidism , lung mass, lupus, and IBS, she is stable and she will continue with the present regimen. Dr. Hammer and I will discuss her atrial fibrillation status later. EMILY/NIYA Voice ID: [id number] Report ID: [id number]
--- NOTE | 2020-03-16 11:10 | ECHO ---
HEIGHT: 5 ft 0 in WEIGHT: 198 lb 0 oz DATE OF STUDY: 03/13/[address]: Charles Hammer MD 2-DIMENSIONAL: YES M.MODE: YES DOPPLER: YES COLOR FLOW: YES TDS: YES PORTABLE: NO DEFINITY: NO BUBBLE STUDY: NO DIAGNOSIS: ATRIAL FIBRILLATION, STROKE CARDIAC HISTORY: CATHERIZATION: NO SURGERY: NO PROSTHETIC VALVE: NO PACEMAKER: NO MEASUREMENTS (cm) DIASTOLIC (NORMALS) SYSTOLIC (NORMALS) IVSd 1.2 (0.6-1.2) LA Diam 3.7 (1.9-4.0) LVEF 52% LVIDd 3.9 (3.5-5.7) LVIDs 2.9 (2.0-3.5) %FS 26% LVPWd 1.2 (0.6-1.2) Ao Diam 2.4 (2.0-3.7) 2 DIMENSIONAL ASSESSMENT: RIGHT ATRIUM: NORMAL LEFT ATRIUM: NORMAL RIGHT VENTRICLE: NORMAL LEFT VENTRICLE: NORMAL TRICUSPID VALVE: NORMAL MITRAL VALVE: MITRAL ANNULAR CALCIFICATION PULMONIC VALVE: NORMAL AORTIC VALVE: NORMAL PERICARDIAL EFFUSION: NONE AORTIC ROOT: NORMAL LEFT VENTRICULAR WALL MOTION: NORMAL. DOPPLER/COLOR FLOW: MILD TRICUSPID REGURGITATION. COMMENTS: MILD TRICUSPID REGURGITATION. ATRIAL FIBRILLATION. MITRAL ANNULAR CALCIFICATION. NORMAL LEFT VENTRICULAR EJECTION FRACTION. NO THROMBUS. TECHNOLOGIST: MARIBEL STEPHENS
== END 2020-03-13 17:45 | disposition home or self-care (01) | DRG 65 ==
LOC: ER 10:46 → ERHOLD 16:03 → 2ND 17:47
PROVIDERS: ADMIT Internal Medicine; ATTEND Internal Medicine
DX: I63.9 Cerebral infarction, unspecified (principal); I13.0 Hypertensive heart and chronic kidney disease with heart failure and stage 1 through stage 4 chronic kidney disease, or unspecified chronic kidney disease; I50.32 Chronic diastolic (congestive) heart failure; L03.116 Cellulitis of left lower limb; L03.115 Cellulitis of right lower limb; G81.94 Hemiplegia, unspecified affecting left nondominant side; N18.9 Chronic kidney disease, unspecified; E11.22 Type 2 diabetes mellitus with diabetic chronic kidney disease; E78.5 Hyperlipidemia, unspecified; N32.81 Overactive bladder; M19.90 Unspecified osteoarthritis, unspecified site; I48.0 Paroxysmal atrial fibrillation; E86.0 Dehydration; M32.9 Systemic lupus erythematosus, unspecified; E03.9 Hypothyroidism, unspecified; E66.8 Other obesity; R53.1 Weakness; R29.702 NIHSS score 2; Z68.38 Body mass index [BMI] 38.0-38.9, adult; Z79.82 Long term (current) use of aspirin; Z79.01 Long term (current) use of anticoagulants; Z79.890 Hormone replacement therapy; Z79.84 Long term (current) use of oral hypoglycemic drugs; Z79.899 Other long term (current) drug therapy; Z79.52 Long term (current) use of systemic steroids; Z85.118 Personal history of other malignant neoplasm of bronchus and lung; Z88.8 Allergy status to other drugs, medicaments and biological substances; Z86.73 Personal history of transient ischemic attack (TIA), and cerebral infarction without residual deficits; Z91.14 Patient's other noncompliance with medication regimen
CPT/HCPCS: 36415; 70450; 70553; 71045; 78815; 80048; 80061; 82550; 82553; 82947; 84484; 85025; 85610; 85730; 93005; 93306; 93880; 97112; 97116; 97161; 97530; 99285; A9552; A9577; J7030